=== PATIENT | female | born 1945 | race Caucasian/White ===

== ENCOUNTER 2016-09-06 14:13 | Observation (INO) | payer MEDICARE, OTHER ==
[2016-09-06] MEDS ORDERED: NITROGLYCERIN OINT 1 INCH/GM PACKET TOPICAL STA (15:09)
[2016-09-06] MEDS ORDERED: ASPIRIN 81 MG CHEW PO STA (15:09)
[2016-09-06] MEDS ORDERED: hydrALAZINE HCL 20 MG/ML 1 ML VIAL IVP STA (15:10)
[2016-09-06] MEDS ORDERED: LORazepam 2 MG/ML SYRINGE IV STA (15:10)
--- NOTE | 2016-09-06 15:12 | ED ---
General Adult HPI - General Chief complaint: Chest Pain Stated complaint: poss med reaction-sent by /chest pain Time Seen by Provider: 09/06/16 14:30 Source: patient Mode of arrival: wheelchair Limitations: no limitations - History of Present Illness Initial comments: This is a 71-year-old female with past medical history significant for diabetes high blood pressure high cholesterol. Patient states she also had a history of vertigo. Patient states today she was off balance when she was walking and then she started getting some tingling in her mouth area and that made her very nervous. Patient states she also was having some chest pain that was different than any of the chest pain she had she described it as a heaviness and it just felt different than she is accustomed to feeling. She called her primary medical care doctor to inform her of the symptoms and they told to come to the emergency department immediately. Patient denies any shortness of breath or difficulty breathing. Patient denies any diaphoresis. Patient denies any nausea. Patient states she has a very mild headache but there is no numbness or weakness. Patient denies any visual disturbance or speech disturbance. Patient denies any abdominal pain. Patient denies any recent fever chills or cough. Patient denies any recent injury or trauma - Related Data Home Medications Medication Instructions Recorded Confirmed Aspirin EC [Ecotrin Low Dose] 81 mg PO DAILY 12/22/15 09/06/16 Famotidine [Pepcid] 20 mg PO BID 12/22/15 09/06/16 Lisinopril [Zestril] 10 mg PO DAILY 12/22/15 09/06/16 Lovastatin [Mevacor] 40 mg PO HS 12/22/15 09/06/16 Metoprolol Tartrate [Lopressor] 100 mg PO DAILY 12/22/15 09/06/16 ALPRAZolam [Xanax] 0.25 mg PO HS 09/06/16 09/06/16 Albuterol Nebulized [Ventolin 2.5 mg INHALATION RT-TID 09/06/16 09/06/16 Nebulized] Allopurinol [Zyloprim] 100 mg PO DAILY 09/06/16 09/06/16 Baclofen 10 mg PO BID 09/06/16 09/06/16 Budesonide [Pulmicort] 0.5 mg INHALATION RT-BID 09/06/16 09/06/16 Diphenoxylate HCl/Atropine 1 tab PO TID PRN 09/06/16 09/06/16 [Lomotil] Gabapentin [Neurontin] 300 mg PO TID 09/06/16 09/06/16 Hydrocodone/Acetaminophen [[place] 1 tab PO Q6H PRN 09/06/16 09/06/16 7.5-325] Insulin NPH Hum/Reg Insulin Hm 26 unit SQ AC-BID 09/06/16 09/06/16 [Novolin 70-30 100 Unit/ml Vial] Levothyroxine Sodium [Synthroid] 112 mcg PO DAILY 09/06/16 09/06/16 amLODIPine [Norvasc] 5 mg PO DAILY 09/06/16 09/06/16 Allergies Allergy/AdvReac Type Severity Reaction Status Date / Time No Known Allergies Allergy Verified 09/06/16 14:25 Review of Systems ROS Statement: Those systems with pertinent positive or pertinent negative responses have been documented in the HPI. ROS Other: All systems not noted in ROS Statement are negative. Past Medical History Past Medical History: Diabetes Mellitus, Hyperlipidemia, Hypertension, Osteoarthritis (OA), Thyroid Disorder Additional Past Medical History / Comment(s): gout History of Any Multi-Drug Resistant Organisms: None Reported Past Surgical History: Cholecystectomy, Hysterectomy Past Psychological History: No Psychological Hx Reported Smoking Status: Former smoker Past Alcohol Use History: None Reported Past Drug Use History: None Reported General Exam - General Exam Comments Initial Comments: GENERAL: Patient is well-developed and well-nourished. Patient is nontoxic and well- hydrated and is in mild distress. ENT: Neck is soft and supple. No significant lymphadenopathy is noted. Oropharynx is clear. Moist mucous membranes. Neck has full range of motion without eliciting any pain. EYES: The sclera were anicteric and conjunctiva were pink and moist. Extraocular movements were intact and pupils were equal round and reactive to light. Eyelids were unremarkable. PULMONARY: Unlabored respirations. Good breath sounds bilaterally. No audible rales rhonchi or wheezing was noted. CARDIOVASCULAR: There is a regular rate and rhythm without any murmurs gallops or rubs. ABDOMEN: Soft and nontender with normal bowel sounds. No palpable organomegaly was noted. There is no palpable pulsatile mass. SKIN: Skin is clear with no lesions or rashes and otherwise unremarkable. NEUROLOGIC: Patient is alert and oriented x3. Cranial nerves II through XII are grossly intact. Motor and sensory are also intact. Normal speech, volume and content. Symmetrical smile. MUSCULOSKELETAL: Normal extremities with adequate strength and full range of motion. No lower extremity swelling or edema. No calf tenderness. LYMPHATICS: No significant lymphadenopathy is noted PSYCHIATRIC: Patient is moderately anxious Limitations: no limitations Course Vital Signs 09/06/16 09/06/16 09/06/16 14:25 14:48 16:06 Temperature 98.6 F Pulse Rate 80 67 79 Respiratory 18 20 20 Rate Blood Pressure 173/82 221/95 136/66 O2 Sat by Pulse 98 98 97 Oximetry 09/06/16 16:44 Temperature Pulse Rate 75 Respiratory 18 Rate Blood Pressure 116/57 O2 Sat by Pulse 96 Oximetry Medical Decision Making - Medical Decision Making [place] interval is 148 QRSs 80 QT interval is 432 QTC is 462. Patient's EKG shows no ST segment depression or T wave abnormalities are noted Chest x-ray shows no acute abnormality. I spoke with Dr. Ricks he agreed to admit the patient admitted the patient wrote admitting orders. - Lab Data Result diagrams: 09/06/16 15:34 09/06/16 15:34 Lab Results 09/06/16 09/06/16 09/06/16 Range/Units 15:34 15:34 15:34 WBC 7.3 (3.8-10.6) k/uL RBC 4.43 (3.80-5.40) m/uL Hgb 13.3 (11.4-16.0) gm/dL Hct 40.4 (34.0-46.0) % MCV 91.2 (80.0-100.0) fL MCH 29.9 (25.0-35.0) pg MCHC 32.8 (31.0-37.0) g/dL RDW 14.1 (11.5-15.5) % Plt Count 228 (150-450) k/uL Neutrophils % 63 % Lymphocytes % 25 % Monocytes % 8 % Eosinophils % 1 % Basophils % 1 % Neutrophils # 4.6 (1.3-7.7) k/uL Lymphocytes # 1.8 (1.0-4.8) k/uL Monocytes # 0.6 (0-1.0) k/uL Eosinophils # 0.1 (0-0.7) k/uL Basophils # 0.1 (0-0.2) k/uL PT (9.0-12.0) sec INR (<1.1) APTT (22.0-30.0) sec Sodium 138 (137-145) mmol/L Potassium 5.1 (3.5-5.1) mmol/L Chloride 102 (98-107) mmol/L Carbon Dioxide 20 L (22-30) mmol/L Anion Gap 16 mmol/L BUN 35 H (7-17) mg/dL Creatinine 1.38 H (0.52-1.04) mg/dL Est GFR (MDRD) Af Amer 46 (>60 ml/min/1.73 sqM) Est GFR (MDRD) Non-Af 38 (>60 ml/min/1.73 sqM) Glucose 231 H (74-99) mg/dL Calcium 9.8 (8.4-10.2) mg/dL Magnesium 1.8 (1.6-2.3) mg/dL Total Bilirubin 0.5 (0.2-1.3) mg/dL AST 19 (14-36) U/L ALT 30 (9-52) U/L Alkaline Phosphatase 91 (38-126) U/L Total Creatine Kinase 84 (30-135) U/L CK-MB (CK-2) 1.2 (0.0-2.4) ng/mL CK-MB (CK-2) Rel Index 1.4 Troponin I <0.012 (0.000-0.034) ng/mL NT-Pro-B Natriuret Pep pg/mL Total Protein 7.5 (6.3-8.2) g/dL Albumin 4.4 (3.5-5.0) g/dL 09/06/16 09/06/16 Range/Units 15:34 15:34 WBC (3.8-10.6) k/uL RBC (3.80-5.40) m/uL Hgb (11.4-16.0) gm/dL Hct (34.0-46.0) % MCV (80.0-100.0) fL MCH (25.0-35.0) pg MCHC (31.0-37.0) g/dL RDW (11.5-15.5) % Plt Count (150-450) k/uL Neutrophils % % Lymphocytes % % Monocytes % % Eosinophils % % Basophils % % Neutrophils # (1.3-7.7) k/uL Lymphocytes # (1.0-4.8) k/uL Monocytes # (0-1.0) k/uL Eosinophils # (0-0.7) k/uL Basophils # (0-0.2) k/uL PT 10.5 (9.0-12.0) sec INR 1.0 (<1.1) APTT 25.6 (22.0-30.0) sec Sodium (137-145) mmol/L Potassium (3.5-5.1) mmol/L Chloride (98-107) mmol/L Carbon Dioxide (22-30) mmol/L Anion Gap mmol/L BUN (7-17) mg/dL Creatinine (0.52-1.04) mg/dL Est GFR (MDRD) Af Amer (>60 ml/min/1.73 sqM) Est GFR (MDRD) Non-Af (>60 ml/min/1.73 sqM) Glucose (74-99) mg/dL Calcium (8.4-10.2) mg/dL Magnesium (1.6-2.3) mg/dL Total Bilirubin (0.2-1.3) mg/dL AST (14-36) U/L ALT (9-52) U/L Alkaline Phosphatase (38-126) U/L Total Creatine Kinase (30-135) U/L CK-MB (CK-2) (0.0-2.4) ng/mL CK-MB (CK-2) Rel Index Troponin I (0.000-0.034) ng/mL NT-Pro-B Natriuret Pep 424 pg/mL Total Protein (6.3-8.2) g/dL Albumin (3.5-5.0) g/dL Disposition Clinical Impression: Chest pain Disposition: ADMITTED IP TO THIS [facility] Time of Disposition: 17:10
[2016-09-06] MEDS ORDERED: ONDANSETRON 4 MG/2 ML VIAL IVP STA (15:25)
[2016-09-06 15:51] LABS: Basophils # (A) 0.1 k/uL (0-0.2); Basophils % (A) 1 %; CH 30.7; CHCM 33.8; Eosinophils # (A) 0.1 k/uL (0-0.7); Eosinophils % (A) 1 %; HCT 40.4 % (34.0-46.0); HDW 2.54; HGB 13.3 gm/dL (11.4-16.0); Luc # (Auto) 0.16; Luc % (Auto) 2; Lymphocytes # (A) 1.8 k/uL (1.0-4.8); Lymphocytes % (A) 25 %; MCH 29.9 pg (25.0-35.0); MCHC 32.8 g/dL (31.0-37.0); MCV 91.2 fL (80.0-100.0); Mean Platelet Volume 7.8; Monocytes # (A) 0.6 k/uL (0-1.0); Monocytes % (A) 8 %; Neutrophils # (A) 4.6 k/uL (1.3-7.7); Neutrophils % (A) 63 %; RBC 4.43 m/uL (3.80-5.40); RDW 14.1 % (11.5-15.5); WBC 7.3 k/uL (3.8-10.6); WBC (Perox) 7.58
[2016-09-06 16:02] LABS: Partial Thromboplastin Time 25.6 sec (22.0-30.0); Prothrombin Time 10.5 sec (9.0-12.0)
--- NOTE | 2016-09-06 16:02 | XR ---
EXAMINATION TYPE: XR chest 2V DATE OF EXAM: 09/06/2016 3:46 PM COMPARISON: 04/13/2013 HISTORY: Chest pain FINDINGS: The lungs are clear and there is no pneumothorax, pleural effusion, or focal pneumonia. Degenerativ e change of the spine noted. The heart is enlarged. Arthropathy of the shoulders. IMPRESSION: 1. No acute process.
[2016-09-06 16:06] LABS: Calcium 9.8 mg/dL (8.4-10.2); Magnesium 1.8 mg/dL (1.6-2.3); Potassium 5.1 mmol/L (3.5-5.1); Total Bilirubin 0.5 mg/dL (0.2-1.3); Total Protein 7.5 g/dL (6.3-8.2)
[2016-09-06 16:16] LABS: Creatine Kinase 84 U/L (30-135)
[2016-09-06 16:30] LABS: Creatine Kinase MB 1.2 ng/mL (0.0-2.4); Troponin I <0.012 ng/mL (0.000-0.034)
[2016-09-06 18:27] LABS: Glucose,Whole Blood 173 mg/dL (75-99)
[2016-09-06] MEDS: NITROGLYCERIN SL TABS 0.4 MG TAB SUBLINGUAL PRN ×3 (20:35→20:46)
[2016-09-06] MEDS ORDERED: DIPHENOX-ATROP 2.5-0.025 MG 1 EACH TAB PO PRN (21:04)
[2016-09-06 21:06] LABS: Glucose,Whole Blood 167 mg/dL (75-99)
[2016-09-06] MEDS ORDERED: methylPREDNISolone SOD SUCCI 125 MG/2 ML VIAL IV STA (21:10)
[2016-09-06] MEDS ORDERED: ALPRAZolam 0.5 MG TAB PO SCH (21:15)
[2016-09-06 21:38] LABS: Creatine Kinase 68 U/L (30-135)
[2016-09-06 21:50] LABS: Troponin I <0.012 ng/mL (0.000-0.034)
[2016-09-06] MEDS: GABAPENTIN 300 MG CAP PO SCH (23:10)
[2016-09-06] MEDS: FAMOTIDINE 20 MG TAB PO SCH (23:10)
[2016-09-06] MEDS: HYDROcodone/APAP 7.5-325MG 1 EACH TAB PO PRN (23:10)
[2016-09-06] MEDS: INSULIN LISPRO (humaLOG) 300 UNIT/3 ML VIAL SQ SCH (23:11)
[2016-09-06] MEDS: BACLOFEN 10 MG TAB PO SCH (23:11)
[2016-09-06] MEDS: ATORVASTATIN 10 MG TAB PO SCH (23:11)
[2016-09-06] MEDS: NITROGLYCERIN OINT 1 INCH/GM PACKET TOPICAL SCH (23:14)
[2016-09-07] MEDS: HYDROcodone/APAP 7.5-325MG 1 EACH TAB PO PRN ×2 (04:26→12:13)
[2016-09-07 04:30] LABS: Cholesterol 173 mg/dL (<200); HDL Cholesterol 58 mg/dL (40-60); Triglycerides 160 mg/dL (<150)
[2016-09-07 04:44] LABS: Creatine Kinase 63 U/L (30-135)
[2016-09-07 04:56] LABS: Creatine Kinase MB 0.9 ng/mL (0.0-2.4); Troponin I <0.012 ng/mL (0.000-0.034)
[2016-09-07] MEDS: NITROGLYCERIN OINT 1 INCH/GM PACKET TOPICAL SCH ×3 (05:27→20:11)
[2016-09-07] MEDS: MORPHINE SULFATE 2 MG/ML SYRINGE IVP PRN ×2 (05:31→09:03)
[2016-09-07] MEDS ORDERED: LEVOTHYROXINE 112 MCG TAB PO SCH (06:30)
[2016-09-07 07:10] LABS: Glucose,Whole Blood 219 mg/dL (75-99)
[2016-09-07] MEDS: ALBUTEROL NEBULIZED 2.5 MG/3 ML INHALATION SCH ×3 (08:18→20:37)
[2016-09-07] MEDS: BUDESONIDE 0.5 MG/2 ML NEBU INHALATION SCH ×2 (08:18→20:37)
[2016-09-07] MEDS: GABAPENTIN 300 MG CAP PO SCH ×3 (08:57→20:35)
[2016-09-07] MEDS: BACLOFEN 10 MG TAB PO SCH ×2 (08:57→20:35)
[2016-09-07] MEDS ORDERED: ASPIRIN 325 MG TAB PO SCH (09:00)
[2016-09-07] MEDS ORDERED: METOPROLOL TARTRATE 50 MG TAB PO SCH (09:00)
[2016-09-07] MEDS ORDERED: ASPIRIN 81 MG CHEW PO SCH (09:00)
[2016-09-07] MEDS ORDERED: amLODIPine 5 MG TAB PO SCH (09:00)
[2016-09-07] MEDS ORDERED: LISINOPRIL 10 MG TAB PO SCH (09:00)
[2016-09-07 10:25] LABS: Hemoglobin A1C 7.6 % (4.2-6.1)
[2016-09-07] MEDS: INSULIN LISPRO (humaLOG) 300 UNIT/3 ML VIAL SQ SCH ×4 (10:36→20:36)
--- NOTE | 2016-09-07 11:15 | CONS ---
DATE OF CONSULTATION: Marizol Frances is a 71-year-old female who started experiencing numbness of the tongue and then she started experiencing chest discomfort and came to the hospital. Her first ECG was normal. Three sets of cardiac enzymes have been normal. She has had chest discomfort continuously since yesterday. Her chest wall is quite tender and she winces when the costochondral junction of the left side is touched, especially one particular spot. She denies any shortness of breath, orthopnea, PND, or any palpitations. REVIEW OF SYSTEMS: No fever, chills, or rigors. No cough or expectoration. No abdominal pain or diarrhea. No hematuria or dysuria. No strokes or seizures. No skin lesions. No musculoskeletal complaints. She does complain of being weak and tired. Past history of diabetes, hypertension, increased BMI of greater than 40. She also has CKS. Medication list was reviewed and is documented in the chart. She sees Dr. Mendoza on a regular basis. She also has gout. ALLERGIES: No known drug allergies. On examination, her blood pressure is 137/62 mmHg, heart rate is in the 70s. Head and neck examination is normal. Heart sounds are normal. Lungs are clear to auscultation. Extremities are warm. No edema. She is tender in the costochondral junction on both sides, but more so on the left side. IMPRESSION: 1. Musculoskeletal chest discomfort, likely costochondritis. 2. Recent stress test in the office. Patient states it was normal. I have asked for a faxed copy of this report to review. 3. Diabetes, adult onset on insulin. 4. Hypertension, on medical treatment. Blood pressure is controlled. 5. Dyslipidemia. 6. Increased body mass index. 7. Numbness of the tongue which may need to be further evaluated. SUGGEST: From a cardiac standpoint., if the stress test in the office was normal., I will continue with cardiac medications. Follow up with Dr. Mendoza and the rest of the management per the primary.
[2016-09-07 12:06] LABS: Glucose,Whole Blood 226 mg/dL (75-99)
[2016-09-07] MEDS: FAMOTIDINE 20 MG TAB PO SCH (12:08)
[2016-09-07] MEDS ORDERED: ALPRAZolam 0.25 MG TAB PO PRN (14:30)
[2016-09-07] MEDS ORDERED: SODIUM CHLORIDE 0.9% 1,000 ML IV SCH (14:30)
--- NOTE | 2016-09-07 15:13 | CT ---
EXAMINATION TYPE: CT brain wo con DATE OF EXAM: 09/07/2016 3:06 PM COMPARISON: NONE INDICATION: Speech abnormality slurred speech DLP: 845.2 mGycm, Automated exposure control for dose reduction was used. CONTRAST: None CT of the brain is performed utilizing 3 mm thick sections through the posterior fossa and 3 mm thick sections through the remaining calvarium. Study is performed within 24 hours of arrival to the hosp ital. No abnormal hyperdensity is present to suggest an acute intracranial hemorrhage. No mass lesion is evident. No acute infarcts are evident. Periventricular white matter hypodensity is present, likely on the bas is of confluent white matter changes. Ventricles and sulci are slightly prominent for the patient age. Paranasal sinuses and mastoid air cells within the [id number] are clear. IMPRESSIONS: 1. Atrophy with periventricular white matter ischemic changes
--- NOTE | 2016-09-07 15:52 | US ---
EXAMINATION TYPE: US carotid duplex BILAT DATE OF EXAM: 09/07/2016 3:17 PM COMPARISON: No previous CLINICAL HISTORY: TIA. Slurred speech, numbness EXAM MEASUREMENTS: RIGHT: Peak Systolic Velocity (PSV) cm/sec ----- Right CCA: 70.2 ----- Right ICA: 146.2 ----- Right ECA: 184.3 ICA/CCA ratio: 2.1 RIGHT: End Diastole cm/sec ----- Right CCA: 19.7 ----- Right ICA: 43.9 ----- Right ECA: 16.8 LEFT: Peak Systolic Velocity (PSV) cm/sec ----- Left CCA: 97.9 ----- Left ICA: 117.7 ----- Left ECA: 120.4 ICA/CCA ratio: 1.2 LEFT: End Diastole cm/sec ----- Left CCA: 21.6 ----- Left ICA: 30.4 ----- Left ECA: 8.9 VERTEBRALS (direction of flow): Right Vertebral: Antegrade Left Vertebral: Antegrade TECHNOLOGIST IMPRESSION: Bilateral intimal thickening, plaque bilateral bulb and proximal ICA, eleva jerry velocities: right mid ICA, right distal ICA and right mid ECA, right ICA/CCA ratio of 2.1 Atheromatous plaquing is within the right carotid bulb. There is some mild filling of the acoustic wi ndows on the right compatible with turbulent flow. Intimal thickening is present on the left. Mild fi lling of the acoustic window on the left is present compatible with turbulent flow IMPRESSION: 1. Atheromatous plaquing greater on the right with bilateral intimal thickening. 2. Narrowing on the right internal carotid artery estimated between 50 and 69% based on internal reis tid artery velocity and ratio. Criteria for Assigning % of Stenosis / Diameter reduction (Estimation based on the indirect measurements of the internal carotid artery velocities (ICA PSV). 1. Normal (no stenosis)=ICA PSV < 125 cm/s: ratio < 2.0: ICA EDV<40 cm/s. 2. Less than 50% stenosis=ICA PSV < 125 cm/s: ratio < 2.0: ICA EDV<40 cm/s. 3. 50 to 69% stenosis=ICA PSV of 125 to 230 cm/s: ration 2.0 ? 4.0: ICA EDV 40-100 cm/s. 4. Greater than 70% stenosis to near occlusion= ICA PSV > 230 cm/s: ratio > 4.0: ICA EDV > 100 cm/s. 5. Near occlusion= ICA PSV velocities may be low or undetectable: variable ratio and ICA EDV. 6. Total occlusion=unable to detect flow.
[2016-09-07 17:16] LABS: Glucose,Whole Blood 250 mg/dL (75-99)
[2016-09-07] MEDS ORDERED: RX INFO: IV CONTRAST WAS GIVEN 1 EACH MISC MISCELLANE PRN (17:25)
[2016-09-07] MEDS ORDERED: INSULIN NPH/REG INSULIN 70/30 300 UNIT/3 ML VIAL SQ SCH (17:30)
[2016-09-07 18:38] VITALS: PULSE 74
--- NOTE | 2016-09-07 18:40 | HP ---
DATE OF ADMISSION: 09/06/2016 HISTORY AND PHYSICAL AND DISCHARGE SUMMARY Patient is a 71-year-old female, history of hypertension, diabetes mellitus, and hypercholesterolemia, came in with complaints of chest pain. Appears to be noncardiac ( ). Patient was ( ) diaphoresis, nausea, vomiting when she came in. Patient's chest pain is about 7/10 in severity at that time. Nonradiating. The patient was evaluated by Cardiology. Ruled out acute coronary syndrome with troponins and EKGs. Patient was diagnosed with costochondritis. Patient apparently was complaining of tingling and numbness of the tongue yesterday in ER. Today morning when I evaluated the patient she complained of slurred speech and patient's speech is definitely abnormal when I evaluated the patient. Because of which I obtained a CT scan of the head without contrast which was negative. Carotid Doppler which showed subclinical stenosis of one side, of below 69%. I consulted Neurology and patient is already on aspirin. I discussed with the nursing staff. Apparently whenever, patient gets anxious she will have slurred speech as per the nursing staff. Although, patient denied any weakness, patient does have generalized weakness all over the body. Reflexes are essentially within normal limits. No focal sensory deficits were appreciated. Patient denied any facial droop. Patient denied any headaches. Patient denied any seizure-like activity. The patient does not have any seizures. Denied any syncopal episodes. REVIEW OF SYSTEMS: CONSTITUTIONAL: No fever, no malaise, no fatigue. HEENT: No recent visual problems or hearing problems. Denied any sore throat. CARDIOVASCULAR: As described in HPI. PULMONARY: No shortness of breath, no cough, no hemoptysis. GASTROINTESTINAL: No diarrhea, no nausea, no vomiting, no abdominal pain. Normoactive bowel sounds. NEUROLOGICAL: As described in HPI. HEMATOLOGICAL: Denies any bleeding or petechiae. GENITOURINARY: Denies any burning micturition, frequency, or urgency. MUSCULOSKELETAL/RHEUMATOLOGICAL: Denies any joint pain, swelling, or any muscle pain. ENDOCRINE: Denies any polyuria or polydipsia. The rest of the 14 point review of systems is negative. Medications include: Aspirin, famotidine, lisinopril, lovastatin, metoprolol, alprazolam, albuterol, allopurinol, baclofen, Rocephin, diphenoxylate, ipratropium. Patient does have IBS for which patient uses diphenoxylate and ( ). Gabapentin, hydrocodone acetaminophen, NPH 70/30 26 units a.c. b.i.d., levothyroxine, amlodipine 5 mg oral daily, which I held because of low normal blood pressure and to allow premature hypertension if at all there is any TIA or stroke. ALLERGIES: No known drug allergies. PAST MEDICAL HISTORY: Diabetes mellitus. Hyperlipidemia, hypertension, osteoarthritis, hypothyroidism, cholecystectomy, hysterectomy in the past, former smoker. Denied any alcohol abuse or any drug abuse. Family history significant for strokes in the family when I discussed with the daughter. PHYSICAL EXAMINATION: VITAL SIGNS: Temperature 98.6, pulse of 67, respiratory rate 20, blood pressure on arrival to the ER was 221/95 and when I evaluated the patient it was 116/57, saturating at 96% on room air. GENERAL: Patient does have generalized weakness with diffusely decreased strength of 4/5 in bilateral upper extremities and lower extremities. HEENT: Pupils are round and equally reacting to light. EOMI. No scleral icterus. No conjunctival pallor. Normocephalic, atraumatic. No pharyngeal erythema. No thyromegaly. CARDIOVASCULAR: S1 and S2 present. No murmurs, rubs, or gallops. PULMONARY: Chest is clear to auscultation, no wheezing or crackles. ABDOMEN: Soft, nontender, nondistended, normoactive bowel sounds. No palpable organomegaly. MUSCULOSKELETAL: No joint swelling or deformity. EXTREMITIES: No cyanosis, clubbing, or pedal edema. NEUROLOGICAL: On neurological examination I did not appreciate any sensory deficits. Strength in all four limbs is about 4/5. No focal deficits were appreciated. Babinski, bilateral legs is downgoing. SKIN: No rashes. LABORATORY DATA: CBC and CMP are abnormal for mildly elevated creatinine of 1.38. I do not have her baseline creatinine. Potassium of 5.1. BUN of 35. ASSESSMENT AND PLAN: 1. Chest pain as mentioned, noncardiac. patient is ruled out acute coronary syndrome, unstable angina and patient will need antiinflammatories for her costochondritis. 2. Possibility of transient ischemic attack or stroke with today morning after a couple episodes of slurred speech. When I evaluated the patient she had continued slurred speech. Patient will definitely need evaluation for transient ischemic attack or stroke. As per the family request, the patient will be transferred to [facility]. Apparently the case was discussed with neurologist in [facility] who recommend scans of the head and neck because of the findings from carotid Doppler as mentioned above. Those will be obtained before her transfer. Patient already received aspirin today. Further work-up for stroke versus transient ischemic attack as an outpatient, although my overall suspicion for transient ischemic attack is low. 3. Acute renal failure, possibly acute renal failure for which I started her on IV fluids. Due to intravascular volume depletion patient does not have any diarrhea at this point of time. 4. History of irritable bowel syndrome without any excessive diarrhea or constipation at this time and patient will be continued on diphenoxylate and atropine. 5. Hyperlipidemia. 6. Diabetes mellitus. 7. Hypothyroidism. 8. Hypertension. For above mentioned chronic medical problems, I will go ahead and continue her home medications. Because of the above mentioned low normal blood pressures I will hold off on amlodipine to allow any premature hypertension ( ) TIA or stroke. Patient will be transferred to [facility] as discussed above.
[2016-09-07 20:29] VITALS: BP 129/64; RESP 16; TEMP 97.8
[2016-09-07] MEDS: ATORVASTATIN 10 MG TAB PO SCH (20:35)
[2016-09-07 20:52] LABS: Glucose,Whole Blood 196 mg/dL (75-99)
[2016-09-08] MEDS ORDERED: FAMOTIDINE 20 MG TAB PO SCH (09:00)
== END 2016-09-07 21:39 | disposition other institution (70) ==
LOC: EC 14:13 → 3OBS 17:11 → 6SEL 09-07 19:35
PROVIDERS: ADMIT Internal Medicine; ATTEND Internal Medicine
DX: M94.0 Chondrocostal junction syndrome [Tietze] (principal); R47.81 Slurred speech; E78.5 Hyperlipidemia, unspecified; E11.9 Type 2 diabetes mellitus without complications; E03.9 Hypothyroidism, unspecified; I10 Essential (primary) hypertension; R20.0 Anesthesia of skin; M19.90 Unspecified osteoarthritis, unspecified site; E07.9 Disorder of thyroid, unspecified; M10.9 Gout, unspecified; Z79.82 Long term (current) use of aspirin; Z79.51 Long term (current) use of inhaled steroids; Z79.4 Long term (current) use of insulin; Z79.899 Other long term (current) drug therapy; Z87.891 Personal history of nicotine dependence; K58.9 Irritable bowel syndrome, unspecified; Z82.3 Family history of stroke
CPT/HCPCS: 36415; 94640 ×2; 93005; 83880; 80061; 80053; 83036; 82550 ×2; 82553 ×2; 83735; 84484 ×2; 85025; 85610; 85730; 71020; 93880; 70450; 99285; 96374; 96375 ×2; G0378 ×3; J2060; J0360; J2930; J2405; J2270; 96376

== ENCOUNTER → 2018-11-06 | Outpatient (CLI) | payer MEDICARE, OTHER ==
[2018-11-06 19:04] LABS: C Reactive Protein 0.7 mg/dL (0.0-0.8)
== END ==
LOC: LABWHC1 12:21
PROVIDERS: ATTEND Psychiatry & Neurology Neurology
DX: M79.10 Myalgia, unspecified site (principal); M25.50 Pain in unspecified joint
CPT/HCPCS: 36415; 82550; 85652; 86140; 86618

== ENCOUNTER → 2018-12-03 | Outpatient (CLI) | payer MEDICARE, OTHER ==
[2018-12-03 20:30] LABS: LDL Cholesterol,Calculated 104.2 mg/dL (0.0-131.0); VLDL Calculation 35.8 mg/dL (5.00-40.00)
== END ==
LOC: LABWHC1 11:01
PROVIDERS: ATTEND Psychiatry & Neurology Neurology
DX: E78.5 Hyperlipidemia, unspecified (principal)
CPT/HCPCS: 36415; 80061

== ENCOUNTER 2019-02-19 07:57 | Day surgery (SDC) | payer MEDICARE, OTHER ==
[2019-02-19 08:30] VITALS: PULSE 75; RESP 16; TEMP 98.2
[2019-02-19] MEDS ORDERED: ALPRAZolam 0.25 MG TAB PO ONE (08:35)
[2019-02-19 09:54] VITALS: BP 157/77
== END 2019-02-19 10:50 | disposition home or self-care (01) ==
LOC: RADMRIMAIN 07:57
PROVIDERS: ATTEND Surgery
DX: C50.911 Malignant neoplasm of unspecified site of right female breast (principal); Z53.8 Procedure and treatment not carried out for other reasons

== ENCOUNTER → 2019-03-05 | Outpatient (CLI) | payer MEDICARE, OTHER ==
[2019-03-05 11:53] LABS: Potassium 4.5 mmol/L (3.5-5.1)
== END | disposition home or self-care (01) ==
LOC: LABPAT 10:41
PROVIDERS: ATTEND Surgery
DX: Z01.818 Encounter for other preprocedural examination (principal); Z79.4 Long term (current) use of insulin; E10.9 Type 1 diabetes mellitus without complications; Z01.812 Encounter for preprocedural laboratory examination
CPT/HCPCS: 36415; 82565; 84132; 84520; 93005

== ENCOUNTER 2019-03-07 06:21 | Day surgery (SDC) | payer MEDICARE, OTHER ==
[~2019-03-07 06:21] MED LIST: LIDOCAINE 1% 20 ML VIAL (10MG/ML) FOR IV START INTRADERMA PRN; ONDANSETRON 4 MG/2 ML VIAL IVP ONE; ONDANSETRON 4 MG/2 ML VIAL IVP PRN; Pre Op ABX Message 1 EACH MISC MISCELLANE ONE; SCOPOLAMINE 1.5MG/72HR PATCH TRANSDERM ONE
[2019-03-07] MEDS: LACTATED RINGERS 1,000 ML IV SCH (06:40)
[2019-03-07 07:03] LABS: Glucose,Whole Blood 132 mg/dL (75-99)
[2019-03-07] MEDS ORDERED: ALPRAZolam 0.25 MG TAB PO ONE (07:10)
--- NOTE | 2019-03-07 07:55 | P.GSHP ---
History of Present Illness H&P Date: 03/07/19 Chief Complaint: Right breast cancer 73-year-old female presents today for bilateral mastectomy. The patient had recent diagnosis of right breast cancer after wire localization biopsy. Lymph node sampling was not obtained during that surgery however the patient's margins were close but clear on the biopsy specimen. The patient was agreeable to radiation therapy. We decided not to follow through with lymph node sampling initially. The patient had an MRI performed given the lobular cell type. MRI showed an additional suspicious area on the contralateral breast. The patient was scheduled for an MRI guided biopsy. This could not be performed given the patient's body habitus. The patient already was interested in bilateral mastectomy with a family history of breast cancer in her sister. She was refusing any further attempts at biopsy left breast. Patient has been seen by oncology recently. 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 wrist surgery Past Anesthesia/Blood Transfusion Reactions: No Reported Reaction Smoking Status: Former smoker - Past Family History Mother Family Medical History: Deep Vein Thrombosis (DVT) Father Family Medical History: Myocardial Infarction (MD) Sister(s) Family Medical History: Cancer Additional Family Medical History / Comment(s): colon cancer, lung cancer Brother(s) Family Medical History: Cancer, Myocardial Infarction (MD) Additional Family Medical History / Comment(s): prostate cancer Daughter(s) Family Medical History: No Reported History Son(s) Family Medical History: Hypertension Medications and Allergies Home Medications Medication Instructions Recorded Confirmed Type Famotidine [Pepcid] 20 mg PO QAM 12/22/15 03/07/19 History Metoprolol Tartrate [Lopressor] 100 mg PO DAILY 12/22/15 03/07/19 History Albuterol Nebulized [Ventolin 2.5 mg INHALATION RT-TID PRN 09/06/16 03/07/19 History Nebulized] Hydrocodone/Acetaminophen [[place] 1 tab PO Q6H PRN 09/06/16 03/07/19 History 7.5-325] Levothyroxine Sodium [Synthroid] 120 mcg PO DAILY 09/06/16 03/07/19 History Ergocalciferol (Vitamin D2) 50,000 unit PO WEEKLY 02/11/19 03/07/19 History [Vitamin D2] Insulin NPH Hum/Reg Insulin Hm 35 unit SQ BID 02/11/19 03/07/19 History [NovoLIN 70-30 100 UNIT/ML VIAL] Insulin Regular, Human [NovoLIN R] 0 unit SQ AC-TID 02/11/19 03/07/19 History Acetaminophen [Tylenol Extra 500 mg PO Q6HR 03/07/19 03/07/19 History Strength] Allergies Allergy/AdvReac Type Severity Reaction Status Date / Time Iodinated Contrast- Oral and Allergy Anaphylaxis Verified 03/03/19 15:58 IV Dye iodine Allergy Rash/Hives Verified 03/03/19 15:58 Surgical - Exam Vital Signs Temp Pulse Resp BP Pulse Ox 97.9 F 75 16 144/82 96 03/07/19 07:05 03/07/19 07:05 03/07/19 07:05 03/07/19 07:05 03/07/19 07:05 Physical exam: General: Well-developed, well-nourished HEENT: Normocephalic, sclerae nonicteric Right breast: Recent scar surgery noted, no adenopathy or masses Left breast: No masses or adenopathy Abdomen: Nontender, nondistended Extremities: No edema Neuro: Alert and oriented Results - Labs Abnormal Lab Results - Last 24 Hours (Table) 03/07/19 Range/Units 06:52 POC Glucose (mg/dL) 132 H (75-99) mg/dL Assessment and Plan (1) Breast cancer, right Narrative/Plan: Clinical scenario reviewed with the patient and her sister on multiple occasions. Patient is interested in bilateral simple mastectomy. We'll plan right breast sentinel lymph node injection and biopsy at this time as well. Risks of bleeding, infection, scarring, numbness, ischemia, pain, potential need for additional procedures reviewed. She understands and wishes to proceed. Current Visit: Yes Status: Acute Code(s): C50.911 - MALIGNANT NEOPLASM OF UNSP SITE OF RIGHT FEMALE BREAST SNOMED Code(s): 113494893
[2019-03-07] MEDS ORDERED: ceFAZolin 3 GM in SODIUM CHLORIDE 0.9% 100 ML IVPB ONE (08:31)
[2019-03-07] MEDS ORDERED: HEPARIN SODIUM,PORCINE 5,000 UNIT/ML 1 ML VIAL SQ STA (08:32)
[2019-03-07] MEDS ORDERED: METHYLENE BLUE 10 MG/ML (10 ML VIAL) MISCELLANE ONE (08:36)
--- NOTE | 2019-03-07 08:50 | P.PCN ---
Date of Procedure: 03/07/19 Procedure(s) Performed: Preoperative Dx: Dysphagia Postoperative Dx: Erosive gastritis, distal esophagitis Procedure: EGD with Bx Anesthesia: Sedation Endoscopist: Dr. Jeter Specimens: Antrum Endoscopic Procedure: The patient was on the endoscopy table in the left decubitus position. The Olympus gastroscope was inserted into the oropharynx and passed under direct visualization to the region of the third portion of the duodenum. From that point the scope was slowly withdrawn inspecting all surfaces carefully. There were no neoplastic inflammatory or polypoid lesions throughout the duodenum. The pylorus was widely patent. The stomach was carefully inspected. There was erosive gastritis present. A biopsy of the antrum took place to rule out H. pylori. Retroflexion revealed a normal hiatus. The esophagus was then carefully examined. There was evidence of mild distal esophagitis. A single linear erosion present non-circumferential measuring less than 1 cm. The remainder the esophagus appear normal although slightly tortuous. The patient was then taken to the recovery room in stable condition per anesthesia guidelines. Recommendations: Begin antiacid therapy. This should improve the patient's dysphagia symptoms.
[2019-03-07] MEDS ORDERED: MIDAZOLAM 2 MG/2 ML VIAL ONE (08:53)
[2019-03-07] MEDS ORDERED: METOPROLOL TARTRATE 5 MG/5 ML VIAL IVP ONE (08:53)
[2019-03-07] MEDS ORDERED: SUCCINYLCHOLINE CHLORIDE 100 MG/5 ML SYR IV ONE (08:53)
[2019-03-07] MEDS ORDERED: fentaNYL (PF) 50 MCG/ML 2 ML AMP ONE (08:53)
[2019-03-07] MEDS ORDERED: PROPOFOL 10 MG/ML 20 ML VIAL IV ONE (08:53)
[2019-03-07] MEDS ORDERED: DEXAMETHASONE SOD PHOS (MDV) 100 MG/10 ML VIAL ONE (08:53)
[2019-03-07] MEDS ORDERED: LIDOCAINE 1% INJ 10MG/ML (20 ML MDV) ONE (08:53)
[2019-03-07] MEDS ORDERED: ROCURONIUM BROMIDE 10 MG/ML 10 ML VIAL IV ONE (08:53)
[2019-03-07] MEDS ORDERED: HYDROmorphone (PF) 1 MG/ML ONE (08:53)
[2019-03-07] MEDS ORDERED: ONDANSETRON 4 MG/2 ML VIAL ONE (08:53)
--- NOTE | 2019-03-07 09:21 | NM ---
EXAMINATION TYPE: NM sentinel node injection DATE OF EXAM: 03/07/2019 COMPARISON: Outside MRI dated 01/16/2019 HISTORY: Right breast cancer TECHNIQUE AND FINDINGS: The procedure of sentinel lymph node injection was explained to the patient. The benefits, alternatives, and risks were discussed. An informed consent was then obtained. Overlying skin is cleaned with sterile alcohol. Following this, 503 uCi Tc99m Tilmanocept was inject ed in the upper outer aspect of the right nipple intradermally. The patient tolerated the procedure well without any immediate complication. The patient was kept in the radiology department for short stay after the procedure and then taken to surgery for surgical p rocedure what is presumed intraoperative gamma probe will be used for sentinel lymph node detection. IMPRESSION: Right breast radiotracer injection for sentinel node localization as above.
[2019-03-07] MEDS ORDERED: LACTATED RINGERS 1,000 ML IV ONE ×2 (11:10)
[2019-03-07 11:11] LABS: Glucose,Whole Blood 179 mg/dL (75-99)
[2019-03-07] MEDS ORDERED: ACETAMINOPHEN TAB 325 MG TAB PO PRN (11:50)
[2019-03-07] MEDS ORDERED: traMADol 50 MG TAB PO PRN (11:50)
[2019-03-07] MEDS ORDERED: NALOXONE 0.4 MG/ML 1 ML VIAL IV PRN (11:50)
[2019-03-07] MEDS ORDERED: BISACODYL 10 MG SUPP RECTAL PRN (11:50)
--- NOTE | 2019-03-07 12:34 | P.OP ---
Date of Procedure: 03/07/19 Procedure(s) Performed: PREOPERATIVE DIAGNOSIS: Right breast cancer POSTOPERATIVE DIAGNOSIS: Same PROCEDURE: Bilateral simple mastectomy with right breast sentinel lymph node biopsy SURGEON: Steffany EBL: 50 mL ANESTHESIA: General COMPLICATIONS: None OPERATIVE PROCEDURE: Patient was placed on the operating room table in the supine position. 2 mL of methylene blue was injected into the right subareolar space. The breast was then massaged for 5 minutes. Using the skin marker the proposed incision sites were drawn out on the chest wall bilaterally. The lateral aspect of the superior incision on the right breast was first incised. Dissection into the true axilla took place. Using the neoprobe we suspected and identified a total of 4 sentinel lymph nodes. Only one of these was blue in color. That was labeled sentinel lymph node 1 and 2 as there were 2 lymph nodes together there. All lymph nodes were later found to be negative for malignancy by frozen section. After the lymph nodes had been sent off the left breast was addressed. The superior incision was first created. The incision was elliptical in nature encompassing the nipple areolar complex. Flaps were raised superiorly until the chest wall was reached. The axilla was then addressed. The mastectomy incision was then created inferiorly and flaps were again raised until the chest wall was reached. The breast was removed from the chest wall using electrocautery. Multiple vessels were divided using either electrocautery, LigaSure, or the clip instrument maintenance supervisor. The area was irrigated. No bleeding was seen. A drain was placed beneath the flaps of the mastectomy incision. The subcutaneous tissues were then closed using 3-0 Vicryl sutures and the skin was closed using a running 4-0 Monocryl stitch. The right mastectomy site was then addressed in a similar fashion. The superior incision was lengthened medially. Dissection beneath the skin level creating flaps superiorly to we reached the chest wall took place. Inferior incision took place in similar fashion. Again small vessels were either ligated using the clip instrument maintenance supervisor, LigaSure, or electrocautery. A drain was again placed beneath the skin closure. Subcutaneous tissues again closed using 3-0 Vicryl sutures. Skin closed using a running 4-0 Monocryl stitch. Prineo dressing was used along the entire length of the incision with Dermabond. The drains were sutured in place using a 3-0 silk stitch. DISPOSITION: Stable to recovery room
[2019-03-07 13:02] LABS: Glucose,Whole Blood 174 mg/dL (75-99)
[2019-03-07] MEDS: HYDROmorphone 0.5 MG/0.5 ML SYRINGE IVP PRN ×5 (13:10→23:43)
[2019-03-07] MEDS ORDERED: D5-0.45% NACL WITH KCL 20MEQ/L 1,000 ML IV SCH (14:00)
[2019-03-07 15:05] VITALS: BMI 43.8
[2019-03-07] MEDS: HEPARIN SODIUM,PORCINE 5,000 UNIT/ML 1 ML VIAL SQ SCH ×2 (16:07→23:42)
[2019-03-07] MEDS: ONDANSETRON 4 MG/2 ML VIAL IVP PRN ×2 (16:07→23:43)
[2019-03-07 17:45] LABS: Glucose,Whole Blood 223 mg/dL (75-99)
[2019-03-07] MEDS: INSULIN ASPART (NovoLOG) 100 UNIT/ML VIAL SQ SCH (17:49)
[2019-03-07] MEDS ORDERED: FAMOTIDINE 20 MG TAB PO SCH (21:00)
[2019-03-07] MEDS: FAMOTIDINE 20 MG TAB PO SCH (21:04)
[2019-03-07] MEDS: DOCUSATE 100 MG CAP PO SCH (21:04)
[2019-03-07 22:13] LABS: Glucose,Whole Blood 242 mg/dL (75-99)
[2019-03-07] MEDS: INSULN ASP PRT/INSULIN ASPART 100 UNIT/ML 10 ML VIAL SQ SCH (22:19)
--- NOTE | 2019-03-07 23:05 | P.CONS ---
History of Present Illness - Reason for Consult Consult date: 03/07/19 Medical management of hypertension diabetes - Chief Complaint Bilateral simple mastectomy with right breast sentinel lymph node biopsy - History of Present Illness Patient is a 73-year-old female with a known history of hypertension, diabetes type 2 insulin-dependent, COPD, hyperlipidemia, hypothyroidism and previous history of smoking who was recently diagnosed with breast cancer was admitted to the hospital for mastectomy. Patient was diagnosed after wire localization biopsy. Patient had MRI showed suspicious areas in the right breast. Patient was admitted to hospital for bilateral mastectomy. Patient underwent Bilateral simple mastectomy with right breast sentinel lymph node biopsy Patient tolerated the procedure very well. Currently pain is controlled with medications. No fever no chills. No nausea vomiting or abdominal pain. No diarrhea or dysuria. Review of Systems Constitutional: Patient denies any fever or chills . No generalized weakness or weight loss. Abdomen: Patient denied nausea vomiting and diarrhea and abdominal pain. Cardiovascular: Patient denies any chest pain or short of breath no palpitations. Respiratory: patient denied any cough is from production. No shortness of breath Neurologic: Patient denied any numbness or tingling headache. Musculoskeletal: Patient denies any complaints of joint swelling or deformity. Skin: Negative Psychiatric: Negative Endocrine: No heat or cold intolerance. No recent weight gain. Genitourinary: No dysuria or hematuria. All other 14 point ROS negative except the above Past Medical History Past Medical History: COPD, Diabetes Mellitus, Fibromyalgia, Hyperlipidemia, Hypertension, Osteoarthritis (OA), Thyroid Disorder Additional Past Medical History / Comment(s): Guillain [place] History of Any Multi-Drug Resistant Organisms: None Reported Past Surgical History: Cholecystectomy, Ear Surgery, Hysterectomy, Orthopedic Surgery Additional Past Surgical History / Comment(s): BEST. wrist surgery Past Anesthesia/Blood Transfusion Reactions: No Reported Reaction Past Psychological History: No Psychological Hx Reported Smoking Status: Former smoker Past Alcohol Use History: None Reported Past Drug Use History: None Reported - Past Family History Mother Family Medical History: Deep Vein Thrombosis (DVT) Father Family Medical History: Myocardial Infarction ([place]) Sister(s) Family Medical History: Cancer Additional Family Medical History / Comment(s): colon cancer, lung cancer Brother(s) Family Medical History: Cancer, Myocardial Infarction ([place]) Additional Family Medical History / Comment(s): prostate cancer Daughter(s) Family Medical History: No Reported History Son(s) Family Medical History: Hypertension Medications and Allergies Home Medications Medication Instructions Recorded Confirmed Type Famotidine [Pepcid] 20 mg PO QAM 12/22/15 03/07/19 History Metoprolol Tartrate [Lopressor] 100 mg PO DAILY 12/22/15 03/07/19 History Albuterol Nebulized [Ventolin 2.5 mg INHALATION RT-TID PRN 09/06/16 03/07/19 History Nebulized] Hydrocodone/Acetaminophen [[place] 1 tab PO Q6H PRN 09/06/16 03/07/19 History 7.5-325] Levothyroxine Sodium [Synthroid] 120 mcg PO DAILY 09/06/16 03/07/19 History Ergocalciferol (Vitamin D2) 50,000 unit PO WEEKLY 02/11/19 03/07/19 History [Vitamin D2] Insulin NPH Hum/Reg Insulin Hm 35 unit SQ BID 02/11/19 03/07/19 History [NovoLIN 70-30 100 UNIT/ML VIAL] Insulin Regular, Human [NovoLIN R] 0 unit SQ AC-TID 02/11/19 03/07/19 History Acetaminophen [Tylenol Extra 500 mg PO Q6HR 03/07/19 03/07/19 History Strength] Allergies Allergy/AdvReac Type Severity Reaction Status Date / Time Iodinated Contrast- Oral and Allergy Anaphylaxis Verified 03/03/19 15:58 IV Dye iodine Allergy Rash/Hives Verified 03/03/19 15:58 Physical Exam Vitals: Vital Signs Temp Pulse Pulse Resp BP BP Pulse Ox 03/07/19 14:25 93 20 152/66 96 03/07/19 13:45 91 16 160/72 95 03/07/19 13:33 88 18 165/73 95 03/07/19 13:15 90 18 172/70 93 L 03/07/19 13:00 85 16 170/79 98 03/07/19 12:52 85 16 172/78 98 03/07/19 12:37 97.6 F 83 16 179/84 97 03/07/19 07:05 97.9 F 75 16 144/82 96 Intake and Output 03/07/19 03/07/19 03/07/19 06:59 14:59 22:59 Intake Total 200 1700 Output Total 50 15 Balance 200 1650 -15 Intake: IV 200 1700 Output: Drainage 15 Left Chest 5 Right Chest 10 Estimated Blood Loss 50 PHYSICAL EXAMINATION: Patient is lying in the bed comfortably, no acute distress, awake alert and oriented.. HEENT: Normocephalic. Neck is supple. Pupils reactive. Nostrils clear. Oral cavity is moist. Ears reveal no drainage. Neck reveals no JVD, carotid bruits, or thyromegaly. CHEST EXAMINATION: Surgical site is bandaged. Trachea is central. Symmetrical expansion. Lung pickens clear to auscultation and percussion. CARDIAC: Normal S1, S2 with no gallops. No murmurs ABDOMEN: Soft. Bowel sounds normal. No organomegaly. No abdominal bruits. Extremities: reveal no edema. No clubbing or cyanosis Neurologically awake, alert, oriented x3 with well-coordinated movements. No focal deficits noted Skin: No rash or skin lesions. Psychiatric: Coperative. Nonsuicidal Musculoskeletal: No joint swelling or deformity. Normal range of motion. Results Labs: Abnormal Lab Results - Last 24 Hours (Table) 03/07/19 03/07/19 03/07/19 Range/Units 06:52 11:07 12:59 POC Glucose (mg/dL) 132 H 179 H 174 H (75-99) mg/dL Assessment and Plan Assessment: Right breast cancer. Status post bilateral simple mastectomy and sentinel lymph node biopsy. 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 C ontinue with blood pressure medications and follow closely. IV fluids will be changed to Ringer lactate. Continue the pain management and bowel regimen. Encourage incentive spirometry. DVT prophylaxis. Further recommendations based on the clinical course. We will continue to follow with you. Thank you for your consult. Time with Patient: Greater than 30
[2019-03-08] MEDS: HYDROmorphone 0.5 MG/0.5 ML SYRINGE IVP PRN (03:33)
[2019-03-08 06:35] LABS: Glucose,Whole Blood 223 mg/dL (75-99)
[2019-03-08] MEDS: INSULIN ASPART (NovoLOG) 100 UNIT/ML VIAL SQ SCH ×3 (06:57→18:01)
[2019-03-08] MEDS: LEVOTHYROXINE 125 MCG TAB PO SCH (06:58)
[2019-03-08] MEDS: LACTATED RINGERS 1,000 ML IV SCH (07:10)
[2019-03-08] MEDS: HYDROcodone/APAP 7.5-325MG 1 EACH TAB PO PRN ×4 (07:10→23:26)
[2019-03-08 08:05] LABS: Basophils % (A) 0 %; Eosinophils % (A) 0 %; HCT 39.1 % (34.0-46.0); HGB 12.5 gm/dL (11.4-16.0); Lymphocytes # (A) 1.5 k/uL (1.0-4.8); Lymphocytes % (A) 16 %; MCH 30.6 pg (25.0-35.0); MCHC 31.9 g/dL (31.0-37.0); Mean Platelet Volume 7.2; Monocytes # (A) 0.5 k/uL (0-1.0); Monocytes % (A) 5 %; Neutrophils # (A) 6.9 k/uL (1.3-7.7); Neutrophils % (A) 76 %; Platelet Count 217 k/uL (150-450); RBC 4.08 m/uL (3.80-5.40); RDW 15.2 % (11.5-15.5)
[2019-03-08 08:41] LABS: Potassium 5.1 mmol/L (3.5-5.1)
[2019-03-08] MEDS: INSULN ASP PRT/INSULIN ASPART 100 UNIT/ML 10 ML VIAL SQ SCH ×2 (09:39→23:08)
[2019-03-08] MEDS: HEPARIN SODIUM,PORCINE 5,000 UNIT/ML 1 ML VIAL SQ SCH ×3 (09:42→23:14)
[2019-03-08] MEDS: DOCUSATE 100 MG CAP PO SCH ×2 (09:43→23:14)
[2019-03-08] MEDS: FAMOTIDINE 20 MG TAB PO SCH (09:44)
[2019-03-08] MEDS: METOPROLOL TARTRATE 50 MG TAB PO SCH (09:44)
[2019-03-08] MEDS ORDERED: IBUPROFEN 400 MG TAB PO PRN (11:47)
--- NOTE | 2019-03-08 11:51 | P.PN ---
Subjective Progress Note Date: 03/08/19 Principal diagnosis: Post mastectomy Patient doing well today. Pain is well-controlled. Drains are serosanguineous. Hemoglobin is stable. Objective - Vital Signs Vital signs: Vital Signs Temp 97.7 F 03/08/19 08:35 Pulse 88 03/08/19 08:35 Resp 18 03/08/19 08:35 BP 159/74 03/08/19 08:35 Pulse Ox 98 03/08/19 08:35 Intake & Output 03/07/19 03/08/19 03/08/19 18:59 06:59 18:59 Intake Total 1700 Output Total 515 975 20 Balance 1185 -975 -20 Intake: IV 1700 Output: Drainage 15 25 20 Left Chest 5 10 10 Right Chest 10 15 10 Urine 450 950 Estimated Blood Loss 50 Other: # Voids 1 1 - Exam Bilateral mastectomy incisions clean without hematoma, no ischemic changes noted - Labs CBC & Chem 7: 03/08/19 07:35 03/08/19 07:35 Labs: Abnormal Lab Results - Last 24 Hours (Table) 03/07/19 03/07/19 03/07/19 Range/Units 12:59 17:40 21:59 Sodium (137-145) mmol/L BUN (7-17) mg/dL Creatinine (0.52-1.04) mg/dL Glucose (74-99) mg/dL POC Glucose (mg/dL) 174 H 223 H 242 H (75-99) mg/dL 03/08/19 03/08/19 Range/Units 06:32 07:35 Sodium 133 L (137-145) mmol/L BUN 26 H (7-17) mg/dL Creatinine 1.05 H (0.52-1.04) mg/dL Glucose 237 H (74-99) mg/dL POC Glucose (mg/dL) 223 H (75-99) mg/dL Assessment and Plan (1) Breast cancer, right Narrative/Plan: Patient doing well. Continue oral pain medications. Anticipate discharge tomorrow with home care. Current Visit: Yes Status: Acute Code(s): C50.911 - MALIGNANT NEOPLASM OF UNSP SITE OF RIGHT FEMALE BREAST SNOMED Code(s): 498061856
[2019-03-08 12:30] LABS: Glucose,Whole Blood 218 mg/dL (75-99)
[2019-03-08] MEDS: ALBUTEROL NEBULIZED 2.5 MG/3 ML INHALATION PRN ×2 (13:03→20:53)
[2019-03-08 17:52] LABS: Glucose,Whole Blood 189 mg/dL (75-99)
[2019-03-08 23:21] LABS: Glucose,Whole Blood 156 mg/dL (75-99)
[2019-03-09] MEDS: INSULIN ASPART (NovoLOG) 100 UNIT/ML VIAL SQ SCH ×2 (06:46→13:02)
[2019-03-09 06:48] LABS: Glucose,Whole Blood 128 mg/dL (75-99)
[2019-03-09] MEDS: HYDROcodone/APAP 7.5-325MG 1 EACH TAB PO PRN ×2 (06:50→12:58)
[2019-03-09] MEDS: LEVOTHYROXINE 125 MCG TAB PO SCH (06:50)
[2019-03-09] MEDS: METOPROLOL TARTRATE 50 MG TAB PO SCH (09:45)
[2019-03-09] MEDS: FAMOTIDINE 20 MG TAB PO SCH (09:46)
[2019-03-09] MEDS: DOCUSATE 100 MG CAP PO SCH (09:46)
[2019-03-09] MEDS: HEPARIN SODIUM,PORCINE 5,000 UNIT/ML 1 ML VIAL SQ SCH (09:47)
[2019-03-09] MEDS: INSULN ASP PRT/INSULIN ASPART 100 UNIT/ML 10 ML VIAL SQ SCH (09:47)
--- NOTE | 2019-03-09 09:59 | P.DS ---
Providers Expected date of discharge: 03/09/19 Attending physician: Juno Jeter Consults: 03/07/19 11:50 Consult Physician Routine Consulting Provider: Antonio Mackenzie Consult Reason/Comments: Medical management Do you want consulting provider notified?: Yes Primary care physician: Alethea Haynes - Discharge Diagnosis(es) (1) Breast cancer, right Patient minute electively for bilateral mastectomy. Patient has a history of right-sided breast cancer. Has done well postoperative. Both drains are draining serosanguineous fluid. Hemoglobin stable. She is anxious to go home today. No pain. She already has [place] at home for pain. No prescriptions provided. She will follow up 1.5 weeks. Home care arranged. Current Visit: Yes Status: Acute Plan - Discharge Summary Discharge Rx Participant: No New Discharge Prescriptions: Continue Metoprolol Tartrate [Lopressor] 100 mg PO DAILY Famotidine [Pepcid] 20 mg PO QAM Levothyroxine Sodium [Synthroid] 120 mcg PO DAILY Hydrocodone/Acetaminophen [[place] 7.5-325] 1 tab PO Q6H PRN PRN Reason: Pain Albuterol Nebulized [Ventolin Nebulized] 2.5 mg INHALATION RT-TID PRN PRN Reason: Shortness Of Breath Ergocalciferol (Vitamin D2) [Vitamin D2] 50,000 unit PO WEEKLY Insulin NPH Hum/Reg Insulin Hm [NovoLIN 70-30 100 UNIT/ML VIAL] 35 unit SQ BID Insulin Regular, Human [NovoLIN R] 0 unit SQ AC-TID Acetaminophen [Tylenol Extra Strength] 500 mg PO Q6HR Discharge Medication List Famotidine [Pepcid] 20 mg PO QAM 12/22/15 [History] Metoprolol Tartrate [Lopressor] 100 mg PO DAILY 12/22/15 [History] Albuterol Nebulized [Ventolin Nebulized] 2.5 mg INHALATION RT-TID PRN 09/06/16 [History] Hydrocodone/Acetaminophen [[place] 7.5-325] 1 tab PO Q6H PRN 09/06/16 [History] Levothyroxine Sodium [Synthroid] 120 mcg PO DAILY 09/06/16 [History] Ergocalciferol (Vitamin D2) [Vitamin D2] 50,000 unit PO WEEKLY 02/11/19 [History] Insulin NPH Hum/Reg Insulin Hm [NovoLIN 70-30 100 UNIT/ML VIAL] 35 unit SQ BID 02/11/19 [History] Insulin Regular, Human [NovoLIN R] 0 unit SQ AC-TID 02/11/19 [History] Acetaminophen [Tylenol Extra Strength] 500 mg PO Q6HR 03/07/19 [History] Follow up Appointment(s)/Referral(s): Juno Jeter MD [Medical Doctor] - 2 Weeks Activity/Diet/Wound Care/Special Instructions: [facility]: [phone] Discharge Disposition: HOME WITH HOME HEALTH SERVICES
[2019-03-09 10:24] VITALS: BP 164/80; RESP 20; TEMP 97.6
[2019-03-09] MEDS: LACTATED RINGERS 1,000 ML IV SCH (10:49)
[2019-03-09] MEDS: ALBUTEROL NEBULIZED 2.5 MG/3 ML INHALATION PRN (12:04)
[2019-03-09 12:05] VITALS: PULSE 76
[2019-03-09 13:00] LABS: Glucose,Whole Blood 103 mg/dL (75-99)
--- NOTE | 2019-03-09 16:14 | P.PN ---
Subjective Progress Note Date: 03/08/19 Principal diagnosis: Bilateral simple mastectomy Patient is a 73-year-old female with a known history of hypertension, diabetes type 2 insulin-dependent, COPD, hyperlipidemia, hypothyroidism and previous history of smoking who was recently diagnosed with breast cancer was admitted to the hospital for mastectomy. Patient was diagnosed after wire localization biopsy. Patient had MRI showed suspicious areas in the right breast. Patient was admitted to hospital for bilateral mastectomy. Patient underwent Bilateral simple mastectomy with right breast sentinel lymph node biopsy Patient tolerated the procedure very well. Currently pain is controlled with medications. No fever no chills. No nausea vomiting or abdominal pain. No diarrhea or dysuria. 03/08/2090 Patient denied any complaints of chest pain or short of breath today. Surgical site is bandaged. Pain is much improved. No fever no chills. No nausea vomiting or abdominal pain. Encourage incentive spirometry. Continue with insulin sliding scale and home dose. No other acute overnight issues. Current medications reviewed. Objective - Vital Signs Vital signs: Vital Signs Temp 97.9 F 03/08/19 23:25 Pulse 73 03/08/19 23:25 Resp 18 03/08/19 23:25 BP 163/74 03/08/19 23:25 Pulse Ox 94 L 03/08/19 23:25 Intake & Output 03/08/19 03/09/19 03/09/19 18:59 06:59 18:59 Output Total 50 65 Balance -50 -65 Output: Drainage 50 65 Left Chest 20 25 Right Chest 30 40 Other: # Voids 2 1 1 - Exam PHYSICAL EXAMINATION: Patient is lying in the bed comfortably, no acute distress, awake alert and oriented.. HEENT: Normocephalic. Neck is supple. Pupils reactive. Nostrils clear. Oral cavity is moist. Ears reveal no drainage. Neck reveals no JVD, carotid bruits, or thyromegaly. CHEST EXAMINATION: Surgical site is bandaged. Trachea is central. Symmetrical expansion. Lung pickens clear to auscultation and percussion. CARDIAC: Normal S1, S2 with no gallops. No murmurs ABDOMEN: Soft. Bowel sounds normal. No organomegaly. No abdominal bruits. Extremities: reveal no edema. No clubbing or cyanosis Neurologically awake, alert, oriented x3 with well-coordinated movements. No focal deficits noted Skin: No rash or skin lesions. Psychiatric: Coperative. Nonsuicidal Musculoskeletal: No joint swelling or deformity. Normal range of motion. - Labs CBC & Chem 7: 03/08/19 07:35 03/08/19 07:35 Labs: Abnormal Lab Results - Last 24 Hours (Table) 03/08/19 03/08/19 03/08/19 Range/Units 07:35 12:25 17:50 POC Glucose (mg/dL) 218 H 189 H (75-99) mg/dL Hemoglobin A1c 8.0 H (4.0-6.0) % 03/08/19 03/09/19 Range/Units 23:06 06:44 POC Glucose (mg/dL) 156 H 128 H (75-99) mg/dL Hemoglobin A1c (4.0-6.0) % Assessment and Plan Assessment: Right breast cancer. Status post bilateral simple mastectomy and sentinel lymph node biopsy. Diabetes type 2 insulin-dependent with hyperglycemia. 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 Continue with blood pressure medications and follow closely. IV fluids will be changed to Ringer lactate. Continue the pain management and bowel regimen. Encourage incentive spirometry. DVT prophylaxis. Further recommendations based on the clinical course. We will continue to follow with you. Time with Patient: Greater than 30
--- NOTE | 2019-03-12 10:15 | CDI ---
Outpatient Documentation Clarification Form Date: 03/12/19 CDS/Pricing Strategist Name: Irma Matthew Phone: If any questions, call Justina [facility] Fish [facility] Tender at [phone] Patient Name: Mandi Frances Admit Date: 03/07/19 Discharge Date: 03/09/19 ATTENTION: The [facility] Coding Staff appreciate your assistance in clarifying documentation. Please respond to the clarification below the line at the bottom and electronically sign. The [facility] Coding staff will review the response and follow-up if needed. Please note: Queries are made part of the Legal Health Record. If you have any questions, please contact the Fish Bin Tender. Dear Dr. Jeter, The patient presented for a mastectomy and most of the documents on this encounter reflect that and only that. There is a second Procedure Note stating that the patient has erosive gastritis and distal esophagitis and that an EGD with biopsy was performed. Other than this single Procedure Note, I do not see any other evidence that this procedure was actually performed or that the patient, does in fact, carry these diagnoses. The Discharge Summary, Pathology Report, and Anesthesia Records do not reference anything pertaining to the EGD, gastritis, and esophagitis. I want to be sure that this EGD Procedure Report was not entered in error before coding the procedure and diagnoses from it. Does the patient have erosive gastritis? Does the patient have distal esophagitis? Was an EGD with biopsy performed? Thank you for your kind consideration. MTDD
== END 2019-03-09 15:45 | disposition home health service (06) ==
LOC: OR 06:21 → 6PED 12:34 → OR 03-09 15:45
PROVIDERS: ATTEND Surgery
DX: C50.911 Malignant neoplasm of unspecified site of right female breast (principal); C77.3 Secondary and unspecified malignant neoplasm of axilla and upper limb lymph nodes; N60.92 Unspecified benign mammary dysplasia of left breast; N60.32 Fibrosclerosis of left breast; N60.82 Other benign mammary dysplasias of left breast; G61.0 Guillain-Barre syndrome; E03.9 Hypothyroidism, unspecified; E11.40 Type 2 diabetes mellitus with diabetic neuropathy, unspecified; E78.5 Hyperlipidemia, unspecified; M10.9 Gout, unspecified; F41.9 Anxiety disorder, unspecified; I10 Essential (primary) hypertension; J44.9 Chronic obstructive pulmonary disease, unspecified; K21.9 Gastro-esophageal reflux disease without esophagitis; K58.9 Irritable bowel syndrome, unspecified; G47.33 Obstructive sleep apnea (adult) (pediatric); M79.7 Fibromyalgia; M35.3 Polymyalgia rheumatica; M15.9 Polyosteoarthritis, unspecified; E66.9 Obesity, unspecified; Z68.41 Body mass index [BMI] 40.0-44.9, adult; Z17.0 Estrogen receptor positive status [ER+]; Z79.82 Long term (current) use of aspirin; Z79.890 Hormone replacement therapy; Z79.4 Long term (current) use of insulin; Z79.899 Other long term (current) drug therapy; Z91.041 Radiographic dye allergy status; Z90.49 Acquired absence of other specified parts of digestive tract; Z90.710 Acquired absence of both cervix and uterus; Z98.890 Other specified postprocedural states; Z91.09 Other allergy status, other than to drugs and biological substances; Z87.891 Personal history of nicotine dependence; Z83.2 Family history of diseases of the blood and blood-forming organs and certain disorders involving the immune mechanism; Z82.49 Family history of ischemic heart disease and other diseases of the circulatory system; Z80.0 Family history of malignant neoplasm of digestive organs; Z80.1 Family history of malignant neoplasm of trachea, bronchus and lung; Z80.42 Family history of malignant neoplasm of prostate
CPT/HCPCS: 19303; 38525; 94640 ×3; 80048; 85025; 88342; 88331; 88307; 88341; 83036; 38792; A9520; J2250; J1644 ×3; J0690; J2405; J2001; Q9968; J3010; J1170 ×3; J1100; J0330; J2704

== ENCOUNTER 2019-07-24 09:15 | Observation (INO) | payer MEDICARE, OTHER ==
[2019-07-24] MEDS ORDERED: SODIUM CHLORIDE 0.9% 500 ML 500 ML IV STA (09:40)
--- NOTE | 2019-07-24 09:43 | ED ---
General Adult HPI - General Chief complaint: Chest Pain Stated complaint: chest pain Time Seen by Provider: 07/24/19 09:26 Source: patient, RN notes reviewed, old records reviewed Mode of arrival: ambulatory Limitations: no limitations - History of Present Illness Initial comments: 74-year-old female presenting for evaluation of left-sided chest pain. Pain is been present for approximately 2 or 3 days. She initially treated this to fibromyalgia pain which she does have. She's had some intermittent left-sided and central chest pain which she describes as a heaviness or pressure. No sharp chest pain. She also reports increased fatigue over the past one week. She has history of hypertension and diabetes. No known coronary artery disease. Denies cough. Denies fever. Pain did radiate to the left arm at one point. She is symptom free at the time my evaluation. Denies abdominal pain. Denies vomiting. Denies diaphoresis. - Related Data Home Medications Medication Instructions Recorded Confirmed Metoprolol Tartrate [Lopressor] 100 mg PO DAILY 12/22/15 07/24/19 Levothyroxine Sodium [Synthroid] 112 mcg PO DAILY 09/06/16 07/24/19 Ergocalciferol (Vitamin D2) 50,000 unit PO WE 02/11/19 07/24/19 [Vitamin D2] Insulin NPH Hum/Reg Insulin Hm 35 unit SQ BID 02/11/19 07/24/19 [NovoLIN 70-30 100 UNIT/ML VIAL] Insulin Regular, Human [NovoLIN R] See Protocol SQ AC-TID 02/11/19 07/24/19 Acetaminophen [Tylenol Extra 500 mg PO Q6HR PRN 03/07/19 07/24/19 Strength] Allopurinol [Zyloprim] 300 mg PO DAILY 07/24/19 07/24/19 Atorvastatin [Lipitor] 20 mg PO DAILY 07/24/19 07/24/19 Ranitidine HCl [Zantac] 150 mg PO DAILY 07/24/19 07/24/19 amLODIPine [Norvasc] 5 mg PO HS 07/24/19 07/24/19 Allergies Allergy/AdvReac Type Severity Reaction Status Date / Time Iodinated Contrast Media Allergy Anaphylaxis Verified 07/24/19 10:17 [Iodinated Contrast- Oral and IV Dye] iodine Allergy Rash/Hives Verified 07/24/19 10:17 Review of Systems ROS Statement: Those systems with pertinent positive or pertinent negative responses have been documented in the HPI. ROS Other: All systems not noted in ROS Statement are negative. 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 wrist surgery Past Anesthesia/Blood Transfusion Reactions: No Reported Reaction Past Psychological History: No Psychological Hx Reported Smoking Status: Former smoker Past Alcohol Use History: None Reported Past Drug Use History: None Reported - Past Family History Mother Family Medical History: Deep Vein Thrombosis (DVT) Father Family Medical History: Myocardial Infarction ([place]) Sister(s) Family Medical History: Cancer Additional Family Medical History / Comment(s): colon cancer, lung cancer Brother(s) Family Medical History: Cancer, Myocardial Infarction (CT) Additional Family Medical History / Comment(s): prostate cancer Daughter(s) Family Medical History: No Reported History Son(s) Family Medical History: Hypertension General Exam Limitations: no limitations General appearance: alert, in no apparent distress Head exam: Present: atraumatic, normocephalic Eye exam: Present: normal appearance, PERRL Neck exam: Present: normal inspection Respiratory exam: Present: normal lung sounds bilaterally. Absent: respiratory distress, wheezes, rales Cardiovascular Exam: Present: regular rate, normal rhythm GI/Abdominal exam: Present: soft. Absent: distended, tenderness, guarding Extremities exam: Present: normal inspection, normal capillary refill, other (Bilateral radial pulses one plus, symmetric) Neurological exam: Present: alert, oriented X3, CN II-XII intact. Absent: motor sensory deficit Psychiatric exam: Present: normal affect, normal mood Skin exam: Present: warm, dry, intact. Absent: cyanosis, diaphoretic Course Vital Signs 07/24/19 07/24/19 09:22 10:56 Temperature 97.7 F Pulse Rate 76 76 Respiratory 20 20 Rate Blood Pressure 207/74 173/87 O2 Sat by Pulse 96 96 Oximetry EKG Findings - EKG Comments: EKG Findings:: EKG: Normal sinus rhythm, LVH, rate of 69, NE interval 158, QRS duration 86, QTC 460, no ST segment elevation T waves are upright. Medical Decision Making - Medical Decision Making 74-year-old female with central left-sided chest pain for the past 2 days. Pain is described as a pressure, heavy sensation of the chest. She did have some symptoms radiating to her left arm. No associated nausea vomiting or diaphoresis. No known history of coronary artery disease. Patient does have risk factors for CAD. EKG is normal sinus rhythm with no ST segment elevation. She has normal CBC, normal CMP, negative initial troponin. She will be kept in observation for serial cardiac enzymes, telemetry, cardiology consultation. Case is discussed with the admitting physician Dr. Garcia - Lab Data Result diagrams: 07/24/19 09:30 07/24/19 09:30 Lab Results 07/24/19 07/24/19 07/24/19 Range/Units 09:30 09:30 09:30 WBC 5.4 (3.8-10.6) k/uL RBC 4.35 (3.80-5.40) m/uL Hgb 13.6 (11.4-16.0) gm/dL Hct 41.1 (34.0-46.0) % MCV 94.5 (80.0-100.0) fL MCH 31.2 (25.0-35.0) pg MCHC 33.0 (31.0-37.0) g/dL RDW 14.4 (11.5-15.5) % Plt Count 257 (150-450) k/uL Neutrophils % 51 % Lymphocytes % 38 % Monocytes % 7 % Eosinophils % 0 % Basophils % 1 % Neutrophils # 2.7 (1.3-7.7) k/uL Lymphocytes # 2.0 (1.0-4.8) k/uL Monocytes # 0.4 (0-1.0) k/uL Eosinophils # 0.0 (0-0.7) k/uL Basophils # 0.1 (0-0.2) k/uL PT (9.0-12.0) sec INR (<1.2) APTT (22.0-30.0) sec Sodium 137 (137-145) mmol/L Potassium 4.4 (3.5-5.1) mmol/L Chloride 103 (98-107) mmol/L Carbon Dioxide 20 L (22-30) mmol/L Anion Gap 14 mmol/L BUN 21 H (7-17) mg/dL Creatinine 1.06 H (0.52-1.04) mg/dL Est GFR (CKD-EPI)AfAm 60 (>60 ml/min/1.73 sqM) Est GFR (CKD-EPI)NonAf 52 (>60 ml/min/1.73 sqM) Glucose 263 H (74-99) mg/dL Calcium 9.9 (8.4-10.2) mg/dL Magnesium 1.6 (1.6-2.3) mg/dL Total Bilirubin 0.5 (0.2-1.3) mg/dL AST 26 (14-36) U/L ALT 22 (9-52) U/L Alkaline Phosphatase 76 (38-126) U/L Troponin I (0.000-0.034) ng/mL NT-Pro-B Natriuret Pep 54 pg/mL Total Protein 7.4 (6.3-8.2) g/dL Albumin 4.5 (3.5-5.0) g/dL Lipase 139 (23-300) U/L 07/24/19 07/24/19 Range/Units 09:30 09:30 WBC (3.8-10.6) k/uL RBC (3.80-5.40) m/uL Hgb (11.4-16.0) gm/dL Hct (34.0-46.0) % MCV (80.0-100.0) fL MCH (25.0-35.0) pg MCHC (31.0-37.0) g/dL RDW (11.5-15.5) % Plt Count (150-450) k/uL Neutrophils % % Lymphocytes % % Monocytes % % Eosinophils % % Basophils % % Neutrophils # (1.3-7.7) k/uL Lymphocytes # (1.0-4.8) k/uL Monocytes # (0-1.0) k/uL Eosinophils # (0-0.7) k/uL Basophils # (0-0.2) k/uL PT 9.7 (9.0-12.0) sec INR 0.9 (<1.2) APTT 26.2 (22.0-30.0) sec Sodium (137-145) mmol/L Potassium (3.5-5.1) mmol/L Chloride (98-107) mmol/L Carbon Dioxide (22-30) mmol/L Anion Gap mmol/L BUN (7-17) mg/dL Creatinine (0.52-1.04) mg/dL Est GFR (CKD-EPI)AfAm (>60 ml/min/1.73 sqM) Est GFR (CKD-EPI)NonAf (>60 ml/min/1.73 sqM) Glucose (74-99) mg/dL Calcium (8.4-10.2) mg/dL Magnesium (1.6-2.3) mg/dL Total Bilirubin (0.2-1.3) mg/dL AST (14-36) U/L ALT (9-52) U/L Alkaline Phosphatase (38-126) U/L Troponin I <0.012 (0.000-0.034) ng/mL NT-Pro-B Natriuret Pep pg/mL Total Protein (6.3-8.2) g/dL Albumin (3.5-5.0) g/dL Lipase (23-300) U/L Disposition Clinical Impression: Chest pain Disposition: ADMITTED IP TO THIS [facility] Condition: Stable Is patient prescribed a controlled substance at d/c from ED?: No Referrals: Alethea Haynes MD [Primary Care Provider] - 1-2 days Decision to Admit Reason: Admit from EC Decision Date: 07/24/19 Decision Time: 11:17
[2019-07-24 10:12] LABS: HCT 41.1 % (34.0-46.0); HGB 13.6 gm/dL (11.4-16.0); RBC 4.35 m/uL (3.80-5.40); WBC 5.4 k/uL (3.8-10.6)
[2019-07-24 10:13] LABS: Basophils # (A) 0.1 k/uL (0-0.2); Basophils % (A) 1 %; Eosinophils % (A) 0 %; Lymphocytes % (A) 38 %; MCH 31.2 pg (25.0-35.0); MCV 94.5 fL (80.0-100.0); Mean Platelet Volume 7.6; Monocytes # (A) 0.4 k/uL (0-1.0); Monocytes % (A) 7 %; Neutrophils # (A) 2.7 k/uL (1.3-7.7); Neutrophils % (A) 51 %; Platelet Count 257 k/uL (150-450); RDW 14.4 % (11.5-15.5)
--- NOTE | 2019-07-24 10:13 | XR ---
EXAMINATION TYPE: XR chest 2V DATE OF EXAM: 07/24/2019 COMPARISON: Prior chest x-ray 09/06/2016 HISTORY: Chest pain TECHNIQUE: Frontal and lateral views of the chest are obtained. FINDINGS: There is no focal air space opacity, pleural effusion, or pneumothorax seen. The cardiac silhouette size is within normal limits. The osseous structures are intact. Cardiac leads. Surgical clips noted over the left lower chest. IMPRESSION: No acute cardiopulmonary process.
[2019-07-24 10:20] LABS: Albumin 4.5 g/dL (3.5-5.0); Calcium 9.9 mg/dL (8.4-10.2); Magnesium 1.6 mg/dL (1.6-2.3); Potassium 4.4 mmol/L (3.5-5.1); Total Bilirubin 0.5 mg/dL (0.2-1.3); Total Protein 7.4 g/dL (6.3-8.2)
[2019-07-24 10:23] LABS: INR 0.9 (<1.2); Partial Thromboplastin Time 26.2 sec (22.0-30.0); Prothrombin Time 9.7 sec (9.0-12.0)
[2019-07-24] MEDS ORDERED: ASPIRIN 325 MG TAB PO STA (10:56)
[2019-07-24] MEDS ORDERED: amLODIPine 5 MG TAB PO STA (10:56)
[2019-07-24] MEDS: SODIUM CHLORIDE 0.9% 1,000 ML IV SCH (11:12)
[2019-07-24] MEDS ORDERED: ACETAMINOPHEN TAB 325 MG TAB PO PRN (11:14)
[2019-07-24] MEDS ORDERED: NALOXONE 0.4 MG/ML 1 ML VIAL IV PRN (11:14)
[2019-07-24] MEDS ORDERED: hydrALAZINE HCL 20 MG/ML 1 ML VIAL IVP PRN (12:06)
[2019-07-24] MEDS ORDERED: ACETAMINOPHEN TAB 500 MG TAB PO PRN (12:19)
--- NOTE | 2019-07-24 12:30 | P.HPIM ---
History of Present Illness 74-year-old pleasant female came in with complains of chest pain sharp in nature in the left side of the chest patient was having on and off pain nonpleuritic and nonexertional for about last 4 days patient was comparing of [place] as well patient does have fibromyalgia with pain all over the body with some tingling numbness in both legs patient does have diabetic peripheral neuropathy. Her chest pain is not associated with food not associated with shortness of breath diaphoresis. Denied any lightheadedness associated with that. Patient was coming of some nausea patient chest pain sharp and burning patient is also coming of some retrosternal pain. 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 EKG sinus rhythm without any acute ST-T wave changes. First set of troponin is negative.. Denies any vomiting. Patient was complaining of progressive fatigue as well and patient was started on anastrozole for her breast cancer which appears to be contributing to her progressive weakness which has been going on for few weeks more so last since last week. Patient states she has chronic kidney disease stage III from diabetes. Review of Systems REVIEW OF SYSTEMS: CONSTITUTIONAL: No fever HEENT: No recent visual problems or hearing problems. Denied any sore throat. CARDIOVASCULAR: No orthopnea, PND, no palpitations, no syncope. PULMONARY: No shortness of breath, no cough, no hemoptysis. GASTROINTESTINAL: No diarrhea, no vomiting, no abdominal pain. NEUROLOGICAL: No headaches, no weakness, no numbness. HEMATOLOGICAL: Denies any bleeding or petechiae. GENITOURINARY: Denies any burning micturition, frequency, or urgency. MUSCULOSKELETAL/RHEUMATOLOGICAL: Denies any joint pain, swelling, or any muscle pain. ENDOCRINE: Denies any polyuria or polydipsia. The rest of the 14-point review of systems is negative. 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 wrist surgery Past Anesthesia/Blood Transfusion Reactions: No Reported Reaction Past Psychological History: No Psychological Hx Reported Smoking Status: Former smoker Past Alcohol Use History: None Reported Past Drug Use History: None Reported - Past Family History Mother Family Medical History: Deep Vein Thrombosis (DVT) Father Family Medical History: Myocardial Infarction ([place]) Sister(s) Family Medical History: Cancer Additional Family Medical History / Comment(s): colon cancer, lung cancer Brother(s) Family Medical History: Cancer, Myocardial Infarction ([place]) Additional Family Medical History / Comment(s): prostate cancer Daughter(s) Family Medical History: No Reported History Son(s) Family Medical History: Hypertension Medications and Allergies Home Medications Medication Instructions Recorded Confirmed Type Metoprolol Tartrate [Lopressor] 100 mg PO DAILY 12/22/15 07/24/19 History Levothyroxine Sodium [Synthroid] 112 mcg PO DAILY 09/06/16 07/24/19 History Ergocalciferol (Vitamin D2) 50,000 unit PO WE 02/11/19 07/24/19 History [Vitamin D2] Insulin NPH Hum/Reg Insulin Hm 50 unit SQ BID 02/11/19 07/24/19 History [NovoLIN 70-30 100 UNIT/ML VIAL] Insulin Regular, Human [NovoLIN R] 15 unit SQ AC-TID 02/11/19 07/24/19 History Acetaminophen [Tylenol Extra 500 mg PO Q6HR PRN 03/07/19 07/24/19 History Strength] Allopurinol [Zyloprim] 300 mg PO DAILY 07/24/19 07/24/19 History Anastrozole 1 mg PO DAILY 07/24/19 07/24/19 History Atorvastatin [Lipitor] 20 mg PO DAILY 07/24/19 07/24/19 History Ranitidine HCl [Zantac] 150 mg PO DAILY 07/24/19 07/24/19 History amLODIPine [Norvasc] 5 mg PO HS 07/24/19 07/24/19 History Allergies Allergy/AdvReac Type Severity Reaction Status Date / Time Iodinated Contrast Media Allergy Anaphylaxis Verified 07/24/19 10:17 [Iodinated Contrast- Oral and IV Dye] iodine Allergy Rash/Hives Verified 07/24/19 10:17 Physical Exam Vitals: Vital Signs Temp Pulse Resp BP Pulse Ox 07/24/19 11:47 69 18 169/78 98 07/24/19 10:56 76 20 173/87 96 07/24/19 09:22 97.7 F 76 20 207/74 96 Intake and Output 07/23/19 07/24/19 07/24/19 22:59 06:59 14:59 Other: Weight 99.79 kg PHYSICAL EXAMINATION: GENERAL: The patient is alert and oriented x3, not in any acute distress. Obese HEENT: Pupils are round and equally reacting to light. EOMI. No scleral icterus. No conjunctival pallor. Normocephalic, atraumatic. No pharyngeal erythema. No thyromegaly. CARDIOVASCULAR: S1 and S2 present. No murmurs, rubs, or gallops. PULMONARY: Chest is clear to auscultation, no wheezing or crackles. Patient does have some areas of reproducible chest pain secondary to fibromyalgia ABDOMEN: Soft, nontender, nondistended, normoactive bowel sounds. No palpable organomegaly. MUSCULOSKELETAL: No joint swelling or deformity. EXTREMITIES: No cyanosis, clubbing, or pedal edema. NEUROLOGICAL: Gross neurological examination did not reveal any focal deficits. SKIN: No rashes. Results CBC & Chem 7: 07/24/19 09:30 07/24/19 09:30 Labs: Abnormal Lab Results - Last 24 Hours (Table) 07/24/19 Range/Units 09:30 Carbon Dioxide 20 L (22-30) mmol/L BUN 21 H (7-17) mg/dL Creatinine 1.06 H (0.52-1.04) mg/dL Glucose 263 H (74-99) mg/dL Assessment and Plan Plan: -Chest pain atypical will rule out acute coronary syndromes and unstable angina patient had a recent stress test not require another one patient chest pain is atypical . Is probably related to gastroesophageal Reflux disease as well as musculoskeletal pain patient will be started on Protonix, continue with Tylenol. -Weakness and tiredness probably secondary to anastrozole. 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
[2019-07-24 12:46] LABS: Glucose,Whole Blood 173 mg/dL (75-99)
[2019-07-24] MEDS: PANTOPRAZOLE 40 MG/10 ML VIAL IVP SCH (13:37)
[2019-07-24 16:51] LABS: Glucose,Whole Blood 137 mg/dL (75-99)
[2019-07-24] MEDS ORDERED: INSULIN REGULAR 100 UNIT/ML VIAL SQ SCH (17:30)
[2019-07-24] MEDS: INSULN ASP PRT/INSULIN ASPART 100 UNIT/ML 10 ML VIAL SQ SCH (17:47)
[2019-07-24 21:32] LABS: Glucose,Whole Blood 90 mg/dL (75-99)
[2019-07-24] MEDS: INSULIN REGULAR 100 UNIT/ML VIAL SQ SCH (21:35)
[2019-07-25] MEDS: MORPHINE SULFATE 4 MG/ML SYRINGE IV PRN ×2 (03:54→12:15)
[2019-07-25] MEDS: SODIUM CHLORIDE 0.9% 1,000 ML IV SCH (03:57)
[2019-07-25] MEDS ORDERED: LEVOTHYROXINE 112 MCG TAB PO SCH (06:30)
[2019-07-25 07:15] LABS: Glucose,Whole Blood 121 mg/dL (75-99)
[2019-07-25 07:57] VITALS: RESP 19
--- NOTE | 2019-07-25 07:59 | P.CRDCN ---
History of Present Illness Consult date: 07/25/19 Chief complaint: chest pain History of present illness: this is a very pleasant 74-year-old female patient who sees Dr. Mendoza in the office on regular basis with a past medical history significant for diabetes, hypertension, dyslipidemia, presented to the hospital complaining of chest discomfort. The patient was in her usual state of health yesterday when she woke up complaining of discomfort in the abdomen as well as in the chest. She noticed that her blood pressure was elevated. She stated that she was compliant with all of her medications as well as with her diet. No symptoms of shortness of breath, sweating, dizziness, or syncope. Currently the patient is symptoms free. The blood pressure when she presented was elevated and continues to be elevated in the hospital. The EKG showed sinus rhythm without any ischemic ST or T-wave abnormalities. Cardiac enzymes were checked and came in to be unremarkable. The troponin came in to be unremarkable. The patient does see Dr. Packer in the office on regular basis and I did review the previous medical records which indicated she underwent myocardial perfusion imaging stress test in October 2018 that was unremarkable. She is known to have carotid stenosis.no established history of coronary artery disease and no recent heart catheterization was performed. Past Medical History Past Medical History: Cancer, COPD, Diabetes Mellitus, Fibromyalgia, Hyperlipidemia, Hypertension, Osteoarthritis (OA), Thyroid Disorder Additional Past Medical History / Comment(s): Guillain [place], breast ca History of Any Multi-Drug Resistant Organisms: None Reported Past Surgical History: Cholecystectomy, Ear Surgery, Hysterectomy, Orthopedic Surgery Additional Past Surgical History / Comment(s): BEST. wrist surgery, best mastectomy Past Anesthesia/Blood Transfusion Reactions: No Reported Reaction Past Psychological History: No Psychological Hx Reported Smoking Status: Former smoker Past Alcohol Use History: Occasional Past Drug Use History: None Reported - Past Family History Mother Family Medical History: Deep Vein Thrombosis (DVT) Father Family Medical History: Myocardial Infarction ([place]) Sister(s) Family Medical History: Cancer Additional Family Medical History / Comment(s): 1 sister colon cancer, 1 sister lung cancer and breast ca, 1 sister with breast ca Brother(s) Family Medical History: Cancer, Myocardial Infarction (ID) Additional Family Medical History / Comment(s): prostate cancer x brothers Daughter(s) Family Medical History: No Reported History Son(s) Family Medical History: Hypertension Medications and Allergies Home Medications Medication Instructions Recorded Confirmed Type Metoprolol Tartrate [Lopressor] 100 mg PO DAILY 12/22/15 07/24/19 History Levothyroxine Sodium [Synthroid] 112 mcg PO DAILY 09/06/16 07/24/19 History Ergocalciferol (Vitamin D2) 50,000 unit PO WE 02/11/19 07/24/19 History [Vitamin D2] Insulin NPH Hum/Reg Insulin Hm 50 unit SQ AC-BID 02/11/19 07/24/19 History [NovoLIN 70-30 100 UNIT/ML VIAL] Insulin Regular, Human [NovoLIN R] 5 - 10 unit SQ ACHS 02/11/19 07/24/19 History Acetaminophen [Tylenol Extra 500 mg PO Q6HR PRN 03/07/19 07/24/19 History Strength] Allopurinol [Zyloprim] 300 mg PO DAILY 07/24/19 07/24/19 History Atorvastatin [Lipitor] 20 mg PO DAILY 07/24/19 07/24/19 History Ranitidine HCl [Zantac] 150 mg PO DAILY 07/24/19 07/24/19 History amLODIPine [Norvasc] 5 mg PO HS 07/24/19 07/24/19 History Allergies Allergy/AdvReac Type Severity Reaction Status Date / Time Iodinated Contrast Media Allergy Anaphylaxis Verified 07/24/19 10:17 [Iodinated Contrast- Oral and IV Dye] iodine Allergy Rash/Hives Verified 07/24/19 10:17 Physical Exam Vitals: Vital Signs Temp Pulse Pulse Resp BP BP Pulse Ox 07/25/19 04:00 97.9 F 80 18 163/78 95 07/25/19 03:37 18 07/25/19 00:00 18 07/24/19 23:43 98.2 F 72 18 150/79 96 07/24/19 20:00 18 07/24/19 19:22 98.4 F 70 18 186/65 95 07/24/19 16:00 98.5 F 70 18 166/90 96 07/24/19 12:28 97.8 F 63 19 176/63 98 07/24/19 11:47 69 18 169/78 98 07/24/19 10:56 76 20 173/87 96 07/24/19 09:22 97.7 F 76 20 207/74 96 Intake and Output 07/24/19 07/25/19 07/25/19 22:59 06:59 14:59 Other: Voiding Method Toilet Toilet # Voids 1 1 - Constitutional General appearance: no acute distress - Respiratory Respiratory: bilateral: CTA - Cardiovascular Rhythm: regular Heart sounds: normal: S1, S2 Results 07/24/19 09:30 07/24/19 09:30 Cardiac Enzymes 07/24/19 07/24/19 07/24/19 Range/Units 09:30 09:30 15:40 AST 26 (14-36) U/L Troponin I <0.012 <0.012 (0.000-0.034) ng/mL 07/24/19 Range/Units 20:59 AST (14-36) U/L Troponin I <0.012 (0.000-0.034) ng/mL Coagulation 07/24/19 Range/Units 09:30 PT 9.7 (9.0-12.0) sec APTT 26.2 (22.0-30.0) sec CBC 07/24/19 Range/Units 09:30 WBC 5.4 (3.8-10.6) k/uL RBC 4.35 (3.80-5.40) m/uL Hgb 13.6 (11.4-16.0) gm/dL Hct 41.1 (34.0-46.0) % Plt Count 257 (150-450) k/uL Comprehensive Metabolic Panel 07/24/19 Range/Units 09:30 Sodium 137 (137-145) mmol/L Potassium 4.4 (3.5-5.1) mmol/L Chloride 103 (98-107) mmol/L Carbon Dioxide 20 L (22-30) mmol/L BUN 21 H (7-17) mg/dL Creatinine 1.06 H (0.52-1.04) mg/dL Glucose 263 H (74-99) mg/dL Calcium 9.9 (8.4-10.2) mg/dL AST 26 (14-36) U/L ALT 22 (9-52) U/L Alkaline Phosphatase 76 (38-126) U/L Total Protein 7.4 (6.3-8.2) g/dL Albumin 4.5 (3.5-5.0) g/dL Current Medications Generic Name Dose Route Start Last Admin Trade Name Freq PRN Reason Stop Dose Admin Acetaminophen 500 mg 07/24/19 12:19 07/24/19 13:33 Tylenol Tab PO 500 mg Q6HR PRN Administration Pain Allopurinol 300 mg 07/25/19 09:00 Zyloprim PO DAILY [facility] Atorvastatin Calcium 20 mg 07/25/19 09:00 Lipitor PO DAILY [facility] Ergocalciferol 50,000 unit 07/30/19 12:00 Vitamin D2 PO WE [facility] Sodium Chloride 1,000 mls @ 75 mls/hr 07/24/19 11:00 07/25/19 03:57 Saline 0.9% IV 75 mls/hr .[id number] KATE Administration Insulin Aspart 50 unit 07/24/19 17:30 07/24/19 17:47 Novolog Mix 70-30 Vial SQ 50 unit AC-BID KATE Administration Insulin Human Regular 15 unit 07/24/19 21:00 07/24/19 21:35 Humulin R SQ Not Given ACHS [facility] Levothyroxine Sodium 112 mcg 07/25/19 06:30 07/25/19 05:21 Synthroid PO 112 mcg 0630 [facility] Administration Lisinopril 5 mg 07/25/19 09:00 Zestril PO DAILY [facility] Metoprolol Tartrate 100 mg 07/25/19 09:00 Lopressor PO DAILY [facility] Morphine Sulfate 4 mg 07/24/19 11:14 07/25/19 03:54 Morphine Sulfate (Inj) IV 2 mg Q4HR PRN Administration Severe Pain Naloxone HCl 0.2 mg 07/24/19 11:14 Narcan IV Q2M PRN Opioid Reversal Pantoprazole Sodium 40 mg 07/24/19 12:30 07/24/19 13:37 Protonix IVP 40 mg DAILY [facility] Administration Intake and Output 07/24/19 07/25/19 07/25/19 22:59 06:59 14:59 Other: Voiding Method Toilet Toilet # Voids 1 1 07/24/19 09:30 07/24/19 09:30 Assessment and Plan Assessment: assessment #1 atypical chest discomfort #2 abdominal discomfort #3 hypertension #4 diabetes #5 dyslipidemia Plan #1 acute coronary event was ruled out #2 rule out intra-abdominal process. I will obtain an ultrasound of the abdomen #3 if intra-abdominal process ruled out the patient need to have a stress test to rule out severe CAD #4 meanwhile I am going to start the patient on lisinopril at 5 mg daily. #5 obtain an echocardiogram was Doppler #6 follow up with the patient Thank you for allowing us participate in her care
[2019-07-25] MEDS ORDERED: ALLOPURINOL 300 MG TAB PO SCH (09:00)
[2019-07-25] MEDS ORDERED: LISINOPRIL 5 MG TAB PO SCH (09:00)
[2019-07-25] MEDS ORDERED: ATORVASTATIN 20 MG TAB PO SCH (09:00)
[2019-07-25] MEDS ORDERED: ANASTROZOLE 1 MG TAB PO SCH (09:00)
[2019-07-25] MEDS ORDERED: METOPROLOL TARTRATE 50 MG TAB PO SCH (09:00)
--- NOTE | 2019-07-25 09:16 | US ---
EXAMINATION TYPE: US abdomen complete DATE OF EXAM: 07/25/2019 COMPARISON: NONE CLINICAL HISTORY: pain. Intermittent abdomen pain and nausea x 4 months, exam done portable. EXAM MEASUREMENTS: Liver Length: 15.2 cm CBD: 0.6 cm Spleen: 9.4 cm Right Kidney: 9.3 x 5.0 x 4.6 cm Left Kidney: 9.5 x 5.0 x 5.0 cm Difficult and limited study due to patient body habitus Pancreas: visualized portions wnl, limited by overlying midline bowel gas Liver: attenuating heterogeneous, decreased visualization of vessels suggestive of moderate fatty in filtrate Gallbladder: surgically absent Evidence for sonographic Espinoza's sign: no CBD: visualized portions wnl, limited by overlying bowel gas Spleen: wnl Right Kidney: no hydronephrosis or masses seen Left Kidney: 2 cystic areas mid pole with largest measuring 2.7 x 2.9 x 2.5cm Upper IVC: wnl Abd Aorta: wnl IMPRESSION: 1. Moderate fatty infiltration the liver. 2. Left renal cyst
[2019-07-25] MEDS ORDERED: AMINOPHYLLINE 500 MG/20 ML VIAL IV PRN (09:22)
[2019-07-25] MEDS ORDERED: CAFFEINE CITRATE 60 MG/3 ML VIAL IV PRN (09:22)
[2019-07-25] MEDS ORDERED: DIPYRIDAMOLE 56.9 MG in SODIUM CHLORIDE 0.9% 38.62 ML IV ONE (09:22)
[2019-07-25] MEDS ORDERED: AMINOPHYLLINE 500 MG/20 ML VIAL IV ONE (11:10)
[2019-07-25 12:06] LABS: Glucose,Whole Blood 210 mg/dL (75-99)
[2019-07-25] MEDS: INSULIN REGULAR 100 UNIT/ML VIAL SQ SCH ×2 (12:08→12:15)
[2019-07-25] MEDS: INSULN ASP PRT/INSULIN ASPART 100 UNIT/ML 10 ML VIAL SQ SCH (12:09)
[2019-07-25 12:10] VITALS: BP 181/90; PULSE 99; TEMP 97.8
[2019-07-25] MEDS: PANTOPRAZOLE 40 MG/10 ML VIAL IVP SCH (12:13)
--- NOTE | 2019-07-25 13:03 | NM ---
EXAMINATION TYPE: NM stress persantine cardiolit DATE OF EXAM: 07/25/2019 COMPARISON: NONE HISTORY: Chest pain TECHNIQUE: After the intravenous administration of 10.8 mCi Tc 99m Sestamibi - Cardiolite resting SP ECT images acquired 45 minutes post injection. The patient received 0.4mg Lexiscan, 24.7 mCi Tc 99m Sestamibi - Stress images obtained [address] injection FINDINGS: Gated analysis shows normal wall motion with an estimated left ventricular ejection fraction of 80 %. There is diminished radiotracer accumulation along the inferior wall on both rest and stress images. No reversible perfusion defect is evident. IMPRESSION: Fixed defect along the inferior wall on both rest and stress images without evidence of reversibility . Prior infarct and artifact are within the differential. Correlate with EKG findings.
--- NOTE | 2019-07-25 14:48 | P.DS ---
Providers Date of admission: 07/24/19 11:14 Expected date of discharge: 07/25/19 Attending physician: Pola Garcia MD Consults: 07/24/19 11:14 Consult Physician Routine Consulting Provider: [facility] Consult Reason/Comments: CP Do you want consulting provider notified?: Yes Primary care physician: [facility] Hospital Course: 74-year-old female patient who sees Dr. Mendoza in the office on regular basis with a past medical history significant for diabetes, hypertension, dyslipidemia, presented to the hospital complaining of chest discomfort. The patient was in her usual state of health yesterday when she woke up complaining of discomfort in the abdomen as well as in the chest. She noticed that her blood pressure was elevated. She stated that she was compliant with all of her medications as well as with her diet. No symptoms of shortness of breath, sweating, dizziness, or syncope. Currently the patient is symptoms free. The blood pressure when she presented was elevated and continues to be elevated in the hospital. The EKG showed sinus rhythm without any ischemic ST or T-wave abnormalities. Cardiac enzymes were checked and came in to be unremarkable. The troponin came in to be unremarkable. The patient does see Dr. Packer in the office on regular basis and I did review the previous medical records which indicated she underwent myocardial perfusion imaging stress test in October 2018 that was unremarkable. She is known to have carotid stenosis.no established history of coronary artery disease and no recent heart catheterization was performed. Patient was admitted to hospital acute coronary event was ruled out; patient complaint of some abdominal discomfort for which ultrasound of abdomen was done which showed fatty liver with left renal cyst about 2.7 cm; cardiology saw patient and start patient on lisinopril 5 mg daily and recommended nuclear stress test which was negative for reversible ischemia; patient remained chest pain-free and was discharged home in a stable condition to follow-up with PCP for further evaluation Patient Condition at Discharge: Stable Plan - Discharge Summary Discharge Rx Participant: No New Discharge Prescriptions: New Lisinopril [Zestril] 5 mg PO DAILY #30 tab Continue Metoprolol Tartrate [Lopressor] 100 mg PO DAILY Levothyroxine Sodium [Synthroid] 112 mcg PO DAILY Ergocalciferol (Vitamin D2) [Vitamin D2] 50,000 unit PO WE Insulin NPH Hum/Reg Insulin Hm [NovoLIN 70-30 100 UNIT/ML VIAL] 50 unit SQ AC-BID Insulin Regular, Human [NovoLIN R] 5 - 10 unit SQ ACHS Acetaminophen [Tylenol Extra Strength] 500 mg PO Q6HR PRN PRN Reason: Pain Ranitidine HCl [Zantac] 150 mg PO DAILY Atorvastatin [Lipitor] 20 mg PO DAILY amLODIPine [Norvasc] 5 mg PO HS Allopurinol [Zyloprim] 300 mg PO DAILY Discontinued Anastrozole 1 mg PO DAILY Discharge Medication List Metoprolol Tartrate [Lopressor] 100 mg PO DAILY 12/22/15 [History] Levothyroxine Sodium [Synthroid] 112 mcg PO DAILY 09/06/16 [History] Ergocalciferol (Vitamin D2) [Vitamin D2] 50,000 unit PO WE 02/11/19 [History] Insulin NPH Hum/Reg Insulin Hm [NovoLIN 70-30 100 UNIT/ML VIAL] 50 unit SQ AC- BID 02/11/19 [History] Insulin Regular, Human [NovoLIN R] 5 - 10 unit SQ ACHS 02/11/19 [History] Acetaminophen [Tylenol Extra Strength] 500 mg PO Q6HR PRN 03/07/19 [History] Allopurinol [Zyloprim] 300 mg PO DAILY 07/24/19 [History] Atorvastatin [Lipitor] 20 mg PO DAILY 07/24/19 [History] Ranitidine HCl [Zantac] 150 mg PO DAILY 07/24/19 [History] amLODIPine [Norvasc] 5 mg PO HS 07/24/19 [History] Lisinopril [Zestril] 5 mg PO DAILY #30 tab 07/25/19 [Rx] Follow up Appointment(s)/Referral(s): Alethea Haynes MD [Primary Care Provider] - 1-2 days Xi Miles MD [STAFF PHYSICIAN] - 08/04/19 8:00 am Discharge Disposition: HOME SELF-CARE
--- NOTE | 2019-07-28 10:09 | EST ---
EXERCISE STRESS INDICATION: Chest pain. AGE: 74 SEX: F HT: 5'3" WT: 220 PROTOCOL: Persantine Cardiolite STAGE: DURATION OF EXERCISE: HEART RATE REST: 86 BLOOD PRESSURE REST: 161/82 MAXIMUM HEART RATE ACHIEVED: 102 MAXIMUM BLOOD PRESSURE: 131/68 85% MPHR: 124 100% MPHR: 146 METS: STRESS DATA: Heart rate 86, pressure is 161/82 mmHg. Baseline EKG showed sinus rhythm. The patient was given 56.9 mg of Persantine per protocol. Max heart rate was 102 beats per minute and maximum pressure was 131/68 mmHg. Clinically, the patient developed chest discomfort as well as shortness of breath. The EKG did not show any significant ST or T-wave abnormalities concerning for ischemia. CONCLUSION: 1. Nondiagnostic electrocardiogram stress testing in response to Persantine. 2. Please follow up on the Cardiolite portion on a separate report from radiology department. MMODL / IJN: [id number] /
[2019-07-30] MEDS ORDERED: ERGOCALCIFEROL 50,000 UNIT CAP PO SCH (12:00)
== END 2019-07-25 14:57 | disposition home or self-care (01) ==
LOC: EC 09:15 → 1SOBS 11:14
PROVIDERS: ADMIT Internal Medicine; ATTEND Internal Medicine
DX: R07.89 Other chest pain (principal); R53.83 Other fatigue; C50.919 Malignant neoplasm of unspecified site of unspecified female breast; I12.9 Hypertensive chronic kidney disease with stage 1 through stage 4 chronic kidney disease, or unspecified chronic kidney disease; E11.22 Type 2 diabetes mellitus with diabetic chronic kidney disease; N18.3 Chronic kidney disease, stage 3 (moderate); Z87.891 Personal history of nicotine dependence; Z79.4 Long term (current) use of insulin; E11.42 Type 2 diabetes mellitus with diabetic polyneuropathy; M79.7 Fibromyalgia; Z86.69 Personal history of other diseases of the nervous system and sense organs; M19.90 Unspecified osteoarthritis, unspecified site; I65.29 Occlusion and stenosis of unspecified carotid artery; K21.9 Gastro-esophageal reflux disease without esophagitis; J44.9 Chronic obstructive pulmonary disease, unspecified; K76.0 Fatty (change of) liver, not elsewhere classified; N28.1 Cyst of kidney, acquired; Z90.10 Acquired absence of unspecified breast and nipple; Z90.49 Acquired absence of other specified parts of digestive tract; Z90.710 Acquired absence of both cervix and uterus; Z82.49 Family history of ischemic heart disease and other diseases of the circulatory system; Z80.3 Family history of malignant neoplasm of breast; Z80.0 Family history of malignant neoplasm of digestive organs; Z80.1 Family history of malignant neoplasm of trachea, bronchus and lung; Z80.42 Family history of malignant neoplasm of prostate; Z79.890 Hormone replacement therapy; Z79.899 Other long term (current) drug therapy; Z79.811 Long term (current) use of aromatase inhibitors; Z91.041 Radiographic dye allergy status; Z91.048 Other nonmedicinal substance allergy status
CPT/HCPCS: 93005 ×2; 96374; 96375; 96376; 96361; 99285; 36415; 93017; 83880; 80053; 84443; 83690; 83735; 84484; 85025; 85610; 85730; 71046; 76700; 78452; G0378 ×2; A9500; J2270; J0280; J1245; C9113 ×2

== ENCOUNTER → 2019-07-30 | Outpatient (CLI) | payer MEDICARE, OTHER ==
--- NOTE | 2019-07-30 12:11 | US ---
EXAMINATION TYPE: US venous doppler duplex LE BI DATE OF EXAM: 07/30/2019 12:00 PM COMPARISON: NONE CLINICAL HISTORY: R22.42,R22.41 SWELLING OF BOTH LIMBS. edema difficult breathing SIDE PERFORMED: Bilateral TECHNIQUE: The lower extremity deep venous system is examined utilizing real time linear array sonog theresa with graded compression, doppler sonography and color-flow sonography. VESSELS IMAGED: External Iliac Vein (EIV) Common Femoral Vein Deep Femoral Vein Greater Saphenous Vein * Femoral Vein Popliteal Vein Small Saphenous Vein * Proximal Calf Veins (* superficial vessels) Right Leg: Negative for DVT Left Leg: Negative for DVT IMPRESSION: 1. Bilateral lower extremity ultrasound negative for deep venous thrombosis.
--- NOTE | 2019-07-30 13:37 | NM ---
EXAMINATION TYPE: NM pul vent and perfuse DATE OF EXAM: 07/30/2019 COMPARISON: NONE HISTORY: Dyspnea TECHNIQUE: Utilizing inhalation of 33.2 mCi Tc 99m DTPA aerosol and intravenous injection of 5.0 mCi of Tc 99m MAA, ventilation and perfusion images are acquired post injection in multiple projections. FINDINGS: Perfusion images appear normal. No moderate or large mismatched defects with the ventilation and perf usion images is evident. No triple matched defects are evident. IMPRESSION: Very low probability for pulmonary embolism.
--- NOTE | 2019-07-30 16:10 | XR ---
EXAMINATION TYPE: XR chest 2V DATE OF EXAM: 07/30/2019 COMPARISON: 07/24/2019 INDICATION: Dyspnea short of breath TECHNIQUE: Frontal and lateral views of the chest are obtained. FINDINGS: The heart size is normal. The pulmonary vasculature is normal. The lungs are clear. Bilateral breast surgical clips are present. IMPRESSION: 1. No acute pulmonary process.
== END | disposition home or self-care (01) ==
LOC: RADUSWWP 11:19
PROVIDERS: ATTEND Internal Medicine Hematology & Oncology
DX: R22.42 Localized swelling, mass and lump, left lower limb (principal); R22.41 Localized swelling, mass and lump, right lower limb; R06.00 Dyspnea, unspecified
CPT/HCPCS: 71046; 93970; 78582; A9540; A9567

== ENCOUNTER → 2020-06-09 | Outpatient (CLI) | payer MEDICARE, OTHER ==
[2020-06-09 22:10] LABS: Gliadin AB IgA, Deaminated NEGATIVE (NEGATIVE); Gliadin AB IgA, Unit <0.2 U/mL; Gliadin AB IgG, Deaminated NEGATIVE (NEGATIVE)
== END ==
LOC: LABWHC1 12:31
PROVIDERS: ATTEND Nurse Practitioner
DX: K52.9 Noninfective gastroenteritis and colitis, unspecified (principal)
CPT/HCPCS: 36415; 83516; 83630; 85652; 86140; 87045; 87046; 87328; 87329

== ENCOUNTER 2022-01-23 10:13 | Inpatient (IN) | payer MEDICARE, OTHER ==
[2022-01-23] MEDS ORDERED: SODIUM CHLORIDE 0.9% 1,000 ML IV STA (10:48)
[2022-01-23] MEDS ORDERED: HYDROmorphone 0.5 MG/0.5 ML SYRINGE IVP STA (11:18)
[2022-01-23] MEDS ORDERED: ONDANSETRON 4 MG/2 ML VIAL IVP STA (11:18)
[2022-01-23 11:35] LABS: Basophils # (A) 0.1 k/uL (0-0.2); Basophils % (A) 1 %; Eosinophils % (A) 0 %; HCT 37.5 % (34.0-46.0); HGB 12.3 gm/dL (11.4-16.0); Lymphocytes # (A) 2.3 k/uL (1.0-4.8); Lymphocytes % (A) 24 %; MCH 33.9 pg (25.0-35.0); MCHC 32.8 g/dL (31.0-37.0); MCV 103.6 fL (80.0-100.0); Macrocytosis Moderate; Mean Platelet Volume 9.2; Monocytes # (A) 0.7 k/uL (0-1.0); Monocytes % (A) 7 %; Neutrophils # (A) 6.1 k/uL (1.3-7.7); Neutrophils % (A) 64 %; Platelet Count 253 k/uL (150-450); RBC 3.62 m/uL (3.80-5.40); RDW 15.6 % (11.5-15.5); WBC 9.5 k/uL (3.8-10.6)
[2022-01-23 11:50] LABS: Albumin 4.3 g/dL (3.5-5.0); Calcium 9.5 mg/dL (8.4-10.2); Potassium 5.2 mmol/L (3.5-5.1); Total Bilirubin 0.5 mg/dL (0.2-1.3); Total Protein 7.3 g/dL (6.3-8.2)
--- NOTE | 2022-01-23 12:11 | ED ---
Abdominal Pain HPI - General Chief Complaint: Abdominal Pain Stated Complaint: abd & back pain Time Seen by Provider: 01/23/22 10:46 Source: patient, RN notes reviewed Mode of arrival: ambulatory Limitations: no limitations - History of Present Illness Initial Comments: This a 76-year-old female presents emergency Department with chief complaint of left-sided abdominal pain. Patient states his been increasing last few days. Patient states she has left lower quadrant pain. Patient does admit that she didn't doses. Patient has urinary frequency and dysuria that she also missed she is diabetic. No fevers or chills no chest pain or shortness of breath. Nothing makes the pain feel better or worse. - Related Data Home Medications Medication Instructions Recorded Confirmed Metoprolol Tartrate [Lopressor] 100 mg PO DAILY 12/22/15 07/24/19 Levothyroxine Sodium [Synthroid] 112 mcg PO DAILY 09/06/16 07/24/19 Ergocalciferol (Vitamin D2) 50,000 unit PO WE 02/11/19 07/24/19 [Vitamin D2] Insulin NPH Hum/Reg Insulin Hm 50 unit SQ AC-BID 02/11/19 07/24/19 [NovoLIN 70-30 100 UNIT/ML VIAL] Insulin Regular, Human [NovoLIN R] 5 - 10 unit SQ ACHS 02/11/19 07/24/19 Acetaminophen [Tylenol Extra 500 mg PO Q6HR PRN 03/07/19 07/24/19 Strength] Atorvastatin [Lipitor] 20 mg PO DAILY 07/24/19 07/24/19 allopurinoL [Zyloprim] 300 mg PO DAILY 07/24/19 07/24/19 amLODIPine [Norvasc] 5 mg PO HS 07/24/19 07/24/19 raNITIdine HCL [Zantac] 150 mg PO DAILY 07/24/19 07/24/19 Previous Rx's Medication Instructions Recorded lisinopriL [Zestril] 5 mg PO DAILY #30 tab 07/25/19 Allergies Allergy/AdvReac Type Severity Reaction Status Date / Time Iodinated Contrast Media Allergy Anaphylaxis Verified 01/23/22 10:33 [Iodinated Contrast- Oral and IV Dye] iodine Allergy Rash/Hives Verified 01/23/22 10:33 Review of Systems ROS Statement: Those systems with pertinent positive or pertinent negative responses have been documented in the HPI. ROS Other: All systems not noted in ROS Statement are negative. 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 wrist surgery, best mastectomy Past Anesthesia/Blood Transfusion Reactions: No Reported Reaction Past Psychological History: No Psychological Hx Reported Past Alcohol Use History: Occasional Past Drug Use History: None Reported - Past Family History Mother Family Medical History: Deep Vein Thrombosis (DVT) Father Family Medical History: Myocardial Infarction ([place]) Sister(s) Family Medical History: Cancer Additional Family Medical History / Comment(s): 1 sister colon cancer, 1 sister lung cancer and breast ca, 1 sister with breast ca Brother(s) Family Medical History: Cancer, Myocardial Infarction ([place]) Additional Family Medical History / Comment(s): prostate cancer x brothers Daughter(s) Family Medical History: No Reported History Son(s) Family Medical History: Hypertension General Exam Limitations: no limitations General appearance: alert, in no apparent distress Head exam: Present: atraumatic, normocephalic, normal inspection Eye exam: Present: normal appearance, PERRL, EOMI. Absent: scleral icterus, conjunctival injection, periorbital swelling ENT exam: Present: normal exam, mucous membranes moist Neck exam: Present: normal inspection. Absent: tenderness, meningismus, lymphadenopathy Respiratory exam: Present: normal lung sounds bilaterally. Absent: respiratory distress, wheezes, rales, rhonchi, stridor Cardiovascular Exam: Present: regular rate, normal rhythm, normal heart sounds. Absent: systolic murmur, diastolic murmur, rubs, gallop, clicks GI/Abdominal exam: Present: soft, tenderness (Left lower quadrant), normal bowel sounds. Absent: distended, guarding, rebound, rigid Back exam: Absent: CVA tenderness (R), CVA tenderness (L) Neurological exam: Present: alert Skin exam: Present: warm, dry, intact, normal color. Absent: rash Course Vital Signs 01/23/22 10:28 Temperature 98.2 F Pulse Rate 80 Respiratory 18 Rate Blood Pressure 144/73 O2 Sat by Pulse 97 Oximetry Medical Decision Making - Medical Decision Making 76-year-old presented left-sided abdominal pain. Patient has evidence urinary tract infection, diverticulitis and CT. Patient be admitted for IV antibiotics, pain control . Case discussed with Dr. worrell coverage for Dr. henry - Lab Data Result diagrams: 01/23/22 11:03 01/23/22 11:03 Lab Results 01/23/22 01/23/22 01/23/22 Range/Units 11:03 11:03 11:03 WBC 9.5 (3.8-10.6) k/uL RBC 3.62 L (3.80-5.40) m/uL Hgb 12.3 (11.4-16.0) gm/dL Hct 37.5 (34.0-46.0) % MCV 103.6 H (80.0-100.0) fL MCH 33.9 (25.0-35.0) pg MCHC 32.8 (31.0-37.0) g/dL RDW 15.6 H (11.5-15.5) % Plt Count 253 (150-450) k/uL MPV 9.2 Neutrophils % 64 % Lymphocytes % 24 % Monocytes % 7 % Eosinophils % 0 % Basophils % 1 % Neutrophils # 6.1 (1.3-7.7) k/uL Lymphocytes # 2.3 (1.0-4.8) k/uL Monocytes # 0.7 (0-1.0) k/uL Eosinophils # 0.0 (0-0.7) k/uL Basophils # 0.1 (0-0.2) k/uL Macrocytosis Moderate Sodium 131 L (137-145) mmol/L Potassium 5.2 H (3.5-5.1) mmol/L Chloride 96 L (98-107) mmol/L Carbon Dioxide 23 (22-30) mmol/L Anion Gap 12 mmol/L BUN 28 H (7-17) mg/dL Creatinine 1.14 H (0.52-1.04) mg/dL Est GFR (CKD-EPI)AfAm 54 (>60 ml/min/1.73 sqM) Est GFR (CKD-EPI)NonAf 47 (>60 ml/min/1.73 sqM) Glucose 181 H (74-99) mg/dL Plasma Lactic Acid Ma[place] 1.3 (0.7-2.0) mmol/L Calcium 9.5 (8.4-10.2) mg/dL Total Bilirubin 0.5 (0.2-1.3) mg/dL AST 16 (14-36) U/L ALT 13 (4-34) U/L Alkaline Phosphatase 67 (38-126) U/L Total Protein 7.3 (6.3-8.2) g/dL Albumin 4.3 (3.5-5.0) g/dL Amylase 48 (30-110) U/L Lipase 42 (23-300) U/L Urine Color Urine Appearance (Clear) Urine pH (5.0-8.0) Ur Specific [place] (1.001-1.035) Urine Protein (Negative) Urine Glucose (UA) (Negative) Urine Ketones (Negative) Urine Blood (Negative) Urine Nitrite (Negative) Urine Bilirubin (Negative) Urine Urobilinogen (<2.0) mg/dL Ur Leukocyte Esterase (Negative) Urine WBC (0-5) /hpf Urine WBC Clumps (None) /hpf Ur Squamous Epith Cells (0-4) /hpf Urine Bacteria (None) /hpf Urine Mucus (None) /hpf 01/23/22 Range/Units 11:47 WBC (3.8-10.6) k/uL RBC (3.80-5.40) m/uL Hgb (11.4-16.0) gm/dL Hct (34.0-46.0) % MCV (80.0-100.0) fL MCH (25.0-35.0) pg MCHC (31.0-37.0) g/dL RDW (11.5-15.5) % Plt Count (150-450) k/uL MPV Neutrophils % % Lymphocytes % % Monocytes % % Eosinophils % % Basophils % % Neutrophils # (1.3-7.7) k/uL Lymphocytes # (1.0-4.8) k/uL Monocytes # (0-1.0) k/uL Eosinophils # (0-0.7) k/uL Basophils # (0-0.2) k/uL Macrocytosis Sodium (137-145) mmol/L Potassium (3.5-5.1) mmol/L Chloride (98-107) mmol/L Carbon Dioxide (22-30) mmol/L Anion Gap mmol/L BUN (7-17) mg/dL Creatinine (0.52-1.04) mg/dL Est GFR (CKD-EPI)AfAm (>60 ml/min/1.73 sqM) Est GFR (CKD-EPI)NonAf (>60 ml/min/1.73 sqM) Glucose (74-99) mg/dL Plasma Lactic Acid [place] (0.7-2.0) mmol/L Calcium (8.4-10.2) mg/dL Total Bilirubin (0.2-1.3) mg/dL AST (14-36) U/L ALT (4-34) U/L Alkaline Phosphatase (38-126) U/L Total Protein (6.3-8.2) g/dL Albumin (3.5-5.0) g/dL Amylase (30-110) U/L Lipase (23-300) U/L Urine Color Yellow Urine Appearance Cloudy H (Clear) Urine pH 5.0 (5.0-8.0) Ur Specific [place] 1.015 (1.001-1.035) Urine Protein Negative (Negative) Urine Glucose (UA) Negative (Negative) Urine Ketones Negative (Negative) Urine Blood Negative (Negative) Urine Nitrite Negative (Negative) Urine Bilirubin Negative (Negative) Urine Urobilinogen <2.0 (<2.0) mg/dL Ur Leukocyte Esterase Large H (Negative) Urine WBC 88 H (0-5) /hpf Urine WBC Clumps Occasional H (None) /hpf Ur Squamous Epith Cells 6 H (0-4) /hpf Urine Bacteria Occasional H (None) /hpf Urine Mucus Rare H (None) /hpf Disposition Clinical Impression: Diverticulitis, Urinary tract infection Disposition: ADMITTED IP TO THIS HOSP Condition: Fair Referrals: Justyna Hahn MD [Primary Care Provider] - 1-2 days Time of Disposition: 12:55
[2022-01-23 12:20] LABS: Appearance,Urine Cloudy (Clear); Bacteria,Urine Occasional /hpf; Bilirubin,Urine Negative (Negative); Blood,Urine Negative (Negative); Color,Urine Yellow; Glucose,Urine (UA) Negative (Negative); Ketones,Urine Negative (Negative); Leukocyte Esterase,Urine Large (Negative); Mucus,Urine Rare /hpf; Nitrite,Urine Negative (Negative); Protein,Urine Negative (Negative); Specific Gravity,Urine 1.015 (1.001-1.035); Squamous Epithelial Cell,Urine 6 /hpf (0-4); Urobilinogen,Urine <2.0 mg/dL (<2.0); WBC,Urine 88 /hpf (0-5)
--- NOTE | 2022-01-23 12:33 | CT ---
EXAMINATION TYPE: CT abdomen pelvis wo con DATE OF EXAM: 01/23/2022 COMPARISON: No previous CT scan is available for comparison. HISTORY: LLQ pain CT DLP: 1409.4 mGycm Automated exposure control for dose reduction was used. TECHNIQUE: Helical acquisition of images was performed from the lung bases through the pelvis. FINDINGS: LUNG BASES: No significant abnormality is appreciated. LIVER/GB: Enlarged liver measuring 19.9 cm. No definite hepatic focal lesion by this nonenhanced CT s can. Previous cholecystectomy. PANCREAS: No significant abnormality is seen. SPLEEN: No significant abnormality is seen. ADRENALS: Slightly thickened left adrenal. Unremarkable right adrenal. KIDNEYS: Multiple variable sized bilateral renal cysts. Tiny calcification measuring 3 mm seen at the margin of a left mid renal pole cyst. No other gross suspicious feature identified. No hydroureter o r hydronephrosis. FREE AIR: No free air is visualized RETROPERITONEAL ADENOPATHY: No pathologically enlarged retroperitoneal lymph nodes. REPRODUCTIVE ORGANS: Previous hysterectomy. No gross adnexal mass. URINARY BLADDER: Nondistended. PELVIC ADENOPATHY: No pathologically enlarged pelvic lymph nodes. OSSEOUS STRUCTURES: Degenerative changes of the lower thoracic, lumbar spine, sacroiliac joints and symphysis pubis. Grade 1 anterolisthesis at the lower lumbar level. BOWEL: Acute diverticulitis involving the inferior aspect of the descending colon with surrounding a cute inflammatory changes. No definite abscess formation or signs of perforation by this nonenhanced CT scan. Other scattered colonic diverticulosis most evident involving the sigmoid colon. Unremarkabl e nondistended stomach, duodenum and small bowel. OTHER: Scattered arterial atherosclerotic calcifications. No sizable ascites. IMPRESSION: Acute diverticulitis changes involving the inferior aspect of the descending colon as described above . No signs of perforation or definite abscess formation by this nonenhanced CT scan. Other incidental findings as described above.
[2022-01-23] MEDS ORDERED: PIPERACILLIN-TAZOBACTAM 3.375 GM in SODIUM CHLORIDE 0.9% 100 ML IVPB STA (12:53)
[2022-01-23] MEDS ORDERED: ONDANSETRON 4 MG/2 ML VIAL IVP PRN (12:55)
[2022-01-23] MEDS ORDERED: NALOXONE 0.4 MG/ML 1 ML VIAL IV PRN (12:55)
[2022-01-23] MEDS: SODIUM CHLORIDE 0.9% 1,000 ML IV SCH ×2 (13:40→22:43)
[2022-01-23] MEDS ORDERED: ACETAMINOPHEN TAB 500 MG TAB PO PRN (13:55)
[2022-01-23] MEDS: HYDROmorphone 0.5 MG/0.5 ML SYRINGE IVP PRN ×3 (15:07→23:17)
[2022-01-23] MEDS: INSULIN ASPART (NovoLOG) 100 UNIT/ML VIAL SQ SCH ×2 (17:47→22:39)
[2022-01-23] MEDS: INSULN ASP PRT/INSULIN ASPART 100 UNIT/ML 10 ML VIAL SQ SCH (17:47)
[2022-01-23 17:48] LABS: Glucose,Whole Blood 96 mg/dL (75-99)
[2022-01-23] MEDS: HEPARIN SODIUM,PORCINE/PF 5,000 UNIT/0.5 ML SYRINGE SQ SCH ×2 (17:59→22:42)
[2022-01-23] MEDS: amLODIPine 5 MG TAB PO SCH (20:11)
[2022-01-23 22:40] LABS: Glucose,Whole Blood 138 mg/dL (75-99)
--- NOTE | 2022-01-23 22:43 | P.HPIM ---
History of Present Illness H&P Date: 01/23/22 Chief Complaint: Abdominal pain 76-year-old female with a known history of IBS, hypertension, hyperlipidemia, fibromyalgia, diabetes type 2 insulin-dependent, hypothyroidism and osteoarthritis and history of breast cancer status post bilateral mastectomy presents to ER with complaints of abdominal pain mainly in the left lower quadrant for the past 3 days. Patient was also having increased urinary frequency and pain with urination. Patient states that she started having IBS symptoms with the diarrhea 10 days ago and lasted for 3 days and her symptoms improved. Again on Sunday patient started having left lower quadrant abdominal pain, stabbing type episodes with some nausea. No diarrhea. Denies any blood in the stool past 3 days. Patient did have colonoscopy about 1 year ago. Patient is supposed to follow-up with GI in the clinic next week. Patient presented to ER due to worsening symptoms. CT of the abdomen pelvis done in the ER showed acute diverticulitis changes involving the inferior aspect of the descending colon. No signs of perforation or definite abscess formation by this nausea and has a CT scan. Laboratory data showed WBC 9.5 hemoglobin 12.3 and platelets 253 Sodium 131 potassium 5.2 chloride 96 bicarb is 23 BUN 28 and creatinine 1.14 and blood sugar is 181 Urinalysis showed cloudy with large leukocyte esterase with elevated WBCs and 6, severe sepsis. Patient has been afebrile on admission. Review of Systems Constitutional: Patient denies any fever or chills . Generalized weakness. Abdomen: Patient denied any nausea or vomiting. Patient does have abdominal pain mainly in the left lower quadrant. Cardiovascular: Patient denies any chest pain or short of breath no palpitations. Respiratory: patient denied any cough is from production. No shortness of breath Neurologic: Patient denied any numbness or tingling headache. Musculoskeletal: Patient denies any complaints of joint swelling or deformity. Skin: Negative Psychiatric: Negative Endocrine: No heat or cold intolerance. No recent weight gain. Genitourinary: No dysuria or hematuria. 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 wrist surgery, best mastectomy Past Anesthesia/Blood Transfusion Reactions: No Reported Reaction Past Psychological History: No Psychological Hx Reported Past Alcohol Use History: Occasional Past Drug Use History: None Reported - Past Family History Mother Family Medical History: Deep Vein Thrombosis (DVT) Father Family Medical History: Myocardial Infarction ([place]) Sister(s) Family Medical History: Cancer Additional Family Medical History / Comment(s): 1 sister colon cancer, 1 sister lung cancer and breast ca, 1 sister with breast ca Brother(s) Family Medical History: Cancer, Myocardial Infarction ([place]) Additional Family Medical History / Comment(s): prostate cancer x brothers Daughter(s) Family Medical History: No Reported History Son(s) Family Medical History: Hypertension Medications and Allergies Home Medications Medication Instructions Recorded Confirmed Type Metoprolol Tartrate [Lopressor] 100 mg PO DAILY 12/22/15 01/23/22 History Insulin NPH Hum/Reg Insulin Hm 45 unit SQ AC-BID 02/11/19 01/23/22 History [NovoLIN 70-30 100 UNIT/ML VIAL] Acetaminophen [Tylenol Extra 500 mg PO Q6HR PRN 03/07/19 01/23/22 History Strength] allopurinoL [Zyloprim] 300 mg PO DAILY 07/24/19 01/23/22 History amLODIPine [Norvasc] 5 mg PO HS 07/24/19 01/23/22 History Cholecalciferol [Vitamin D3 (25 50 mcg PO DAILY 01/23/22 01/23/22 History Mcg = 1000 Iu)] Dicyclomine [Bentyl] 20 mg PO QID PRN 01/23/22 01/23/22 History Ezetimibe [Zetia] 10 mg PO DAILY 01/23/22 01/23/22 History Levothyroxine Sodium [Synthroid] 100 mcg PO DAILY 01/23/22 01/23/22 History lisinopriL [Zestril] 10 mg PO DAILY@1200 01/23/22 01/23/22 History Allergies Allergy/AdvReac Type Severity Reaction Status Date / Time Iodinated Contrast Media Allergy Anaphylaxis Verified 01/23/22 13:27 [Iodinated Contrast- Oral and IV Dye] iodine Allergy Rash/Hives Verified 01/23/22 13:27 codeine AdvReac Headache & Verified 01/23/22 13:27 nausea Physical Exam Vitals: Vital Signs Temp Pulse Pulse Resp BP BP Pulse Ox 01/23/22 20:00 98.1 F 94 16 168/84 95 01/23/22 10:28 98.2 F 80 18 144/73 97 Intake and Output 01/23/22 01/23/22 01/23/22 06:59 14:59 22:59 Other: Weight 108.862 kg PHYSICAL EXAMINATION: Patient is lying in the bed comfortably, no acute distress, awake alert and oriented.. HEENT: Normocephalic. Neck is supple. Pupils reactive. Nostrils clear. Oral cavity is moist. Neck reveals no JVD, carotid bruits, or thyromegaly. CHEST EXAMINATION: Trachea is central. Symmetrical expansion. Lung pickens clear to auscultation and percussion. CARDIAC: Normal S1, S2 with no gallops. No murmurs ABDOMEN: Soft. Bowel sounds present. Left lower quadrant tenderness. No guarding or rigidity.. No organomegaly. No abdominal bruits. Extremities: reveal no edema. No clubbing or cyanosis Neurologically awake, alert, oriented x3 with well-coordinated movements. No focal deficits noted Skin: No rash or skin lesions. Psychiatric: Coperative. Nonsuicidal, anxious. Musculoskeletal: No joint swelling or deformity. Normal range of motion. Results CBC & Chem 7: 01/23/22 11:03 01/23/22 11:03 Labs: Abnormal Lab Results - Last 24 Hours (Table) 01/23/22 01/23/22 01/23/22 Range/Units 11:03 11:03 11:47 RBC 3.62 L (3.80-5.40) m/uL MCV 103.6 H (80.0-100.0) fL RDW 15.6 H (11.5-15.5) % Sodium 131 L (137-145) mmol/L Potassium 5.2 H (3.5-5.1) mmol/L Chloride 96 L (98-107) mmol/L BUN 28 H (7-17) mg/dL Creatinine 1.14 H (0.52-1.04) mg/dL Glucose 181 H (74-99) mg/dL Urine Appearance Cloudy H (Clear) Ur Leukocyte Esterase Large H (Negative) Urine WBC 88 H (0-5) /hpf Urine WBC Clumps Occasional H (None) /hpf Ur Squamous Epith Cells 6 H (0-4) /hpf Urine Bacteria Occasional H (None) /hpf Urine Mucus Rare H (None) /hpf Microbiology - Last 24 Hours (Table) 01/23/22 11:47 Urine Culture - Preliminary Urine,Voided Thrombosis Risk Factor Assmnt - DVT/VTE Prophylaxis DVT/VTE Prophylaxis: Pharmacologic Prophylaxis ordered Assessment and Plan Assessment: Left lower quadrant abdominal pain secondary to acute diverticulitis. Acute urinary tract infection Irritable bowel syndrome with intermittent symptoms of diarrhea. Hypovolemic hyponatremia, Mild hyperkalemia 5.2 Hypertension Hyperlipidemia Diabetes type 2 insulin-dependent COPD Osteoarthritis Hypothyroidism History of GERD and Armijo's syndrome History of breast cancer status post bilateral mastectomy Morbid obesity with BMI 43.9 DVT prophylaxis with heparin subcu Plan: Patient be continued on IV hydration with normal saline and antibiotics in the form of Zosyn. Follow-up blood cultures. Continue pain management. Patient will be started on clear liquid diet. Follow-up urine culture report. Patient was started back on her insulin regimen and sliding scale as needed. Continue with home medications and follow-up closely. Time with Patient: Greater than 30
[2022-01-24] MEDS: HYDROmorphone 0.5 MG/0.5 ML SYRINGE IVP PRN ×4 (03:58→20:49)
[2022-01-24] MEDS: LEVOTHYROXINE 100 MCG TAB PO SCH (05:37)
[2022-01-24 07:36] LABS: Glucose,Whole Blood 162 mg/dL (75-99)
[2022-01-24] MEDS: INSULN ASP PRT/INSULIN ASPART 100 UNIT/ML 10 ML VIAL SQ SCH ×2 (07:52→18:05)
[2022-01-24] MEDS: HEPARIN SODIUM,PORCINE/PF 5,000 UNIT/0.5 ML SYRINGE SQ SCH ×3 (07:52→23:17)
[2022-01-24] MEDS: INSULIN ASPART (NovoLOG) 100 UNIT/ML VIAL SQ SCH ×4 (07:53→20:46)
[2022-01-24] MEDS: allopurinoL 300 MG TAB PO SCH (07:54)
[2022-01-24] MEDS: METOPROLOL TARTRATE 50 MG TAB PO SCH (07:54)
[2022-01-24 09:29] LABS: Basophils # (A) 0.03 X 10*3/uL (0.00-0.10); Basophils % (A) 0.5 %; Eosinophils # (A) 0.12 X 10*3/uL (0.04-0.35); Eosinophils % (A) 1.8 %; HCT 33.6 % (37.2-46.3); HGB 10.8 g/dL (12.0-15.0); Immature Grans, Automated 0.6 %; Lymphocytes # (A) 1.58 X 10*3/uL (0.90-5.00); Lymphocytes % (A) 23.8 %; MCH 32.5 pg (27.0-32.0); MCHC 32.1 g/dL (32.0-37.0); MCV 101.2 fL (80.0-97.0); Mean Platelet Volume 11.4 fL (9.5-12.2); Monocytes # (A) 0.79 X 10*3/uL (0.20-1.00); Monocytes % (A) 11.9 %; NRBC Per 100 WBC 0 /100 WBCS (0.0-0.0); Neutrophils # (A) 4.07 X 10*3/uL (1.80-7.70); Neutrophils % (A) 61.4 %; Platelet Count 220 X 10*3/uL (140-440); RBC 3.32 X 10*6/uL (4.10-5.20); RDW 15.6 % (11.5-14.5); WBC 6.63 X 10*3/uL (4.50-10.00)
[2022-01-24 09:35] LABS: African American GFR (CKD) 54.1 (60.0-200.0); Anion Gap 11.7 mmol/L (10.00-18.00); BUN/Creat Ratio 19.56 Ratio (12.00-20.00); Blood Urea Nitrogen 22.3 mg/dL (9.0-27.0); Calcium 8.8 mg/dL (8.7-10.3); Non-African American GFR(CKD) 46.7 (60.0-200.0); Potassium 4.8 mmol/L (3.5-5.5)
[2022-01-24] MEDS ORDERED: VANCOMYCIN IV PER PHARMACY 1 EACH MISC MISCELLANE PRN (11:10)
[2022-01-24] MEDS: PIPERACILLIN-TAZOBACTAM 3.375 GM in SODIUM CHLORIDE 0.9% 100 ML IVPB SCH ×2 (11:39→20:46)
[2022-01-24] MEDS: VANCOMYCIN 1,750 MG in SODIUM CHLORIDE 0.9% 500 ML 500 ML IVPB SCH (11:47)
[2022-01-24 12:02] LABS: Glucose,Whole Blood 134 mg/dL (75-99)
--- NOTE | 2022-01-24 13:11 | P.GSCN ---
History of Present Illness Consult date: 01/24/22 Reason for Consult: Diverticulitis History of present illness: This a 76-year-old female who's [facility] with of lower quadrant abdominal pain. Patient states that she has a history of diverticulitis. However this pain is much more significant than her prior attacks. 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 wrist surgery, best mastectomy Past Anesthesia/Blood Transfusion Reactions: No Reported Reaction Past Psychological History: No Psychological Hx Reported Past Alcohol Use History: Occasional Past Drug Use History: None Reported - Past Family History Mother Family Medical History: Deep Vein Thrombosis (DVT) Father Family Medical History: Myocardial Infarction ([place]) Sister(s) Family Medical History: Cancer Additional Family Medical History / Comment(s): 1 sister colon cancer, 1 sister lung cancer and breast ca, 1 sister with breast ca Brother(s) Family Medical History: Cancer, Myocardial Infarction ([place]) Additional Family Medical History / Comment(s): prostate cancer x brothers Daughter(s) Family Medical History: No Reported History Son(s) Family Medical History: Hypertension Medications and Allergies Home Medications Medication Instructions Recorded Confirmed Type Metoprolol Tartrate [Lopressor] 100 mg PO DAILY 12/22/15 01/23/22 History Insulin NPH Hum/Reg Insulin Hm 45 unit SQ AC-BID 02/11/19 01/23/22 History [NovoLIN 70-30 100 UNIT/ML VIAL] Acetaminophen [Tylenol Extra 500 mg PO Q6HR PRN 03/07/19 01/23/22 History Strength] allopurinoL [Zyloprim] 300 mg PO DAILY 07/24/19 01/23/22 History amLODIPine [Norvasc] 5 mg PO HS 07/24/19 01/23/22 History Cholecalciferol [Vitamin D3 (25 50 mcg PO DAILY 01/23/22 01/23/22 History Mcg = 1000 Iu)] Dicyclomine [Bentyl] 20 mg PO QID PRN 01/23/22 01/23/22 History Ezetimibe [Zetia] 10 mg PO DAILY 01/23/22 01/23/22 History Levothyroxine Sodium [Synthroid] 100 mcg PO DAILY 01/23/22 01/23/22 History lisinopriL [Zestril] 10 mg PO DAILY@1200 01/23/22 01/23/22 History Pioglitazone [Actos] 15 mg PO DAILY 01/24/22 01/24/22 History Allergies Allergy/AdvReac Type Severity Reaction Status Date / Time Iodinated Contrast Media Allergy Anaphylaxis Verified 01/23/22 13:27 [Iodinated Contrast- Oral and IV Dye] iodine Allergy Rash/Hives Verified 01/23/22 13:27 codeine AdvReac Headache & Verified 01/23/22 13:27 nausea Surgical - Exam Vital Signs Temp Pulse Resp BP Pulse Ox 98.2 F 80 18 144/73 97 01/23/22 10:28 01/23/22 10:28 01/23/22 10:28 01/23/22 10:28 01/23/22 10:28 - General well developed, well nourished, no distress - Eyes PERRL - ENT normal pinna - Neck no masses - Respiratory normal expansion - Cardiovascular Rhythm: regular - Abdomen [place] tender left upper quadrant Abdomen: soft Results - Labs 01/24/22 06:24 01/24/22 06:24 Abnormal Lab Results - Last 24 Hours (Table) 01/23/22 01/24/22 01/24/22 Range/Units 22:38 06:24 06:24 RBC 3.32 L (4.10-5.20) X 10*6/uL Hgb 10.8 L (12.0-15.0) g/dL Hct 33.6 L (37.2-46.3) % MCV 101.2 H (80.0-97.0) fL MCH 32.5 H (27.0-32.0) pg RDW 15.6 H (11.5-14.5) % Sodium 131 L (135-145) mmol/L Est GFR (CKD-EPI)AfAm 54.1 L (60.0-200.0) Est GFR (CKD-EPI)NonAf 46.7 L (60.0-200.0) Glucose 140 H (70-110) mg/dL POC Glucose (mg/dL) 138 H (75-99) mg/dL 01/24/22 01/24/22 Range/Units 07:35 12:01 RBC (4.10-5.20) X 10*6/uL Hgb (12.0-15.0) g/dL Hct (37.2-46.3) % MCV (80.0-97.0) fL MCH (27.0-32.0) pg RDW (11.5-14.5) % Sodium (135-145) mmol/L Est GFR (CKD-EPI)AfAm (60.0-200.0) Est GFR (CKD-EPI)NonAf (60.0-200.0) Glucose (70-110) mg/dL POC Glucose (mg/dL) 162 H 134 H (75-99) mg/dL Microbiology - Last 24 Hours (Table) 01/23/22 14:35 Blood Culture Gram Stain - Preliminary Blood 01/23/22 14:20 Blood Culture Gram Stain - Preliminary Blood 01/23/22 14:35 Blood Culture - Final Blood 01/23/22 11:47 Urine Culture - Preliminary Urine,Voided Diabetes panel 01/24/22 Range/Units 06:24 Sodium 131 L (135-145) mmol/L Potassium 4.8 (3.5-5.5) mmol/L Chloride 97 (96-109) mmol/L Carbon Dioxide 22.0 (20.0-27.5) mmol/L BUN 22.3 (9.0-27.0) mg/dL Creatinine 1.1 (0.6-1.5) mg/dL Glucose 140 H (70-110) mg/dL Calcium 8.8 (8.7-10.3) mg/dL Calcium panel 01/24/22 Range/Units 06:24 Calcium 8.8 (8.7-10.3) mg/dL Pituitary panel 01/24/22 Range/Units 06:24 Sodium 131 L (135-145) mmol/L Potassium 4.8 (3.5-5.5) mmol/L Chloride 97 (96-109) mmol/L Carbon Dioxide 22.0 (20.0-27.5) mmol/L BUN 22.3 (9.0-27.0) mg/dL Creatinine 1.1 (0.6-1.5) mg/dL Glucose 140 H (70-110) mg/dL Calcium 8.8 (8.7-10.3) mg/dL Adrenal panel 01/24/22 Range/Units 06:24 Sodium 131 L (135-145) mmol/L Potassium 4.8 (3.5-5.5) mmol/L Chloride 97 (96-109) mmol/L Carbon Dioxide 22.0 (20.0-27.5) mmol/L BUN 22.3 (9.0-27.0) mg/dL Creatinine 1.1 (0.6-1.5) mg/dL Glucose 140 H (70-110) mg/dL Calcium 8.8 (8.7-10.3) mg/dL - Imaging CT scan - abdomen: report reviewed (Diverticulosis;) Assessment and Plan Plan: Diverticula is. Patient received IV antibiotics. She'll be closely watched
[2022-01-24 17:47] LABS: Glucose,Whole Blood 91 mg/dL (75-99)
[2022-01-24] MEDS: SODIUM CHLORIDE 0.9% 1,000 ML IV SCH (18:02)
[2022-01-24 20:15] LABS: Glucose,Whole Blood 143 mg/dL (75-99)
[2022-01-24] MEDS: amLODIPine 5 MG TAB PO SCH (20:46)
[2022-01-25] MEDS: PIPERACILLIN-TAZOBACTAM 3.375 GM in SODIUM CHLORIDE 0.9% 100 ML IVPB SCH ×3 (04:45→20:03)
[2022-01-25] MEDS: SODIUM CHLORIDE 0.9% 1,000 ML IV SCH ×2 (04:50→20:03)
[2022-01-25] MEDS: LEVOTHYROXINE 100 MCG TAB PO SCH (05:49)
[2022-01-25] MEDS: HYDROmorphone 0.5 MG/0.5 ML SYRINGE IVP PRN ×5 (06:15→20:08)
[2022-01-25 07:14] LABS: Glucose,Whole Blood 130 mg/dL (75-99)
[2022-01-25] MEDS: INSULIN ASPART (NovoLOG) 100 UNIT/ML VIAL SQ SCH ×4 (07:37→20:19)
[2022-01-25] MEDS: HEPARIN SODIUM,PORCINE/PF 5,000 UNIT/0.5 ML SYRINGE SQ SCH ×2 (08:04→16:12)
[2022-01-25] MEDS: METOPROLOL TARTRATE 50 MG TAB PO SCH (08:04)
[2022-01-25] MEDS: INSULN ASP PRT/INSULIN ASPART 100 UNIT/ML 10 ML VIAL SQ SCH ×2 (08:04→17:42)
[2022-01-25] MEDS: allopurinoL 300 MG TAB PO SCH (08:04)
[2022-01-25 09:56] LABS: Basophils # (A) 0.03 X 10*3/uL (0.00-0.10); Basophils % (A) 0.5 %; Eosinophils # (A) 0.01 X 10*3/uL (0.04-0.35); Eosinophils % (A) 0.2 %; HGB 10.5 g/dL (12.0-15.0); Immature Grans, Automated 0.5 %; Lymphocytes # (A) 2.21 X 10*3/uL (0.90-5.00); Lymphocytes % (A) 34.2 %; MCH 32.6 pg (27.0-32.0); MCHC 32.8 g/dL (32.0-37.0); MCV 99.4 fL (80.0-97.0); Mean Platelet Volume 11.1 fL (9.5-12.2); Monocytes # (A) 0.78 X 10*3/uL (0.20-1.00); Monocytes % (A) 12.1 %; NRBC Per 100 WBC 0 /100 WBCS (0.0-0.0); Neutrophils # (A) 3.41 X 10*3/uL (1.80-7.70); Neutrophils % (A) 52.5 %; Platelet Count 218 X 10*3/uL (140-440); RBC 3.22 X 10*6/uL (4.10-5.20); RDW 15.4 % (11.5-14.5); WBC 6.47 X 10*3/uL (4.50-10.00)
[2022-01-25 10:18] LABS: African American GFR (CKD) 56.5 (60.0-200.0); Anion Gap 17.4 mmol/L (10.00-18.00); BUN/Creat Ratio 13.45 Ratio (12.00-20.00); Blood Urea Nitrogen 14.8 mg/dL (9.0-27.0); Calcium 8.9 mg/dL (8.7-10.3); Carbon Dioxide 21.6 mmol/L (20.0-27.5); Non-African American GFR(CKD) 48.7 (60.0-200.0); Potassium 4.6 mmol/L (3.5-5.5)
[2022-01-25 12:03] LABS: Glucose,Whole Blood 105 mg/dL (75-99)
--- NOTE | 2022-01-25 12:09 | P.PN ---
Subjective Progress Note Date: 01/25/22 CHIEF COMPLAINT: Abdominal pain HISTORY OF PRESENT ILLNESS: Surgical service following in regards to dive rticulitis. Patient reports increase in her abdominal pain in the left lower quadrant today. She is requiring IV Dilaudid. She reports that yesterday her pain was about a 6 out of 10 and today it is increased to about a 9 out of 10. She reports overall she feels worse. She denies any bowel movement. Denies any nausea or vomiting. She did have a positive blood cultures with coagulase negative staph. She remained on antibiotics. Afebrile WBC 6.47 hemoglobin is 10.5 platelets 218 sodium is 137 potassium is 4.6 creatinine is 1.1 PHYSICAL EXAM: VITAL SIGNS: Reviewed. GENERAL: Well-developed in no acute distress. HEENT: No sclera icterus. Extraocular movements grossly intact. Moist buccal mucosa. Head is atraumatic, normocephalic. ABDOMEN: Soft. Nondistended. Tenderness with palpation of the left lower quadrant NEUROLOGIC: Alert and oriented. Cranial nerves II through XII grossly intact. ASSESSMENT: 1. Acute diverticulitis of the inferior aspect of the descending colon PLAN: -Due to increased abdominal pain will downgrade diet nothing by mouth -Continue antibiotics-continue IV fluids -Continue pain medication as needed -Repeat CBC in a.m. Physician Test Examiner note has been reviewed by physician. Signing provider agrees with the documented findings, assessment, and plan of care. Objective - Vital Signs Vital signs: Vital Signs Temp 98.3 F 01/25/22 05:00 Pulse 89 01/25/22 05:00 Resp 16 01/25/22 05:00 BP 136/67 01/25/22 05:00 Pulse Ox 94 L 01/25/22 05:00 FiO2 Intake & Output 01/24/22 01/25/22 01/25/22 18:59 06:59 18:59 Intake Total 1500 590 Balance 1500 590 Intake: Intake, IV Titration 1500 Amount Piperacillin-Tazobactam 3 100 .375 gm In Sodium Chloride 0.9% 100 ml @ 25 mls/hr IVPB Q8H [facility] Rx#: [id number] Sodium Chloride 0.9% 1, 900 000 ml @ 75 mls/hr IV . [id number] [facility] Rx#:[id number] Vancomycin 1,750 mg In 500 Sodium Chloride 0.9% 500 ml 500 ml @ 167 mls/hr IVPB Q24H [facility] Rx#: [id number] Oral 590 Other: # Voids 6 2 - Labs CBC & Chem 7: 01/25/22 05:56 01/25/22 05:56 Labs: Abnormal Lab Results - Last 24 Hours (Table) 01/24/22 01/25/22 01/25/22 Range/Units 20:14 05:56 05:56 RBC 3.22 L (4.10-5.20) X 10*6/uL Hgb 10.5 L (12.0-15.0) g/dL Hct 32.0 L (37.2-46.3) % MCV 99.4 H (80.0-97.0) fL MCH 32.6 H (27.0-32.0) pg RDW 15.4 H (11.5-14.5) % Eosinophils # 0.01 L (0.04-0.35) X 10*3/uL Est GFR (CKD-EPI)AfAm 56.5 L (60.0-200.0) Est GFR (CKD-EPI)NonAf 48.7 L (60.0-200.0) Glucose 129 H (70-110) mg/dL POC Glucose (mg/dL) 143 H (75-99) mg/dL 01/25/22 01/25/22 Range/Units 07:13 12:01 RBC (4.10-5.20) X 10*6/uL Hgb (12.0-15.0) g/dL Hct (37.2-46.3) % MCV (80.0-97.0) fL MCH (27.0-32.0) pg RDW (11.5-14.5) % Eosinophils # (0.04-0.35) X 10*3/uL Est GFR (CKD-EPI)AfAm (60.0-200.0) Est GFR (CKD-EPI)NonAf (60.0-200.0) Glucose (70-110) mg/dL POC Glucose (mg/dL) 130 H 105 H (75-99) mg/dL Microbiology - Last 24 Hours (Table) 01/23/22 14:20 Blood Culture Gram Stain - Preliminary Blood Blood Culture - Preliminary Coagulase Negative Staph 01/23/22 14:35 Blood Culture Gram Stain - Preliminary Blood Blood Culture - Preliminary Coagulase Negative Staph 01/23/22 14:20 Blood Culture - Final Blood 01/23/22 11:47 Urine Culture - Final Urine,Voided 01/23/22 14:35 Blood Culture - Final Blood
[2022-01-25] MEDS: VANCOMYCIN 1,750 MG in SODIUM CHLORIDE 0.9% 500 ML 500 ML IVPB SCH (12:59)
[2022-01-25 17:02] LABS: Glucose,Whole Blood 97 mg/dL (70-110)
[2022-01-25] MEDS: amLODIPine 5 MG TAB PO SCH (20:02)
[2022-01-25 20:24] LABS: Glucose,Whole Blood 87 mg/dL (70-110)
[2022-01-26 00:18] LABS: Glucose,Whole Blood 98 mg/dL (70-110)
[2022-01-26] MEDS: HEPARIN SODIUM,PORCINE/PF 5,000 UNIT/0.5 ML SYRINGE SQ SCH ×4 (00:18→23:28)
[2022-01-26] MEDS: HYDROmorphone 0.5 MG/0.5 ML SYRINGE IVP PRN ×5 (02:30→21:40)
[2022-01-26] MEDS: PIPERACILLIN-TAZOBACTAM 3.375 GM in SODIUM CHLORIDE 0.9% 100 ML IVPB SCH ×3 (03:38→21:41)
--- NOTE | 2022-01-26 05:38 | P.PN ---
Subjective Progress Note Date: 01/25/22 76-year-old female with a known history of IBS, hypertension, hyperlipidemia, fibromyalgia, diabetes type 2 insulin-dependent, hypothyroidism and osteoarthritis and history of breast cancer status post bilateral mastectomy presents to ER with complaints of abdominal pain mainly in the left lower quadrant for the past 3 days. Patient was also having increased urinary frequency and pain with urination. Patient states that she started having IBS symptoms with the diarrhea 10 days ago and lasted for 3 days and her symptoms improved. Again on Sunday patient started having left lower quadrant abdominal pain, stabbing type episodes with some nausea. No diarrhea. Denies any blood in the stool past 3 days. Patient did have colonoscopy about 1 year ago. Patient is supposed to follow-up with GI in the clinic next week. Patient presented to ER due to worsening symptoms. CT of the abdomen pelvis done in the ER showed acute diverticulitis changes involving the inferior aspect of the descending colon. No signs of perforation or definite abscess formation by this nausea and has a CT scan. Laboratory data showed WBC 9.5 hemoglobin 12.3 and platelets 253 Sodium 131 potassium 5.2 chloride 96 bicarb is 23 BUN 28 and creatinine 1.14 and blood sugar is 181 Urinalysis showed cloudy with large leukocyte esterase with elevated WBCs and 6, severe sepsis. Patient has been afebrile on admission. 01/25/2022 Patient is seen in follow up with general surgery following for Diverticulitis. Patient is maintained on IV antibiotics as patient also had some positive blood cultures and will await bacteremia clearance. Patient is afebrile and reports to increasing abdominal pain and per surgery being made NPO with bowel rest for now. Possible CT abdomen. Patient denies any chest pain or shortness of breath. Encouraged increased activity as tolerated. Review of systems: Constitutional: No reports of fatigue, fever, or chills Cardiovascular: No reports of chest pain or palpitations Respiratory: No reports of shortness of breath or cough GI: No reports of nausea, vomiting, or diarrhea, reports abdominal pain in the lower quadrants : No reports of dysuria or retention Neurovascular: No reports of weakness or numbness Active Medications Acetaminophen (Acetaminophen Tab 500 Mg Tab) 500 mg PO Q6HR PRN PRN Reason: Pain Allopurinol (Allopurinol 300 Mg Tab) 300 mg PO DAILY [facility] Last Admin: 01/25/22 08:04 Dose: 300 mg Amlodipine Besylate (Amlodipine 5 Mg Tab) 5 mg PO HS [facility] Last Admin: 01/25/22 20:02 Dose: 5 mg Barium Sulfate (Barium Sulfate 450 Ml Oral.Susp Bottle) 450 ml PO Q3HR PRN PRN Reason: CT Scan Stop: 01/26/22 13:13 Heparin Sodium (Porcine) (Heparin Sodium,Porcine/Pf 5,000 Unit/0.5 Ml Syringe) 5,000 unit SQ Q8HR [facility] Last Admin: 01/26/22 00:18 Dose: 5,000 unit Hydromorphone HCl (Hydromorphone 0.5 Mg/0.5 Ml Syringe) 0.5 mg IVP Q3HR PRN PRN Reason: Moderate Pain Last Admin: 01/26/22 02:30 Dose: 0.5 mg Sodium Chloride (Saline 0.9%) 1,000 mls @ 75 mls/hr IV .[id number] [facility] Last Admin: 01/25/22 20:03 Dose: 75 mls/hr Piperacillin Sod/Tazobactam (Sod 3.375 gm/ Sodium Chloride) 100 mls @ 25 mls/hr IVPB Q8H [facility]; Protocol Last Admin: 01/26/22 03:38 Dose: 25 mls/hr Insulin Aspart (Insulin Aspart (Novolog) 100 Unit/Ml Vial) 0 unit SQ ACHS [facility]; Protocol Last Admin: 01/25/22 20:19 Dose: Not Given Insulin Aspart (Insuln Asp Prt/Insulin Aspart 100 Unit/Ml 10 Ml Vial) 45 unit SQ AC-BID [facility] Last Admin: 01/25/22 17:42 Dose: Not Given Levothyroxine Sodium (Levothyroxine 100 Mcg Tab) 100 mcg PO DAILY@0630 [facility] Last Admin: 01/25/22 05:49 Dose: 100 mcg Metoprolol Tartrate (Metoprolol Tartrate 50 Mg Tab) 100 mg PO DAILY [facility] Last Admin: 01/25/22 08:04 Dose: 100 mg Naloxone HCl (Naloxone 0.4 Mg/Ml 1 Ml Vial) 0.2 mg IV Q2M PRN PRN Reason: Opioid Reversal Ondansetron HCl (Ondansetron 4 Mg/2 Ml Vial) 4 mg IVP Q8HR PRN PRN Reason: Nausea And Vomiting Last Admin: 01/25/22 13:08 Dose: 4 mg PHYSICAL EXAMINATION: Patient is lying in the bed comfortably, no acute distress, awake alert and oriented.. HEENT: Normocephalic. Neck is supple. Pupils reactive. Nostrils clear. Oral cavity is moist. Neck reveals no JVD, carotid bruits, or thyromegaly. CHEST EXAMINATION: Trachea is central. Symmetrical expansion. Lung pickens clear to auscultation and percussion. CARDIAC: Normal S1, S2 with no gallops. No murmurs ABDOMEN: Soft. Bowel sounds present. Left lower quadrant tenderness. No guarding or rigidity.. No organomegaly. No abdominal bruits. Extremities: reveal no edema. No clubbing or cyanosis Neurologically awake, alert, oriented x3 with well-coordinated movements. No focal deficits noted Skin: No rash or skin lesions. Psychiatric: Cooperative. Non-suicidal Musculoskeletal: No joint swelling or deformity. Normal range of motion. Assessment: Left lower quadrant abdominal pain secondary to acute diverticulitis. Acute urinary tract infection Irritable bowel syndrome with intermittent symptoms of diarrhea. Hypovolemic hyponatremia Mild hyperkalemia Hypertension Hyperlipidemia Diabetes type 2 insulin-dependent COPD Osteoarthritis Hypothyroidism History of GERD and Armijo's syndrome History of breast cancer status post bilateral mastectomy Morbid obesity with BMI 43.9 DVT prophylaxis with heparin subcu full code Plan: Patient be continued on IV hydration with normal saline and antibiotics in the form of Zosyn. Follow-up blood cultures as initial cultures were positive. Continue pain management. Patient was started on clear liquid diet and reported increased abdominal pain and general surgery following and made patient NPO. Recommend CT abdomen. Recommend to continue on her insulin regimen and sliding scale as needed with close monitoring of accuchecks achs. Continue with home medications and follow-up closely. Recommend repeat labs in the am. Due to multiple complex medical issues, prognosis is guarded. The impression and plan of care has been dictated by Marysol Santillan, nurse practitioner as directed. Dr. Avril MD I have performed a history and examination and MDM of this patient, discussed the same with the dictator, and agree with the dictator's assessment and plan as written ,documented as a scribe. Based on total visit time, I have performed more than 50% of the visit. Any additional findings or plans will be noted. Objective - Vital Signs Vital signs: Vital Signs Temp 98.5 F 06/16/22 04:38 Pulse 89 01/26/22 04:38 Resp 20 01/26/22 04:38 BP 149/71 01/26/22 04:38 Pulse Ox 95 01/26/22 04:38 FiO2 Intake & Output 01/25/22 01/25/22 01/26/22 06:59 18:59 06:59 Intake Total 590 50 Balance 590 50 Intake: Oral 590 50 Other: Voiding Method Toilet # Voids 2 2 4 - Labs CBC & Chem 7: 01/25/22 05:56 01/25/22 05:56 Labs: Abnormal Lab Results - Last 24 Hours (Table) 01/25/22 01/25/22 01/25/22 Range/Units 05:56 05:56 07:13 RBC 3.22 L (4.10-5.20) X 10*6/uL Hgb 10.5 L (12.0-15.0) g/dL Hct 32.0 L (37.2-46.3) % MCV 99.4 H (80.0-97.0) fL MCH 32.6 H (27.0-32.0) pg RDW 15.4 H (11.5-14.5) % Eosinophils # 0.01 L (0.04-0.35) X 10*3/uL Est GFR (CKD-EPI)AfAm 56.5 L (60.0-200.0) Est GFR (CKD-EPI)NonAf 48.7 L (60.0-200.0) Glucose 129 H (70-110) mg/dL POC Glucose (mg/dL) 130 H (75-99) mg/dL 01/25/22 Range/Units 12:01 RBC (4.10-5.20) X 10*6/uL Hgb (12.0-15.0) g/dL Hct (37.2-46.3) % MCV (80.0-97.0) fL MCH (27.0-32.0) pg RDW (11.5-14.5) % Eosinophils # (0.04-0.35) X 10*3/uL Est GFR (CKD-EPI)AfAm (60.0-200.0) Est GFR (CKD-EPI)NonAf (60.0-200.0) Glucose (70-110) mg/dL POC Glucose (mg/dL) 105 H (75-99) mg/dL Microbiology - Last 24 Hours (Table) 01/23/22 14:20 Blood Culture Gram Stain - Preliminary Blood Blood Culture - Preliminary Coagulase Negative Staph 01/23/22 14:35 Blood Culture Gram Stain - Preliminary Blood Blood Culture - Preliminary Coagulase Negative Staph 01/23/22 14:20 Blood Culture - Final Blood
[2022-01-26] MEDS: LEVOTHYROXINE 100 MCG TAB PO SCH (05:48)
[2022-01-26 07:03] LABS: Glucose,Whole Blood 120 mg/dL (70-110)
[2022-01-26 07:10] LABS: African American GFR (CKD) 64 (>60 ml/min/1.73 sqM); Anion Gap 9 mmol/L; Blood Urea Nitrogen 13 mg/dL (7-17); Calcium 8.7 mg/dL (8.4-10.2); Carbon Dioxide 23 mmol/L (22-30); Chloride 101 mmol/L (98-107); Glucose 114 mg/dL (74-99); Non-African American GFR(CKD) 55 (>60 ml/min/1.73 sqM); Potassium 4.3 mmol/L (3.5-5.1); Sodium 133 mmol/L (137-145)
[2022-01-26] MEDS: INSULIN ASPART (NovoLOG) 100 UNIT/ML VIAL SQ SCH ×4 (08:35→20:19)
[2022-01-26] MEDS: METOPROLOL TARTRATE 50 MG TAB PO SCH (08:36)
[2022-01-26] MEDS: allopurinoL 300 MG TAB PO SCH (08:36)
[2022-01-26] MEDS: BARIUM SULFATE 450 ML ORAL.SUSP BOTTLE PO PRN ×2 (08:37→11:20)
[2022-01-26 09:30] LABS: Basophils # (A) 0.04 X 10*3/uL (0.00-0.10); Basophils % (A) 0.7 %; Eosinophils # (A) 0 X 10*3/uL (0.04-0.35); Eosinophils % (A) 0 %; HCT 31.9 % (37.2-46.3); HGB 10.4 g/dL (12.0-15.0); Immature Grans, Automated 0.4 %; Lymphocytes # (A) 1.73 X 10*3/uL (0.90-5.00); Lymphocytes % (A) 31.9 %; MCH 32.8 pg (27.0-32.0); MCHC 32.6 g/dL (32.0-37.0); MCV 100.6 fL (80.0-97.0); Mean Platelet Volume 11.2 fL (9.5-12.2); Monocytes # (A) 0.77 X 10*3/uL (0.20-1.00); Monocytes % (A) 14.2 %; NRBC Per 100 WBC 0 /100 WBCS (0.0-0.0); Neutrophils # (A) 2.86 X 10*3/uL (1.80-7.70); Neutrophils % (A) 52.8 %; Platelet Count 225 X 10*3/uL (140-440); RBC 3.17 X 10*6/uL (4.10-5.20); RDW 15.4 % (11.5-14.5); WBC 5.42 X 10*3/uL (4.50-10.00)
[2022-01-26 10:40] LABS: Glucose,Whole Blood 147 mg/dL (70-110)
[2022-01-26] MEDS: SODIUM CHLORIDE 0.9% 1,000 ML IV SCH ×2 (11:12→21:41)
--- NOTE | 2022-01-26 13:37 | CT ---
EXAMINATION TYPE: CT abdomen pelvis wo con DATE OF EXAM: 01/26/2022 COMPARISON: CT dated 01/23/2022 HISTORY: LLQ pain, diverticulitis. Oral contrast only. CT DLP: 1189 mGycm Automated exposure control for dose reduction was used. TECHNIQUE: Helical acquisition of images was performed from the lung bases through the pelvis. FINDINGS: LUNG BASES: No significant abnormality is appreciated. LIVER/GB: Enlarged liver measuring 19.9 cm. No definite hepatic focal lesion by this nonenhanced CT s can. Previous cholecystectomy. PANCREAS: No significant abnormality is seen. SPLEEN: No significant abnormality is seen. ADRENALS: Slightly thickened left adrenal. Unremarkable right adrenal. KIDNEYS: Multiple variable sized bilateral renal cysts. Tiny calcification measuring 3 mm seen at the margin of a left mid renal pole cyst. No other gross suspicious feature identified. No hydroureter o r hydronephrosis. FREE AIR: No free air is visualized RETROPERITONEAL ADENOPATHY: No pathologically enlarged retroperitoneal lymph nodes. REPRODUCTIVE ORGANS: Previous hysterectomy. No gross adnexal mass. URINARY BLADDER: Nondistended. PELVIC ADENOPATHY: No pathologically enlarged pelvic lymph nodes. OSSEOUS STRUCTURES: Degenerative changes of the lower thoracic, lumbar spine, sacroiliac joints and symphysis pubis. Grade 1 anterolisthesis at the lower lumbar level. BOWEL: Persistent acute diverticulitis changes involving the inferior aspect of the descending colon , slightly improved compared to the previous CT scan. No definite abscess formation or signs of perfo ration. OTHER: Scattered arterial atherosclerotic calcifications. No sizable ascites. IMPRESSION: Redemonstration of the previously seen acute diverticulitis changes involving the inferior aspect of the descending colon, slightly improved compared to the previous CT scan. No definite abscess formati on or signs of perforation.
--- NOTE | 2022-01-26 14:04 | P.PN ---
Subjective Progress Note Date: 01/26/22 CHIEF COMPLAINT: Abdominal pain HISTORY OF PRESENT ILLNESS: Surgical service following in regards to dive rticulitis. This morning patient complaining worsening abdominal pain. She rated her pain 10 out of 10. She complains of most of her pains left lower quadrant and now she started have some right lower quadrant pain. Denies any nausea or vomiting. She is having flatus. No bowel movement. Afebrile. WBC is 5.42 hemoglobin 10.4 platelets 225 sodium is 133 potassium 4.3 creatinine is 1. Computed tomography scan of pelvis redemonstration of the previous seen acute diverticulitis changes involving the inferior aspect of the descending colon slightly improved compared to previous CAT scan. No definite abscess formation or signs of perforation. PHYSICAL EXAM: VITAL SIGNS: Reviewed. GENERAL: Well-developed in no acute distress. HEENT: No sclera icterus. Extraocular movements grossly intact. Moist buccal mucosa. Head is atraumatic, normocephalic. ABDOMEN: Soft. Nondistended. Tenderness with palpation of the left lower quadrant NEUROLOGIC: Alert and oriented. Cranial nerves II through XII grossly intact. ASSESSMENT: 1. Acute diverticulitis of the inferior aspect of the descending colon PLAN: -We will advance diet to clear liquids. Continue to observe patient. -Continue antibiotics -continue IV fluids -Continue pain medication as needed Physician [employer] note has been reviewed by physician. Signing provider agrees with the documented findings, assessment, and plan of care. Objective - Vital Signs Vital signs: Vital Signs Temp 97.8 F 01/26/22 12:04 Pulse 78 01/26/22 12:04 Resp 18 01/26/22 12:04 BP 144/77 01/26/22 12:04 Pulse Ox 95 01/26/22 12:04 FiO2 Intake & Output 01/25/22 01/26/22 01/26/22 18:59 06:59 18:59 Intake Total 50 Balance 50 Intake: Oral 50 Other: Voiding Method Toilet Toilet # Voids 2 4 4 - Labs CBC & Chem 7: 01/26/22 06:33 01/26/22 06:33 Labs: Abnormal Lab Results - Last 24 Hours (Table) 01/26/22 01/26/22 01/26/22 Range/Units 06:33 06:33 07:00 RBC 3.17 L (4.10-5.20) X 10*6/uL Hgb 10.4 L (12.0-15.0) g/dL Hct 31.9 L (37.2-46.3) % MCV 100.6 H (80.0-97.0) fL MCH 32.8 H (27.0-32.0) pg RDW 15.4 H (11.5-14.5) % Eosinophils # 0 L (0.04-0.35) X 10*3/uL Sodium 133 L (137-145) mmol/L Glucose 114 H (74-99) mg/dL POC Glucose (mg/dL) 120 H (70-110) mg/dL 01/26/22 Range/Units 10:39 RBC (4.10-5.20) X 10*6/uL Hgb (12.0-15.0) g/dL Hct (37.2-46.3) % MCV (80.0-97.0) fL MCH (27.0-32.0) pg RDW (11.5-14.5) % Eosinophils # (0.04-0.35) X 10*3/uL Sodium (137-145) mmol/L Glucose (74-99) mg/dL POC Glucose (mg/dL) 147 H (70-110) mg/dL Microbiology - Last 24 Hours (Table) 01/23/22 14:35 Blood Culture Gram Stain - Final Blood Blood Culture - Final Staphylococcus epidermidis 01/23/22 14:20 Blood Culture Gram Stain - Final Blood Blood Culture - Final Staph hominis sub sp. hominis 01/25/22 06:04 Blood Culture - Preliminary Blood No Growth after 24 hours
[2022-01-26] MEDS: INSULN ASP PRT/INSULIN ASPART 100 UNIT/ML 10 ML VIAL SQ SCH ×2 (14:19→18:03)
[2022-01-26 17:33] LABS: Glucose,Whole Blood 132 mg/dL (70-110)
[2022-01-26 20:16] LABS: Glucose,Whole Blood 90 mg/dL (70-110)
[2022-01-26] MEDS: LOPERAMIDE 2 MG CAP PO PRN (20:24)
[2022-01-26] MEDS: amLODIPine 5 MG TAB PO SCH (20:24)
[2022-01-27] MEDS: PIPERACILLIN-TAZOBACTAM 3.375 GM in SODIUM CHLORIDE 0.9% 100 ML IVPB SCH ×3 (04:03→20:38)
[2022-01-27] MEDS: LEVOTHYROXINE 100 MCG TAB PO SCH (04:04)
[2022-01-27] MEDS: HYDROmorphone 0.5 MG/0.5 ML SYRINGE IVP PRN ×2 (04:20→07:49)
[2022-01-27] MEDS: LOPERAMIDE 2 MG CAP PO PRN ×2 (04:21→10:50)
--- NOTE | 2022-01-27 06:11 | P.PN ---
Subjective Progress Note Date: 01/26/22 76-year-old female with a known history of IBS, hypertension, hyperlipidemia, fibromyalgia, diabetes type 2 insulin-dependent, hypothyroidism and osteoarthritis and history of breast cancer status post bilateral mastectomy presents to ER with complaints of abdominal pain mainly in the left lower quadrant for the past 3 days. Patient was also having increased urinary frequency and pain with urination. Patient states that she started having IBS symptoms with the diarrhea 10 days ago and lasted for 3 days and her symptoms improved. Again on Sunday patient started having left lower quadrant abdominal pain, stabbing type episodes with some nausea. No diarrhea. Denies any blood in the stool past 3 days. Patient did have colonoscopy about 1 year ago. Patient is supposed to follow-up with GI in the clinic next week. Patient presented to ER due to worsening symptoms. CT of the abdomen pelvis done in the ER showed acute diverticulitis changes involving the inferior aspect of the descending colon. No signs of perforation or definite abscess formation by this nausea and has a CT scan. Laboratory data showed WBC 9.5 hemoglobin 12.3 and platelets 253 Sodium 131 potassium 5.2 chloride 96 bicarb is 23 BUN 28 and creatinine 1.14 and blood sugar is 181 Urinalysis showed cloudy with large leukocyte esterase with elevated WBCs and 6, severe sepsis. Patient has been afebrile on admission. 01/25/2022 Patient is seen in follow up with general surgery following for Diverticulitis. Patient is maintained on IV antibiotics as patient also had some positive blood cultures and will await bacteremia clearance. Patient is afebrile and reports to increasing abdominal pain and per surgery being made NPO with bowel rest for now. Possible CT abdomen. Patient denies any chest pain or shortness of breath. Encouraged increased activity as tolerated. 01/26/2022 Patient is evaluated this am and currently sitting up in the bed fully dressed in her home clothing and scheduled for a CT abdomen today around 12. Patient reports to having continued 10/10 abdominal pain and is continued with NPO. Patient is afebrile and denies chest pain or shortness of breath. Patient is continued on IV abx and has been having some increased loose stools. Will obtain a c-diff. General surgery is following. Review of systems: Constitutional: No reports of fatigue, fever, or chills Cardiovascular: No reports of chest pain or palpitations Respiratory: No reports of shortness of breath or cough GI: No reports of nausea, vomiting, reports increased episodes of loose stool , reports abdominal pain in the lower quadrants : No reports of dysuria or retention Neurovascular: No reports of weakness or numbness Active Medications Acetaminophen (Acetaminophen Tab 500 Mg Tab) 500 mg PO Q6HR PRN PRN Reason: Pain Allopurinol (Allopurinol 300 Mg Tab) 300 mg PO DAILY [facility] Last Admin: 01/26/22 08:36 Dose: 300 mg Amlodipine Besylate (Amlodipine 5 Mg Tab) 5 mg PO HS [facility] Last Admin: 01/26/22 20:24 Dose: 5 mg Cholestyramine Resin (Cholestyramine (With Sugar) 4 Gm Packet) 4 gm PO BID@1000,1800 [facility] Heparin Sodium (Porcine) (Heparin Sodium,Porcine/Pf 5,000 Unit/0.5 Ml Syringe) 5,000 unit SQ Q8HR [facility] Last Admin: 01/26/22 23:28 Dose: 5,000 unit Hydromorphone HCl (Hydromorphone 0.5 Mg/0.5 Ml Syringe) 0.5 mg IVP Q3HR PRN PRN Reason: Moderate Pain Last Admin: 01/27/22 04:20 Dose: 0.5 mg Sodium Chloride (Saline 0.9%) 1,000 mls @ 75 mls/hr IV .[id number] [facility] Last Admin: 01/26/22 21:41 Dose: 75 mls/hr Piperacillin Sod/Tazobactam (Sod 3.375 gm/ Sodium Chloride) 100 mls @ 25 mls/hr IVPB Q8H [facility]; Protocol Last Admin: 01/27/22 04:03 Dose: 25 mls/hr Insulin Aspart (Insulin Aspart (Novolog) 100 Unit/Ml Vial) 0 unit SQ ACHS [facility]; Protocol Last Admin: 01/26/22 20:19 Dose: Not Given Insulin Aspart (Insuln Asp Prt/Insulin Aspart 100 Unit/Ml 10 Ml Vial) 45 unit SQ AC-BID [facility] Last Admin: 01/26/22 18:03 Dose: 45 unit Levothyroxine Sodium (Levothyroxine 100 Mcg Tab) 100 mcg PO DAILY@0630 [facility] Last Admin: 01/27/22 04:04 Dose: 100 mcg Loperamide HCl (Loperamide 2 Mg Cap) 2 mg PO QID PRN PRN Reason: Diarrhea Last Admin: 01/27/22 04:21 Dose: 2 mg Metoprolol Tartrate (Metoprolol Tartrate 50 Mg Tab) 100 mg PO DAILY [facility] Last Admin: 01/26/22 08:36 Dose: 100 mg Naloxone HCl (Naloxone 0.4 Mg/Ml 1 Ml Vial) 0.2 mg IV Q2M PRN PRN Reason: Opioid Reversal Ondansetron HCl (Ondansetron 4 Mg/2 Ml Vial) 4 mg IVP Q8HR PRN PRN Reason: Nausea And Vomiting Last Admin: 01/25/22 13:08 Dose: 4 mg PHYSICAL EXAMINATION: Patient is sitting up on the side of the bed fully dressed, no acute distress, awake alert and oriented.. HEENT: Normocephalic. Neck is supple. Pupils reactive. Nostrils clear. Oral cavity is moist. Neck reveals no JVD, carotid bruits, or thyromegaly. CHEST EXAMINATION: Trachea is central. Symmetrical expansion. Lung pickens clear to auscultation and percussion. CARDIAC: Normal S1, S2 with no gallops. No murmurs ABDOMEN: Soft. Bowel sounds present. Left lower quadrant tenderness. No guarding or rigidity.. No organomegaly. No abdominal bruits. Extremities: reveal no edema. No clubbing or cyanosis Neurologically awake, alert, oriented x3 with well-coordinated movements. No focal deficits noted Skin: No rash or skin lesions. Psychiatric: Cooperative. Non-suicidal Musculoskeletal: No joint swelling or deformity. Normal range of motion. Assessment: Left lower quadrant abdominal pain secondary to acute diverticulitis. Acute urinary tract infection, present on admission Irritable bowel syndrome with intermittent symptoms of diarrhea. Hypovolemic hyponatremia Mild hyperkalemia Hypertension Hyperlipidemia Diabetes type 2 insulin-dependent COPD Osteoarthritis Hypothyroidism History of GERD and Armijo's syndrome History of breast cancer status post bilateral mastectomy Morbid obesity with BMI 43.9 DVT prophylaxis with heparin subcu full code Plan: Patient be continued on IV hydration with normal saline and antibiotics in the form of Zosyn. Repeat blood cultures are negative for 24 hours. Continue pain management. Patient NPO. CT abdomen shows some improvement from previous and no signs of abscess. General surgery recommends resuming clear liquid diet and monitoring closely. Recommend to continue on her insulin regimen and sliding scale as needed with close monitoring of accuchecks achs. Continue with home medications and follow-up closely. Patient having increased loose stools and wi ll order c diff and imodium as needed. Recommend repeat labs in the am. Due to multiple complex medical issues, prognosis is guarded. The impression and plan of care has been dictated by Marysol Santillan, nurse practitioner as directed. Dr. Avril MD I have performed a history and examination and MDM of this patient, discussed the same with the dictator, and agree with the dictator's assessment and plan as written ,documented as a scribe. Based on total visit time, I have performed more than 50% of the visit. Any additional findings or plans will be noted. Objective - Vital Signs Vital signs: Vital Signs Temp 98.8 F 01/26/22 09:02 Pulse 81 01/26/22 09:02 Resp 20 01/26/22 08:40 BP 140/76 01/26/22 09:02 Pulse Ox 95 01/26/22 04:38 FiO2 Intake & Output 01/25/22 01/26/22 01/26/22 18:59 06:59 18:59 Intake Total 50 Balance 50 Intake: Oral 50 Other: Voiding Method Toilet Toilet # Voids 2 4 - Labs CBC & Chem 7: 01/26/22 06:33 01/26/22 06:33 Labs: Abnormal Lab Results - Last 24 Hours (Table) 01/25/22 01/25/22 01/26/22 Range/Units 05:56 12:01 06:33 RBC (4.10-5.20) X 10*6/uL Hgb (12.0-15.0) g/dL Hct (37.2-46.3) % MCV (80.0-97.0) fL MCH (27.0-32.0) pg RDW (11.5-14.5) % Eosinophils # (0.04-0.35) X 10*3/uL Sodium 133 L (137-145) mmol/L Est GFR (CKD-EPI)AfAm 56.5 L (60.0-200.0) Est GFR (CKD-EPI)NonAf 48.7 L (60.0-200.0) Glucose 129 H 114 H (70-110) mg/dL POC Glucose (mg/dL) 105 H (75-99) mg/dL 01/26/22 01/26/22 Range/Units 06:33 07:00 RBC 3.17 L (4.10-5.20) X 10*6/uL Hgb 10.4 L (12.0-15.0) g/dL Hct 31.9 L (37.2-46.3) % MCV 100.6 H (80.0-97.0) fL MCH 32.8 H (27.0-32.0) pg RDW 15.4 H (11.5-14.5) % Eosinophils # 0 L (0.04-0.35) X 10*3/uL Sodium (137-145) mmol/L Est GFR (CKD-EPI)AfAm (60.0-200.0) Est GFR (CKD-EPI)NonAf (60.0-200.0) Glucose (70-110) mg/dL POC Glucose (mg/dL) 120 H (75-99) mg/dL Microbiology - Last 24 Hours (Table) 01/25/22 06:04 Blood Culture - Preliminary Blood No Growth after 24 hours 01/23/22 14:20 Blood Culture Gram Stain - Preliminary Blood Blood Culture - Preliminary Coagulase Negative Staph 01/23/22 14:35 Blood Culture Gram Stain - Preliminary Blood Blood Culture - Preliminary Coagulase Negative Staph 01/23/22 14:20 Blood Culture - Final Blood
[2022-01-27 07:01] LABS: African American GFR (CKD) 63 (>60 ml/min/1.73 sqM); Anion Gap 10 mmol/L; Blood Urea Nitrogen 9 mg/dL (7-17); Calcium 8.9 mg/dL (8.4-10.2); Carbon Dioxide 26 mmol/L (22-30); Chloride 99 mmol/L (98-107); Glucose 100 mg/dL (74-99); Non-African American GFR(CKD) 54 (>60 ml/min/1.73 sqM); Potassium 4.1 mmol/L (3.5-5.1); Sodium 135 mmol/L (137-145)
[2022-01-27] MEDS: INSULIN ASPART (NovoLOG) 100 UNIT/ML VIAL SQ SCH ×4 (07:15→20:34)
[2022-01-27 07:16] LABS: Glucose,Whole Blood 95 mg/dL (70-110)
[2022-01-27] MEDS: HEPARIN SODIUM,PORCINE/PF 5,000 UNIT/0.5 ML SYRINGE SQ SCH ×2 (07:50→15:39)
[2022-01-27] MEDS: allopurinoL 300 MG TAB PO SCH (07:50)
[2022-01-27] MEDS: METOPROLOL TARTRATE 50 MG TAB PO SCH (07:50)
[2022-01-27] MEDS: INSULN ASP PRT/INSULIN ASPART 100 UNIT/ML 10 ML VIAL SQ SCH ×2 (07:52→17:55)
[2022-01-27] MEDS ORDERED: CHOLESTYRAMINE (WITH SUGAR) 4 GM PACKET PO SCH (10:00)
[2022-01-27] MEDS: HYDROcodone/APAP 5-325MG 1 EACH TAB PO PRN ×2 (10:50→20:44)
[2022-01-27] MEDS: SODIUM CHLORIDE 0.9% 1,000 ML IV SCH ×2 (10:51→20:34)
[2022-01-27 12:04] VITALS: RESP 18
[2022-01-27 12:04] LABS: Glucose,Whole Blood 121 mg/dL (70-110)
--- NOTE | 2022-01-27 14:17 | P.PN ---
Subjective Progress Note Date: 01/27/22 CHIEF COMPLAINT: Abdominal pain HISTORY OF PRESENT ILLNESS: Surgical service following in regards to dive rticulitis. Patient complaining of diarrhea. Her CAT scan imaging had shown improvement in the diverticulitis. Patient denies any nausea or vomiting. She is tolerating the clear liquids. Afebrile. Patient did not feel ready for discharge today. Patient seen and examined with Dr. craig PHYSICAL EXAM: VITAL SIGNS: Reviewed. GENERAL: Well-developed in no acute distress. HEENT: No sclera icterus. Extraocular movements grossly intact. Moist buccal mucosa. Head is atraumatic, normocephalic. ABDOMEN: Soft. Nondistended. Nontender NEUROLOGIC: Alert and oriented. Cranial nerves II through XII grossly intact. ASSESSMENT: 1. Acute diverticulitis of the inferior aspect of the descending colon PLAN: -Advance diet to full liquids and then as tolerated -Continue to monitor -Continue antibiotics -Continue supportive care -Dr. Craig did discuss with patient that the inflammation of the bowel from the diverticulitis could contribute to the diarrhea. He recommended no antimo tility medication. -Anticipate discharge possibly tomorrow if medically cleared Physician [employer] Techn[employer] note has been reviewed by physician. Signing provider agrees with the documented findings, assessment, and plan of care. Objective - Vital Signs Vital signs: Vital Signs Temp 97.7 F 01/27/22 12:03 Pulse 69 01/27/22 12:03 Resp 18 01/27/22 12:03 BP 147/82 01/27/22 12:03 Pulse Ox 97 01/27/22 12:03 FiO2 Intake & Output 01/26/22 01/27/22 01/27/22 18:59 06:59 18:59 Intake Total 300 Balance 300 Intake: Oral 300 Other: Voiding Method Toilet Toilet # Voids 4 3 # Bowel Movements 3 - Labs CBC & Chem 7: 01/26/22 06:33 01/27/22 06:16 Labs: Abnormal Lab Results - Last 24 Hours (Table) 01/26/22 01/27/22 01/27/22 Range/Units 17:32 06:16 12:02 Sodium 135 L (137-145) mmol/L Glucose 100 H (74-99) mg/dL POC Glucose (mg/dL) 132 H 121 H (70-110) mg/dL Microbiology - Last 24 Hours (Table) 01/26/22 06:33 Blood Culture - Preliminary Blood No Growth after 24 hours 01/25/22 06:04 Blood Culture - Preliminary Blood No Growth after 48 hours 01/23/22 14:35 Blood Culture Gram Stain - Final Blood Blood Culture - Final Staphylococcus epidermidis 01/23/22 14:20 Blood Culture Gram Stain - Final Blood Blood Culture - Final Staph hominis sub sp. hominis
[2022-01-27 17:06] LABS: Glucose,Whole Blood 169 mg/dL (70-110)
[2022-01-27 20:30] LABS: Glucose,Whole Blood 89 mg/dL (70-110)
[2022-01-27] MEDS: amLODIPine 5 MG TAB PO SCH (20:38)
[2022-01-27 22:16] LABS: Glucose,Whole Blood 82 mg/dL (70-110)
[2022-01-27 23:39] LABS: Glucose,Whole Blood 103 mg/dL (70-110)
--- NOTE | 2022-01-28 00:07 | P.PN ---
Subjective Progress Note Date: 01/27/22 76-year-old female with a known history of IBS, hypertension, hyperlipidemia, fibromyalgia, diabetes type 2 insulin-dependent, hypothyroidism and osteoarthritis and history of breast cancer status post bilateral mastectomy presents to ER with complaints of abdominal pain mainly in the left lower quadrant for the past 3 days. Patient was also having increased urinary frequency and pain with urination. Patient states that she started having IBS symptoms with the diarrhea 10 days ago and lasted for 3 days and her symptoms improved. Again on Sunday patient started having left lower quadrant abdominal pain, stabbing type episodes with some nausea. No diarrhea. Denies any blood in the stool past 3 days. Patient did have colonoscopy about 1 year ago. Patient is supposed to follow-up with GI in the clinic next week. Patient presented to ER due to worsening symptoms. CT of the abdomen pelvis done in the ER showed acute diverticulitis changes involving the inferior aspect of the descending colon. No signs of perforation or definite abscess formation by this nausea and has a CT scan. Laboratory data showed WBC 9.5 hemoglobin 12.3 and platelets 253 Sodium 131 potassium 5.2 chloride 96 bicarb is 23 BUN 28 and creatinine 1.14 and blood sugar is 181 Urinalysis showed cloudy with large leukocyte esterase with elevated WBCs and 6, severe sepsis. Patient has been afebrile on admission. 01/25/2022 Patient is seen in follow up with general surgery following for Diverticulitis. Patient is maintained on IV antibiotics as patient also had some positive blood cultures and will await bacteremia clearance. Patient is afebrile and reports to increasing abdominal pain and per surgery being made NPO with bowel rest for now. Possible CT abdomen. Patient denies any chest pain or shortness of breath. Encouraged increased activity as tolerated. 01/26/2022 Patient is evaluated this am and currently sitting up in the bed fully dressed in her home clothing and scheduled for a CT abdomen today around 12. Patient reports to having continued 10/10 abdominal pain and is continued with NPO. Patient is afebrile and denies chest pain or shortness of breath. Patient is continued on IV abx and has been having some increased loose stools. Will obtain a c-diff. General surgery is following. 01/27/2022 Patient is seen this am and cdiff testing ordered as patient was reporting increased loose stools. Sample was not collected in am. Patient continues to report abdominal pain and had been requesting IV pain medications and had been npo with general surgery following. Patient tolerating clear liquid diet and surgery advancing diet. Patient is maintained on IV antibiotics and has been afebrile. Patient denies nausea or vomiting. Patient denies chest pain or palpitations. Encouraged increased activity as tolerated. Review of systems: Constitutional: No reports of fatigue, fever, or chills Cardiovascular: No reports of chest pain or palpitations Respiratory: No reports of shortness of breath or cough GI: No reports of nausea, vomiting, reports increased episodes of loose stool , reports abdominal pain in the lower quadrants : No reports of dysuria or retention Neurovascular: No reports of weakness or numbness Active Medications Acetaminophen (Acetaminophen Tab 500 Mg Tab) 500 mg PO Q6HR PRN PRN Reason: Pain Hydrocodone Bitart/Acetaminophen (Hydrocodone/Apap 5-325mg 1 Each Tab) 1 each PO Q6HR PRN PRN Reason: Pain Last Admin: 01/27/22 20:44 Dose: 1 each Allopurinol (Allopurinol 300 Mg Tab) 300 mg PO DAILY [facility] Last Admin: 01/27/22 07:50 Dose: 300 mg Amlodipine Besylate (Amlodipine 5 Mg Tab) 5 mg PO HS [facility] Last Admin: 01/27/22 20:38 Dose: 5 mg Heparin Sodium (Porcine) (Heparin Sodium,Porcine/Pf 5,000 Unit/0.5 Ml Syringe) 5,000 unit SQ Q8HR [facility] Last Admin: 01/27/22 15:39 Dose: 5,000 unit Hydromorphone HCl (Hydromorphone 0.5 Mg/0.5 Ml Syringe) 0.5 mg IVP Q3HR PRN PRN Reason: Moderate Pain Last Admin: 01/27/22 07:49 Dose: 0.5 mg Sodium Chloride (Saline 0.9%) 1,000 mls @ 75 mls/hr IV .[id number] [facility] Last Admin: 01/27/22 20:34 Dose: Not Given Piperacillin Sod/Tazobactam (Sod 3.375 gm/ Sodium Chloride) 100 mls @ 25 mls/hr IVPB Q8H [facility]; Protocol Last Admin: 01/27/22 20:38 Dose: 25 mls/hr Insulin Aspart (Insulin Aspart (Novolog) 100 Unit/Ml Vial) 0 unit SQ ACHS [facility]; Protocol Last Admin: 01/27/22 20:34 Dose: Not Given Insulin Aspart (Insuln Asp Prt/Insulin Aspart 100 Unit/Ml 10 Ml Vial) 45 unit SQ AC-BID [facility] Last Admin: 01/27/22 17:55 Dose: 45 unit Levothyroxine Sodium (Levothyroxine 100 Mcg Tab) 100 mcg PO DAILY@0630 [facility] Last Admin: 01/27/22 04:04 Dose: 100 mcg Metoprolol Tartrate (Metoprolol Tartrate 50 Mg Tab) 100 mg PO DAILY [facility] Last Admin: 01/27/22 07:50 Dose: 100 mg Naloxone HCl (Naloxone 0.4 Mg/Ml 1 Ml Vial) 0.2 mg IV Q2M PRN PRN Reason: Opioid Reversal Ondansetron HCl (Ondansetron 4 Mg/2 Ml Vial) 4 mg IVP Q8HR PRN PRN Reason: Nausea And Vomiting Last Admin: 01/25/22 13:08 Dose: 4 mg PHYSICAL EXAMINATION: Patient is lying in the bed, no acute distress, awake alert and oriented.. HEENT: Normocephalic. Neck is supple. Pupils reactive. Nostrils clear. Oral cav ity is moist. Neck reveals no JVD, carotid bruits, or thyromegaly. CHEST EXAMINATION: Trachea is central. Symmetrical expansion. Lung pickens clear to auscultation and percussion. CARDIAC: Normal S1, S2 with no gallops. No murmurs ABDOMEN: Soft. Bowel sounds present. Left lower quadrant tenderness. No guarding or rigidity.. No organomegaly. No abdominal bruits. Extremities: reveal no edema. No clubbing or cyanosis Neurologically awake, alert, oriented x3 with well-coordinated movements. No focal deficits noted Skin: No rash or skin lesions. Psychiatric: Cooperative. Non-suicidal Musculoskeletal: No joint swelling or deformity. Normal range of motion. Assessment: Left lower quadrant abdominal pain secondary to acute diverticulitis. Acute urinary tract infection, present on admission Possible sepsis, present on admission secondary to UTI Bacteremia possibly secondary to UTI as cultures showed staph epi Irritable bowel syndrome with intermittent symptoms of diarrhea. Hypovolemic hyponatremia Mild hyperkalemia Hypertension Hyperlipidemia Diabetes type 2 insulin-dependent COPD Osteoarthritis Hypothyroidism History of GERD and Armijo's syndrome History of breast cancer status post bilateral mastectomy Morbid obesity with BMI 43.9 DVT prophylaxis with heparin subcu full code Plan: Patient be continued on antibiotics in the form of Zosyn. Repeat blood cultures are negative. Continue pain management and now that patient is tolerating oral diet will advance to full liquid and oral pain medication added. Discussed with the RN and patient about avoiding IV pain medications. CT abdomen shows some improvement from previous and no signs of abscess. General surgery recommends advancing to full liquid diet and monitoring closely. Possible discharge in 24 hours. Recommend to continue on her insulin regimen and sliding scale as needed with close monitoring of accuchecks achs. Continue with home medications and follow-up closely. Patient having increased loose stools and c diff testing was negative. Surgery recommends avoiding antimotility medications at this time as this is related to her inflammatory process and history of IBS. Due to multiple complex medical issues, prognosis is guarded. POssible discharge in 24 hours. The impression and plan of care has been dictated by Marysol Santillan, nurse practitioner as directed. Dr. Avril MD I have performed a history and examination and MDM of this patient, discussed the same with the dictator, and agree with the dictator's assessment and plan as written ,documented as a scribe. Based on total visit time, I have performed more than 50% of the visit. Any additional findings or plans will be noted. Objective - Vital Signs Vital signs: Vital Signs Temp 98.1 F 01/27/22 04:20 Pulse 94 01/27/22 04:20 Resp 20 01/27/22 04:20 BP 159/78 01/27/22 04:20 Pulse Ox 95 01/27/22 04:20 FiO2 Intake & Output 01/26/22 01/27/22 01/27/22 18:59 06:59 18:59 Intake Total 300 Balance 300 Intake: Oral 300 Other: Voiding Method Toilet Toilet # Voids 4 3 # Bowel Movements 3 - Labs CBC & Chem 7: 01/26/22 06:33 01/27/22 06:16 Labs: Abnormal Lab Results - Last 24 Hours (Table) 01/26/22 01/26/22 01/27/22 Range/Units 10:39 17:32 06:16 Sodium 135 L (137-145) mmol/L Glucose 100 H (74-99) mg/dL POC Glucose (mg/dL) 147 H 132 H (70-110) mg/dL Microbiology - Last 24 Hours (Table) 01/26/22 06:33 Blood Culture - Preliminary Blood No Growth after 24 hours 01/25/22 06:04 Blood Culture - Preliminary Blood No Growth after 48 hours 01/23/22 14:35 Blood Culture Gram Stain - Final Blood Blood Culture - Final Staphylococcus epidermidis 01/23/22 14:20 Blood Culture Gram Stain - Final Blood Blood Culture - Final Staph hominis sub sp. hominis
[2022-01-28] MEDS: HEPARIN SODIUM,PORCINE/PF 5,000 UNIT/0.5 ML SYRINGE SQ SCH ×2 (00:13→09:22)
[2022-01-28] MEDS: PIPERACILLIN-TAZOBACTAM 3.375 GM in SODIUM CHLORIDE 0.9% 100 ML IVPB SCH ×2 (04:48→12:23)
[2022-01-28] MEDS: HYDROcodone/APAP 5-325MG 1 EACH TAB PO PRN ×2 (04:49→12:22)
[2022-01-28] MEDS: LEVOTHYROXINE 100 MCG TAB PO SCH (04:49)
[2022-01-28 07:12] LABS: Glucose,Whole Blood 103 mg/dL (70-110)
[2022-01-28] MEDS: INSULIN ASPART (NovoLOG) 100 UNIT/ML VIAL SQ SCH ×2 (07:23→12:23)
[2022-01-28] MEDS: INSULN ASP PRT/INSULIN ASPART 100 UNIT/ML 10 ML VIAL SQ SCH (09:22)
[2022-01-28] MEDS: METOPROLOL TARTRATE 50 MG TAB PO SCH (09:22)
[2022-01-28] MEDS: allopurinoL 300 MG TAB PO SCH (09:22)
[2022-01-28 11:02] LABS: Glucose,Whole Blood 178 mg/dL (70-110)
[2022-01-28 12:23] VITALS: BP 145/81; PULSE 72; TEMP 97.9
[2022-01-28] MEDS: SODIUM CHLORIDE 0.9% 1,000 ML IV SCH (13:26)
--- NOTE | 2022-01-28 16:13 | P.PN ---
Subjective Progress Note Date: 01/28/22 CHIEF COMPLAINT: Diverticulitis HISTORY OF PRESENT ILLNESS: The patient is a 76-year-old female admitted for diverticulitis. She reports today her pain is resolved. She feels better and wants to go home. She tolerated diet. ROS: No reports of nausea and vomiting. No fevers or chills. No new chest pain. No productive sputum PHYSICAL EXAM: VITAL SIGNS: Reviewed CONSTITUTIONAL: Well developed and in no acute distress. EYES: Conjuctivae without sclera icterus. Extraocular movements grossly intact. HEAD, EARS, NOSE, THROAT: Moist buccal mucosa. Head is atraumatic, normocephalic. Hears conversational speech. No nasal drainage. RESPIRATORY: Non-labored respirations and equal bilateral excursions. CARDIOVASCULAR: Palpable 2+ radial pulses. ABDOMEN: Protuberant. Nontender. MUSCULOSKELETAL: No gross deformity of the lower extremities noted. No clubbing. No cyanosis. SKIN: Good skin turgor. Well perfused. NEUROLOGIC: Cranial nerves II through XII grossly intact. No focal or l ateralizing signs. PSYCH: Appropriate affect. Alert and oriented to person, place and time. CLINICAL LABS: Reviewed. Blood sugar glucose 178. ASSESSMENT: 1. Diverticulitis 2. Morbid obesity due to excess calories, BMI 43.9 PLAN: 1. Recommend low-fat diet upon discharge. 2. Continue antibiotics. 3. Stable from surgical standpoint for discharge Objective - Vital Signs Vital signs: Vital Signs Temp 98.3 F 01/28/22 04:50 Pulse 76 01/28/22 04:50 Resp 18 01/28/22 04:50 BP 153/78 01/28/22 04:50 Pulse Ox 94 L 01/28/22 04:50 FiO2 Intake & Output 01/27/22 01/28/22 01/28/22 18:59 06:59 18:59 Intake Total 925 200 240 Balance 925 200 240 Intake: Intake, IV Titration 925 200 Amount Piperacillin-Tazobactam 3 25 200 .375 gm In Sodium Chloride 0.9% 100 ml @ 25 mls/hr IVPB Q8H [facility] Rx#: [id number] Sodium Chloride 0.9% 1, 900 000 ml @ 75 mls/hr IV . [id number] [facility] Rx#:[id number] Oral 240 Other: Voiding Method Toilet Toilet - Labs CBC & Chem 7: 01/26/22 06:33 01/27/22 06:16 Labs: Abnormal Lab Results - Last 24 Hours (Table) 01/27/22 01/27/22 Range/Units 12:02 17:04 POC Glucose (mg/dL) 121 H 169 H (70-110) mg/dL Microbiology - Last 24 Hours (Table) 01/26/22 06:33 Blood Culture - Preliminary Blood No Growth after 48 hours 01/25/22 06:04 Blood Culture - Preliminary Blood No Growth after 72 hours
== END 2022-01-28 15:05 | disposition home or self-care (01) | DRG 872 ==
LOC: EC 10:13 → 5NMEDONC 12:57
PROVIDERS: ADMIT Internal Medicine; ATTEND Internal Medicine
DX: A41.9 Sepsis, unspecified organism (principal); E87.1 Hypo-osmolality and hyponatremia; K57.92 Diverticulitis of intestine, part unspecified, without perforation or abscess without bleeding; N39.0 Urinary tract infection, site not specified; Z68.41 Body mass index [BMI] 40.0-44.9, adult; E03.9 Hypothyroidism, unspecified; E11.9 Type 2 diabetes mellitus without complications; E66.01 Morbid (severe) obesity due to excess calories; E78.5 Hyperlipidemia, unspecified; E86.1 Hypovolemia; E87.5 Hyperkalemia; I10 Essential (primary) hypertension; J44.9 Chronic obstructive pulmonary disease, unspecified; K21.9 Gastro-esophageal reflux disease without esophagitis; K22.70 Barrett's esophagus without dysplasia; K58.0 Irritable bowel syndrome with diarrhea; M19.90 Unspecified osteoarthritis, unspecified site; M79.7 Fibromyalgia; R65.20 Severe sepsis without septic shock; Z79.4 Long term (current) use of insulin; Z79.84 Long term (current) use of oral hypoglycemic drugs; Z79.890 Hormone replacement therapy; Z79.899 Other long term (current) drug therapy; Z80.0 Family history of malignant neoplasm of digestive organs; Z80.1 Family history of malignant neoplasm of trachea, bronchus and lung; Z80.3 Family history of malignant neoplasm of breast; Z82.49 Family history of ischemic heart disease and other diseases of the circulatory system; Z85.3 Personal history of malignant neoplasm of breast; Z90.13 Acquired absence of bilateral breasts and nipples; Z90.710 Acquired absence of both cervix and uterus; Z28.21 Immunization not carried out because of patient refusal; Z80.42 Family history of malignant neoplasm of prostate; Z88.5 Allergy status to narcotic agent; Z88.8 Allergy status to other drugs, medicaments and biological substances; Z91.041 Radiographic dye allergy status; Z86.69 Personal history of other diseases of the nervous system and sense organs
CPT/HCPCS: 36415; 74176; 80048; 80053; 81001; 82150; 83605; 83690; 85025; 87040; 87077; 87086; 87186; 87324; 96361; 96365; 96366; 96372; 96375; 96376; 99285

== ENCOUNTER → 2023-10-24 | Outpatient (CLI) | payer MEDICARE, OTHER ==
--- NOTE | 2023-10-24 14:37 | US ---
EXAMINATION TYPE: US kidneys/renal and bladder DATE OF EXAM: 10/24/2023 COMPARISON: NONE CLINICAL INDICATION: Female, 78 years old with history of N18.9 CHRONIC KIDNEY DISEASE; CKD limited d ue to body habitus. EXAM MEASUREMENTS: Right Kidney: 7.9 x 5.1 x 4.2 cm Left Kidney: 9.6 x 3.9 x 3.0 cm Right Kidney: limited due to body habitus Left Kidney: Hypoechoic area upper pole 2.3 x 4.5 x 2.6 cm. Bladder: not fully distended. Bilateral Jets seen: left only There is no evidence for hydronephrosis at this point in time. No nephrolithiasis is seen. No jay jay s are identified. The urinary bladder is anechoic. Bilateral ureteral jets are seen. IMPRESSION: 1. No evidence of hydronephrosis or shadowing renal stones or X line 2. Left renal cyst.
== END | disposition home or self-care (01) ==
LOC: RADUSWWP 13:54
PROVIDERS: ATTEND Internal Medicine
DX: N28.1 Cyst of kidney, acquired (principal); N18.9 Chronic kidney disease, unspecified
CPT/HCPCS: 76770

== ENCOUNTER 2023-11-11 09:02 | Inpatient (IN) | payer MEDICARE, OTHER ==
--- NOTE | 2023-11-11 09:23 | ED ---
General Adult HPI - General Chief complaint: Weakness Stated complaint: Weakness Time Seen by Provider: 11/11/23 09:05 Source: patient, RN notes reviewed Mode of arrival: EMS Limitations: no limitations - History of Present Illness Initial comments: Patient is a pleasant 78-year-old female present to the emergency department with weakness. Patient has had decreased oral intake over the past week. Patient has had some nausea and vomiting, worse the past day. No abdominal pain. Patient has had some increased weakness especially today. Patient is unable to get up and walk on her own today. - Related Data Home Medications Medication Instructions Recorded Confirmed Metoprolol Tartrate [Lopressor] 100 mg PO DAILY 12/22/15 11/11/23 Insulin NPH Hum/Reg Insulin Hm 30 unit SQ AC-SUPPER PRN 02/11/19 11/11/23 [NovoLIN 70-30 100 UNIT/ML VIAL] Acetaminophen [Tylenol Extra 500 mg PO Q6HR PRN 03/07/19 11/11/23 Strength] allopurinoL [Zyloprim] 300 mg PO DAILY 07/24/19 11/11/23 Cholecalciferol [Vitamin D3 (25 50 mcg PO DAILY 01/23/22 11/11/23 Mcg = 1000 Iu)] Ezetimibe [Zetia] 10 mg PO DAILY 01/23/22 11/11/23 Pioglitazone [Actos] 15 mg PO DAILY@1500 01/24/22 11/11/23 DULoxetine HCL [Cymbalta] 30 mg PO DAILY@1500 11/11/23 11/11/23 Fenofibrate [Lofibra] 160 mg PO DAILY 11/11/23 11/11/23 HYDROcodone/APAP 5-325MG [[place] 1 tab PO BID PRN 11/11/23 11/11/23 5-325] Insulin NPH Hum/Reg Insulin Hm 50 unit SQ AC-BRKFST 11/11/23 11/11/23 [NovoLIN 70-30 100 Unit/ml Vial] Levothyroxine Sodium [Synthroid] 112 mcg PO DAILY 11/11/23 11/11/23 Losartan [Cozaar] 25 mg PO DAILY@1800 11/11/23 11/11/23 Ondansetron Odt [Zofran Odt] 4 mg PO Q8HR PRN 11/11/23 11/11/23 Allergies Allergy/AdvReac Type Severity Reaction Status Date / Time Iodinated Contrast Media Allergy Anaphylaxis Verified 11/11/23 10:12 [Iodinated Contrast- Oral and IV Dye] iodine Allergy Rash/Hives Verified 11/11/23 10:12 codeine AdvReac Headache & Verified 11/11/23 10:12 nausea Review of Systems ROS Statement: Those systems with pertinent positive or pertinent negative responses have been documented in the HPI. ROS Other: All systems not noted in ROS Statement are negative. Constitutional: Denies: fever Eyes: Denies: eye pain ENT: Denies: ear pain Respiratory: Denies: cough, dyspnea Cardiovascular: Denies: chest pain Gastrointestinal: Reports: nausea, vomiting. 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 wrist surgery, best mastectomy Past Anesthesia/Blood Transfusion Reactions: No Reported Reaction Past Psychological History: No Psychological Hx Reported Smoking Status: Never smoker Past Alcohol Use History: Occasional Past Drug Use History: None Reported - Past Family History Mother Family Medical History: Deep Vein Thrombosis (DVT) Father Family Medical History: Myocardial Infarction ([place]) Sister(s) Family Medical History: Cancer Additional Family Medical History / Comment(s): 1 sister colon cancer, 1 sister lung cancer and breast ca, 1 sister with breast ca Brother(s) Family Medical History: Cancer, Myocardial Infarction (CT) Additional Family Medical History / Comment(s): prostate cancer x brothers Daughter(s) Family Medical History: No Reported History Son(s) Family Medical History: Hypertension General Exam Limitations: no limitations General appearance: alert, in no apparent distress Head exam: Present: normocephalic Eye exam: Present: normal appearance, PERRL, EOMI ENT exam: Present: mucous membranes dry Neck exam: Present: normal inspection. Absent: tenderness, meningismus Respiratory exam: Present: normal lung sounds bilaterally Cardiovascular Exam: Present: regular rate, normal rhythm GI/Abdominal exam: Present: soft. Absent: tenderness Extremities exam: Present: normal inspection Neurological exam: Present: alert, CN II-XII intact Expanded Motor strength exam: RUE: 4, LUE: 4, RLE: 4, LLE: 4 Eye Response: (4) open spontaneously Motor Response: (6) obeys commands Verbal Response: (5) oriented Psychiatric exam: Present: normal affect, normal mood Skin exam: Present: normal color Course Vital Signs 11/11/23 11/11/23 09:04 11:14 Temperature 97.9 F Pulse Rate 85 79 Respiratory 22 24 Rate Blood Pressure 188/73 143/66 O2 Sat by Pulse 98 98 Oximetry EKG Findings - EKG Results: EKG: interpreted by ERMD (Left axis. LVH criteria.), sinus rhythm, normal ST/T Medical Decision Making - Medical Decision Making Was pt. sent in by a medical professional or institution (Dr. PA, GEOGRAPHY INSTRUCTOR, urgent care, hospital, or senior living...) When possible be specific @ -No Did you speak to anyone other than the patient for history (EMS, parent, family, police, friend...)? What history was obtained from this source @ -No Did you review nursing and triage notes (agree or disagree)? Why? @ -I reviewed and agree with nursing and triage notes Were old charts reviewed (outside hosp., previous admission, EMS record, old EKG, old radiological studies, urgent care reports/EKG's, senior living records)? Report findings @ -Previous chest x-ray reviewed Differential Diagnosis (chest pain, altered mental status, abdominal pain women, abdominal pain men, vaginal bleeding, weakness, fever, dyspnea, syncope, head ache, dizziness, GI bleed, back pain, seizure, CVA, palpatations, mental health, musculoskeletal)? @ -Differential Weakness: Hypoglycemia, shock, sepsis, hyponatremia, anemia, infection, CT, ETOH, adverse medicine reaction, overdose, stroke, this is not meant to be an all-inclusive list. EKG interpreted by me (3pts min.). @ -As above X-rays interpreted by me (1pt min.). @ -Chest x-ray shows no acute process CT interpreted by me (1pt min.). @ -CT scan of the brain shows no acute process. Atrophy. U/S interpreted by me (1pt. min.). @ -None done What testing was considered but not performed or refused? (CT, X-rays, U/S, labs)? Why? @ -None What meds were considered but not given or refused? Why? @ -None Did you discuss the management of the patient with other professionals ([facility] i.e. , PA, GEOGRAPHY INSTRUCTOR, lab, RT, psych nurse, nursing home social worker, housing officer, teacher, program officer, binder caser)? Give summary @ -Case discussed with Dr. Duff who will admit covering Dr. Russell Was smoking cessation discussed for >3mins.? @ -No Was critical care preformed (if so, how long)? @ -No Were there social determinants of health that impacted care today? How? (Homelessness, low income, unemployed, alcoholism, drug addiction, transportation, low edu. Level, literacy, decrease access to med. care, alf, rehab)? @ -No Was there de-escalation of care discussed even if they declined (Discuss DNR or withdrawal of care, Hospice)? DNR status @ -No What co-morbidities impacted this encounter? (DM, HTN, Smoking, COPD, CAD, Cancer, CVA, ARF, Chemo, Hep., AIDS, mental health diagnosis, sleep apnea, morbid obesity)? @ -None Was patient admitted / discharged? Hospital course, mention meds given and route, prescriptions, significant lab abnormalities, going to OR and other pertinent info. @ -Patient presents with vomiting decreased oral intake and weakness. Patient has hyponatremia and hypomagnesemia. These have been replaced. Patient will be admitted. Admission orders written Undiagnosed new problem with uncertain prognosis? @ -No Drug Therapy requiring intensive monitoring for toxicity (Heparin, Nitro, Insulin, Cardizem)? @ -No Were any procedures done? @ -No Diagnosis/symptom? @ -Hyponatremia, hypomagnesemia Acute, or Chronic, or Acute on Chronic? @ -Acute, acute Uncomplicated (without systemic symptoms) or Complicated (systemic symptoms)? @ -Default Side effects of treatment? @ -No Exacerbation, Progression, or Severe Exacerbation? @ -No Poses a threat to life or bodily function? How? (Chest pain, USA, CT, pneumonia, PE, COPD, DKA, ARF, appy, cholecystitis, CVA, Diverticulitis, Homicidal, Suicidal, threat to staff... and all critical care pts) @ -No - Lab Data Result diagrams: 11/11/23 09:56 11/11/23 09:56 Lab Results 11/11/23 11/11/23 11/11/23 Range/Units 09:56 09:56 09:56 WBC 4.9 (3.8-10.6) k/uL RBC 3.74 L (3.80-5.40) m/uL Hgb 12.3 (11.4-16.0) gm/dL Hct 37.7 (34.0-46.0) % MCV 100.8 H (80.0-100.0) fL MCH 32.9 (25.0-35.0) pg MCHC 32.7 (31.0-37.0) g/dL RDW 15.2 (11.5-15.5) % Plt Count 288 (150-450) k/uL MPV 9.6 Neutrophils % 61 % Lymphocytes % 29 % Monocytes % 7 % Eosinophils % 0 % Basophils % 0 % Neutrophils # 3.0 (1.3-7.7) k/uL Lymphocytes # 1.4 (1.0-4.8) k/uL Monocytes # 0.4 (0-1.0) k/uL Eosinophils # 0.0 (0-0.7) k/uL Basophils # 0.0 (0-0.2) k/uL Macrocytosis Slight PT 11.9 (10.0-12.5) sec INR 1.1 (<1.2) APTT 27.4 (22.0-30.0) sec Sodium 117 L* (137-145) mmol/L Potassium 4.2 (3.5-5.1) mmol/L Chloride 84 L (98-107) mmol/L Carbon Dioxide 23 (22-30) mmol/L Anion Gap 10 mmol/L BUN 15 (7-17) mg/dL Creatinine 0.78 (0.52-1.04) mg/dL Est GFR (CKD-EPI)AfAm 85 (>60 ml/min/1.73 sqM) Est GFR (CKD-EPI)NonAf 73 (>60 ml/min/1.73 sqM) Glucose 151 H (74-99) mg/dL Plasma Lactic Acid [place] (0.7-2.0) mmol/L Calcium 8.6 (8.4-10.2) mg/dL Magnesium 1.2 L (1.6-2.3) mg/dL Total Bilirubin 0.7 (0.2-1.3) mg/dL AST 21 (14-36) U/L ALT 16 (4-34) U/L Alkaline Phosphatase 58 (38-126) U/L Troponin I (0.000-0.034) ng/mL Total Protein 5.9 L (6.3-8.2) g/dL Albumin 3.1 L (3.5-5.0) g/dL TSH 5.970 H (0.465-4.680) mIU/L Influenza Type A (PCR) (Not Detectd) Influenza Type B (PCR) (Not Detectd) RSV (PCR) (Not Detectd) SARS-CoV-2 (PCR) (Not Detectd) 11/11/23 11/11/23 11/11/23 Range/Units 09:56 09:56 09:56 WBC (3.8-10.6) k/uL RBC (3.80-5.40) m/uL Hgb (11.4-16.0) gm/dL Hct (34.0-46.0) % MCV (80.0-100.0) fL MCH (25.0-35.0) pg MCHC (31.0-37.0) g/dL RDW (11.5-15.5) % Plt Count (150-450) k/uL MPV Neutrophils % % Lymphocytes % % Monocytes % % Eosinophils % % Basophils % % Neutrophils # (1.3-7.7) k/uL Lymphocytes # (1.0-4.8) k/uL Monocytes # (0-1.0) k/uL Eosinophils # (0-0.7) k/uL Basophils # (0-0.2) k/uL Macrocytosis PT (10.0-12.5) sec INR (<1.2) APTT (22.0-30.0) sec Sodium (137-145) mmol/L Potassium (3.5-5.1) mmol/L Chloride (98-107) mmol/L Carbon Dioxide (22-30) mmol/L Anion Gap mmol/L BUN (7-17) mg/dL Creatinine (0.52-1.04) mg/dL Est GFR (CKD-EPI)AfAm (>60 ml/min/1.73 sqM) Est GFR (CKD-EPI)NonAf (>60 ml/min/1.73 sqM) Glucose (74-99) mg/dL Plasma Lactic Acid [place] 1.1 (0.7-2.0) mmol/L Calcium (8.4-10.2) mg/dL Magnesium (1.6-2.3) mg/dL Total Bilirubin (0.2-1.3) mg/dL AST (14-36) U/L ALT (4-34) U/L Alkaline Phosphatase (38-126) U/L Troponin I <0.012 (0.000-0.034) ng/mL Total Protein (6.3-8.2) g/dL Albumin (3.5-5.0) g/dL TSH (0.465-4.680) mIU/L Influenza Type A (PCR) Not Detected (Not Detectd) Influenza Type B (PCR) Not Detected (Not Detectd) RSV (PCR) Not Detected (Not Detectd) SARS-CoV-2 (PCR) Not Detected (Not Detectd) Disposition Clinical Impression: Hyponatremia Disposition: [facility] Condition: Serious Is patient prescribed a controlled substance at d/c from ED?: No Referrals: Lg Kraus DO [Primary Care Provider] - 1-2 days Time of Disposition: 11:46
[2023-11-11] MEDS: SODIUM CHLORIDE 0.9% 1,000 ML IV STA ×2 (09:41→11:53)
[2023-11-11] MEDS: FAMOTIDINE 20 MG/2 ML VIAL IV STA (09:42)
[2023-11-11] MEDS: ONDANSETRON 4 MG/2 ML VIAL IVP STA (09:42)
[2023-11-11 10:04] LABS: Basophils % (A) 0 %; Eosinophils % (A) 0 %; HCT 37.7 % (34.0-46.0); HGB 12.3 gm/dL (11.4-16.0); Lymphocytes # (A) 1.4 k/uL (1.0-4.8); Lymphocytes % (A) 29 %; MCH 32.9 pg (25.0-35.0); MCHC 32.7 g/dL (31.0-37.0); MCV 100.8 fL (80.0-100.0); Macrocytosis Slight; Mean Platelet Volume 9.6; Monocytes # (A) 0.4 k/uL (0-1.0); Monocytes % (A) 7 %; Neutrophils % (A) 61 %; Platelet Count 288 k/uL (150-450); RBC 3.74 m/uL (3.80-5.40); RDW 15.2 % (11.5-15.5); WBC 4.9 k/uL (3.8-10.6)
[2023-11-11 10:25] LABS: ALT 16 U/L (4-34); AST 21 U/L (14-36); African American GFR (CKD) 85 (>60 ml/min/1.73 sqM); Albumin 3.1 g/dL (3.5-5.0); Alkaline Phosphatase 58 U/L (38-126); Anion Gap 10 mmol/L; Blood Urea Nitrogen 15 mg/dL (7-17); Calcium 8.6 mg/dL (8.4-10.2); Carbon Dioxide 23 mmol/L (22-30); Chloride 84 mmol/L (98-107); Glucose 151 mg/dL (74-99); Magnesium 1.2 mg/dL (1.6-2.3); Non-African American GFR(CKD) 73 (>60 ml/min/1.73 sqM); Potassium 4.2 mmol/L (3.5-5.1); Total Bilirubin 0.7 mg/dL (0.2-1.3); Total Protein 5.9 g/dL (6.3-8.2)
[2023-11-11 10:44] LABS: INR 1.1 (<1.2); Partial Thromboplastin Time 27.4 sec (22.0-30.0); Prothrombin Time 11.9 sec (10.0-12.5)
--- NOTE | 2023-11-11 10:47 | CT ---
EXAMINATION TYPE: CT brain wo con DATE OF EXAM: 11/11/2023 COMPARISON: 09/07/2016 INDICATION: weakness DLP: 1113.4 mGycm, Automated exposure control for dose reduction was used. CONTRAST: None CT of the brain is performed utilizing 3 mm thick sections through the posterior fossa and 3 mm thick sections through the remaining calvarium. Study is performed within 24 hours of arrival to the hosp ital. No abnormal hyperdensity is present to suggest an acute intracranial hemorrhage. No mass lesion is evident. No acute infarcts are evident. Patchy periventricular white matter hypodensity is present compatible with microvascular ischemic changes. Findings were present previously and appear stable. Ventricles and sulci are appropriate for the patient age. Paranasal sinuses and mastoid air cells within the [id number] are clear. IMPRESSION: 1. No acute intracranial process. Follow-up MRI can be performed as clinically indicated. 2. Chronic appearing periventricular white matter ischemic changes
[2023-11-11 11:12] LABS: Sodium 117 mmol/L (137-145)
--- NOTE | 2023-11-11 11:21 | XR ---
EXAMINATION TYPE: XR chest 2V DATE OF EXAM: 11/11/2023 COMPARISON: 07/30/2019 INDICATION: Weakness TECHNIQUE: Frontal and lateral views of the chest are obtained. FINDINGS: The heart size is normal. The pulmonary vasculature is normal. The lungs are clear. IMPRESSION: 1. No acute pulmonary process.
[2023-11-11] MEDS: MAGNESIUM SULFATE-D5W PMX 1 GM in DEXTROSE/WATER 1 100ML.BAG IVPB ONE (11:29)
[2023-11-11] MEDS ORDERED: NALOXONE 0.4 MG/ML 1 ML VIAL IV PRN (11:46)
[2023-11-11] MEDS: HYDROcodone/APAP 5-325MG 1 EACH TAB PO PRN (11:56)
[2023-11-11] MEDS: SODIUM CHLORIDE 0.9% 1,000 ML IV SCH (11:57)
[2023-11-11 12:11] LABS: T4, Free (Free Thyroxine) 1.86 ng/dL (0.78-2.19)
[2023-11-11] MEDS ORDERED: INSULN ASP PRT/INSULIN ASPART 100 UNIT/ML 10 ML VIAL SQ PRN (13:52)
[2023-11-11] MEDS ORDERED: DEXTROSE 50% SYRINGE 50 ML IVP PRN (13:54)
[2023-11-11] MEDS: DULoxetine HCL 30 MG CAPSULE.DR PO SCH (14:26)
--- NOTE | 2023-11-11 14:54 | P.HPIM ---
History of Present Illness H&P Date: 11/11/23 Patient is a 78-year-old female with history of type 2 diabetes, hypertension, hypothyroidism, gout presenting with weakness. She claims that she has been feeling weak for few months, but has worsened over the last couple of weeks. She normally ambulates using a walker, however, she was unable to get out of bed today due to weakness. She has also noticed decreased oral intake, dry mouth, dry skin for the last week or so. She has also had nausea today, but denies any chest pain, shortness of breath, abdominal pain, urinary or bowel complaints. She denies any fevers, chills. She denies any travel history or sick contacts. She denies any smoking, alcohol use or illicit drug use. She lives alone, and has her son was at her occasionally. In the ED, temperature was 97.9, blood pressure 188/73, pulse 85, respiratory rate 22, saturating at 98% on room air. WBC 4.9, hemoglobin 12.3, sodium 117, potassium 4.2, chloride 84, BUN 15, creatinine 0.78, anion gap 10, lactate 1.1, glucose 151, TSH 5.97, troponin negative, free T4 1.86, respiratory viral panel negative. EKG independently interpreted, shows sinus rhythm with nonspecific ST-T wave changes. Brain CT shows no acute process. Chest x-ray independently interpreted, shows no acute process. Patient was given 1 L of normal saline in the ED, started on normal saline at 75 cc an hour. Patient being admitted for weakness secondary to hyponatremia. Pertinent positives and negatives as discussed in HPI, a complete review of systems was performed and all other systems are negative. Patient seen and examined at bedside. Vital signs reviewed General: nontoxic, no distress, appears at stated age, morbidly obese Derm: warm, dry Head: atraumatic, normocephalic, symmetric Eyes: EOMI, no lid lag, anicteric sclera, pupils equal round reactive to light ENT: Nose and ears atraumatic Neck: No thyromegaly, supple Mouth: no lip lesion, dry mucous membrane Cardiovascular: S1S2 reg, no murmur, no edema Lungs: clear to auscultation bilateral, no rhonchi, no rales, no wheeze, no accessory muscle use Abdominal: soft, nontender to palpation, no guarding, no appreciable organomegaly Ext: no gross muscle atrophy, muscle strength muscle strength 4 out of 5 in all 4 extremities, no contractures Neuro: CN II-XII grossly intact Psych: Alert, oriented, appropriate affect Assessment/Plan: Active: Severe symptomatic hypovolemic hyponatremia Dehydration Weakness Elevated TSH, normal free T4 - BMP every 6 hours - Continue normal saline at 75 cc an hour - Avoid increase in sodium more than 8 mEq in the next 24 hours -PT/OT Type 2 diabetes - Continue home insulin -Hold Actos - Sliding scale insulin, monitor for hypoglycemia Chronic: Hypertension Hypothyroidism Gout Morbid obesity The patient is admitted with an anticipated greater than 2 midnight stay as inpatient status for evaluation of hyponatremia. Surrogate decision-maker: Daughter CODE STATUS: Full code DVT prophylaxis: Lovenox Anticipated discharge date: Pending clinical course Anticipated discharge place: Pending clinical course A total of 65 minutes was spent on the care of this complex patient more than 50% of the time was spent in counseling and care coordination. Past Medical History Past Medical History: Cancer, COPD, Diabetes Mellitus, Fibromyalgia, Hyperlipidemia, Hypertension, Osteoarthritis (OA), Thyroid Disorder Additional Past Medical History / Comment(s): Guillain [place], breast ca History of Any Multi-Drug Resistant Organisms: None Reported Past Surgical History: Cholecystectomy, Ear Surgery, Hysterectomy, Orthopedic Surgery Additional Past Surgical History / Comment(s): BEST. wrist surgery, best mastectomy Past Anesthesia/Blood Transfusion Reactions: No Reported Reaction Past Psychological History: No Psychological Hx Reported Smoking Status: Never smoker Past Alcohol Use History: Occasional Past Drug Use History: None Reported - Past Family History Mother Family Medical History: Deep Vein Thrombosis (DVT) Father Family Medical History: Myocardial Infarction ([place]) Sister(s) Family Medical History: Cancer Additional Family Medical History / Comment(s): 1 sister colon cancer, 1 sister lung cancer and breast ca, 1 sister with breast ca Brother(s) Family Medical History: Cancer, Myocardial Infarction ([place]) Additional Family Medical History / Comment(s): prostate cancer x brothers Daughter(s) Family Medical History: No Reported History Son(s) Family Medical History: Hypertension Medications and Allergies Home Medications Medication Instructions Recorded Confirmed Type Metoprolol Tartrate [Lopressor] 100 mg PO DAILY 12/22/15 11/11/23 History Insulin NPH Hum/Reg Insulin Hm 30 unit SQ AC-SUPPER PRN 02/11/19 11/11/23 His tory [NovoLIN 70-30 100 UNIT/ML VIAL] Acetaminophen [Tylenol Extra 500 mg PO Q6HR PRN 03/07/19 11/11/23 History Strength] allopurinoL [Zyloprim] 300 mg PO DAILY 07/24/19 11/11/23 History Cholecalciferol [Vitamin D3 (25 50 mcg PO DAILY 01/23/22 11/11/23 History Mcg = 1000 Iu)] Ezetimibe [Zetia] 10 mg PO DAILY 01/23/22 11/11/23 History Pioglitazone [Actos] 15 mg PO DAILY@1500 01/24/22 11/11/23 History DULoxetine HCL [Cymbalta] 30 mg PO DAILY@1500 11/11/23 11/11/23 History Fenofibrate [Lofibra] 160 mg PO DAILY 11/11/23 11/11/23 History HYDROcodone/APAP 5-325MG [[place] 1 tab PO BID PRN 11/11/23 11/11/23 History 5-325] Insulin NPH Hum/Reg Insulin Hm 50 unit SQ AC-BRKFST 11/11/23 11/11/23 History [NovoLIN 70-30 100 Unit/ml Vial] Levothyroxine Sodium [Synthroid] 112 mcg PO DAILY 11/11/23 11/11/23 History Losartan [Cozaar] 25 mg PO DAILY@1800 11/11/23 11/11/23 History Ondansetron Odt [Zofran Odt] 4 mg PO Q8HR PRN 11/11/23 11/11/23 History Allergies Allergy/AdvReac Type Severity Reaction Status Date / Time Iodinated Contrast Media Allergy Anaphylaxis Verified 11/11/23 10:12 [Iodinated Contrast- Oral and IV Dye] iodine Allergy Rash/Hives Verified 11/11/23 10:12 codeine AdvReac Headache & Verified 11/11/23 10:12 nausea Physical Exam Vitals: Vital Signs Temp Pulse Resp BP Pulse Ox 11/11/23 11:14 79 24 143/66 98 11/11/23 09:04 97.9 F 85 22 188/73 98 Intake and Output 11/10/23 11/11/23 11/11/23 22:59 06:59 14:59 Other: Weight 112.037 kg Results CBC & Chem 7: 11/11/23 09:56 11/11/23 09:56 Labs: Abnormal Lab Results - Last 24 Hours (Table) 11/11/23 11/11/23 Range/Units 09:56 09:56 RBC 3.74 L (3.80-5.40) m/uL MCV 100.8 H (80.0-100.0) fL Sodium 117 L* (137-145) mmol/L Chloride 84 L (98-107) mmol/L Glucose 151 H (74-99) mg/dL Magnesium 1.2 L (1.6-2.3) mg/dL Total Protein 5.9 L (6.3-8.2) g/dL Albumin 3.1 L (3.5-5.0) g/dL TSH 5.970 H (0.465-4.680) mIU/L Free T3 pg/mL 2.0 L (2.8-5.3) pg/ml
[2023-11-11 14:55] LABS: Appearance,Urine Clear (Clear); Bacteria,Urine Rare /hpf; Bilirubin,Urine Negative (Negative); Blood,Urine Negative (Negative); Color,Urine Colorless; Glucose,Urine (UA) Negative (Negative); Hyaline Casts,Urine 1 /lpf (0-2); Ketones,Urine Negative (Negative); Leukocyte Esterase,Urine Large (Negative); Nitrite,Urine Negative (Negative); Protein,Urine Negative (Negative); RBC,Urine 2 /hpf (0-5); Specific Gravity,Urine 1.009 (1.001-1.035); Squamous Epithelial Cell,Urine 2 /hpf (0-4); Urobilinogen,Urine <2.0 mg/dL (<2.0); WBC,Urine 41 /hpf (0-5)
[2023-11-11 16:58] LABS: African American GFR (CKD) >90 (>60 ml/min/1.73 sqM); Anion Gap 5 mmol/L; Blood Urea Nitrogen 12 mg/dL (7-17); Calcium 8.2 mg/dL (8.4-10.2); Carbon Dioxide 25 mmol/L (22-30); Chloride 90 mmol/L (98-107); Glucose 108 mg/dL (74-99); Non-African American GFR(CKD) 83 (>60 ml/min/1.73 sqM); Potassium 4.1 mmol/L (3.5-5.1); Sodium 120 mmol/L (137-145)
[2023-11-11] MEDS: MAGNESIUM SULFATE-D5W PMX 1 GM in DEXTROSE/WATER 1 100ML.BAG IVPB SCH (18:11)
[2023-11-11] MEDS: LOSARTAN 25 MG TAB PO SCH (18:14)
[2023-11-11] MEDS: INSULIN ASPART (NovoLOG) 100 UNIT/ML VIAL SQ SCH (18:24)
[2023-11-11 18:38] LABS: Glucose,Whole Blood 116 mg/dL (70-110)
[2023-11-11 20:16] LABS: Glucose,Whole Blood 139 mg/dL (70-110)
[2023-11-11] MEDS: MORPHINE SULFATE 2 MG/ML SYRINGE IVP PRN (22:07)
[2023-11-11 23:05] LABS: African American GFR (CKD) 86 (>60 ml/min/1.73 sqM); Anion Gap 5 mmol/L; Blood Urea Nitrogen 11 mg/dL (7-17); Calcium 8.2 mg/dL (8.4-10.2); Carbon Dioxide 26 mmol/L (22-30); Chloride 88 mmol/L (98-107); Glucose 127 mg/dL (74-99); Non-African American GFR(CKD) 74 (>60 ml/min/1.73 sqM); Potassium 3.6 mmol/L (3.5-5.1)
[2023-11-11 23:11] LABS: Sodium 119 mmol/L (137-145)
[2023-11-12 02:17] LABS: African American GFR (CKD) >90 (>60 ml/min/1.73 sqM); Anion Gap 4 mmol/L; Blood Urea Nitrogen 10 mg/dL (7-17); Carbon Dioxide 25 mmol/L (22-30); Chloride 87 mmol/L (98-107); Glucose 128 mg/dL (74-99); Non-African American GFR(CKD) 83 (>60 ml/min/1.73 sqM); Potassium 3.5 mmol/L (3.5-5.1)
[2023-11-12 02:21] LABS: Sodium 116 mmol/L (137-145)
[2023-11-12] MEDS: ACETAMINOPHEN TAB 500 MG TAB PO PRN (02:45)
[2023-11-12] MEDS: LEVOTHYROXINE 112 MCG TAB PO SCH (05:41)
[2023-11-12 07:34] LABS: Glucose,Whole Blood 143 mg/dL (70-110)
[2023-11-12] MEDS: PANTOPRAZOLE 40 MG/10 ML VIAL IV SCH (08:22)
[2023-11-12] MEDS: ENOXAPARIN 40 MG/0.4 ML SYRINGE SQ SCH (08:22)
[2023-11-12] MEDS: INSULN ASP PRT/INSULIN ASPART 100 UNIT/ML 10 ML VIAL SQ SCH (08:23)
[2023-11-12] MEDS: allopurinoL 300 MG TAB PO SCH (08:23)
[2023-11-12] MEDS: EZETIMIBE 10 MG TAB PO SCH (08:23)
[2023-11-12] MEDS: METOPROLOL TARTRATE 50 MG TAB PO SCH (08:23)
[2023-11-12] MEDS: CHOLECALCIFEROL 25 MCG (1000 IU) TABLET PO SCH (08:23)
[2023-11-12] MEDS: FENOFIBRATE 160 MG TAB PO SCH (08:23)
[2023-11-12] MEDS: HYDROcodone/APAP 5-325MG 1 EACH TAB PO PRN (08:36)
--- NOTE | 2023-11-12 11:43 | P.NPCON ---
History of Present Illness - Reason for Consult hyponatremia - History of Present Illness patient is a 78-year-old female with history of hypertension, type 2 diabetes who was admitted to the hospital with complaints of increased weakness and decreased ability to ambulate. [place] patient states that she has had significant nausea and has not been able to eat for more than one week now. No history of diarrhea or vomiting. No significant pain No new Medications started recently. no thiazide diuretics noted on home med list. sodium was 117 on admission and improved to 120 of to normal saline or less and patient was maintained on saline at 75 mL an hour. subsequently sodium dropped to 116 and saline was discontinued. 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 wrist surgery, best mastectomy Past Anesthesia/Blood Transfusion Reactions: No Reported Reaction Past Psychological History: No Psychological Hx Reported Smoking Status: Never smoker Past Alcohol Use History: Occasional Past Drug Use History: None Reported - Past Family History Mother Family Medical History: Deep Vein Thrombosis (DVT) Father Family Medical History: Myocardial Infarction (NE) Sister(s) Family Medical History: Cancer Additional Family Medical History / Comment(s): 1 sister colon cancer, 1 sister lung cancer and breast ca, 1 sister with breast ca Brother(s) Family Medical History: Cancer, Myocardial Infarction ([place]) Additional Family Medical History / Comment(s): prostate cancer x brothers Daughter(s) Family Medical History: No Reported History Son(s) Family Medical History: Hypertension Medications and Allergies Home Medications Medication Instructions Recorded Confirmed Type Metoprolol Tartrate [Lopressor] 100 mg PO DAILY 12/22/15 11/11/23 History Insulin NPH Hum/Reg Insulin Hm 30 unit SQ AC-SUPPER PRN 02/11/19 11/11/23 History [NovoLIN 70-30 100 UNIT/ML VIAL] Acetaminophen [Tylenol Extra 500 mg PO Q6HR PRN 03/07/19 11/11/23 History Strength] allopurinoL [Zyloprim] 300 mg PO DAILY 07/24/19 11/11/23 History Cholecalciferol [Vitamin D3 (25 50 mcg PO DAILY 01/23/22 11/11/23 History Mcg = 1000 Iu)] Ezetimibe [Zetia] 10 mg PO DAILY 01/23/22 11/11/23 History Pioglitazone [Actos] 15 mg PO DAILY@1500 01/24/22 11/11/23 History DULoxetine HCL [Cymbalta] 30 mg PO DAILY@1500 11/11/23 11/11/23 History Fenofibrate [Lofibra] 160 mg PO DAILY 11/11/23 11/11/23 History HYDROcodone/APAP 5-325MG [[place] 1 tab PO BID PRN 11/11/23 11/11/23 History 5-325] Insulin NPH Hum/Reg Insulin Hm 50 unit SQ AC-BRKFST 11/11/23 11/11/23 History [NovoLIN 70-30 100 Unit/ml Vial] Levothyroxine Sodium [Synthroid] 112 mcg PO DAILY 11/11/23 11/11/23 History Losartan [Cozaar] 25 mg PO DAILY@1800 11/11/23 11/11/23 History Ondansetron Odt [Zofran Odt] 4 mg PO Q8HR PRN 11/11/23 11/11/23 History Allergies Allergy/AdvReac Type Severity Reaction Status Date / Time Iodinated Contrast Media Allergy Anaphylaxis Verified 11/11/23 10:12 [Iodinated Contrast- Oral and IV Dye] iodine Allergy Rash/Hives Verified 11/11/23 10:12 codeine AdvReac Headache & Verified 11/11/23 10:12 nausea Physical Exam Vitals: Vital Signs Temp Pulse Pulse Resp BP BP Pulse Ox 11/12/23 07:21 97.9 F 88 18 174/76 95 11/12/23 02:00 98.2 F 81 16 146/75 96 11/11/23 20:00 98.1 F 91 16 135/69 97 11/11/23 16:25 97.7 F 83 18 151/69 97 11/11/23 15:12 84 18 172/82 96 11/11/23 14:18 75 18 158/92 95 Intake and Output 11/11/23 11/12/23 11/12/23 22:59 06:59 14:59 Intake Total 800 100 Output Total 350 Balance -350 800 100 Intake: Intake, IV Titration 800 Amount Magnesium Sulfate-D5w Pmx 200 1 gm In Dextrose/Water 1 100ml.bag @ 100 mls/hr IVPB Q1H [facility] Rx#: [id number] Sodium Chloride 0.9% 1, 600 000 ml @ 75 mls/hr IV . [id number] [facility] Rx#:[id number] Oral 100 Output: Urine 350 Other: Voiding Method Diaper External Catheter # Voids 500 Weight 100.5 kg patient is awake, comfortable, no acute distress Examination of the heart S1 and S2 Examination of the lungs shows good air entry bilaterally Abdomen is soft obese nontender Examination of lower extremity shows no edema [employer] exam grossly intact Results - Lab Results Most recent lab results Calcium 8.0 mg/dL (8.4-10.2) L 11/12/23 01:48 Magnesium 1.2 mg/dL (1.6-2.3) L 11/11/23 09:56 11/11/23 09:56 11/12/23 01:48 Assessment and Plan Assessment: 1. Hyponatremia partly hypovolemic and initially improved with saline however once the hypovolemic component was corrected serum sodium dropped and saline was appropriately discontinued. Urine sodium is 67 and urine osmolality is pending.patient has had significant nausea and poor oral intake over the last few days. She may have underlying SIADH from nausea or tea and toast syndrome from poor solute intake. blood pressure is high therefore I will hold off on sodium chloride tabs. Patient will be given 1 dose of [place]. 2.volume depletion status post normal saline 3. Generalized weakness 4. Type 2 diabetes Plan: continue off of saline [place] 1 Follow-up and urine osmolality Repeat sodium later this evening encouraged to increase oral protein intake check bladder scan and rule out urine retention. Patient has an external catheter. Thank you for the consultation. We will continue to follow the patient with you during her hospitalization
[2023-11-12 11:56] LABS: Basophils # (A) 0.03 X 10*3/uL (0.00-0.10); Basophils % (A) 0.5 %; Eosinophils # (A) 0.12 X 10*3/uL (0.04-0.35); Eosinophils % (A) 2.1 %; HCT 30.3 % (37.2-46.3); HGB 10.1 g/dL (12.0-15.0); Lymphocytes # (A) 1.28 X 10*3/uL (0.90-5.00); Lymphocytes % (A) 22.5 %; MCH 32.5 pg (27.0-32.0); MCHC 33.3 g/dL (32.0-37.0); MCV 97.4 FL (80.0-97.0); Mean Platelet Volume 11.4 FL (9.5-12.2); Monocytes # (A) 0.51 X 10*3/uL (0.20-1.00); Monocytes % (A) 8.9 %; NRBC Per 100 WBC 0 X 10*3/uL (0.00-0.01); Neutrophils # (A) 3.73 X 10*3/uL (1.80-7.70); Neutrophils % (A) 65.5 %; Platelet Count 356 X 10*3/uL (140-440); RBC 3.11 X 10*6/uL (4.10-5.20); RDW 15.2 % (11.5-14.5)
[2023-11-12 12:08] LABS: Magnesium 2.2 mg/dL (1.5-2.4)
[2023-11-12 12:12] LABS: BUN/Creat Ratio 11.25 Ratio (12.00-20.00); Calcium 8.2 mg/dL (8.7-10.3); Carbon Dioxide 24.9 mmol/L (21.6-31.8); Chloride 85 mmol/L (96-109); Glucose 131 mg/dL (70-110); Sodium 120 mmol/L (135-145)
[2023-11-12 12:13] LABS: ALT 26 U/L (8-44); AST 57 U/L (13-35); Albumin 3.1 g/dL (3.8-4.9); Albumin/Globulin Ratio 1.35 Ratio (1.60-3.17); Alkaline Phosphatase 62 U/L (41-126); Blood Urea Nitrogen 8.8 mg/dL (9.0-27.0); Calcium 8.2 mg/dL (8.7-10.3); Carbon Dioxide 24.8 mmol/L (21.6-31.8); Chloride 85 mmol/L (96-109); Globulin 2.3 g/dL (1.6-3.3); Glucose 135 mg/dL (70-110); Potassium 3.9 mmol/L (3.5-5.5); Sodium 119 mmol/L (135-145); Total Bilirubin 0.5 mg/dL (0.3-1.2); Total Protein 5.4 g/dL (6.2-8.2)
[2023-11-12 12:18] LABS: Glucose,Whole Blood 65 mg/dL (70-110)
[2023-11-12 12:18] LABS: Glucose,Whole Blood 66 mg/dL (70-110)
[2023-11-12] MEDS: TOLVAPTAN 15 MG TABLET PO ONE (12:31)
[2023-11-12] MEDS: ONDANSETRON 4 MG/2 ML VIAL IVP PRN ×2 (12:31→18:48)
[2023-11-12] MEDS: DEXTROSE 50% SYRINGE 50 ML IVP PRN (12:31)
[2023-11-12 13:02] LABS: Glucose,Whole Blood 116 mg/dL (70-110)
--- NOTE | 2023-11-12 14:52 | P.PN ---
Subjective Progress Note Date: 11/12/23 Hospital Course: Patient is a 78-year-old female with history of type 2 diabetes, hypertension, hypothyroidism, gout presenting with weakness. In the ED, temperature was 97.9, blood pressure 188/73, pulse 85, respiratory rate 22, saturating at 98% on room air. WBC 4.9, hemoglobin 12.3, sodium 117, potassium 4.2, chloride 84, BUN 15, creatinine 0.78, anion gap 10, lactate 1.1, glucose 151, TSH 5.97, troponin negative, free T4 1.86, respiratory viral panel negative. EKG independently interpreted, shows sinus rhythm with nonspecific ST-T wave changes. Brain CT shows no acute process. Chest x-ray independently interpreted, shows no acute process. Patient was given 1 L of normal saline in the ED, started on normal saline at 75 cc an hour. Patient being admitted for weakness secondary to hyponatremia and hypomagnesemia. Sodium initially improved after normal saline administration, then began to drop. Normal saline held. Nephrology consulted. Subjective: Patient seen and examined at bedside. No acute events overnight. Pertinent positives and negatives as discussed above, a complete review of systems was performed and all other systems are negative. Vitals Signs Reviewed. General: Nontoxic, no distress, appears at stated age, morbidly obese Derm: Warm, dry Head: Atraumatic, normocephalic, symmetric Eyes: EOMI, no lid lag, anicteric sclera Mouth: No lip lesion, mucus membranes moist Cardiovascular: S1S2 reg, no murmur Lungs: CTA bilateral, no rhonchi, no rales, no accessory muscle use Abdominal: Soft, nontender to palpation, no guarding, no appreciable organo megaly Ext: No gross muscle atrophy, no edema, no contractures Neuro: CN II-XI grossly intact, no focal neuro deficits Psych: Alert, oriented, appropriate affect Data Reviewed Today: Pertinent Labs: WBC 5.7, hemoglobin 10.1, sodium 120, chloride 85, creatinine 0.8, A1c 6.8, serum osmolality 256, urine osmolality 301, urine sodium 67, blood sugars range between 1 27-1 35 Imaging: No new imaging Assessment and Plan: Active: Severe symptomatic hyponatremia, initially hypovolemic, now euvolemic Dehydration, resolved Weakness Elevated TSH, normal free T4 - BMP every 6 hours -Sodium initially improved with normal saline, then began to drop again. Normal saline now held. - Discussed management with nephrology, Lucy x 1, check bladder scan -PT/OT Hypomagnesemia, resolved Type 2 diabetes, A1c 6.8 - Continue home insulin -Hold Actos - Sliding scale insulin, monitor for hypoglycemia Chronic: Hypertension Hypothyroidism Gout Morbid obesity Chronic normocytic anemia, no active bleeding DVT ppx: Lovenox Code status: Full code Anticipated discharge place: Likely rehab Anticipated discharge time: Pending clinical course Objective - Vital Signs Vital signs: Vital Signs Temp 97.6 F 11/12/23 11:21 Pulse 68 11/12/23 11:21 Resp 18 11/12/23 11:21 BP 148/72 11/12/23 11:21 Pulse Ox 97 11/12/23 11:21 FiO2 Intake & Output 11/11/23 11/12/23 11/12/23 18:59 06:59 18:59 Intake Total 800 600 Output Total 350 Balance -350 800 600 Weight 100.5 kg 100.5 kg Intake: Intake, IV Titration 800 Amount Magnesium Sulfate-D5w Pmx 200 1 gm In Dextrose/Water 1 100ml.bag @ 100 mls/hr IVPB Q1H [facility] Rx#: [id number] Sodium Chloride 0.9% 1, 600 000 ml @ 75 mls/hr IV . [id number] [facility] Rx#:[id number] Oral 600 Output: Urine 350 Other: Voiding Method Diaper Diaper External Catheter External Catheter # Voids 500 - Labs CBC & Chem 7: 11/12/23 06:37 11/12/23 06:37 Labs: Abnormal Lab Results - Last 24 Hours (Table) 11/11/23 11/11/23 11/11/23 Range/Units 14:00 16:21 16:21 RBC (4.10-5.20) X 10*6/uL Hgb (12.0-15.0) g/dL Hct (37.2-46.3) % MCV (80.0-97.0) FL MCH (27.0-32.0) pg RDW (11.5-14.5) % Sodium 120 L (137-145) mmol/L Chloride 90 L (98-107) mmol/L BUN (9.0-27.0) mg/dL BUN/Creatinine Ratio (12.00-20.00) Ratio Glucose 108 H (74-99) mg/dL POC Glucose (mg/dL) (70-110) mg/dL Hemoglobin A1c (<=6.0) % Osmolality 256 L (275-295) mOsm/kg Calcium 8.2 L (8.4-10.2) mg/dL AST (13-35) U/L Total Protein (6.2-8.2) g/dL Albumin (3.8-4.9) g/dL Albumin/Globulin Ratio (1.60-3.17) Ratio Ur Leukocyte Esterase Large H (Negative) Urine WBC 41 H (0-5) /hpf Urine Bacteria Rare H (None) /hpf 11/11/23 11/11/23 11/11/23 Range/Units 18:19 20:14 22:21 RBC (4.10-5.20) X 10*6/uL Hgb (12.0-15.0) g/dL Hct (37.2-46.3) % MCV (80.0-97.0) FL MCH (27.0-32.0) pg RDW (11.5-14.5) % Sodium 119 L* (137-145) mmol/L Chloride 88 L (98-107) mmol/L BUN (9.0-27.0) mg/dL BUN/Creatinine Ratio (12.00-20.00) Ratio Glucose 127 H (74-99) mg/dL POC Glucose (mg/dL) 116 H 139 H (70-110) mg/dL Hemoglobin A1c (<=6.0) % Osmolality (275-295) mOsm/kg Calcium 8.2 L (8.4-10.2) mg/dL AST (13-35) U/L Total Protein (6.2-8.2) g/dL Albumin (3.8-4.9) g/dL Albumin/Globulin Ratio (1.60-3.17) Ratio Ur Leukocyte Esterase (Negative) Urine WBC (0-5) /hpf Urine Bacteria (None) /hpf 11/12/23 11/12/23 11/12/23 Range/Units 01:48 06:37 06:37 RBC 3.11 L (4.10-5.20) X 10*6/uL Hgb 10.1 L (12.0-15.0) g/dL Hct 30.3 L (37.2-46.3) % MCV 97.4 H (80.0-97.0) FL MCH 32.5 H (27.0-32.0) pg RDW 15.2 H (11.5-14.5) % Sodium 116 L* (137-145) mmol/L Chloride 87 L (98-107) mmol/L BUN (9.0-27.0) mg/dL BUN/Creatinine Ratio (12.00-20.00) Ratio Glucose 128 H (74-99) mg/dL POC Glucose (mg/dL) (70-110) mg/dL Hemoglobin A1c 6.8 H (<=6.0) % Osmolality (275-295) mOsm/kg Calcium 8.0 L (8.4-10.2) mg/dL AST (13-35) U/L Total Protein (6.2-8.2) g/dL Albumin (3.8-4.9) g/dL Albumin/Globulin Ratio (1.60-3.17) Ratio Ur Leukocyte Esterase (Negative) Urine WBC (0-5) /hpf Urine Bacteria (None) /hpf 11/12/23 11/12/23 11/12/23 Range/Units 06:37 06:37 07:26 RBC (4.10-5.20) X 10*6/uL Hgb (12.0-15.0) g/dL Hct (37.2-46.3) % MCV (80.0-97.0) FL MCH (27.0-32.0) pg RDW (11.5-14.5) % Sodium 119 A* 120 L (137-145) mmol/L Chloride 85 L 85 L (98-107) mmol/L BUN 8.8 L (9.0-27.0) mg/dL BUN/Creatinine Ratio 11.00 L 11.25 L (12.00-20.00) Ratio Glucose 135 H 131 H (74-99) mg/dL POC Glucose (mg/dL) 143 H (70-110) mg/dL Hemoglobin A1c (<=6.0) % Osmolality (275-295) mOsm/kg Calcium 8.2 L 8.2 L (8.4-10.2) mg/dL AST 57 H (13-35) U/L Total Protein 5.4 L (6.2-8.2) g/dL Albumin 3.1 L (3.8-4.9) g/dL Albumin/Globulin Ratio 1.35 L (1.60-3.17) Ratio Ur Leukocyte Esterase (Negative) Urine WBC (0-5) /hpf Urine Bacteria (None) /hpf 11/12/23 11/12/23 11/12/23 Range/Units 11:52 12:11 12:57 RBC (4.10-5.20) X 10*6/uL Hgb (12.0-15.0) g/dL Hct (37.2-46.3) % MCV (80.0-97.0) FL MCH (27.0-32.0) pg RDW (11.5-14.5) % Sodium (137-145) mmol/L Chloride (98-107) mmol/L BUN (9.0-27.0) mg/dL BUN/Creatinine Ratio (12.00-20.00) Ratio Glucose (74-99) mg/dL POC Glucose (mg/dL) 66 L 65 L 116 H (70-110) mg/dL Hemoglobin A1c (<=6.0) % Osmolality (275-295) mOsm/kg Calcium (8.4-10.2) mg/dL AST (13-35) U/L Total Protein (6.2-8.2) g/dL Albumin (3.8-4.9) g/dL Albumin/Globulin Ratio (1.60-3.17) Ratio Ur Leukocyte Esterase (Negative) Urine WBC (0-5) /hpf Urine Bacteria (None) /hpf
[2023-11-12 14:59] VITALS: BMI 39.2
[2023-11-12 17:05] LABS: BUN/Creat Ratio 11.75 Ratio (12.00-20.00); Blood Urea Nitrogen 9.4 mg/dL (9.0-27.0); Calcium 8.8 mg/dL (8.7-10.3); Carbon Dioxide 25.5 mmol/L (21.6-31.8); Chloride 84 mmol/L (96-109); Glucose 58 mg/dL (70-110); Sodium 120 mmol/L (135-145)
[2023-11-12 17:23] LABS: African American GFR (CKD) 84 (>60 ml/min/1.73 sqM); Anion Gap 6 mmol/L; Blood Urea Nitrogen 11 mg/dL (7-17); Calcium 8.6 mg/dL (8.4-10.2); Carbon Dioxide 26 mmol/L (22-30); Chloride 87 mmol/L (98-107); Glucose 123 mg/dL (74-99); Non-African American GFR(CKD) 73 (>60 ml/min/1.73 sqM); Potassium 4.1 mmol/L (3.5-5.1)
[2023-11-12 17:31] LABS: Glucose,Whole Blood 128 mg/dL (70-110)
[2023-11-12 17:32] LABS: Sodium 119 mmol/L (137-145)
[2023-11-12 20:07] LABS: Glucose,Whole Blood 155 mg/dL (70-110)
[2023-11-13 07:38] LABS: Glucose,Whole Blood 144 mg/dL (70-110)
[2023-11-13] MEDS: INSULIN DETEMIR (LEVEMIR) 100 UNIT/ML SYR SQ SCH (08:32)
--- NOTE | 2023-11-13 10:05 | XR ---
EXAMINATION TYPE: XR KUB DATE OF EXAM: 11/13/2023 COMPARISON: None INDICATION: Obstipation obstruction TECHNIQUE: Single view abdomen supine view FINDINGS: There is a normal bowel gas pattern. No suspicious dilated loops of bowel are evident. No mass effect is evident. No suspicious fecal retention Psoas margins are normal. No organomegaly is present. IMPRESSION: 1. Unremarkable Abdomen
[2023-11-13] MEDS: DRY MOUTH SPRAY 44.3 SPRAY/44.3 ML SPRAY MUCOUS MEM SCH (10:26)
[2023-11-13 11:05] LABS: Basophils # (A) 0.03 X 10*3/uL (0.00-0.10); Basophils % (A) 0.4 %; Eosinophils % (A) 2.4 %; HCT 31.6 % (37.2-46.3); HGB 10.6 g/dL (12.0-15.0); Lymphocytes # (A) 2.16 X 10*3/uL (0.90-5.00); MCH 32.3 pg (27.0-32.0); MCHC 33.5 g/dL (32.0-37.0); MCV 96.3 FL (80.0-97.0); Mean Platelet Volume 11.4 FL (9.5-12.2); Monocytes # (A) 0.79 X 10*3/uL (0.20-1.00); Monocytes % (A) 9.5 %; NRBC Per 100 WBC 0 X 10*3/uL (0.00-0.01); Neutrophils # (A) 5.08 X 10*3/uL (1.80-7.70); Neutrophils % (A) 61.2 %; Platelet Count 399 X 10*3/uL (140-440); RBC 3.28 X 10*6/uL (4.10-5.20); RDW 15.3 % (11.5-14.5)
[2023-11-13 11:21] LABS: Magnesium 1.9 mg/dL (1.5-2.4)
[2023-11-13 11:26] LABS: BUN/Creat Ratio 11.44 Ratio (12.00-20.00); Blood Urea Nitrogen 10.3 mg/dL (9.0-27.0); Calcium 9.2 mg/dL (8.7-10.3); Carbon Dioxide 26.6 mmol/L (21.6-31.8); Chloride 87 mmol/L (96-109); Glucose 152 mg/dL (70-110); Potassium 4.4 mmol/L (3.5-5.5); Sodium 126 mmol/L (135-145)
[2023-11-13 12:49] LABS: Glucose,Whole Blood 153 mg/dL (70-110)
--- NOTE | 2023-11-13 14:30 | P.CONS ---
History of Present Illness - Reason for Consult Consult date: 11/13/23 rehab recommendations - Chief Complaint debility - History of Present Illness Ms Frances is a 78 y/o right handed single female who lives in an apartment with 0 RIAZ. Her son lives in the same apartment building and daughter lives [address]. Prior to admission, she was independent with mobility and ADLs using 4ww,but reports she has been struggling the past couple of months. She has an electric wheelchair and amigo at home. She does not drive, her son does the shopping. She has a shower chair and walker Ms Frances presented to the hospital on 11/11/23 with decreased oral intake, nausea and vomiting. She also reported generalized weakness. She was found to have a low sodium, 117, given normal saline with some improvement. Nephrology consulted. Brain CT negative for acute process. PM&R consulted for rehab recommendations. Patient was evaluated by therapies; total assist with bed mobility, she was unable to stand or walk due to weakness, needs OT evaluations. 11/13/23: Patient states she has been getting progressively weaker over the last 2 months. She has been having trouble getting up from her chair. She denies CP, SOB. She reports nausea, has not had a BM in approximately a week. She reports diffuse chronic pain, intermittent tingling in her hands and feet. She feels she needs rehab before she is able to return home. Review of Systems reviewed, negative unless stated above in HPI Past Medical History Past Medical History: Cancer, COPD, Diabetes Mellitus, Fibromyalgia, Hyperlipidemia, Hypertension, Osteoarthritis (OA), Thyroid Disorder Additional Past Medical History / Comment(s): Guillain [place], breast ca History of Any Multi-Drug Resistant Organisms: None Reported Past Surgical History: Cholecystectomy, Ear Surgery, Hysterectomy, Orthopedic Surgery Additional Past Surgical History / Comment(s): BEST. wrist surgery, best mastectomy Past Anesthesia/Blood Transfusion Reactions: No Reported Reaction Past Psychological History: No Psychological Hx Reported Smoking Status: Never smoker Past Alcohol Use History: Occasional Past Drug Use History: None Reported - Past Family History Mother Family Medical History: Deep Vein Thrombosis (DVT) Father Family Medical History: Myocardial Infarction ([place]) Sister(s) Family Medical History: Cancer Additional Family Medical History / Comment(s): 1 sister colon cancer, 1 sister lung cancer and breast ca, 1 sister with breast ca Brother(s) Family Medical History: Cancer, Myocardial Infarction (CT) Additional Family Medical History / Comment(s): prostate cancer x brothers Daughter(s) Family Medical History: No Reported History Son(s) Family Medical History: Hypertension Medications and Allergies Home Medications Medication Instructions Recorded Confirmed Type Metoprolol Tartrate [Lopressor] 100 mg PO DAILY 12/22/15 11/11/23 History Insulin NPH Hum/Reg Insulin Hm 30 unit SQ AC-SUPPER PRN 02/11/19 11/11/23 History [NovoLIN 70-30 100 UNIT/ML VIAL] Acetaminophen [Tylenol Extra 500 mg PO Q6HR PRN 03/07/19 11/11/23 History Strength] allopurinoL [Zyloprim] 300 mg PO DAILY 07/24/19 11/11/23 History Cholecalciferol [Vitamin D3 (25 50 mcg PO DAILY 01/23/22 11/11/23 History Mcg = 1000 Iu)] Ezetimibe [Zetia] 10 mg PO DAILY 01/23/22 11/11/23 History Pioglitazone [Actos] 15 mg PO DAILY@1500 01/24/22 11/11/23 History DULoxetine HCL [Cymbalta] 30 mg PO DAILY@1500 11/11/23 11/11/23 History Fenofibrate [Lofibra] 160 mg PO DAILY 11/11/23 11/11/23 History HYDROcodone/APAP 5-325MG [[place] 1 tab PO BID PRN 11/11/23 11/11/23 History 5-325] Insulin NPH Hum/Reg Insulin Hm 50 unit SQ AC-BRKFST 11/11/23 11/11/23 History [NovoLIN 70-30 100 Unit/ml Vial] Levothyroxine Sodium [Synthroid] 112 mcg PO DAILY 11/11/23 11/11/23 History Losartan [Cozaar] 25 mg PO DAILY@1800 11/11/23 11/11/23 History Ondansetron Odt [Zofran Odt] 4 mg PO Q8HR PRN 11/11/23 11/11/23 History Allergies Allergy/AdvReac Type Severity Reaction Status Date / Time Iodinated Contrast Media Allergy Anaphylaxis Verified 11/11/23 10:12 [Iodinated Contrast- Oral and IV Dye] iodine Allergy Rash/Hives Verified 11/11/23 10:12 codeine AdvReac Headache & Verified 11/11/23 10:12 nausea Physical Exam Vitals: Vital Signs Temp Pulse Resp BP Pulse Ox 11/12/23 11:21 97.6 F 68 18 148/72 97 11/12/23 07:21 97.9 F 88 18 174/76 95 11/12/23 02:00 98.2 F 81 16 146/75 96 11/11/23 20:00 98.1 F 91 16 135/69 97 Intake and Output 11/12/23 11/12/23 11/12/23 06:59 14:59 22:59 Intake Total 800 600 Output Total 600 Balance 800 600 -600 Intake: Intake, IV Titration 800 Amount Magnesium Sulfate-D5w Pmx 200 1 gm In Dextrose/Water 1 100ml.bag @ 100 mls/hr IVPB Q1H [facility] Rx#: [id number] Sodium Chloride 0.9% 1, 600 000 ml @ 75 mls/hr IV . [id number] [facility] Rx#:[id number] Oral 600 Output: Urine 600 Other: Voiding Method Diaper External Catheter # Voids 500 Weight 100.5 kg General: WDWN obese female, laying in bed, alert, NAD HEENT: head normocephalic, atraumatic; moist mucous membranes, external ears intact with hearing intact to conversational speech Neck: supple CV: no acute cardiac distress Lungs: even and unlabored respirations on RA Abdomen: soft, NT, ND MSK: Generalized weakness, functional ROM of UE, decreased LE MMT: B/L SABD 3+/4, EF and EE 4/5, HG 4/5; B/L HF 2+/5, DF 4/5 Neuro: Alert, conversational CN 2-12 grossly intact Sensation intact to light touch bilateral UE and LEs, except decreased in stocking distribution Psych: mood calm, affect appropriate, A&O x 4 Extremities: calves supple, non tender, trace LE edema Skin: intact where exposed Results CBC & Chem 7: 11/13/23 08:11 11/13/23 08:11 Labs: Abnormal Lab Results - Last 24 Hours (Table) 11/11/23 11/11/23 11/11/23 Range/Units 16:21 18:19 20:14 RBC (4.10-5.20) X 10*6/uL Hgb (12.0-15.0) g/dL Hct (37.2-46.3) % MCV (80.0-97.0) FL MCH (27.0-32.0) pg RDW (11.5-14.5) % Sodium (137-145) mmol/L Chloride (98-107) mmol/L BUN (9.0-27.0) mg/dL BUN/Creatinine Ratio (12.00-20.00) Ratio Glucose (74-99) mg/dL POC Glucose (mg/dL) 116 H 139 H (70-110) mg/dL Hemoglobin A1c (<=6.0) % Osmolality 256 L (275-295) mOsm/kg Calcium (8.4-10.2) mg/dL AST (13-35) U/L Total Protein (6.2-8.2) g/dL Albumin (3.8-4.9) g/dL Albumin/Globulin Ratio (1.60-3.17) Ratio 11/11/23 11/12/23 11/12/23 Range/Units 22:21 01:48 06:37 RBC (4.10-5.20) X 10*6/uL Hgb (12.0-15.0) g/dL Hct (37.2-46.3) % MCV (80.0-97.0) FL MCH (27.0-32.0) pg RDW (11.5-14.5) % Sodium 119 L* 116 L* (137-145) mmol/L Chloride 88 L 87 L (98-107) mmol/L BUN (9.0-27.0) mg/dL BUN/Creatinine Ratio (12.00-20.00) Ratio Glucose 127 H 128 H (74-99) mg/dL POC Glucose (mg/dL) (70-110) mg/dL Hemoglobin A1c 6.8 H (<=6.0) % Osmolality (275-295) mOsm/kg Calcium 8.2 L 8.0 L (8.4-10.2) mg/dL AST (13-35) U/L Total Protein (6.2-8.2) g/dL Albumin (3.8-4.9) g/dL Albumin/Globulin Ratio (1.60-3.17) Ratio 11/12/23 11/12/23 11/12/23 Range/Units 06:37 06:37 06:37 RBC 3.11 L (4.10-5.20) X 10*6/uL Hgb 10.1 L (12.0-15.0) g/dL Hct 30.3 L (37.2-46.3) % MCV 97.4 H (80.0-97.0) FL MCH 32.5 H (27.0-32.0) pg RDW 15.2 H (11.5-14.5) % Sodium 119 A* 120 L (137-145) mmol/L Chloride 85 L 85 L (98-107) mmol/L BUN 8.8 L (9.0-27.0) mg/dL BUN/Creatinine Ratio 11.00 L 11.25 L (12.00-20.00) Ratio Glucose 135 H 131 H (74-99) mg/dL POC Glucose (mg/dL) (70-110) mg/dL Hemoglobin A1c (<=6.0) % Osmolality (275-295) mOsm/kg Calcium 8.2 L 8.2 L (8.4-10.2) mg/dL AST 57 H (13-35) U/L Total Protein 5.4 L (6.2-8.2) g/dL Albumin 3.1 L (3.8-4.9) g/dL Albumin/Globulin Ratio 1.35 L (1.60-3.17) Ratio 11/12/23 11/12/23 11/12/23 Range/Units 07:26 11:52 12:11 RBC (4.10-5.20) X 10*6/uL Hgb (12.0-15.0) g/dL Hct (37.2-46.3) % MCV (80.0-97.0) FL MCH (27.0-32.0) pg RDW (11.5-14.5) % Sodium (137-145) mmol/L Chloride (98-107) mmol/L BUN (9.0-27.0) mg/dL BUN/Creatinine Ratio (12.00-20.00) Ratio Glucose (74-99) mg/dL POC Glucose (mg/dL) 143 H 66 L 65 L (70-110) mg/dL Hemoglobin A1c (<=6.0) % Osmolality (275-295) mOsm/kg Calcium (8.4-10.2) mg/dL AST (13-35) U/L Total Protein (6.2-8.2) g/dL Albumin (3.8-4.9) g/dL Albumin/Globulin Ratio (1.60-3.17) Ratio 11/12/23 11/12/23 11/12/23 Range/Units 12:19 12:57 16:58 RBC (4.10-5.20) X 10*6/uL Hgb (12.0-15.0) g/dL Hct (37.2-46.3) % MCV (80.0-97.0) FL MCH (27.0-32.0) pg RDW (11.5-14.5) % Sodium 120 L 119 L* (137-145) mmol/L Chloride 84 L 87 L (98-107) mmol/L BUN (9.0-27.0) mg/dL BUN/Creatinine Ratio 11.75 L (12.00-20.00) Ratio Glucose 58 L 123 H (74-99) mg/dL POC Glucose (mg/dL) 116 H (70-110) mg/dL Hemoglobin A1c (<=6.0) % Osmolality (275-295) mOsm/kg Calcium (8.4-10.2) mg/dL AST (13-35) U/L Total Protein (6.2-8.2) g/dL Albumin (3.8-4.9) g/dL Albumin/Globulin Ratio (1.60-3.17) Ratio 11/12/23 Range/Units 17:26 RBC (4.10-5.20) X 10*6/uL Hgb (12.0-15.0) g/dL Hct (37.2-46.3) % MCV (80.0-97.0) FL MCH (27.0-32.0) pg RDW (11.5-14.5) % Sodium (137-145) mmol/L Chloride (98-107) mmol/L BUN (9.0-27.0) mg/dL BUN/Creatinine Ratio (12.00-20.00) Ratio Glucose (74-99) mg/dL POC Glucose (mg/dL) 128 H (70-110) mg/dL Hemoglobin A1c (<=6.0) % Osmolality (275-295) mOsm/kg Calcium (8.4-10.2) mg/dL AST (13-35) U/L Total Protein (6.2-8.2) g/dL Albumin (3.8-4.9) g/dL Albumin/Globulin Ratio (1.60-3.17) Ratio Assessment and Plan Assessment: # Symptomatic Hyponatremia -11/11 sodium 119 -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 Recommending [facility] for continued rehab given the amount of assistance she is requiring and not meeting medical complexity for IPR. Patient seen and examined by Maira Marie PA-C in collaboration with Dr Kern
[2023-11-13 17:08] LABS: Glucose,Whole Blood 155 mg/dL (70-110)
--- NOTE | 2023-11-13 17:58 | P.PN ---
Subjective Progress Note Date: 11/13/23 (delayed charing seen at 0830) Patient is a 78-year-old female with type 2 diabetes insulin requiring, hypertension, hypothyroidism, and gout who presetned to the ED with complaints of weakness. In the emergency department she underwent extensive evaluation. On arrival vitals were remarkable for blood pressure 188/73. Initial laboratory analysis was remarkable for sodium 117, glucose 151, TSH 5.97. CT of the head demonstrated no acute process with some chronic appearing changes. Influenza A/B/COVID-19/RSV testing was negative. She received a 1 L normal saline bolus in the emergency department. Due to her significant and symptomatic hyponatremia arrangements were made for admission. Initially sodium improved with IV fluid resuscitation but then began to drop. Normal saline was d iscontinued and nephrology was consulted. They recommended Samsca with follow- up on urine osmolality and following serial sodium levels. She was found to be weak and PM&R was consulted for possible rehab placement. Patient seen and examined at bedside. Patient reports feeling nauseated and having difficulty tolerating oral intake. She does report no bowel movement in the last 1 week. She denies any abdominal pain or diarrhea. She also reports a headache and just overall not feeling well. 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 -Await further nephrology recommendations - Urine osmolality 301, urine sodium 67 - Synthroid increased to 137 mcg daily Diabetes mellitus type 2 -A1c 6.8 -Blood sugars reviewed from today and ranging in the 140s to 150s -Levemir 25 units daily at 7 AM, continue with sliding scale Nausea, suspect secondary to hyponatremia -Patient without bowel movement in the last 1 week. Check KUB. Hypomagnesemia, resolved Chronic: Hypertension Hypothyroidism Gout Morbid obesity Chronic normocytic anemia, no active bleeding Imaging: None new Data Review: Labs reviewed from today include CBC and basic metabolic profile which are remarkable for hemoglobin 10.6, sodium 126 DVT prophylaxis: lovenox Anticipated discharge date: Pending clinical course Anticipated discharge place: Pending clinical course This dictation was prepared using [employer] voice recognition software. Though every attempt is made to correct errors during dictation some may still exist. Objective - Vital Signs Vital signs: Vital Signs Temp 98.3 F 11/13/23 12:23 Pulse 67 11/13/23 12:23 Resp 18 11/13/23 12:23 BP 109/56 11/13/23 12:23 Pulse Ox 97 11/13/23 12:23 FiO2 Intake & Output 11/12/23 11/13/23 11/13/23 18:59 06:59 18:59 Intake Total 600 Output Total 600 1660 700 Balance 0 -1660 -700 Weight 100.5 kg Intake: Oral 600 Output: Urine 600 1660 700 Other: Voiding Method Diaper Bedpan Bedpan External Catheter Diaper Diaper External Catheter External Catheter # Voids 1 - Labs CBC & Chem 7: 11/13/23 08:11 11/13/23 08:11 Labs: Abnormal Lab Results - Last 24 Hours (Table) 11/12/23 11/12/23 11/13/23 Range/Units 20:04 20:23 07:37 RBC (4.10-5.20) X 10*6/uL Hgb (12.0-15.0) g/dL Hct (37.2-46.3) % MCH (27.0-32.0) pg RDW (11.5-14.5) % Sodium 120 L (137-145) mmol/L Chloride (96-109) mmol/L Anion Gap (4.00-12.00) mmol/L BUN/Creatinine Ratio (12.00-20.00) Ratio Glucose (70-110) mg/dL POC Glucose (mg/dL) 155 H 144 H (70-110) mg/dL 11/13/23 11/13/23 11/13/23 Range/Units 08:11 08:11 12:26 RBC 3.28 L (4.10-5.20) X 10*6/uL Hgb 10.6 L (12.0-15.0) g/dL Hct 31.6 L (37.2-46.3) % MCH 32.3 H (27.0-32.0) pg RDW 15.3 H (11.5-14.5) % Sodium 126 L (137-145) mmol/L Chloride 87 L (96-109) mmol/L Anion Gap 12.40 H (4.00-12.00) mmol/L BUN/Creatinine Ratio 11.44 L (12.00-20.00) Ratio Glucose 152 H (70-110) mg/dL POC Glucose (mg/dL) 153 H (70-110) mg/dL 11/13/23 Range/Units 17:06 RBC (4.10-5.20) X 10*6/uL Hgb (12.0-15.0) g/dL Hct (37.2-46.3) % MCH (27.0-32.0) pg RDW (11.5-14.5) % Sodium (137-145) mmol/L Chloride (96-109) mmol/L Anion Gap (4.00-12.00) mmol/L BUN/Creatinine Ratio (12.00-20.00) Ratio Glucose (70-110) mg/dL POC Glucose (mg/dL) 155 H (70-110) mg/dL
--- NOTE | 2023-11-13 18:28 | P.PN ---
Subjective Patient is seen for follow-up for hyponatremia. Urine osmolality was 301. Status post Samsca yesterday. Serum sodium improved to 120 today. Patient states she is feeling slightly better. No other complaints today. Objective - Vital Signs Vital signs: Vital Signs Temp 98.3 F 11/13/23 12:23 Pulse 67 11/13/23 12:23 Resp 18 11/13/23 12:23 BP 109/56 11/13/23 12:23 Pulse Ox 97 11/13/23 12:23 FiO2 Intake & Output 11/12/23 11/13/23 11/13/23 18:59 06:59 18:59 Intake Total 600 Output Total 600 1660 700 Balance 0 -1660 -700 Weight 100.5 kg Intake: Oral 600 Output: Urine 600 1660 700 Other: Voiding Method Diaper Bedpan Bedpan External Catheter Diaper Diaper External Catheter External Catheter # Voids 1 - Exam Patient is comfortable awake no acute distress Alert oriented x 3 Examination of the heart S1 and S2 Examination of the lungs bilateral breath sounds are heard Abdomen is soft nontender Examination of lower extremities shows no significant edema 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 - Labs CBC & Chem 7: 11/13/23 08:11 11/13/23 08:11 Labs: Abnormal Lab Results - Last 24 Hours (Table) 11/12/23 11/12/23 11/13/23 Range/Units 20:04 20:23 07:37 RBC (4.10-5.20) X 10*6/uL Hgb (12.0-15.0) g/dL Hct (37.2-46.3) % MCH (27.0-32.0) pg RDW (11.5-14.5) % Sodium 120 L (137-145) mmol/L Chloride (96-109) mmol/L Anion Gap (4.00-12.00) mmol/L BUN/Creatinine Ratio (12.00-20.00) Ratio Glucose (70-110) mg/dL POC Glucose (mg/dL) 155 H 144 H (70-110) mg/dL 11/13/23 11/13/23 11/13/23 Range/Units 08:11 08:11 12:26 RBC 3.28 L (4.10-5.20) X 10*6/uL Hgb 10.6 L (12.0-15.0) g/dL Hct 31.6 L (37.2-46.3) % MCH 32.3 H (27.0-32.0) pg RDW 15.3 H (11.5-14.5) % Sodium 126 L (137-145) mmol/L Chloride 87 L (96-109) mmol/L Anion Gap 12.40 H (4.00-12.00) mmol/L BUN/Creatinine Ratio 11.44 L (12.00-20.00) Ratio Glucose 152 H (70-110) mg/dL POC Glucose (mg/dL) 153 H (70-110) mg/dL 11/13/23 Range/Units 17:06 RBC (4.10-5.20) X 10*6/uL Hgb (12.0-15.0) g/dL Hct (37.2-46.3) % MCH (27.0-32.0) pg RDW (11.5-14.5) % Sodium (137-145) mmol/L Chloride (96-109) mmol/L Anion Gap (4.00-12.00) mmol/L BUN/Creatinine Ratio (12.00-20.00) Ratio Glucose (70-110) mg/dL POC Glucose (mg/dL) 155 H (70-110) mg/dL Assessment and Plan Assessment: 1. Hyponatremia partly hypovolemic and initially with serum sodium worsened with further saline administration. Status post Samsca yesterday. Sodium improved to 120 today. 2. volume depletion status post normal saline 3. Generalized weakness 4. Type 2 diabetes 5. Hypertension, better controlled Plan: Continue off of IV fluids Follow-up on sodium from today. Continue with fluid restriction. Encouraged to increase oral protein intake.
[2023-11-13 18:50] LABS: African American GFR (CKD) 77 (>60 ml/min/1.73 sqM); Anion Gap 5 mmol/L; Blood Urea Nitrogen 17 mg/dL (7-17); Carbon Dioxide 30 mmol/L (22-30); Chloride 88 mmol/L (98-107); Glucose 156 mg/dL (74-99); Non-African American GFR(CKD) 67 (>60 ml/min/1.73 sqM); Potassium 4.5 mmol/L (3.5-5.1); Sodium 123 mmol/L (137-145)
[2023-11-13 20:28] LABS: Glucose,Whole Blood 144 mg/dL (70-110)
[2023-11-14] MEDS: LEVOTHYROXINE 137 MCG TAB PO SCH (07:09)
[2023-11-14 07:23] LABS: HCT 33.4 % (34.0-46.0); HGB 10.5 gm/dL (11.4-16.0); MCH 32.4 pg (25.0-35.0); MCHC 31.4 g/dL (31.0-37.0); MCV 103.3 fL (80.0-100.0); Macrocytosis Slight; Mean Platelet Volume 9.2; Platelet Count 388 k/uL (150-450); RBC 3.23 m/uL (3.80-5.40); RDW 14.9 % (11.5-15.5); WBC 7.7 k/uL (3.8-10.6)
[2023-11-14 08:08] LABS: African American GFR (CKD) 79 (>60 ml/min/1.73 sqM); Anion Gap 2 mmol/L; Blood Urea Nitrogen 19 mg/dL (7-17); Carbon Dioxide 31 mmol/L (22-30); Chloride 89 mmol/L (98-107); Glucose 124 mg/dL (74-99); Non-African American GFR(CKD) 69 (>60 ml/min/1.73 sqM); Potassium 4.7 mmol/L (3.5-5.1); Sodium 122 mmol/L (137-145)
[2023-11-14 08:15] LABS: Glucose,Whole Blood 126 mg/dL (70-110)
[2023-11-14] MEDS: BARIUM SULFATE 2% - 450 ML ORAL.SUSP BOTTLE PO PRN (10:03)
[2023-11-14] MEDS: TOLVAPTAN 15 MG TABLET PO ONE (12:49)
[2023-11-14 12:52] LABS: Glucose,Whole Blood 154 mg/dL (70-110)
--- NOTE | 2023-11-14 14:23 | CT ---
EXAMINATION TYPE: CT abdomen pelvis wo con DATE OF EXAM: 11/14/2023 COMPARISON: 01/26/2022 HISTORY: nausea/ abd pain CT DLP: 2309 mGycm Examination of the solid and hollow viscera is limited given the lack of contrast. FINDINGS: LUNG BASES: No evidence for nodule. No evidence for infiltrate. LIVER/GB: The gallbladder is unremarkable. No space-occupying hepatic lesion. PANCREAS: No pancreatic mass identified. No inflammatory process seen. SPLEEN: No evidence for splenomegaly. No intrasplenic lesions seen. ADRENALS: No adrenal nodules identified. No evidence for thickening. KIDNEYS: Hypoattenuating renal lesions noted bilaterally likely reflective of renal cysts. Lesions of other etiology not excluded. 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 No nephrolithiasi s. No hydronephrosis. BOWEL: No evidence of bowel obstruction. No inflammatory process. Scattered diverticulosis without di verticulitis. Nonvisualization of the appendix. Lymph nodes: No evidence for adenopathy greater than 1 cm. Abdominal aorta: Atheromatous changes seen. No evidence for aneurysm. Genital organs: No significant abnormality. Other: No significant abnormality. IMPRESSION: NO SIGNIFICANT ABNORMALITY TO ACCOUNT FOR THE PATIENT'S SYMPTOMS.
--- NOTE | 2023-11-14 14:43 | P.PN ---
Subjective Patient is seen for follow-up for hyponatremia. Urine osmolality was 301. Status post Samsca Sodium had improved to 126 and it is down to 122 todaY. Objective - Vital Signs Vital signs: Vital Signs Temp 97.9 F 11/14/23 08:11 Pulse 83 11/14/23 08:11 Resp 18 11/14/23 08:11 BP 164/69 11/14/23 08:11 Pulse Ox 95 11/14/23 08:11 FiO2 Intake & Output 11/13/23 11/14/23 11/14/23 18:59 06:59 18:59 Output Total 700 250 Balance -700 -250 Output: Urine 700 250 Other: Voiding Method Bedpan Bedpan Diaper Diaper Diaper External Catheter External Catheter External Catheter # Voids 0 # Bowel Movements 0 - Exam Patient is comfortable awake no acute distress Alert oriented x 3 Examination of the heart S1 and S2 Examination of the lungs bilateral breath sounds are heard Abdomen is soft nontender Examination of lower extremities shows no significant edema 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 intact - Labs CBC & Chem 7: 11/14/23 07:01 11/14/23 07:01 Labs: Abnormal Lab Results - Last 24 Hours (Table) 11/13/23 11/13/23 11/13/23 Range/Units 17:06 18:23 20:26 RBC (3.80-5.40) m/uL Hgb (11.4-16.0) gm/dL Hct (34.0-46.0) % MCV (80.0-100.0) fL Sodium 123 L (137-145) mmol/L Chloride 88 L (98-107) mmol/L Carbon Dioxide (22-30) mmol/L BUN (7-17) mg/dL Glucose 156 H (74-99) mg/dL POC Glucose (mg/dL) 155 H 144 H (70-110) mg/dL 11/14/23 11/14/23 11/14/23 Range/Units 07:01 07:01 08:14 RBC 3.23 L (3.80-5.40) m/uL Hgb 10.5 L (11.4-16.0) gm/dL Hct 33.4 L (34.0-46.0) % MCV 103.3 H (80.0-100.0) fL Sodium 122 L (137-145) mmol/L Chloride 89 L (98-107) mmol/L Carbon Dioxide 31 H (22-30) mmol/L BUN 19 H (7-17) mg/dL Glucose 124 H (74-99) mg/dL POC Glucose (mg/dL) 126 H (70-110) mg/dL 11/14/23 Range/Units 12:50 RBC (3.80-5.40) m/uL Hgb (11.4-16.0) gm/dL Hct (34.0-46.0) % MCV (80.0-100.0) fL Sodium (137-145) mmol/L Chloride (98-107) mmol/L Carbon Dioxide (22-30) mmol/L BUN (7-17) mg/dL Glucose (74-99) mg/dL POC Glucose (mg/dL) 154 H (70-110) mg/dL Assessment and Plan Assessment: 1. Hyponatremia partly hypovolemic and initially with serum sodium worsened with further saline administration. Status post Samsca yesterday. Sodium improved to 126 and it is down to 122 today. 2. volume depletion status post normal saline 3. Generalized weakness 4. Type 2 diabetes 5. Hypertension, better controlled Plan: Continue off of IV fluids Repeat Samsca today Repeat labs in a.m. Add fluid restriction.
--- NOTE | 2023-11-14 16:47 | P.PN ---
Subjective Progress Note Date: 11/14/23 (delayed charting seen at 0845) Patient is a 78-year-old female with type 2 diabetes insulin requiring, hypertension, hypothyroidism, and gout who presetned to the ED with complaints of weakness. In the emergency department she underwent extensive evaluation. On arrival vitals were remarkable for blood pressure 188/73. Initial laboratory analysis was remarkable for sodium 117, glucose 151, TSH 5.97. CT of the head demonstrated no acute process with some chronic appearing changes. Influenza A/B/COVID-19/RSV testing was negative. She received a 1 L normal saline bolus in the emergency department. Due to her significant and symptomatic hyponatremia arrangements were made for admission. Initially sodium improved with IV fluid resuscitation but then began to drop. Normal saline was discontinued and nephrology was consulted. They recommended Samsca with follow- up on urine osmolality and following serial sodium levels. She was found to be weak and PM&R was consulted for possible rehab placement, they recommended [facility]. Patient seen and examined at bedside. She continues to have nausea. She denies any vomiting. She does have some abdominal pain in the right lower quadrant. She did not have a bowel movement yesterday. She denies any chest pain or shortness of breath. She does feel weak. She reports that she drink some Ensure but did not eat otherwise yesterday. We discussed CT abdomen and pelvis and she is in agreement. 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 -Nephrology note reviewed: Repeat Samsca today, continue with fluid restriction, off IV fluids. - Urine osmolality 301, urine sodium 67 - Synthroid increased to 137 mcg daily Diabetes mellitus type 2 -A1c 6.8 -Blood sugars reviewed from today and ranging in the 140s to 150s -Levemir 25 units daily at 7 AM, continue with sliding scale Constipation - Dulcolax SC X 1 now Nausea, suspect secondary to hyponatremia -Patient without bowel movement in the last 1 week. Check KUB. Hypomagnesemia, resolved Chronic: Hypertension Hypothyroidism Gout Morbid obesity Chronic normocytic anemia, no active bleeding Imaging: CT abdomen pelvis ordered with oral contrast as patient has significant IV iodine allergy and does not feel comfortable with IV contrast. Report reviewed with no significant abnormality to account for the patient's symptoms. Data Review: Labs reviewed from today include CBC and basic metabolic profile which are remarkable for hemoglobin of 10.5 and sodium of 122 DVT prophylaxis: lovenox Anticipated discharge date: Pending clinical course Anticipated discharge place:[facility] This dictation was prepared using [employer] voice recognition software. Though every attempt is made to correct errors during dictation some may still exist. Objective - Vital Signs Vital signs: Vital Signs Temp 97.7 F 11/14/23 14:14 Pulse 88 11/14/23 14:14 Resp 19 11/14/23 14:14 BP 166/67 11/14/23 14:14 Pulse Ox 96 11/14/23 14:14 FiO2 Intake & Output 11/13/23 11/14/23 11/14/23 18:59 06:59 18:59 Output Total 700 250 Balance -700 -250 Output: Urine 700 250 Other: Voiding Method Bedpan Bedpan Diaper Diaper Diaper External Catheter External Catheter External Catheter # Voids 0 # Bowel Movements 0 - Labs CBC & Chem 7: 11/14/23 07:01 11/14/23 07:01 Labs: Abnormal Lab Results - Last 24 Hours (Table) 11/13/23 11/13/23 11/13/23 Range/Units 17:06 18:23 20:26 RBC (3.80-5.40) m/uL Hgb (11.4-16.0) gm/dL Hct (34.0-46.0) % MCV (80.0-100.0) fL Sodium 123 L (137-145) mmol/L Chloride 88 L (98-107) mmol/L Carbon Dioxide (22-30) mmol/L BUN (7-17) mg/dL Glucose 156 H (74-99) mg/dL POC Glucose (mg/dL) 155 H 144 H (70-110) mg/dL 11/14/23 11/14/23 11/14/23 Range/Units 07:01 07:01 08:14 RBC 3.23 L (3.80-5.40) m/uL Hgb 10.5 L (11.4-16.0) gm/dL Hct 33.4 L (34.0-46.0) % MCV 103.3 H (80.0-100.0) fL Sodium 122 L (137-145) mmol/L Chloride 89 L (98-107) mmol/L Carbon Dioxide 31 H (22-30) mmol/L BUN 19 H (7-17) mg/dL Glucose 124 H (74-99) mg/dL POC Glucose (mg/dL) 126 H (70-110) mg/dL 11/14/23 Range/Units 12:50 RBC (3.80-5.40) m/uL Hgb (11.4-16.0) gm/dL Hct (34.0-46.0) % MCV (80.0-100.0) fL Sodium (137-145) mmol/L Chloride (98-107) mmol/L Carbon Dioxide (22-30) mmol/L BUN (7-17) mg/dL Glucose (74-99) mg/dL POC Glucose (mg/dL) 154 H (70-110) mg/dL
[2023-11-14 17:12] LABS: Glucose,Whole Blood 162 mg/dL (70-110)
[2023-11-14] MEDS: NYSTATIN 100,000 UNIT/GM POWD 15 GM TOPICAL SCH (17:26)
[2023-11-14] MEDS: bisacodyL 10 MG SUPP RECTAL STA (17:42)
[2023-11-14 20:29] LABS: Glucose,Whole Blood 146 mg/dL (70-110)
[2023-11-15] MEDS ORDERED: ZINC OXIDE PASTE (Z-GUARD) 1 APPLIC TOPICAL PRN (01:34)
[2023-11-15 03:46] LABS: HCT 32.1 % (34.0-46.0); HGB 10.3 gm/dL (11.4-16.0); MCH 32.9 pg (25.0-35.0); MCHC 31.9 g/dL (31.0-37.0); Macrocytosis Slight; Mean Platelet Volume 9.5; Platelet Count 370 k/uL (150-450); RBC 3.12 m/uL (3.80-5.40); RDW 14.8 % (11.5-15.5); WBC 9.1 k/uL (3.8-10.6)
[2023-11-15 04:28] LABS: African American GFR (CKD) 81 (>60 ml/min/1.73 sqM); Anion Gap 5 mmol/L; Blood Urea Nitrogen 20 mg/dL (7-17); Calcium 8.8 mg/dL (8.4-10.2); Carbon Dioxide 29 mmol/L (22-30); Chloride 85 mmol/L (98-107); Glucose 137 mg/dL (74-99); Non-African American GFR(CKD) 70 (>60 ml/min/1.73 sqM); Potassium 4.8 mmol/L (3.5-5.1)
[2023-11-15 05:41] LABS: Sodium 119 mmol/L (137-145)
[2023-11-15 07:25] LABS: Glucose,Whole Blood 124 mg/dL (70-110)
[2023-11-15] MEDS: TOLVAPTAN 15 MG TABLET PO ONE ×2 (07:49→14:05)
[2023-11-15] MEDS: SODIUM CHLORIDE TAB 1 GM TAB PO STA (07:49)
[2023-11-15 12:25] LABS: Glucose,Whole Blood 188 mg/dL (70-110)
--- NOTE | 2023-11-15 13:05 | P.PN ---
Subjective Patient is seen for follow-up for hyponatremia. sodium had dropped to 119 this morning and patient was given another dose of Samsca along with sodium chloride tab. Patient is noted to have urine retention of about 800 mL. She is currently voiding. A post void residual residual will be checked again. 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 - Labs CBC & Chem 7: 11/15/23 03:14 11/15/23 11:39 Labs: Abnormal Lab Results - Last 24 Hours (Table) 11/14/23 11/14/23 11/15/23 Range/Units 17:10 20:26 03:14 RBC 3.12 L (3.80-5.40) m/uL Hgb 10.3 L (11.4-16.0) gm/dL Hct 32.1 L (34.0-46.0) % MCV 103.0 H (80.0-100.0) fL Sodium (137-145) mmol/L Chloride (98-107) mmol/L BUN (7-17) mg/dL Glucose (74-99) mg/dL POC Glucose (mg/dL) 162 H 146 H (70-110) mg/dL 11/15/23 11/15/23 11/15/23 Range/Units 03:14 07:05 11:39 RBC (3.80-5.40) m/uL Hgb (11.4-16.0) gm/dL Hct (34.0-46.0) % MCV (80.0-100.0) fL Sodium 119 L* 120 L (137-145) mmol/L Chloride 85 L (98-107) mmol/L BUN 20 H (7-17) mg/dL Glucose 137 H (74-99) mg/dL POC Glucose (mg/dL) 124 H (70-110) mg/dL 11/15/23 Range/Units 12:18 RBC (3.80-5.40) m/uL Hgb (11.4-16.0) gm/dL Hct (34.0-46.0) % MCV (80.0-100.0) fL Sodium (137-145) mmol/L Chloride (98-107) mmol/L BUN (7-17) mg/dL Glucose (74-99) mg/dL POC Glucose (mg/dL) 188 H (70-110) mg/dL Assessment and Plan Assessment: 1. Hyponatremia partly hypovolemic initially with serum sodium worsening with further saline administration. responded well to Samsca but sodium dropped again this morning. Patient was noted to have significant urine retention which is contributing to the hyponatremia. 2. volume depletion status post normal saline on initial admission 3. Generalized weakness 4. Type 2 diabetes 5. Hypertension, better controlled Plan: Continue off of IV fluids Repeat Samsca today continue fluid restriction Repeat urine osmolality and urine sodium Insert Christy catheter if patient continues to have urine retention Repeat sodium this afternoon.
--- NOTE | 2023-11-15 15:04 | P.PN ---
Subjective Progress Note Date: 11/15/23 Patient is a 78-year-old female with type 2 diabetes insulin requiring, hypertension, hypothyroidism, and gout who presetned to the ED with complaints of weakness. In the emergency department she underwent extensive evaluation. On arrival vitals were remarkable for blood pressure 188/73. Initial laboratory analysis was remarkable for sodium 117, glucose 151, TSH 5.97. CT of the head demonstrated no acute process with some chronic appearing changes. Influenza A/B/COVID-19/RSV testing was negative. She received a 1 L normal saline bolus in the emergency department. Due to her significant and symptomatic hyponatremia arrangements were made for admission. Initially sodium improved wi th IV fluid resuscitation but then began to drop. Normal saline was discontinued and nephrology was consulted. They recommended Samsca with follow- up on urine osmolality and following serial sodium levels. She was found to be weak and PM&R was consulted for possible rehab placement, they recommended [facility]. Patient seen and examined at bedside. No acute events overnight. Still having difficulty eating. Only consuming about 10% of her meals. Still feeling weak. 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 Hypothyroidism Generalzied weakness -Sodium dropped again to 119, Samsca x 2 today -Nephrology note reviewed: continue with fluid restriction, off IV fluids, given sodium chloride 2 g tab today - Synthroid increased to 137 mcg daily Diabetes mellitus type 2 -A1c 6.8 -Blood sugars reviewed from today and ranging in the 09 05- -Levemir 25 units daily at 7 AM, continue with sliding scale Constipation, resolved Persistent nausea -Possibly diabetic gastroparesis Poor appetite -Marinol 2.5 twice daily Hypomagnesemia, resolved Chronic: Hypertension Hypothyroidism Gout Morbid obesity Chronic normocytic anemia, no active bleeding Imaging: CT abdomen pelvis ordered with oral contrast as patient has significant IV iodine allergy and does not feel comfortable with IV contrast. Report reviewed with no significant abnormality to account for the patient's symptoms. Data Review: Hemoglobin 10.3, sodium 119, creatinine 0.81 DVT prophylaxis: lovenox Anticipated discharge date: Pending clinical course Anticipated discharge place:[facility] Objective - Vital Signs Vital signs: Vital Signs Temp 97.8 F 11/15/23 12:57 Pulse 82 11/15/23 12:57 Resp 17 11/15/23 12:57 BP 111/66 11/15/23 12:57 Pulse Ox 96 11/15/23 12:57 FiO2 Intake & Output 11/14/23 11/15/23 11/15/23 18:59 06:59 18:59 Output Total 400 Balance -400 Weight 100.5 kg Output: Urine 400 Other: Voiding Method Diaper Diaper Diaper External Catheter External Catheter External Catheter # Voids 0 # Bowel Movements 0 1 - Labs CBC & Chem 7: 11/15/23 03:14 11/15/23 11:39 Labs: Abnormal Lab Results - Last 24 Hours (Table) 11/14/23 11/14/23 11/15/23 Range/Units 17:10 20:26 03:14 RBC 3.12 L (3.80-5.40) m/uL Hgb 10.3 L (11.4-16.0) gm/dL Hct 32.1 L (34.0-46.0) % MCV 103.0 H (80.0-100.0) fL Sodium (137-145) mmol/L Chloride (98-107) mmol/L BUN (7-17) mg/dL Glucose (74-99) mg/dL POC Glucose (mg/dL) 162 H 146 H (70-110) mg/dL 11/15/23 11/15/23 11/15/23 Range/Units 03:14 07:05 11:39 RBC (3.80-5.40) m/uL Hgb (11.4-16.0) gm/dL Hct (34.0-46.0) % MCV (80.0-100.0) fL Sodium 119 L* 120 L (137-145) mmol/L Chloride 85 L (98-107) mmol/L BUN 20 H (7-17) mg/dL Glucose 137 H (74-99) mg/dL POC Glucose (mg/dL) 124 H (70-110) mg/dL 11/15/23 Range/Units 12:18 RBC (3.80-5.40) m/uL Hgb (11.4-16.0) gm/dL Hct (34.0-46.0) % MCV (80.0-100.0) fL Sodium (137-145) mmol/L Chloride (98-107) mmol/L BUN (7-17) mg/dL Glucose (74-99) mg/dL POC Glucose (mg/dL) 188 H (70-110) mg/dL
[2023-11-15 17:14] LABS: Glucose,Whole Blood 176 mg/dL (70-110)
[2023-11-15] MEDS: droNABinol 2.5 MG CAP PO SCH (17:16)
[2023-11-15] MEDS: SODIUM CHLORIDE TAB 1 GM TAB PO SCH (19:20)
[2023-11-15 20:14] LABS: Glucose,Whole Blood 171 mg/dL (70-110)
[2023-11-16 07:12] LABS: Glucose,Whole Blood 143 mg/dL (70-110)
[2023-11-16 08:45] LABS: African American GFR (CKD) 72 (>60 ml/min/1.73 sqM); Anion Gap 4 mmol/L; Blood Urea Nitrogen 24 mg/dL (7-17); Calcium 9.2 mg/dL (8.4-10.2); Carbon Dioxide 31 mmol/L (22-30); Chloride 87 mmol/L (98-107); Glucose 130 mg/dL (74-99); Non-African American GFR(CKD) 62 (>60 ml/min/1.73 sqM); Potassium 4.6 mmol/L (3.5-5.1); Sodium 122 mmol/L (137-145)
[2023-11-16] MEDS: FUROSEMIDE 10 MG/ML 2 ML VIAL IV ONE (09:24)
[2023-11-16] MEDS: TOLVAPTAN 30 MG TABLET PO ONE (09:34)
--- NOTE | 2023-11-16 10:58 | P.PN ---
Subjective Patient is seen for follow-up for hyponatremia. Urine osmolality 301 and random urine sodium 67 on initial admission. Sodium had worsened with normal saline administration after initial improvement. sodium improved slightly to 122 today. Patient received Samsca yesterday and was started on sodium chloride tabs. Oral intake remains poor. Patient is noted to have urine retention of about 800 mL yesterday. This has improved with treatment of constipation and post void residuals were not elevated. Objective - Vital Signs Vital signs: Vital Signs Temp 97.8 F 11/16/23 07:12 Pulse 88 11/16/23 07:12 Resp 20 11/16/23 07:12 BP 133/66 11/16/23 07:12 Pulse Ox 95 11/16/23 07:12 FiO2 Intake & Output 11/15/23 11/16/23 11/16/23 18:59 06:59 18:59 Output Total 500 300 Balance -500 -300 Weight 100.5 kg Output: Urine 50 300 Post Void Residual 450 Other: Voiding Method Diaper Bedside Commode External Catheter # Voids 2 0 1 # Bowel Movements 2 0 - Exam Patient is comfortable awake no acute distress Alert oriented x 3 lungs are clear Examination of the heart S1 and S2 Abdomen is soft nontender obese Examination of lower extremities shows no significant edema 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 - Labs CBC & Chem 7: 11/15/23 03:14 11/16/23 08:17 Labs: Abnormal Lab Results - Last 24 Hours (Table) 11/15/23 11/15/23 11/15/23 Range/Units 11:39 12:18 17:07 Sodium 120 L (137-145) mmol/L Chloride (98-107) mmol/L Carbon Dioxide (22-30) mmol/L BUN (7-17) mg/dL Glucose (74-99) mg/dL POC Glucose (mg/dL) 188 H 176 H (70-110) mg/dL 11/15/23 11/15/23 11/15/23 Range/Units 17:32 20:12 20:35 Sodium 120 L 120 L (137-145) mmol/L Chloride (98-107) mmol/L Carbon Dioxide (22-30) mmol/L BUN (7-17) mg/dL Glucose (74-99) mg/dL POC Glucose (mg/dL) 171 H (70-110) mg/dL 11/16/23 11/16/23 Range/Units 07:11 08:17 Sodium 122 L (137-145) mmol/L Chloride 87 L (98-107) mmol/L Carbon Dioxide 31 H (22-30) mmol/L BUN 24 H (7-17) mg/dL Glucose 130 H (74-99) mg/dL POC Glucose (mg/dL) 143 H (70-110) mg/dL Assessment and Plan Assessment: 1. Hyponatremia partly hypovolemic initially with serum sodium worsening with further saline administration after initial improvement.. responded well to Samsca but sodium dropped again this morning. Patient was noted to have significant urine retention which was also contributing to the hyponatremia. currently maintained on sodium chloride 1 g twice a day and receiving Samsca daily. 2. volume depletion status post normal saline on initial admission 3. Generalized weakness 4. Type 2 diabetes 5. Hypertension, better controlled Plan: Continue off of IV fluids Repeat Samsca today continue sodium chloride tabs 1 g twice a day. Blood pressure is not elevated. Repeat sodium this afternoon.
[2023-11-16 11:52] LABS: Glucose,Whole Blood 241 mg/dL (70-110)
--- NOTE | 2023-11-16 15:01 | P.PN ---
Subjective Progress Note Date: 11/16/23 Patient is a 78-year-old female with type 2 diabetes insulin requiring, hypertension, hypothyroidism, and gout who presetned to the ED with complaints of weakness. In the emergency department she underwent extensive evaluation. On arrival vitals were remarkable for blood pressure 188/73. Initial laboratory analysis was remarkable for sodium 117, glucose 151, TSH 5.97. CT of the head demonstrated no acute process with some chronic appearing changes. Influenza A/B/COVID-19/RSV testing was negative. She received a 1 L normal saline bolus in the emergency department. Due to her significant and symptomatic hyponatremia arrangements were made for admission. Initially sodium improved wi th IV fluid resuscitation but then began to drop. Normal saline was discontinued and nephrology was consulted. They recommended Samsca with follow- up on urine osmolality and following serial sodium levels. She was found to be weak and PM&R was consulted for possible rehab placement, they recommended [facility]. Patient seen and examined at bedside. No acute events overnight. Appetite improved. 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 Hypothyroidism Generalzied weakness -Sodium uptrended to 122 -discussed with nephrology, samsca 30mg today, lasix 20IV once, fluid r estriction - Synthroid increased to 137 mcg daily Diabetes mellitus type 2 -A1c 6.8 -Blood sugars reviewed from today and ranging in the 1 30-143 -Levemir 25 units daily at 7 AM, continue with sliding scale Constipation, resolved Persistent nausea -Possibly diabetic gastroparesis Poor appetite, improving -Marinol 2.5 twice daily Hypomagnesemia, resolved Chronic: Hypertension Hypothyroidism Gout Morbid obesity Chronic normocytic anemia, no active bleeding Imaging: CT abdomen pelvis ordered with oral contrast as patient has significant IV iodine allergy and does not feel comfortable with IV contrast. Report reviewed with no significant abnormality to account for the patient's symptoms. Data Review: Na 122, Cr 0.89 DVT prophylaxis: lovenox Anticipated discharge date: Pending clinical course Anticipated discharge place:[facility] Objective - Vital Signs Vital signs: Vital Signs Temp 98.2 F 11/16/23 13:34 Pulse 78 11/16/23 13:34 Resp 20 11/16/23 13:34 BP 127/69 11/16/23 13:34 Pulse Ox 95 11/16/23 13:34 FiO2 Intake & Output 11/15/23 11/16/23 11/16/23 18:59 06:59 18:59 Output Total 500 300 200 Balance -500 -300 -200 Weight 100.5 kg Output: Urine 50 300 200 Post Void Residual 450 Other: Voiding Method Diaper Bedside Commode Bedside Commode External Catheter # Voids 2 0 1 # Bowel Movements 2 0 - Labs CBC & Chem 7: 11/15/23 03:14 11/16/23 08:17 Labs: Abnormal Lab Results - Last 24 Hours (Table) 11/15/23 11/15/23 11/15/23 Range/Units 17:07 17:32 20:12 Sodium 120 L (137-145) mmol/L Chloride (98-107) mmol/L Carbon Dioxide (22-30) mmol/L BUN (7-17) mg/dL Glucose (74-99) mg/dL POC Glucose (mg/dL) 176 H 171 H (70-110) mg/dL 11/15/23 11/16/23 11/16/23 Range/Units 20:35 07:11 08:17 Sodium 120 L 122 L (137-145) mmol/L Chloride 87 L (98-107) mmol/L Carbon Dioxide 31 H (22-30) mmol/L BUN 24 H (7-17) mg/dL Glucose 130 H (74-99) mg/dL POC Glucose (mg/dL) 143 H (70-110) mg/dL 11/16/23 Range/Units 11:50 Sodium (137-145) mmol/L Chloride (98-107) mmol/L Carbon Dioxide (22-30) mmol/L BUN (7-17) mg/dL Glucose (74-99) mg/dL POC Glucose (mg/dL) 241 H (70-110) mg/dL
[2023-11-16 17:14] LABS: Glucose,Whole Blood 154 mg/dL (70-110)
[2023-11-16 20:11] LABS: Glucose,Whole Blood 181 mg/dL (70-110)
[2023-11-17 07:09] LABS: Glucose,Whole Blood 139 mg/dL (70-110)
[2023-11-17 09:37] LABS: African American GFR (CKD) 70 (>60 ml/min/1.73 sqM); Anion Gap 6 mmol/L; Blood Urea Nitrogen 29 mg/dL (7-17); Calcium 9.4 mg/dL (8.4-10.2); Carbon Dioxide 31 mmol/L (22-30); Chloride 89 mmol/L (98-107); Glucose 137 mg/dL (74-99); Magnesium 1.6 mg/dL (1.6-2.3); Non-African American GFR(CKD) 61 (>60 ml/min/1.73 sqM); Potassium 4.7 mmol/L (3.5-5.1); Sodium 126 mmol/L (137-145)
[2023-11-17 12:34] LABS: Glucose,Whole Blood 189 mg/dL (70-110)
--- NOTE | 2023-11-17 13:29 | P.PN ---
Subjective Progress Note Date: 11/17/23 Patient is seen for follow-up for hyponatremia. States she is feeling very fatigued but otherwise no other new complaints. 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 Objective - Vital Signs Vital signs: Vital Signs Temp 98.3 F 11/17/23 07:43 Pulse 103 H 11/17/23 07:43 Resp 17 11/17/23 07:43 BP 109/63 11/17/23 07:43 Pulse Ox 93 L 11/17/23 07:43 FiO2 Intake & Output 11/16/23 11/17/23 11/17/23 18:59 06:59 18:59 Intake Total 600 240 Output Total 200 200 600 Balance 400 40 -600 Intake: Oral 600 240 Output: Urine 200 200 600 Other: Voiding Method Bedside Commode Bedside Commode Bedside Commode # Voids 1 1 1 - Labs CBC & Chem 7: 11/15/23 03:14 11/17/23 08:24 Labs: Abnormal Lab Results - Last 24 Hours (Table) 11/16/23 11/16/23 11/16/23 Range/Units 11:50 14:14 17:13 Sodium 123 L (137-145) mmol/L Chloride (98-107) mmol/L Carbon Dioxide (22-30) mmol/L BUN (7-17) mg/dL Glucose (74-99) mg/dL POC Glucose (mg/dL) 241 H 154 H (70-110) mg/dL 11/16/23 11/17/23 11/17/23 Range/Units 20:10 06:48 08:24 Sodium 126 L (137-145) mmol/L Chloride 89 L (98-107) mmol/L Carbon Dioxide 31 H (22-30) mmol/L BUN 29 H (7-17) mg/dL Glucose 137 H (74-99) mg/dL POC Glucose (mg/dL) 181 H 139 H (70-110) mg/dL Assessment and Plan Plan: 1. Hyponatremia partly hypovolemic initially with serum sodium worsening with further saline administration after initial improvement. Responded well to Samsca but sodium dropped. Patient was noted to have significant urine retention which was also contributing to the hyponatremia. Currently maintained on sodium chloride 1 g twice a day and receiving Samsca daily. 2. volume depletion status post normal saline on initial admission 3. Generalized weakness 4. Type 2 diabetes 5. Hypertension, better controlled Plan: Continue off of IV fluids Continue fluid restriction. Repeat Samsca yesterday, sodium improving at appropriate rate. Continue sodium chloride tabs 1 g twice a day. Blood pressure is not elevated.
[2023-11-17 17:10] LABS: Glucose,Whole Blood 253 mg/dL (70-110)
[2023-11-17 19:56] LABS: Glucose,Whole Blood 155 mg/dL (70-110)
[2023-11-17] MEDS: MIRTAZAPINE 15 MG TAB PO SCH (20:12)
[2023-11-18 05:51] LABS: African American GFR (CKD) 66 (>60 ml/min/1.73 sqM); Anion Gap 6 mmol/L; Blood Urea Nitrogen 31 mg/dL (7-17); Calcium 9.5 mg/dL (8.4-10.2); Carbon Dioxide 30 mmol/L (22-30); Chloride 91 mmol/L (98-107); Glucose 123 mg/dL (74-99); Non-African American GFR(CKD) 57 (>60 ml/min/1.73 sqM); Potassium 4.7 mmol/L (3.5-5.1); Sodium 127 mmol/L (137-145)
[2023-11-18 07:34] LABS: Glucose,Whole Blood 144 mg/dL (70-110)
--- NOTE | 2023-11-18 08:22 | P.PN ---
Subjective Progress Note Date: 11/17/23 Patient is a 78-year-old female with type 2 diabetes insulin requiring, hypertension, hypothyroidism, and gout who presetned to the ED with complaints of weakness. In the emergency department she underwent extensive evaluation. On arrival vitals were remarkable for blood pressure 188/73. Initial laboratory analysis was remarkable for sodium 117, glucose 151, TSH 5.97. CT of the head demonstrated no acute process with some chronic appearing changes. Influenza A/B/COVID-19/RSV testing was negative. She received a 1 L normal saline bolus in the emergency department. Due to her significant and symptomatic hyponatremia arrangements were made for admission. Initially sodium improved with IV fluid resuscitation but then began to drop. Normal saline was discontinued and nephrology was consulted. They recommended Samsca with follow- up on urine osmolality and following serial sodium levels. She was found to be weak and PM&R was consulted for possible rehab placement, they recommended [facility]. She continued to struggle with hyponatremia requiring repeat doses of Samsca, sodium chloride tabs, and Lasix. Patient developed urinary retention, which improved with treatment of constipation. Patient seen and examined at bedside. She complains of feeling tired today. She states that she ate better yesterday morning but then did not eat much for lunch or dinner. She denies any chest pain or shortness of breath. She does have questions about going to rehab. She is still feeling fairly weak. 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 - Sodium Chloride 1 gm PO BID - Repeat sodium in a.m. - Urine osmolality 301, urine sodium 67 - Synthroid increased to 137 mcg daily Diabetes mellitus type 2 -A1c 6.8 -Blood sugars reviewed from today and ranging in the 140s to 150s -Levemir 25 units daily at 7 AM, continue with sliding scale Severe Protein Calorie malnutrition - Marinol 2.5 mg PO BID Nausea, suspect secondary to hyponatremia -Patient without bowel movement in the last 1 week. Check KUB. Hypomagnesemia, resolved Chronic: Hypertension Hypothyroidism Gout Morbid obesity Chronic normocytic anemia, no active bleeding Constipation, resolved Urinary retention, resolved Imaging: None new Hospital course imaging: CT abdomen pelvis ordered with oral contrast as patient has significant IV iodine allergy and does not feel comfortable with IV contrast. Report reviewed with no significant abnormality to account for the patient's symptoms. Data Review: Labs reviewed from 11/16 include sodium 126, BUN 29, creatinine 0.91 DVT prophylaxis: lovenox Anticipated discharge date: in [address]:[facility] This dictation was prepared using [employer] voice recognition software. Though every attempt is made to correct errors during dictation some may still exist. Objective - Vital Signs Vital signs: Vital Signs Temp 98.3 F 11/17/23 07:43 Pulse 103 H 11/17/23 07:43 Resp 17 11/17/23 07:43 BP 109/63 11/17/23 07:43 Pulse Ox 93 L 11/17/23 07:43 FiO2 Intake & Output 11/16/23 11/17/23 11/17/23 18:59 06:59 18:59 Intake Total 600 240 Output Total 200 200 600 Balance 400 40 -600 Intake: Oral 600 240 Output: Urine 200 200 600 Other: Voiding Method Bedside Commode Bedside Commode Bedside Commode # Voids 1 1 - Labs CBC & Chem 7: 11/15/23 03:14 11/18/23 04:42 Labs: Abnormal Lab Results - Last 24 Hours (Table) 11/16/23 11/16/23 11/16/23 Range/Units 11:50 14:14 17:13 Sodium 123 L (137-145) mmol/L POC Glucose (mg/dL) 241 H 154 H (70-110) mg/dL 11/16/23 11/17/23 Range/Units 20:10 06:48 Sodium (137-145) mmol/L POC Glucose (mg/dL) 181 H 139 H (70-110) mg/dL
--- NOTE | 2023-11-18 11:19 | P.PN ---
Subjective Progress Note Date: 11/18/23 Patient is seen for follow-up for hyponatremia. No new complaints. 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 Objective - Vital Signs Vital signs: Vital Signs Temp 98 F 11/18/23 07:39 Pulse 112 H 11/18/23 07:39 Resp 18 11/18/23 07:39 BP 156/67 11/18/23 07:39 Pulse Ox 94 L 11/18/23 07:39 FiO2 Intake & Output 11/17/23 11/18/23 11/18/23 18:59 06:59 18:59 Intake Total 840 480 Output Total 600 Balance 240 480 Intake: Oral 840 480 Output: Urine 600 Other: Voiding Method Bedside Commode Bedside Commode Bedside Commode # Voids 2 2 - Labs CBC & Chem 7: 11/15/23 03:14 11/18/23 04:42 Labs: Abnormal Lab Results - Last 24 Hours (Table) 11/17/23 11/17/23 11/17/23 Range/Units 12:21 17:07 19:55 Sodium (137-145) mmol/L Chloride (98-107) mmol/L BUN (7-17) mg/dL Glucose (74-99) mg/dL POC Glucose (mg/dL) 189 H 253 H 155 H (70-110) mg/dL 11/18/23 11/18/23 Range/Units 04:42 07:29 Sodium 127 L (137-145) mmol/L Chloride 91 L (98-107) mmol/L BUN 31 H (7-17) mg/dL Glucose 123 H (74-99) mg/dL POC Glucose (mg/dL) 144 H (70-110) mg/dL Assessment and Plan Plan: 1. Hyponatremia partly hypovolemic initially with serum sodium worsening with further saline administration after initial improvement. Responded well to Samsca but sodium dropped. Patient was noted to have significant urine retention which was also contributing to the hyponatremia. Currently maintained on sodium chloride 1 g twice a day and receiving Samsca daily. 2. volume depletion status post normal saline on initial admission 3. Generalized weakness 4. Type 2 diabetes 5. Hypertension, better controlled Plan: Continue off of IV fluids Continue fluid restriction. Repeat Samsca 11/15 sodium improving. Continue sodium chloride tabs 1 g twice a day. Blood pressure is not elevated.
--- NOTE | 2023-11-18 11:51 | P.PN ---
Subjective Progress Note Date: 11/18/23 (vera charting seen at 0830) Patient is a 78-year-old female with type 2 diabetes insulin requiring, hypertension, hypothyroidism, and gout who presetned to the ED with complaints of weakness. In the emergency department she underwent extensive evaluation. On arrival vitals were remarkable for blood pressure 188/73. Initial laboratory analysis was remarkable for sodium 117, glucose 151, TSH 5.97. CT of the head demonstrated no acute process with some chronic appearing changes. Influenza A/B/COVID-19/RSV testing was negative. She received a 1 L normal saline bolus in the emergency department. Due to her significant and symptomatic hyponatremia arrangements were made for admission. Initially sodium improved with IV fluid resuscitation but then began to drop. Normal saline was discontinued and nephrology was consulted. They recommended Samsca with follow- up on urine osmolality and following serial sodium levels. She was found to be weak and PM&R was consulted for possible rehab placement, they recommended [facility]. She continued to struggle with hyponatremia requiring repeat doses of Samsca, sodium chloride tabs, and Lasix. Patient developed urinary retention, which improved with treatment of constipation. Patient seen and examined at bedside. She denies any chest pain or shortness of breath. She is feeling slightly lethargic or hung over today. She reports that she continued to do Ensure yesterday but did not eat any meals. She reports her nausea is feeling better overall. I have asked her to eat solid foods today. 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 - Urine osmolality 301, urine sodium 67 - Synthroid 137 mcg daily Diabetes mellitus type 2 -A1c 6.8 -Blood sugars reviewed from today and ranging in the 140s to 150s -Levemir 25 units daily at 7 AM, continue with sliding scale Tachycardia - EKG ordered and reviewed it is sinus - Already taking metoprolol, continue to monitor Severe Protein Calorie malnutrition - marinol discontinued due to sedation - remeron 7.5 mg PO at night Hypomagnesemia, resolved Vomiting, resolved Urinary retention, resolved Chronic: Hypertension Hypothyroidism Gout Morbid obesity Chronic normocytic anemia, no active bleeding Constipation, resolved Urinary retention, resolved Imaging: None new Hospital course imaging: CT abdomen pelvis ordered with oral contrast as patient has significant IV iodine allergy and does not feel comfortable with IV contrast. Report reviewed with no significant abnormality to account for the patient's symptoms. Data Review: Labs reviewed from today include basic metabolic profile which shows a sodium of 127 chloride 91. Glucose 123. DVT prophylaxis: lovenox Anticipated discharge date: in [address]:[facility] This dictation was prepared using [employer] voice recognition software. Though every attempt is made to correct errors during dictation some may still exist. Objective - Vital Signs Vital signs: Vital Signs Temp 98 F 11/18/23 07:39 Pulse 112 H 11/18/23 07:39 Resp 18 11/18/23 07:39 BP 156/67 11/18/23 07:39 Pulse Ox 94 L 11/18/23 07:39 FiO2 Intake & Output 11/17/23 11/18/23 11/18/23 18:59 06:59 18:59 Intake Total 840 480 Output Total 600 Balance 240 480 Intake: Oral 840 480 Output: Urine 600 Other: Voiding Method Bedside Commode Bedside Commode Bedside Commode # Voids 2 2 - Labs CBC & Chem 7: 11/15/23 03:14 11/18/23 04:42 Labs: Abnormal Lab Results - Last 24 Hours (Table) 11/17/23 11/17/23 11/17/23 Range/Units 12:21 17:07 19:55 Sodium (137-145) mmol/L Chloride (98-107) mmol/L BUN (7-17) mg/dL Glucose (74-99) mg/dL POC Glucose (mg/dL) 189 H 253 H 155 H (70-110) mg/dL 11/18/23 11/18/23 Range/Units 04:42 07:29 Sodium 127 L (137-145) mmol/L Chloride 91 L (98-107) mmol/L BUN 31 H (7-17) mg/dL Glucose 123 H (74-99) mg/dL POC Glucose (mg/dL) 144 H (70-110) mg/dL
[2023-11-18 12:42] LABS: Glucose,Whole Blood 139 mg/dL (70-110)
[2023-11-18 15:01] LABS: HCT 32.7 % (34.0-46.0); HGB 10.1 gm/dL (11.4-16.0); Hypochromasia Slight; MCH 32.6 pg (25.0-35.0); MCV 105.5 fL (80.0-100.0); Macrocytosis Moderate; Mean Platelet Volume 9.2; Platelet Count 405 k/uL (150-450); RDW 15.3 % (11.5-15.5)
[2023-11-18 15:19] LABS: Partial Thromboplastin Time 30.5 sec (22.0-30.0); Prothrombin Time 10.7 sec (10.0-12.5)
[2023-11-18 17:30] LABS: Glucose,Whole Blood 203 mg/dL (70-110)
[2023-11-18 20:49] LABS: Glucose,Whole Blood 170 mg/dL (70-110)
[2023-11-19 06:50] LABS: African American GFR (CKD) 69 (>60 ml/min/1.73 sqM); Anion Gap 5 mmol/L; Blood Urea Nitrogen 32 mg/dL (7-17); Calcium 9.6 mg/dL (8.4-10.2); Carbon Dioxide 32 mmol/L (22-30); Chloride 93 mmol/L (98-107); Glucose 130 mg/dL (74-99); Non-African American GFR(CKD) 60 (>60 ml/min/1.73 sqM); Potassium 4.4 mmol/L (3.5-5.1); Sodium 130 mmol/L (137-145)
[2023-11-19 07:32] LABS: Glucose,Whole Blood 175 mg/dL (70-110)
--- NOTE | 2023-11-19 09:48 | P.PN ---
Subjective Patient is seen in follow-up for hyponatremia. Sodium level up to 130 this morning. Tolerating oral intake. She is on fluid restriction. On chopped diet. Vital signs are stable. General: No acute distress. HEENT: Head exam is unremarkable. LUNGS: No audible rhonchi or wheezes. HEART: Rate and Rhythm are regular. ABDOMEN: Nontender. EXTREMITITES: No edema. Objective - Vital Signs Vital signs: Vital Signs Temp 98.2 F 11/19/23 07:22 Pulse 106 H 11/19/23 07:22 Resp 20 11/19/23 07:22 BP 186/77 11/19/23 07:22 Pulse Ox 91 L 11/19/23 08:16 FiO2 Intake & Output 11/18/23 11/19/23 11/19/23 18:59 06:59 18:59 Intake Total 120 240 353 Balance 120 240 353 Intake: Oral 120 240 353 Other: Voiding Method Bedside Commode Bedside Commode # Voids 1 # Bowel Movements 2 - Labs CBC & Chem 7: 11/18/23 14:44 11/19/23 05:57 Labs: Abnormal Lab Results - Last 24 Hours (Table) 11/18/23 11/18/23 11/18/23 Range/Units 12:34 14:44 14:44 RBC 3.10 L (3.80-5.40) m/uL Hgb 10.1 L (11.4-16.0) gm/dL Hct 32.7 L (34.0-46.0) % MCV 105.5 H (80.0-100.0) fL APTT 30.5 H (22.0-30.0) sec D-Dimer 2.00 H (<0.60) mg/L FEU Sodium (137-145) mmol/L Chloride (98-107) mmol/L Carbon Dioxide (22-30) mmol/L BUN (7-17) mg/dL Glucose (74-99) mg/dL POC Glucose (mg/dL) 139 H (70-110) mg/dL 11/18/23 11/18/23 11/19/23 Range/Units 17:28 20:46 05:57 RBC (3.80-5.40) m/uL Hgb (11.4-16.0) gm/dL Hct (34.0-46.0) % MCV (80.0-100.0) fL APTT (22.0-30.0) sec D-Dimer (<0.60) mg/L FEU Sodium 130 L (137-145) mmol/L Chloride 93 L (98-107) mmol/L Carbon Dioxide 32 H (22-30) mmol/L BUN 32 H (7-17) mg/dL Glucose 130 H (74-99) mg/dL POC Glucose (mg/dL) 203 H 170 H (70-110) mg/dL 11/19/23 Range/Units 07:31 RBC (3.80-5.40) m/uL Hgb (11.4-16.0) gm/dL Hct (34.0-46.0) % MCV (80.0-100.0) fL APTT (22.0-30.0) sec D-Dimer (<0.60) mg/L FEU Sodium (137-145) mmol/L Chloride (98-107) mmol/L Carbon Dioxide (22-30) mmol/L BUN (7-17) mg/dL Glucose (74-99) mg/dL POC Glucose (mg/dL) 175 H (70-110) mg/dL Assessment and Plan Plan: Assessment: 1. Hyponatremia. Initially due to hypovolemia and also component of poor solute intake and urinary retention. Better. Sodium level 130 this morning. Urine sodium 67 and urine osmolality 301. TSH elevated at 5.9 and free T4 normal. 2. Generalized weakness. 3. Diabetes mellitus. 4. Benign hypertension. Stable. Plan: Encouraged oral intake, particularly protein. Has been drinking Ensure. Maintain fluid restriction. Decrease sodium chloride tabs to once daily. Repeat labs in the morning.
--- NOTE | 2023-11-19 10:08 | NM ---
EXAMINATION TYPE: NM pul vent and perfuse DATE OF EXAM: 11/19/2023 CLINICAL INDICATION: Female, 78 years old with history of Pulmonary embolism; COMPARISON: 11/11/2023 TECHNIQUE: Utilizing inhalation of 66.8 mCi Tc 99m DTPA aerosol and intravenous injection of 5.4 mCi of Tc 99m MAA, ventilation and perfusion images are acquired post injection in multiple projections. FINDINGS: No moderate or large mismatched defects are evident. There are some patchy small matched defects pres ent. No triple matched defects evident IMPRESSION: Low probability for pulmonary embolism based on PIOPED 2 criteria.
[2023-11-19 11:59] LABS: Glucose,Whole Blood 178 mg/dL (70-110)
[2023-11-19 13:02] VITALS: BP 149/75; PULSE 103; RESP 18; TEMP 97.9
--- NOTE | 2023-11-19 13:38 | P.DS ---
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 In the emergency department she underwent extensive evaluation. On arrival vitals were remarkable for blood pressure 188/73. Initial laboratory analysis was remarkable for sodium 117, glucose 151, TSH 5.97. CT of the head demonstrated no acute process with some chronic appearing changes. Influenza A/B/COVID-19/RSV testing was negative. She received a 1 L normal saline bolus in the emergency department. Due to her significant and symptomatic hyponatremia arrangements were made for admission. Initially sodium improved with IV fluid resuscitation but then began to drop. Normal saline was discontinued and nephrology was consulted. They recommended Samsca with follow- up on urine osmolality and following serial sodium levels. She was found to be weak and PM&R was consulted for possible rehab placement, they recommended [facility]. She continued to struggle with hyponatremia requiring repeat doses of Samsca, sodium chloride tabs, and Lasix. Patient developed urinary retention, which improved with treatment of constipation. She was started on both Marinol which caused sedation and then transition to Remeron which continue to cause sedation and these were subsequently stopped. She did have an improvement in her oral intake. Her sodium normalized and she was determined stable for discharge. Follow-up: Dr. Joseph in 2 weeks, repeat basic metabolic profile in 3 days. New medications include Protonix 40 mg once daily, nystatin to the groin powder, levothyroxine increased to 137 mcg, sodium chloride 1 tablet daily, and her 70/30 insulin was transition to Levemir and sliding scale. Patient seen and examined at bedside. She is still feeling slightly sedated. Nausea is improving. Vital signs reviewed and stable. General: Nontoxic, no distress, appears at stated age Cardiovascular: S1S2 reg, no murmur, positive posterior tibial pulse bilateral, Lungs: CTA bilateral, no rhonchi, no rales, no accessory muscle use Abdominal: Soft, nontender to palpation, no guarding, no appreciable organomegal y Ext: No gross muscle atrophy, no edema b/l lower extremities, no contractures Neuro: CN II-XI grossly intact, no focal neuro deficits Psych: Alert, oriented, appropriate affect A total of 35 minutes of time were spent preparing this complex discharge summary. Patient was discharged on 11/19/23. This dictation was prepared using [employer] voice recognition software. Though every attempt is made to correct errors during dictation some may still exist. Patient Condition at Discharge: Stable Plan - Discharge Summary New Discharge Prescriptions: New Insulin Detemir (Levemir) [Levemir] 25 unit SQ DAILY@0700 each INSULIN ASPART (NovoLOG) [NovoLOG (formulary)] 0 unit SQ ACHS each Sodium Chloride Tab 1 gm PO DAILY tab Nystatin 100,000 Unit/gm Powd [Mycostatin Powder] 1 applic TOPICAL TID each Pantoprazole [Protonix] 40 mg PO DAILY #30 tab Levothyroxine Sodium [Synthroid] 137 mcg PO DAILY@0630 tab Continue Metoprolol Tartrate [Lopressor] 100 mg PO DAILY Acetaminophen [Tylenol Extra Strength] 500 mg PO Q6HR PRN PRN Reason: Pain allopurinoL [Zyloprim] 300 mg PO DAILY Losartan [Cozaar] 25 mg PO DAILY@1800 HYDROcodone/APAP 5-325MG [[place] 5-325] 1 tab PO BID PRN #6 tab PRN Reason: Pain Ezetimibe [Zetia] 10 mg PO DAILY Cholecalciferol [Vitamin D3 (25 Mcg = 1000 Iu)] 50 mcg PO DAILY Ondansetron Odt [Zofran ODT] 4 mg PO Q8HR PRN PRN Reason: Nausea And Vomiting Fenofibrate [Lofibra] 160 mg PO DAILY DULoxetine HCL [Cymbalta] 30 mg PO DAILY@1500 Discontinued Insulin NPH Hum/Reg Insulin Hm [NovoLIN 70-30 100 UNIT/ML VIAL] 30 unit SQ AC-SUPPER PRN PRN Reason: Blood Sugar - High Pioglitazone [Actos] 15 mg PO DAILY@1500 Levothyroxine Sodium [Synthroid] 112 mcg PO DAILY Insulin NPH Hum/Reg Insulin Hm [NovoLIN 70-30 100 Unit/ml Vial] 50 unit SQ AC-BRKFST Discharge Medication List Metoprolol Tartrate [Lopressor] 100 mg PO DAILY 12/22/15 [History] Acetaminophen [Tylenol Extra Strength] 500 mg PO Q6HR PRN 03/07/19 [History] allopurinoL [Zyloprim] 300 mg PO DAILY 07/24/19 [History] Cholecalciferol [Vitamin D3 (25 Mcg = 1000 Iu)] 50 mcg PO DAILY 01/23/22 [History] Ezetimibe [Zetia] 10 mg PO DAILY 01/23/22 [History] DULoxetine HCL [Cymbalta] 30 mg PO DAILY@1500 11/11/23 [History] Fenofibrate [Lofibra] 160 mg PO DAILY 11/11/23 [History] Losartan [Cozaar] 25 mg PO DAILY@1800 11/11/23 [History] Ondansetron Odt [Zofran ODT] 4 mg PO Q8HR PRN 11/11/23 [History] HYDROcodone/APAP 5-325MG [[place] 5-325] 1 tab PO BID PRN #6 tab 11/19/23 [Rx] INSULIN ASPART (NovoLOG) [NovoLOG (formulary)] 0 unit SQ ACHS each 11/19/23 [Rx] Insulin Detemir (Levemir) [Levemir] 25 unit SQ DAILY@0700 each 11/19/23 [Rx] Levothyroxine Sodium [Synthroid] 137 mcg PO DAILY@0630 tab 11/19/23 [Rx] Nystatin 100,000 Unit/gm Powd [Mycostatin Powder] 1 applic TOPICAL TID each 11/19/23 [Rx] Pantoprazole [Protonix] 40 mg PO DAILY #30 tab 11/19/23 [Rx] Sodium Chloride Tab 1 gm PO DAILY tab 11/19/23 [Rx] Follow up Appointment(s)/Referral(s): Lg Kraus DO [Primary Care Provider] - 1-2 days Dominga Joseph MD [STAFF PHYSICIAN] - 1 Week Patient Instructions/Handouts: Seizure/Epilepsy Discharge Instructions & Follow-Up Activity/Diet/Wound Care/Special Instructions: Activity: As tolerated, fall precautions Diet: Heart healthy, chopped, 1500 cc fluid restriction Special Instructions: BMP in 3 days DX: Hyponatremia, results to Dr. Joseph office as well Blood sugars 4 times daily Discharge Disposition: HOME SELF-CARE
[2023-11-20] MEDS ORDERED: SODIUM CHLORIDE TAB 1 GM TAB PO SCH (09:00)
== END 2023-11-19 15:04 | disposition home or self-care (01) | DRG 643 ==
LOC: EC 09:02 → 5NMEDONC 11:47
PROVIDERS: ADMIT Student in an Organized Health Care Education/Training Program; ATTEND Student in an Organized Health Care Education/Training Program
DX: E22.2 Syndrome of inappropriate secretion of antidiuretic hormone (principal); E43 Unspecified severe protein-calorie malnutrition; R53.1 Weakness; E66.01 Morbid (severe) obesity due to excess calories; Z79.890 Hormone replacement therapy; E03.9 Hypothyroidism, unspecified; E78.5 Hyperlipidemia, unspecified; E83.42 Hypomagnesemia; E86.0 Dehydration; D64.9 Anemia, unspecified; G89.29 Other chronic pain; I10 Essential (primary) hypertension; M79.7 Fibromyalgia; R00.0 Tachycardia, unspecified; R33.8 Other retention of urine; E86.1 Hypovolemia; M10.9 Gout, unspecified; K59.00 Constipation, unspecified; Z79.4 Long term (current) use of insulin; Z79.84 Long term (current) use of oral hypoglycemic drugs; Z68.39 Body mass index [BMI] 39.0-39.9, adult; Z79.899 Other long term (current) drug therapy; Z82.49 Family history of ischemic heart disease and other diseases of the circulatory system; Z85.3 Personal history of malignant neoplasm of breast; Z90.710 Acquired absence of both cervix and uterus; Z91.041 Radiographic dye allergy status; Z88.5 Allergy status to narcotic agent
CPT/HCPCS: 36415; 51702; 70450; 71046; 74018; 74176; 78582; 80048; 80053; 81001; 83036; 83605; 83735; 83930; 83935; 84295; 84300; 84439; 84443; 84481; 84484; 85025; 85027; 85379; 85610; 85730; 87636; 93005; 94760; 96361; 96365; 96375; 99285

== ENCOUNTER 2024-02-29 08:14 | Inpatient (IN) | payer MEDICARE, OTHER ==
--- NOTE | 2024-02-29 08:24 | ED ---
Weakness HPI - General Chief complaint: Weakness Stated complaint: generalized weakness Time Seen by Provider: 02/29/24 08:20 Source: patient, EMS Mode of arrival: EMS Limitations: physical limitation - History of Present Illness Initial comments: 78-year-old female presents to the emergency department from home. Patient went to the restroom this morning and was having difficulty getting off the toilet. EMS was called. They found that the patient had low blood pressure. She admits to issues with her sodium. She is supposed to be on sodium tablets but states she has not taken them in one week because her pharmacy doesn't have them. She has to get the medications from a special pharmacy. Patient is diagnosed with SIADH. States she is restricted to 3 glasses of water per day and states she has been compliant with this. She admits to nausea but states this is constant for her. Denies vomiting. Denies changes in her bowel or bladder habits. No other alleviating, precipitating or modifying factors - Related Data Home Medications Medication Instructions Recorded Confirmed Metoprolol Tartrate [Lopressor] 100 mg PO HS 12/22/15 02/29/24 Ezetimibe [Zetia] 10 mg PO DAILY 01/23/22 02/29/24 DULoxetine HCL [Cymbalta] 30 mg PO DAILY 11/11/23 02/29/24 Losartan [Cozaar] 25 mg PO DAILY 11/11/23 02/29/24 Ondansetron Odt [Zofran ODT] 4 mg PO Q8HR PRN 11/11/23 02/29/24 Dicyclomine [Bentyl] 20 mg PO QID PRN 12/27/23 02/29/24 HYDROcodone/APAP 5-325MG [[place] 1 tab PO Q12H PRN 12/27/23 02/29/24 5-325] L.acidoph,Paracasei, B.lactis 1 cap PO DAILY 12/27/23 02/29/24 [Probiotic] Levothyroxine Sodium [Synthroid] 112 mcg PO DAILY 12/27/23 02/29/24 Turmeric Root Extract [Turmeric] 500 mg PO TID 12/27/23 02/29/24 Acetaminophen Tab [Tylenol] 650 mg PO Q4H PRN 02/29/24 02/29/24 Folic Acid 1 mg PO DAILY 02/29/24 02/29/24 Magnesium Oxide [Mag-Ox] 400 mg PO BID 02/29/24 02/29/24 Sodium Chloride Tab 1 gm PO DAILY 02/29/24 02/29/24 Tolvaptan [Samsca] 15 mg PO DIRECTED 02/29/24 02/29/24 metHOTREXate sodium [Methotrexate] 15 mg PO Q7D 02/29/24 02/29/24 Previous Rx's Medication Instructions Recorded Pantoprazole [Protonix] 40 mg PO DAILY #30 tab 11/19/23 Allergies Allergy/AdvReac Type Severity Reaction Status Date / Time Iodinated Contrast Media Allergy Anaphylaxis Verified 12/27/23 14:34 [Iodinated Contrast- Oral and IV Dye] iodine Allergy Rash/Hives Verified 12/27/23 14:34 codeine AdvReac Headache & Verified 12/27/23 14:34 nausea Review of Systems ROS Statement: Those systems with pertinent positive or pertinent negative responses have been documented in the HPI. ROS Other: All systems not noted in ROS Statement are negative. Past Medical History Past Medical History: Cancer, COPD, Diabetes Mellitus, Fibromyalgia, Hyperlipidemia, Hypertension, Osteoarthritis (OA), Thyroid Disorder Additional Past Medical History / Comment(s): Guillain [place], breast ca, SIADH History of Any Multi-Drug Resistant Organisms: None Reported Past Surgical History: Cholecystectomy, Ear Surgery, Hysterectomy, Orthopedic Surgery Additional Past Surgical History / Comment(s): BEST. wrist surgery, best mastectomy, poss nodes taken from right side. Past Anesthesia/Blood Transfusion Reactions: No Reported Reaction Past Psychological History: No Psychological Hx Reported Smoking Status: Former smoker Past Alcohol Use History: Occasional Past Drug Use History: None Reported - Past Family History Mother Family Medical History: Deep Vein Thrombosis (DVT) Father Family Medical History: Myocardial Infarction (MS) Sister(s) Family Medical History: Cancer Additional Family Medical History / Comment(s): 1 sister colon cancer, 1 sister lung cancer and breast ca, 1 sister with breast ca Brother(s) Family Medical History: Cancer, Myocardial Infarction (MS) Additional Family Medical History / Comment(s): prostate cancer x brothers Daughter(s) Family Medical History: No Reported History Son(s) Family Medical History: Hypertension General Exam Limitations: physical limitation General appearance: alert, in no apparent distress Head exam: Present: atraumatic, normocephalic, normal inspection Eye exam: Present: normal appearance, PERRL, EOMI. Absent: scleral icterus, conjunctival injection, periorbital swelling ENT exam: Present: normal exam, mucous membranes moist Neck exam: Present: normal inspection. Absent: tenderness, meningismus, lymphadenopathy Respiratory exam: Present: normal lung sounds bilaterally. Absent: respiratory distress, wheezes, rales, rhonchi, stridor Cardiovascular Exam: Present: regular rate, normal rhythm, normal heart sounds. Absent: systolic murmur, diastolic murmur, rubs, gallop, clicks GI/Abdominal exam: Present: soft, normal bowel sounds. Absent: distended, tenderness, guarding, rebound, rigid Extremities exam: Present: normal inspection, full ROM, normal capillary refill. Absent: tenderness, pedal edema, joint swelling, calf tenderness Back exam: Present: normal inspection Neurological exam: Present: alert, oriented X3, CN II-XII intact Psychiatric exam: Present: normal affect, normal mood Skin exam: Present: warm, dry, intact, normal color. Absent: rash Course Vital Signs 02/29/24 02/29/24 02/29/24 08:18 08:24 09:13 Temperature 97.5 F L Pulse Rate 103 H 92 Respiratory 18 20 Rate Blood Pressure 133/72 124/57 O2 Sat by Pulse 98 100 Oximetry 02/29/24 02/29/24 02/29/24 09:30 10:00 10:30 Temperature Pulse Rate 91 91 88 Respiratory Rate Blood Pressure 108/49 116/76 117/82 O2 Sat by Pulse 99 100 Oximetry 02/29/24 02/29/24 02/29/24 11:00 11:30 12:00 Temperature Pulse Rate 94 93 90 Respiratory 18 Rate Blood Pressure 128/62 119/73 148/72 O2 Sat by Pulse 93 L 92 L 97 Oximetry 02/29/24 02/29/24 12:30 13:00 Temperature Pulse Rate 90 93 Respiratory 17 Rate Blood Pressure 134/70 129/59 O2 Sat by Pulse 98 97 Oximetry Medical Decision Making - Medical Decision Making Was pt. sent in by a medical professional or institution (, PA, [employer], urgent care, hospital, or assisted...) When possible be specific @ -No Did you speak to anyone other than the patient for history (EMS, parent, family, police, friend...)? What history was obtained from this source @ -Spoke with the EMS for history Did you review nursing and triage notes (agree or disagree)? Why? @ -I reviewed and agree with nursing and triage notes Were old charts reviewed (outside hosp., previous admission, EMS record, old EKG, old radiological studies, urgent care reports/EKG's, assisted records)? Report findings @ -I reviewed patient's discharge summary from January 04 and trended her sodium levels Differential Diagnosis (chest pain, altered mental status, abdominal pain women, abdominal pain men, vaginal bleeding, weakness, fever, dyspnea, syncope, headache, dizziness, GI bleed, back pain, seizure, CVA, palpatations, mental health, musculoskeletal)? @ -Differential Weakness: Hypoglycemia, shock, sepsis, hyponatremia, anemia, infection, MS, ETOH, adverse medicine reaction, overdose, stroke, this is not meant to be an all-inclusive list. EKG interpreted by me (3pts min.). @ -yes and demonstrate a sinus tachycardia with rate of 100. MS interval 149. QRS 85. QTC is 395. No acute ST segment elevations or depressions X-rays interpreted by me (1pt min.). @ -Yes and demonstrates no acute process CT interpreted by me (1pt min.). @ -None done U/S interpreted by me (1pt. min.). @ -None done What testing was considered but not performed or refused? (CT, X-rays, U/S, labs)? Why? @ -None What meds were considered but not given or refused? Why? @ -None Did you discuss the management of the patient with other professionals (professionals i.e. , PA, [employer], lab, RT, psych nurse, rn social work, seismic observer, teacher, special officer, manager rn case)? Give summary @ -spoke with Dr. castorena for admisison Was smoking cessation discussed for >3mins.? @ -No Was critical care preformed (if so, how long)? @ -No Were there social determinants of health that impacted care today? How? (Homelessness, low income, unemployed, alcoholism, drug addiction, transportation, low edu. Level, literacy, decrease access to med. care, alf, rehab)? @ -No Was there de-escalation of care discussed even if they declined (Discuss DNR or withdrawal of care, Hospice)? DNR status @ -No What co-morbidities impacted this encounter? (DM, HTN, Smoking, COPD, CAD, Cancer, CVA, ARF, Chemo, Hep., AIDS, mental health diagnosis, sleep apnea, morbid obesity)? @ -SIADH Was patient admitted / discharged? Hospital course, mention meds given and route, prescriptions, significant lab abnormalities, going to OR and other pertinent info. @ -Upon arrival patient seen and evaluated in room 23. Thorough history and physical exam was performed. Patient was initially started on IV fluids as EMS reported that she was hypotensive however these were stopped. IV access is established and laboratory studies are conducted. Chest x-ray was performed. Patient's labs are remarkable for a low sodium. She is given a salt tablet she does have a history of SIADH. Recommended admission due to her weakness with hyponatremia. Patient was agreeable to this. Spoke with Dr. Castorena for admission Undiagnosed new problem with uncertain prognosis? @ -No Drug Therapy requiring intensive monitoring for toxicity (Heparin, Nitro, Insulin, Cardizem)? @ -No Were any procedures done? @ -No Diagnosis/symptom? @ -Acute weakness, acute hyponatremia, history of SIADH Acute, or Chronic, or Acute on Chronic? @ -Acute on chronic Uncomplicated (without systemic symptoms) or Complicated (systemic symptoms)? @ -Complicated Side effects of treatment? @ -No Exacerbation, Progression, or Severe Exacerbation? @ -No Poses a threat to life or bodily function? How? (Chest pain, USA, MS, pneumonia, PE, COPD, DKA, ARF, appy, cholecystitis, CVA, Diverticulitis, Homicidal, Suicidal, threat to staff... and all critical care pts) @ -No - Lab Data Result diagrams: 03/02/24 03:32 03/03/24 07:36 Lab Results 02/29/24 02/29/24 02/29/24 Range/Units 09:02 09:02 09:02 WBC 11.5 H (3.8-10.6) k/uL RBC 3.17 L (3.80-5.40) m/uL Hgb 10.8 L (11.4-16.0) gm/dL Hct 32.8 L (34.0-46.0) % MCV 103.5 H (80.0-100.0) fL MCH 34.0 (25.0-35.0) pg MCHC 32.8 (31.0-37.0) g/dL RDW 15.8 H (11.5-15.5) % Plt Count 433 (150-450) k/uL MPV 9.2 Neutrophils % 80 % Lymphocytes % 12 % Monocytes % 6 % Eosinophils % 0 % Basophils % 0 % Neutrophils # 9.2 H (1.3-7.7) k/uL Lymphocytes # 1.4 (1.0-4.8) k/uL Monocytes # 0.7 (0-1.0) k/uL Eosinophils # 0.0 (0-0.7) k/uL Basophils # 0.0 (0-0.2) k/uL Macrocytosis Moderate PT 11.3 (10.0-12.5) sec INR 1.0 (<1.2) Sodium 122 L (137-145) mmol/L Potassium 4.8 (3.5-5.1) mmol/L Chloride 92 L (98-107) mmol/L Carbon Dioxide 20 L (22-30) mmol/L Anion Gap 10 mmol/L BUN 20 H (7-17) mg/dL Creatinine 0.69 (0.52-1.04) mg/dL Est GFR (CKD-EPI)AfAm >90 (>60 ml/min/1.73 sqM) Est GFR (CKD-EPI)NonAf 84 (>60 ml/min/1.73 sqM) Glucose 167 H (74-99) mg/dL Lactic Ac Sepsis Rflx Plasma Lactic Acid Ma[place] (0.7-2.0) mmol/L Calcium 9.2 (8.4-10.2) mg/dL Magnesium 1.4 L (1.6-2.3) mg/dL Total Bilirubin 0.8 (0.2-1.3) mg/dL AST 16 (14-36) U/L ALT 10 (4-34) U/L Alkaline Phosphatase 96 (38-126) U/L Troponin I (0.000-0.034) ng/mL Total Protein 5.4 L (6.3-8.2) g/dL Albumin 2.9 L (3.5-5.0) g/dL TSH 1.210 (0.465-4.680) mIU/L 02/29/24 02/29/24 02/29/24 Range/Units 09:02 09:02 09:29 WBC (3.8-10.6) k/uL RBC (3.80-5.40) m/uL Hgb (11.4-16.0) gm/dL Hct (34.0-46.0) % MCV (80.0-100.0) fL MCH (25.0-35.0) pg MCHC (31.0-37.0) g/dL RDW (11.5-15.5) % Plt Count (150-450) k/uL MPV Neutrophils % % Lymphocytes % % Monocytes % % Eosinophils % % Basophils % % Neutrophils # (1.3-7.7) k/uL Lymphocytes # (1.0-4.8) k/uL Monocytes # (0-1.0) k/uL Eosinophils # (0-0.7) k/uL Basophils # (0-0.2) k/uL Macrocytosis PT (10.0-12.5) sec INR (<1.2) Sodium (137-145) mmol/L Potassium (3.5-5.1) mmol/L Chloride (98-107) mmol/L Carbon Dioxide (22-30) mmol/L Anion Gap mmol/L BUN (7-17) mg/dL Creatinine (0.52-1.04) mg/dL Est GFR (CKD-EPI)AfAm (>60 ml/min/1.73 sqM) Est GFR (CKD-EPI)NonAf (>60 ml/min/1.73 sqM) Glucose (74-99) mg/dL Lactic Ac Sepsis Rflx Y Plasma Lactic Acid Ma[place] 2.9 H* (0.7-2.0) mmol/L Calcium (8.4-10.2) mg/dL Magnesium (1.6-2.3) mg/dL Total Bilirubin (0.2-1.3) mg/dL AST (14-36) U/L ALT (4-34) U/L Alkaline Phosphatase (38-126) U/L Troponin I <0.012 (0.000-0.034) ng/mL Total Protein (6.3-8.2) g/dL Albumin (3.5-5.0) g/dL TSH (0.465-4.680) mIU/L Disposition Clinical Impression: Hyponatremia, Weakness Disposition: ADMITTED IP TO THIS [facility] Condition: Stable Is patient prescribed a controlled substance at d/c from ED?: No Time of Disposition: 10:59 Decision to Admit Reason: Admit from EC Decision Date: 02/29/24 Decision Time: 10:59
[2024-02-29] MEDS: SODIUM CHLORIDE 0.9% 1,000 ML IV STA (09:07)
[2024-02-29 09:22] LABS: Prothrombin Time 11.3 sec (10.0-12.5)
[2024-02-29 09:29] LABS: ALT 10 U/L (4-34); AST 16 U/L (14-36); African American GFR (CKD) >90 (>60 ml/min/1.73 sqM); Albumin 2.9 g/dL (3.5-5.0); Alkaline Phosphatase 96 U/L (38-126); Anion Gap 10 mmol/L; Blood Urea Nitrogen 20 mg/dL (7-17); Calcium 9.2 mg/dL (8.4-10.2); Carbon Dioxide 20 mmol/L (22-30); Chloride 92 mmol/L (98-107); Glucose 167 mg/dL (74-99); Magnesium 1.4 mg/dL (1.6-2.3); Non-African American GFR(CKD) 84 (>60 ml/min/1.73 sqM); Potassium 4.8 mmol/L (3.5-5.1); Sodium 122 mmol/L (137-145); Total Bilirubin 0.8 mg/dL (0.2-1.3); Total Protein 5.4 g/dL (6.3-8.2)
[2024-02-29 09:31] LABS: Basophils % (A) 0 %; Eosinophils % (A) 0 %; HCT 32.8 % (34.0-46.0); HGB 10.8 gm/dL (11.4-16.0); Lymphocytes # (A) 1.4 k/uL (1.0-4.8); Lymphocytes % (A) 12 %; MCHC 32.8 g/dL (31.0-37.0); MCV 103.5 fL (80.0-100.0); Macrocytosis Moderate; Mean Platelet Volume 9.2; Monocytes # (A) 0.7 k/uL (0-1.0); Monocytes % (A) 6 %; Neutrophils # (A) 9.2 k/uL (1.3-7.7); Neutrophils % (A) 80 %; Platelet Count 433 k/uL (150-450); RBC 3.17 m/uL (3.80-5.40); RDW 15.8 % (11.5-15.5); WBC 11.5 k/uL (3.8-10.6)
--- NOTE | 2024-02-29 10:49 | XR ---
EXAMINATION TYPE: XR chest 2V DATE OF EXAM: 02/29/2024 COMPARISON: 12/27/2023 HISTORY: 78-year-old female with weakness and low blood pressure TECHNIQUE: AP and lateral views FINDINGS: Heart normal size. Aorta and pulmonary vasculature within normal limits. Some strandy atelectasis in the lower lungs. Surgical clips projecting at the bilateral lower chest. No consolidation or pleural effusion. IMPRESSION: No definite acute process.
[2024-02-29] MEDS: SODIUM CHLORIDE TAB 1 GM TAB PO STA (11:56)
[2024-02-29] MEDS ORDERED: NALOXONE 0.4 MG/ML 1 ML VIAL IV PRN (12:20)
[2024-02-29] MEDS: HYDROcodone/APAP 5-325MG 1 EACH TAB PO PRN (12:48)
[2024-02-29] MEDS: MAGNESIUM SULFATE-D5W PMX 1 GM in DEXTROSE/WATER 1 100ML.BAG IVPB SCH (12:49)
--- NOTE | 2024-02-29 15:24 | P.HPIM ---
History of Present Illness H&P Date: 02/29/24 History of Present Illness: Patient is a 78 female with a past medical history of SIADH, breast cancer, hypertension, osteoarthritis, hypothyroidism presents to the ED with weakness. This morning, while on the toilet, she was unable to get back up for over an hour. She was able to call for assistance and was brought to the ED. She mentioned she had a headache, some confusion, and felt nauseous when it first occurred. Patient also mentioned being short of breath. She states she didn't have her salt tablets for over a week. She is unsure if she is still taking Samsca. Shes mention she has been previously hospitalized due to hyponatremia. Denies any fall, syncope, or trauma. Denies any numbness/tingling, slurred speec h, chest pain, leg edema, seizure. Vitals in the ED were MT 90, RR 17, BP 134/70, O2 98 on room air. LABS showed WBC: 11.5, Hgb 10.8, Na 122, Cl 92, CO2 20, BUN 20, Cr 0.69, Glucose 167, Lactic Acid 1.2, Mg 1.4, Total Protein 5.4, Albumin 2.9, TSH 1.210, troponin <0.012. CXR: on independent interpretation showed no acute process. EKG: on independent interpretation showed sinus tachycardia. Nephrology consulted. She is to be admitted for further evaluation and monitoring of symptomatic moderate hyponatremia. Pertinent positives and negatives as discussed above, a complete review of systems was performed and all other systems are negative. Vitals: Signs Reviewed Physical Exam: General: nontoxic, no distress, appears at stated age Derm: warm, dry, intact Head: atraumatic, normocephalic, symmetric Eyes: EOMI, no lid lag, anicteric sclera Mouth: no lip lesion, mucus membranes moist Cardiovascular: S1 S2 reg, no murmur, rubs, or gallops Lungs: CTA bilateral, no rhonchi, no rales, no accessory muscle use Abdominal: soft, non-tender to palpataion, no appreciable organomegaly Extremities: no gross muscle atrophy, no edema, no contractures, b/l LE 3/5 weakness upon hip flexion Neuro: Alert, Oriented, CNII-XII grossly intact, gait normal Psych: well appearing, appropriate affect 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 Generalized weakness - patient euvolemic - on fluid restriction 1500mL - ordered 1 gm PO Sodium Chloride Tab - Serum osmolarity, urine osmolarity, urine sodium - close follow up BMP q6h, seizure precautions - U/A ordered - [place] 5-325 PO prn for pain, monitor for sedation - nephrology consulted - PT/OT Non-anion gap metabolic acidosis - Will monitor BMP Hypomagnesia s/p replacement in ED repeat Mg tomorrow Moderate protein calorie malnutrition -dietary consult Macrocytic anemia - Hgb 10.8 - at baseline - follow up CBC Leukocytosis, likely reactive - will monitor CBC Resolved: Lactic acidosis - LA 1.2 Chronic: Hypothyroidism Anxiety and Depression Hypertension Fibromyalgia Dyslipidemia Will continue necessary home medications once reconciled F: none E: Replete as needed N: heart healthy diet, Fluid restriction of 1500 mL A: Fall and seizure precaution. Pt deconditioned, PT/OT consulted. DVT ppx: lovenox Code status: Full Anticipated discharge place: pending clinical course Anticipated discharge time: pending clinical course I have seen and evaluated the patient today. Discussed with the resident and agree with resident's findings and plan as documented in the resident's note. Changes highlighted in blue font. 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 wrist surgery, best mastectomy, poss nodes taken from right side. Past Anesthesia/Blood Transfusion Reactions: No Reported Reaction Past Psychological History: No Psychological Hx Reported Smoking Status: Former smoker Past Alcohol Use History: Occasional Past Drug Use History: None Reported - Past Family History Mother Family Medical History: Deep Vein Thrombosis (DVT) Father Family Medical History: Myocardial Infarction ([place]) Sister(s) Family Medical History: Cancer Additional Family Medical History / Comment(s): 1 sister colon cancer, 1 sister lung cancer and breast ca, 1 sister with breast ca Brother(s) Family Medical History: Cancer, Myocardial Infarction ([place]) Additional Family Medical History / Comment(s): prostate cancer x brothers Daughter(s) Family Medical History: No Reported History Son(s) Family Medical History: Hypertension Medications and Allergies Home Medications Medication Instructions Recorded Confirmed Type Metoprolol Tartrate [Lopressor] 100 mg PO HS 12/22/15 02/29/24 History Ezetimibe [Zetia] 10 mg PO DAILY 01/23/22 02/29/24 History DULoxetine HCL [Cymbalta] 30 mg PO DAILY 11/11/23 02/29/24 History Losartan [Cozaar] 25 mg PO DAILY 11/11/23 02/29/24 History Ondansetron Odt [Zofran ODT] 4 mg PO Q8HR PRN 11/11/23 02/29/24 History Pantoprazole [Protonix] 40 mg PO DAILY #30 tab 11/19/23 02/29/24 Rx Dicyclomine [Bentyl] 20 mg PO QID PRN 12/27/23 02/29/24 History HYDROcodone/APAP 5-325MG [[place] 1 tab PO Q12H PRN 12/27/23 02/29/24 History 5-325] L.acidoph,Paracasei, B.lactis 1 cap PO DAILY 12/27/23 02/29/24 History [Probiotic] Levothyroxine Sodium [Synthroid] 112 mcg PO DAILY 12/27/23 02/29/24 History Turmeric Root Extract [Turmeric] 500 mg PO TID 12/27/23 02/29/24 History Acetaminophen Tab [Tylenol] 650 mg PO Q4H PRN 02/29/24 02/29/24 History Folic Acid 1 mg PO DAILY 02/29/24 02/29/24 History Magnesium Oxide [Mag-Ox] 400 mg PO BID 02/29/24 02/29/24 History Sodium Chloride Tab 1 gm PO DAILY 02/29/24 02/29/24 History Tolvaptan [Samsca] 15 mg PO DIRECTED 02/29/24 02/29/24 History metHOTREXate sodium [Methotrexate] 15 mg PO Q7D 02/29/24 02/29/24 History Allergies Allergy/AdvReac Type Severity Reaction Status Date / Time Iodinated Contrast Media Allergy Anaphylaxis Verified 12/27/23 14:34 [Iodinated Contrast- Oral and IV Dye] iodine Allergy Rash/Hives Verified 12/27/23 14:34 codeine AdvReac Headache & Verified 12/27/23 14:34 nausea Physical Exam Vitals: Vital Signs Temp Pulse Resp BP Pulse Ox 02/29/24 13:00 93 17 129/59 97 02/29/24 12:30 90 134/70 98 02/29/24 12:00 90 148/72 97 02/29/24 11:30 93 18 119/73 92 L 02/29/24 11:00 94 128/62 93 L 02/29/24 10:30 88 117/82 100 02/29/24 10:00 91 116/76 99 02/29/24 09:30 91 108/49 02/29/24 09:13 92 20 124/57 100 02/29/24 08:24 97.5 F L 02/29/24 08:18 103 H 18 133/72 98 Intake and Output 02/28/24 02/29/24 02/29/24 22:59 06:59 14:59 Other: Weight 90.265 kg Results CBC & Chem 7: 02/29/24 09:02 02/29/24 09:02 Labs: Abnormal Lab Results - Last 24 Hours (Table) 02/29/24 02/29/24 02/29/24 Range/Units 09:02 09:02 09:02 WBC 11.5 H (3.8-10.6) k/uL RBC 3.17 L (3.80-5.40) m/uL Hgb 10.8 L (11.4-16.0) gm/dL Hct 32.8 L (34.0-46.0) % MCV 103.5 H (80.0-100.0) fL RDW 15.8 H (11.5-15.5) % Neutrophils # 9.2 H (1.3-7.7) k/uL Sodium 122 L (137-145) mmol/L Chloride 92 L (98-107) mmol/L Carbon Dioxide 20 L (22-30) mmol/L BUN 20 H (7-17) mg/dL Glucose 167 H (74-99) mg/dL Plasma Lactic Acid [place] 2.9 H* (0.7-2.0) mmol/L Magnesium 1.4 L (1.6-2.3) mg/dL Total Protein 5.4 L (6.3-8.2) g/dL Albumin 2.9 L (3.5-5.0) g/dL
[2024-02-29] MEDS ORDERED: metHOTREXate sodium 2.5 MG TAB PO SCH (15:45)
[2024-02-29 17:20] LABS: Appearance,Urine Turbid (Clear); Bacteria,Urine Many /hpf; Bilirubin,Urine Negative (Negative); Blood,Urine Moderate (Negative); Color,Urine Yellow; Glucose,Urine (UA) Negative (Negative); Ketones,Urine Negative (Negative); Leukocyte Esterase,Urine Large (Negative); Mucus,Urine Rare /hpf; Nitrite,Urine Negative (Negative); Protein,Urine 1+ (Negative); RBC,Urine 74 /hpf (0-5); Squamous Epithelial Cell,Urine 4 /hpf (0-4); Urobilinogen,Urine <2.0 mg/dL (<2.0); WBC,Urine >182 /hpf (0-5)
[2024-02-29 17:34] LABS: Glucose,Whole Blood 118 mg/dL (70-110)
[2024-02-29 20:28] LABS: Glucose,Whole Blood 134 mg/dL (70-110)
[2024-02-29] MEDS: MAGNESIUM OXIDE 400 MG TAB PO SCH (21:37)
[2024-02-29] MEDS: METOPROLOL TARTRATE 50 MG TAB PO SCH (21:37)
[2024-03-01 01:25] LABS: African American GFR (CKD) >90 (>60 ml/min/1.73 sqM); Anion Gap 7 mmol/L; Blood Urea Nitrogen 20 mg/dL (7-17); Calcium 8.7 mg/dL (8.4-10.2); Carbon Dioxide 22 mmol/L (22-30); Chloride 93 mmol/L (98-107); Glucose 106 mg/dL (74-99); Non-African American GFR(CKD) 87 (>60 ml/min/1.73 sqM); Potassium 4.3 mmol/L (3.5-5.1); Sodium 122 mmol/L (137-145)
[2024-03-01 02:03] LABS: Blood Urea Nitrogen 18.4 mg/dL (9.0-27.0); Chloride 89 mmol/L (96-109); Glucose 155 mg/dL (70-110); Potassium 4.2 mmol/L (3.5-5.5); Sodium 124 mmol/L (135-145)
[2024-03-01 02:04] LABS: Calcium 8.9 mg/dL (8.7-10.3); Carbon Dioxide 22.1 mmol/L (21.6-31.8)
[2024-03-01] MEDS: LEVOTHYROXINE 112 MCG TAB PO SCH (06:29)
[2024-03-01 07:08] LABS: Glucose,Whole Blood 109 mg/dL (70-110)
[2024-03-01] MEDS: ENOXAPARIN 40 MG/0.4 ML SYRINGE SQ SCH (09:00)
[2024-03-01] MEDS: DULoxetine HCL 30 MG CAPSULE.DR PO SCH (09:00)
[2024-03-01] MEDS: SODIUM CHLORIDE TAB 1 GM TAB PO SCH ×2 (09:01→21:49)
[2024-03-01] MEDS: PANTOPRAZOLE 40 MG TABLET PO SCH (09:01)
[2024-03-01] MEDS: EZETIMIBE 10 MG TAB PO SCH (09:01)
[2024-03-01] MEDS: LOSARTAN 25 MG TAB PO SCH (09:01)
[2024-03-01] MEDS: FOLIC ACID 1 MG TAB PO SCH (09:01)
[2024-03-01 09:37] LABS: Basophils # (A) 0.06 X 10*3/uL (0.00-0.10); Basophils % (A) 0.8 %; Eosinophils # (A) 0.16 X 10*3/uL (0.04-0.35); Eosinophils % (A) 2.2 %; HCT 28.9 % (37.2-46.3); HGB 9.7 g/dL (12.0-15.0); Lymphocytes % (A) 27.4 %; MCH 33.4 pg (27.0-32.0); MCHC 33.6 g/dL (32.0-37.0); MCV 99.7 FL (80.0-97.0); Mean Platelet Volume 11.5 FL (9.5-12.2); Monocytes # (A) 0.75 X 10*3/uL (0.20-1.00); Monocytes % (A) 10.3 %; NRBC Per 100 WBC 0 X 10*3/uL (0.00-0.01); Neutrophils # (A) 4.29 X 10*3/uL (1.80-7.70); Neutrophils % (A) 58.6 %; Platelet Count 395 X 10*3/uL (140-440); RDW 16.3 % (11.5-14.5); WBC 7.31 X 10*3/uL (4.50-10.00)
[2024-03-01 12:13] LABS: BUN/Creat Ratio 26.14 Ratio (12.00-20.00); Blood Urea Nitrogen 18.3 mg/dL (9.0-27.0); Calcium 8.7 mg/dL (8.7-10.3); Carbon Dioxide 23.2 mmol/L (21.6-31.8); Chloride 90 mmol/L (96-109); Glucose 102 mg/dL (70-110); Magnesium 1.9 mg/dL (1.5-2.4); Potassium 4.5 mmol/L (3.5-5.5); Sodium 124 mmol/L (135-145)
[2024-03-01 12:14] LABS: Glucose,Whole Blood 123 mg/dL (70-110)
--- NOTE | 2024-03-01 12:18 | P.PN ---
Subjective Progress Note Date: 03/01/24 Subjective: Patient seen and examined at bedside. No acute events overnight. No improvement in weakness. Pertinent positives and negatives as discussed above, a complete review of systems was performed and all other systems are negative. Vitals: Signs Reviewed Physical Exam: General: nontoxic, no distress, appears at stated age Derm: warm, dry, intact Head: atraumatic, normocephalic, symmetric Eyes: EOMI, no lid lag, anicteric sclera Mouth: no lip lesion, mucus membranes moist Cardiovascular: S1 S2 reg, no murmur, rubs, or gallops Lungs: CTA bilateral, no rhonchi, no rales, no accessory muscle use Abdominal: soft, non-tender to palpataion, no appreciable organomegaly Extremities: no gross muscle atrophy, no edema, no contractures, b/l LE 3/5 weakness upon hip flexion Neuro: Alert, Oriented, CNII-XII grossly intact, gait normal Psych: well appearing, appropriate affect Data Received Today: Pertinent Labs: WBC 7.31, Hgb 9.7, sodium 122, potassium 4.3, Mg 1.9, serum osmolarity 264, urine osmolarity 438, urine sodium 27 Imaging: no new imaging. 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 Generalized weakness - patient euvolemic - keep on fluid restriction 1500mL - Continue 1 gm PO Sodium Chloride Tab, increase to twice daily by nephrology -Also added Samsca 15 mg x 1 prior to nephrology - Serum osmolarity 264, urine osmolarity 438, urine sodium 27 - close follow up BMP q6h, seizure precautions - [place] 5-325 PO prn for pain, monitor for sedation - nephrology consulted, pending recommendation - PT/OT Asymptomatic Bacteruria UA positive for UTI Patient has no urinary symptoms No treatment necessary Will monitor for urinary symptoms Moderate protein calorie malnutrition - dietary consult Macrocytic anemia -No bleeding - follow up CBC Leukocytosis, likely reactive - will monitor CBC Resolved: Lactic acidosis Non-anion gap metabolic acidosis Hypomagnesiawill continue to monitor Chronic: Hypothyroidism Anxiety and Depression Hypertension Fibromyalgia Dyslipidemia Will continue necessary home medications. F: none E: Replete as needed N: heart healthy diet, Fluid restriction of 1500 mL A: Fall and seizure precaution. Pt deconditioned, PT/OT consulted. DVT ppx: lovenox Code status: Full Anticipated discharge place: pending clinical course Anticipated discharge time: pending clinical course I have seen and evaluated the patient today. Discussed with the resident and agree with the residents finding and plan as documented in the resident's note. Changes highlighted in blue font. Objective - Vital Signs Vital signs: Vital Signs Temp 97.8 F 03/01/24 07:04 Pulse 74 03/01/24 07:04 Resp 16 03/01/24 07:04 BP 110/66 03/01/24 07:04 Pulse Ox 96 03/01/24 07:04 FiO2 Intake & Output 02/29/24 03/01/24 03/01/24 18:59 06:59 18:59 Intake Total 290 240 120 Balance 290 240 120 Weight 90.265 kg Intake: Oral 290 240 120 Other: Voiding Method Incontinent Incontinent Diaper External Catheter External Catheter Incontinent External Catheter - Labs CBC & Chem 7: 03/01/24 05:40 03/01/24 05:40 Labs: Abnormal Lab Results - Last 24 Hours (Table) 02/29/24 02/29/24 02/29/24 Range/Units 16:59 16:59 17:33 RBC (4.10-5.20) X 10*6/uL Hgb (12.0-15.0) g/dL Hct (37.2-46.3) % MCV (80.0-97.0) FL MCH (27.0-32.0) pg RDW (11.5-14.5) % Immature Gran # (0.00-0.04) X 10*3/uL Sodium (135-145) mmol/L Chloride (96-109) mmol/L Anion Gap (4.00-12.00) mmol/L BUN (7-17) mg/dL BUN/Creatinine Ratio (12.00-20.00) Ratio Glucose (70-110) mg/dL POC Glucose (mg/dL) 118 H (70-110) mg/dL Osmolality (275-295) mOsm/kg Urine Appearance Turbid H (Clear) Urine Protein 1+ H (Negative) Urine Blood Moderate H (Negative) Ur Leukocyte Esterase Large H (Negative) Urine RBC 74 H (0-5) /hpf Urine WBC >182 H (0-5) /hpf Urine WBC Clumps Moderate H (None) /hpf Urine Bacteria Many H (None) /hpf Urine Mucus Rare H (None) /hpf Ur Random Sodium 27 L (40-220) mmol/L 02/29/24 02/29/24 03/01/24 Range/Units 19:21 20:26 00:18 RBC (4.10-5.20) X 10*6/uL Hgb (12.0-15.0) g/dL Hct (37.2-46.3) % MCV (80.0-97.0) FL MCH (27.0-32.0) pg RDW (11.5-14.5) % Immature Gran # (0.00-0.04) X 10*3/uL Sodium 124 L 122 L (135-145) mmol/L Chloride 89 L 93 L (96-109) mmol/L Anion Gap 12.90 H (4.00-12.00) mmol/L BUN 20 H (7-17) mg/dL BUN/Creatinine Ratio 23.00 H (12.00-20.00) Ratio Glucose 155 H 106 H (70-110) mg/dL POC Glucose (mg/dL) 134 H (70-110) mg/dL Osmolality 264 L (275-295) mOsm/kg Urine Appearance (Clear) Urine Protein (Negative) Urine Blood (Negative) Ur Leukocyte Esterase (Negative) Urine RBC (0-5) /hpf Urine WBC (0-5) /hpf Urine WBC Clumps (None) /hpf Urine Bacteria (None) /hpf Urine Mucus (None) /hpf Ur Random Sodium (40-220) mmol/L 03/01/24 Range/Units 05:40 RBC 2.90 L (4.10-5.20) X 10*6/uL Hgb 9.7 L (12.0-15.0) g/dL Hct 28.9 L (37.2-46.3) % MCV 99.7 H (80.0-97.0) FL MCH 33.4 H (27.0-32.0) pg RDW 16.3 H (11.5-14.5) % Immature Gran # 0.05 H (0.00-0.04) X 10*3/uL Sodium (135-145) mmol/L Chloride (96-109) mmol/L Anion Gap (4.00-12.00) mmol/L BUN (7-17) mg/dL BUN/Creatinine Ratio (12.00-20.00) Ratio Glucose (70-110) mg/dL POC Glucose (mg/dL) (70-110) mg/dL Osmolality (275-295) mOsm/kg Urine Appearance (Clear) Urine Protein (Negative) Urine Blood (Negative) Ur Leukocyte Esterase (Negative) Urine RBC (0-5) /hpf Urine WBC (0-5) /hpf Urine WBC Clumps (None) /hpf Urine Bacteria (None) /hpf Urine Mucus (None) /hpf Ur Random Sodium (40-220) mmol/L
[2024-03-01 12:30] VITALS: BMI 35.2
--- NOTE | 2024-03-01 13:46 | P.NPCON ---
History of Present Illness - Reason for Consult Consult date: 03/01/24 hyponatremia - Chief Complaint Fall - History of Present Illness Patient is a 78 female with a past medical history of SIADH, breast cancer, hypertension, osteoarthritis, hypothyroidism presents to the ED with weakness. This morning, while on the toilet, she was unable to get back up for over an hour. She was able to call for assistance and was brought to the ED. She mentioned she had a headache, some confusion, and felt nauseous when it first occurred. Patient also mentioned being short of breath. She states she didn't have her salt tablets for over a week. She is unsure if she is still taking Samsca. Seen at bedside this morning feeling OK but still thinks she will be unsteady on her feet if getting up. No other complaints. Vital signs are stable. General: No acute distress. HEENT: Head exam is unremarkable. LUNGS: No acute distress. HEART: Rate and Rhythm are regular. ABDOMEN: Nontender. EXTREMITITES: No edema. 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 wrist surgery, best mastectomy, poss nodes taken from right side. Past Anesthesia/Blood Transfusion Reactions: No Reported Reaction Past Psychological History: No Psychological Hx Reported Smoking Status: Former smoker Past Alcohol Use History: Occasional Past Drug Use History: None Reported - Past Family History Mother Family Medical History: Deep Vein Thrombosis (DVT) Father Family Medical History: Myocardial Infarction ([place]) Sister(s) Family Medical History: Cancer Additional Family Medical History / Comment(s): 1 sister colon cancer, 1 sister lung cancer and breast ca, 1 sister with breast ca Brother(s) Family Medical History: Cancer, Myocardial Infarction ([place]) Additional Family Medical History / Comment(s): prostate cancer x brothers Daughter(s) Family Medical History: No Reported History Son(s) Family Medical History: Hypertension Medications and Allergies Home Medications Medication Instructions Recorded Confirmed Type Metoprolol Tartrate [Lopressor] 100 mg PO HS 12/22/15 02/29/24 History Ezetimibe [Zetia] 10 mg PO DAILY 01/23/22 02/29/24 History DULoxetine HCL [Cymbalta] 30 mg PO DAILY 11/11/23 02/29/24 History Losartan [Cozaar] 25 mg PO DAILY 11/11/23 02/29/24 History Ondansetron Odt [Zofran ODT] 4 mg PO Q8HR PRN 11/11/23 02/29/24 History Pantoprazole [Protonix] 40 mg PO DAILY #30 tab 11/19/23 02/29/24 Rx Dicyclomine [Bentyl] 20 mg PO QID PRN 12/27/23 02/29/24 History HYDROcodone/APAP 5-325MG [[place] 1 tab PO Q12H PRN 12/27/23 02/29/24 History 5-325] L.acidoph,Paracasei, B.lactis 1 cap PO DAILY 12/27/23 02/29/24 History [Probiotic] Levothyroxine Sodium [Synthroid] 112 mcg PO DAILY 12/27/23 02/29/24 History Turmeric Root Extract [Turmeric] 500 mg PO TID 12/27/23 02/29/24 History Acetaminophen Tab [Tylenol] 650 mg PO Q4H PRN 02/29/24 02/29/24 History Folic Acid 1 mg PO DAILY 02/29/24 02/29/24 History Magnesium Oxide [Mag-Ox] 400 mg PO BID 02/29/24 02/29/24 History Sodium Chloride Tab 1 gm PO DAILY 02/29/24 02/29/24 History Tolvaptan [Samsca] 15 mg PO DIRECTED 02/29/24 02/29/24 History metHOTREXate sodium [Methotrexate] 15 mg PO Q7D 02/29/24 02/29/24 History Allergies Allergy/AdvReac Type Severity Reaction Status Date / Time Iodinated Contrast Media Allergy Anaphylaxis Verified 12/27/23 14:34 [Iodinated Contrast- Oral and IV Dye] iodine Allergy Rash/Hives Verified 12/27/23 14:34 codeine AdvReac Headache & Verified 12/27/23 14:34 nausea Physical Exam Vitals: Vital Signs Temp Pulse Resp BP Pulse Ox 03/01/24 13:26 98.6 F 81 14 145/74 97 03/01/24 07:04 97.8 F 74 16 110/66 96 03/01/24 02:00 97.8 F 69 16 121/58 98 02/29/24 20:00 98.1 F 113 H 16 110/81 97 02/29/24 17:30 97.7 F 86 18 137/71 98 Intake and Output 02/29/24 03/01/24 03/01/24 22:59 06:59 14:59 Intake Total 290 240 360 Balance 290 240 360 Intake: Oral 290 240 360 Other: Voiding Method Incontinent Diaper External Catheter Incontinent External Catheter Weight 90.265 kg Results - Lab Results Most recent lab results Calcium 8.7 mg/dL (8.7-10.3) 03/01/24 05:40 Magnesium 1.9 mg/dL (1.5-2.4) 03/01/24 05:40 03/01/24 05:40 03/01/24 05:40 Assessment and Plan Assessment: 1. Acute on Chronic Hyponatremia secondary to SIADH. Was not taking salt tabs or Tolvaptan at home. Na 122-->124 today. 2. Weakness and unstable gait related to hyponatremia. 3. Benign hypertension. Stable. 4. Diabetes mellitus. 5. Diverticulitis and colovesical fistula. Surgery following. On antibiotics. Plan: Fluid restriction 1.2L. Increse sodium chlrodie tab 1g BID Will give Tolvaptan 15mg x1 today Monitor sodium level every 6 hours Goal sodium 128 by 12 am
[2024-03-01 15:30] LABS: Potassium 4.7 mmol/L (3.5-5.1)
[2024-03-01] MEDS: TOLVAPTAN 15 MG TABLET PO ONE (15:40)
[2024-03-01 17:17] LABS: Glucose,Whole Blood 146 mg/dL (70-110)
[2024-03-01 20:52] LABS: Potassium 4.6 mmol/L (3.5-5.1)
[2024-03-01] MEDS: MAG HYDROX/AL HYDROX/SIMETH 30 ML, LIDOCAINE VISCOUS 2% 30 ML, diphenhydrAMINE ELIXIR 7... PO SCH (22:05)
[2024-03-02 02:19] LABS: Potassium 4.8 mmol/L (3.5-5.1)
[2024-03-02 07:37] LABS: Glucose,Whole Blood 121 mg/dL (70-110)
[2024-03-02 08:13] LABS: Potassium 4.4 mmol/L (3.5-5.1)
[2024-03-02 09:28] LABS: HGB 10.5 g/dL (12.0-15.0); MCH 32.6 pg (27.0-32.0); MCHC 32.8 g/dL (32.0-37.0); MCV 99.4 FL (80.0-97.0); Mean Platelet Volume 11.2 FL (9.5-12.2); NRBC Per 100 WBC 0 X 10*3/uL (0.00-0.01); Platelet Count 462 X 10*3/uL (140-440); RBC 3.22 X 10*6/uL (4.10-5.20); RDW 16.3 % (11.5-14.5); WBC 10.13 X 10*3/uL (4.50-10.00)
--- NOTE | 2024-03-02 10:13 | P.PN ---
Subjective Progress Note Date: 03/02/24 Patient seen in follow-up for hyponatremia. Vital signs are stable. General: No acute distress. HEENT: Head exam is unremarkable. LUNGS: No acute distress. HEART: Rate and Rhythm are regular. ABDOMEN: Nontender. EXTREMITITES: No edema. Objective - Vital Signs Vital signs: Vital Signs Temp 97.7 F 03/02/24 06:56 Pulse 73 03/02/24 06:56 Resp 16 03/02/24 06:56 BP 123/62 03/02/24 06:56 Pulse Ox 97 03/02/24 06:56 FiO2 Intake & Output 03/01/24 03/02/24 03/02/24 18:59 06:59 18:59 Intake Total 600 830 Output Total 400 1200 Balance 200 -370 Weight 90.265 kg Intake: Oral 600 830 Output: Urine 400 1200 Other: Voiding Method Diaper Diaper Diaper Incontinent Incontinent Incontinent External Catheter External Catheter External Catheter # Voids 1 - Labs CBC & Chem 7: 03/02/24 03:32 03/02/24 07:35 Labs: Abnormal Lab Results - Last 24 Hours (Table) 03/01/24 03/01/24 03/01/24 Range/Units 05:40 12:12 14:29 WBC (4.50-10.00) X 10*3/uL RBC (4.10-5.20) X 10*6/uL Hgb (12.0-15.0) g/dL Hct (37.2-46.3) % MCV (80.0-97.0) FL MCH (27.0-32.0) pg RDW (11.5-14.5) % Plt Count (140-440) X 10*3/uL Sodium 124 L 121 L (135-145) mmol/L Chloride 90 L 93 L (96-109) mmol/L Carbon Dioxide 21 L (22-30) mmol/L BUN/Creatinine Ratio 26.14 H (12.00-20.00) Ratio POC Glucose (mg/dL) 123 H (70-110) mg/dL 03/01/24 03/01/24 03/02/24 Range/Units 17:15 19:56 01:25 WBC (4.50-10.00) X 10*3/uL RBC (4.10-5.20) X 10*6/uL Hgb (12.0-15.0) g/dL Hct (37.2-46.3) % MCV (80.0-97.0) FL MCH (27.0-32.0) pg RDW (11.5-14.5) % Plt Count (140-440) X 10*3/uL Sodium 123 L 124 L (135-145) mmol/L Chloride 93 L 94 L (96-109) mmol/L Carbon Dioxide (22-30) mmol/L BUN/Creatinine Ratio (12.00-20.00) Ratio POC Glucose (mg/dL) 146 H (70-110) mg/dL 03/02/24 03/02/24 03/02/24 Range/Units 03:32 07:35 07:36 WBC 10.13 H (4.50-10.00) X 10*3/uL RBC 3.22 L (4.10-5.20) X 10*6/uL Hgb 10.5 L (12.0-15.0) g/dL Hct 32.0 L (37.2-46.3) % MCV 99.4 H (80.0-97.0) FL MCH 32.6 H (27.0-32.0) pg RDW 16.3 H (11.5-14.5) % Plt Count 462 H (140-440) X 10*3/uL Sodium 124 L (135-145) mmol/L Chloride 94 L (96-109) mmol/L Carbon Dioxide (22-30) mmol/L BUN/Creatinine Ratio (12.00-20.00) Ratio POC Glucose (mg/dL) 121 H (70-110) mg/dL Assessment and Plan Assessment: 1. Acute on Chronic Hyponatremia secondary to SIADH. Was not taking salt tabs or Tolvaptan at home. Na 122-->124 stable today. 2. Weakness and unstable gait related to hyponatremia. 3. Benign hypertension. Stable. 4. Diabetes mellitus. 5. Diverticulitis and colovesical fistula. Surgery following. On antibiotics. Plan: Fluid restriction 1.2L. Increse sodium chlrodie tab 1g BID Will give additional Tolvaptan 15mg x1 today Monitor sodium level every 6 hours Goal sodium 130 by tomorrow
[2024-03-02] MEDS: TOLVAPTAN 15 MG TABLET PO ONE (11:13)
--- NOTE | 2024-03-02 11:38 | P.PN ---
Subjective Progress Note Date: 03/02/24 Subjective: Patient seen and examined at bedside. No acute events overnight. No improvement in weakness. Pertinent positives and negatives as discussed above, a complete review of systems was performed and all other systems are negative. Vitals: Signs Reviewed Physical Exam: General: nontoxic, no distress, appears at stated age Derm: warm, dry, intact Head: atraumatic, normocephalic, symmetric Eyes: EOMI, no lid lag, anicteric sclera Mouth: no lip lesion, mucus membranes moist Cardiovascular: S1 S2 reg, no murmur, rubs, or gallops Lungs: CTA bilateral, no rhonchi, no rales, no accessory muscle use Abdominal: soft, non-tender to palpataion, no appreciable organomegaly Extremities: no gross muscle atrophy, no edema, no contractures, b/l LE 3/5 weakness upon hip flexion Neuro: Alert, Oriented, CNII-XII grossly intact, gait normal Psych: well appearing, appropriate affect Data Received Today: Pertinent Labs: WBC 10.13, hemoglobin 10.5, platelet 462, sodium 124, potassium 4.4, bicarb 28 Imaging: no new imaging. 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 Generalized weakness - patient euvolemic - keep on fluid restriction 1200mL -Nephrology note reviewed, sodium chloride 1 g twice daily, another Samsca 15 mg today - close follow up BMP q6h, seizure precautions - [place] 5-325 PO prn for pain, monitor for sedation - PT/OT Asymptomatic Bacteruria UA positive for UTI Patient has no urinary symptoms No treatment necessary Will monitor for urinary symptoms Moderate protein calorie malnutrition - dietary consult Macrocytic anemia -No bleeding - follow up CBC Leukocytosis, likely reactive - will monitor CBC Resolved: Lactic acidosis Non-anion gap metabolic acidosis Hypomagnesia Chronic: Hypothyroidism Anxiety and Depression Hypertension Fibromyalgia Dyslipidemia Will continue necessary home medications. F: none E: Replete as needed N: heart healthy diet, Fluid restriction of 1200 mL A: Fall and seizure precaution. Pt deconditioned, PT/OT consulted. DVT ppx: lovenox Code status: Full Anticipated discharge place: pending clinical course Anticipated discharge time: pending clinical course Objective - Vital Signs Vital signs: Vital Signs Temp 97.7 F 03/02/24 06:56 Pulse 73 03/02/24 06:56 Resp 16 03/02/24 06:56 BP 123/62 03/02/24 06:56 Pulse Ox 97 03/02/24 06:56 FiO2 Intake & Output 03/01/24 03/02/24 03/02/24 18:59 06:59 18:59 Intake Total 600 830 Output Total 400 1200 Balance 200 -370 Weight 90.265 kg Intake: Oral 600 830 Output: Urine 400 1200 Other: Voiding Method Diaper Diaper Diaper Incontinent Incontinent Incontinent External Catheter External Catheter External Catheter # Voids 1 - Labs CBC & Chem 7: 03/02/24 03:32 03/02/24 07:35 Labs: Abnormal Lab Results - Last 24 Hours (Table) 03/01/24 03/01/24 03/01/24 Range/Units 05:40 12:12 14:29 WBC (4.50-10.00) X 10*3/uL RBC (4.10-5.20) X 10*6/uL Hgb (12.0-15.0) g/dL Hct (37.2-46.3) % MCV (80.0-97.0) FL MCH (27.0-32.0) pg RDW (11.5-14.5) % Plt Count (140-440) X 10*3/uL Sodium 124 L 121 L (135-145) mmol/L Chloride 90 L 93 L (96-109) mmol/L Carbon Dioxide 21 L (22-30) mmol/L BUN/Creatinine Ratio 26.14 H (12.00-20.00) Ratio POC Glucose (mg/dL) 123 H (70-110) mg/dL 03/01/24 03/01/24 03/02/24 Range/Units 17:15 19:56 01:25 WBC (4.50-10.00) X 10*3/uL RBC (4.10-5.20) X 10*6/uL Hgb (12.0-15.0) g/dL Hct (37.2-46.3) % MCV (80.0-97.0) FL MCH (27.0-32.0) pg RDW (11.5-14.5) % Plt Count (140-440) X 10*3/uL Sodium 123 L 124 L (135-145) mmol/L Chloride 93 L 94 L (96-109) mmol/L Carbon Dioxide (22-30) mmol/L BUN/Creatinine Ratio (12.00-20.00) Ratio POC Glucose (mg/dL) 146 H (70-110) mg/dL 03/02/24 03/02/24 03/02/24 Range/Units 03:32 07:35 07:36 WBC 10.13 H (4.50-10.00) X 10*3/uL RBC 3.22 L (4.10-5.20) X 10*6/uL Hgb 10.5 L (12.0-15.0) g/dL Hct 32.0 L (37.2-46.3) % MCV 99.4 H (80.0-97.0) FL MCH 32.6 H (27.0-32.0) pg RDW 16.3 H (11.5-14.5) % Plt Count 462 H (140-440) X 10*3/uL Sodium 124 L (135-145) mmol/L Chloride 94 L (96-109) mmol/L Carbon Dioxide (22-30) mmol/L BUN/Creatinine Ratio (12.00-20.00) Ratio POC Glucose (mg/dL) 121 H (70-110) mg/dL
[2024-03-02 12:18] LABS: Glucose,Whole Blood 133 mg/dL (70-110)
[2024-03-02] MEDS: ZINC OXIDE PASTE (Z-GUARD) 1 APPLIC TOPICAL PRN (13:02)
[2024-03-02 14:51] LABS: Potassium 4.5 mmol/L (3.5-5.1)
[2024-03-02] MEDS: predniSONE 50 MG TAB PO ONE (16:19)
[2024-03-02] MEDS: FAMOTIDINE 20 MG/2 ML VIAL IV STA (16:39)
[2024-03-02] MEDS: diphenhydrAMINE 50 MG/ML 1 ML VIAL IVP STA (16:40)
[2024-03-02] MEDS: methylPREDNISolone SOD SUCCI 125 MG/2 ML VIAL IV STA (16:41)
[2024-03-02 17:26] LABS: Glucose,Whole Blood 156 mg/dL (70-110)
--- NOTE | 2024-03-02 17:41 | CT ---
EXAMINATION TYPE: CT facial bones w con CT DLP: 778 mGycm, Automated exposure control for dose reduction was used. DATE OF EXAM: 03/02/2024 5:12 PM COMPARISON: 09/07/2016.. CLINICAL INDICATION:Female, 78 years old with history of dental abscess?; PHH, dental abscess? with d ysphagia. TECHNIQUE: Multiple unenhanced axial CT images were obtained of the facial bones soft tissue and bone windows. Coronal, axial and sagittal reformatted images were also provided in soft tissue and bone windows and submitted for interpretation. Contrast used:100ML mL of Isovue 300 with IV Contrast, (none if empty) Oral contrast used: (none if empty) FINDINGS: Streak artifact limits evaluation of the maxilla and mandible. There is no organizing fluid collection within the visualized. Bilaterally aphakia. Benign hyperostosis frontalis. Visualized int racranial vasculature is patent. Paranasal sinuses are relatively clear. The mucosa of the pharynx ap pears rather symmetric. Temporal mandibular joints demonstrate degeneration changes bilaterally. Mult ilevel degeneration changes of the spine. Mild generalized atrophy changes of the brain. IMPRESSION: No evidence for abscess. No acute processes definitively visualized.
[2024-03-02 20:35] LABS: Glucose,Whole Blood 200 mg/dL (70-110)
[2024-03-03 02:41] LABS: Potassium 4.8 mmol/L (3.5-5.1)
[2024-03-03 07:46] LABS: Glucose,Whole Blood 184 mg/dL (70-110)
[2024-03-03 10:26] LABS: Anion Gap 11.5 mmol/L (4.00-12.00); Carbon Dioxide 24.5 mmol/L (21.6-31.8); Potassium 5.1 mmol/L (3.5-5.5)
[2024-03-03 12:00] LABS: Glucose,Whole Blood 189 mg/dL (70-110)
--- NOTE | 2024-03-03 14:23 | P.PN ---
Subjective Progress Note Date: 03/03/24 Subjective: Patient seen and examined at bedside. No acute events overnight. No im provement in weakness. Pertinent positives and negatives as discussed above, a complete review of systems was performed and all other systems are negative. Vitals: Signs Reviewed Physical Exam: General: nontoxic, no distress, appears at stated age Derm: warm, dry, intact Head: atraumatic, normocephalic, symmetric Eyes: EOMI, no lid lag, anicteric sclera Mouth: no lip lesion, mucus membranes moist Cardiovascular: S1 S2 reg, no murmur, rubs, or gallops Lungs: CTA bilateral, no rhonchi, no rales, no accessory muscle use Abdominal: soft, non-tender to palpataion, no appreciable organomegaly Extremities: no gross muscle atrophy, no edema, no contractures, b/l LE 3/5 weak ness upon hip flexion Neuro: Alert, Oriented, CNII-XII grossly intact, gait normal Psych: well appearing, appropriate affect Data Received Today: Pertinent Labs: sodium 131, potassium 5.1, Cl 95, bicarb 24.5, glucose range 184-189 Imaging: no new imaging. 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 Generalized weakness - patient euvolemic - keep on fluid restriction 1200mL -status post [facility] [place] - Nephrology following, continue sodium chloride 1 g twice daily - follow up BMP daily, seizure precautions - [place] 5-325 PO prn for pain, monitor for sedation - PT/OT - needs CECILIO Asymptomatic Bacteruria -UA positive for UTI -Patient has no urinary symptoms -No treatment necessary -Will monitor for urinary symptoms Moderate protein calorie malnutrition - dietary consult Macrocytic anemia -No bleeding - follow up CBC Leukocytosis, likely reactive - will monitor CBC Left maxillary pain - has poor dentition - face CT did not show any infectious process - tylenol 650 q6h prn for pain - encourage oral intake Resolved: Lactic acidosis Non-anion gap metabolic acidosis Hypomagnesia Chronic: Hypothyroidism Anxiety and Depression Hypertension Fibromyalgia Dyslipidemia F: none E: Replete as needed N: heart healthy diet, Fluid restriction of 1200 mL A: Fall and seizure precaution. Pt deconditioned, PT/OT consulted. DVT ppx: lovenox Code status: Full Anticipated discharge place: likely rehab Anticipated discharge time: likely 1-2 days I have seen and evaluated the patient today. Discussed with the resident and agree with resident's findings and plan as documented in the resident's note. Changes highlighted in blue font. Objective - Vital Signs Vital signs: Vital Signs Temp 97.5 F L 03/03/24 01:21 Pulse 69 03/03/24 01:21 Resp 19 03/03/24 01:21 BP 142/74 03/03/24 01:21 Pulse Ox 96 03/03/24 01:21 FiO2 Intake & Output 03/02/24 03/03/24 03/03/24 18:59 06:59 18:59 Intake Total 240 Output Total 750 Balance -510 Intake: Oral 240 Output: Urine 750 Other: Voiding Method Diaper Diaper Incontinent Incontinent External Catheter External Catheter # Voids 2 # Bowel Movements 1 - Labs CBC & Chem 7: 03/02/24 03:32 03/03/24 07:36 Labs: Abnormal Lab Results - Last 24 Hours (Table) 03/02/24 03/02/24 03/02/24 Range/Units 03:32 07:35 07:36 WBC 10.13 H (4.50-10.00) X 10*3/uL RBC 3.22 L (4.10-5.20) X 10*6/uL Hgb 10.5 L (12.0-15.0) g/dL Hct 32.0 L (37.2-46.3) % MCV 99.4 H (80.0-97.0) FL MCH 32.6 H (27.0-32.0) pg RDW 16.3 H (11.5-14.5) % Plt Count 462 H (140-440) X 10*3/uL Sodium 124 L (137-145) mmol/L Chloride 94 L (98-107) mmol/L POC Glucose (mg/dL) 121 H (70-110) mg/dL 03/02/24 03/02/24 03/02/24 Range/Units 12:17 14:29 17:24 WBC (4.50-10.00) X 10*3/uL RBC (4.10-5.20) X 10*6/uL Hgb (12.0-15.0) g/dL Hct (37.2-46.3) % MCV (80.0-97.0) FL MCH (27.0-32.0) pg RDW (11.5-14.5) % Plt Count (140-440) X 10*3/uL Sodium 125 L (137-145) mmol/L Chloride 95 L (98-107) mmol/L POC Glucose (mg/dL) 133 H 156 H (70-110) mg/dL 03/02/24 03/02/24 03/03/24 Range/Units 20:13 20:33 01:56 WBC (4.50-10.00) X 10*3/uL RBC (4.10-5.20) X 10*6/uL Hgb (12.0-15.0) g/dL Hct (37.2-46.3) % MCV (80.0-97.0) FL MCH (27.0-32.0) pg RDW (11.5-14.5) % Plt Count (140-440) X 10*3/uL Sodium 126 L 129 L (137-145) mmol/L Chloride 96 L 97 L (98-107) mmol/L POC Glucose (mg/dL) 200 H (70-110) mg/dL
[2024-03-03] MEDS ORDERED: ACETAMINOPHEN TAB 325 MG TAB PO PRN (15:20)
[2024-03-03 17:10] LABS: Glucose,Whole Blood 177 mg/dL (70-110)
[2024-03-03 20:11] LABS: Glucose,Whole Blood 247 mg/dL (70-110)
[2024-03-04 07:14] LABS: Glucose,Whole Blood 155 mg/dL (70-110)
[2024-03-04 07:56] VITALS: TEMP 97.5
[2024-03-04 09:08] LABS: African American GFR (CKD) >90 (>60 ml/min/1.73 sqM); Anion Gap 3 mmol/L; Blood Urea Nitrogen 16 mg/dL (7-17); Calcium 9.4 mg/dL (8.4-10.2); Carbon Dioxide 30 mmol/L (22-30); Chloride 100 mmol/L (98-107); Glucose 127 mg/dL (74-99); Non-African American GFR(CKD) 87 (>60 ml/min/1.73 sqM); Potassium 4.3 mmol/L (3.5-5.1); Sodium 133 mmol/L (137-145)
[2024-03-04 11:57] LABS: Glucose,Whole Blood 156 mg/dL (70-110)
--- NOTE | 2024-03-04 13:57 | P.DS ---
Providers Date of admission: 02/29/24 12:22 Discharge Diagnosis: Symptomatic moderate hyponatremia likely secondary to SIADH Generalized weakness Asymptomatic bacteriuria Moderate protein calorie malnutrition Microcytic anemia Leukocytosis Left maxillary pain Lactic acidosis Non-anion gap metabolic acidosis Hypomagnesia Hypothyroidism Anxiety and depression Hypertension Fibromyalgia Dyslipidemia Hospital Course: Patient is a 78 female with a past medical history of SIADH, breast cancer, hypertension, osteoarthritis, hypothyroidism presents to the ED with weakness. This morning, while on the toilet, she was unable to get back up for over an hour. She was able to call for assistance and was brought to the ED. She mentioned she had a headache, some confusion, and felt nauseous when it first occurred. Patient also mentioned being short of breath. She states she didn't have her salt tablets for over a week. She is unsure if she is still taking Samsca. Shes mention she has been previously hospitalized due to hyponatremia. Denies any fall, syncope, or trauma. Denies any numbness/tingling, slurred speech, chest pain, leg edema, seizure. Vitals in the ED were ID 90, RR 17, BP 134/70, O2 98 on room air. LABS showed WBC: 11.5, Hgb 10.8, Na 122, Cl 92, CO2 20, BUN 20, Cr 0.69, Glucose 167, Lactic Acid 1.2, Mg 1.4, Total Protein 5.4, Albumin 2.9, TSH 1.210, troponin <0.012. CXR: on independent interpretation showed no acute process. EKG: on independent interpretation showed sinus tachycardia. UA was positive for UTI. However patient has no urinary symptoms. Patient appears euvolemic. Nephrology consulted. She is to be admitted for further evaluation and monitoring of symptomatic moderate hyponatremia. Follow- up labs showed Serum osmolarity 264, urine osmolarity 438, urine sodium 27. While admitted we increased her sodium chloride tab twice daily, added Samsca 15 mg daily, and was put on a fluid restriction of 1200 mL. Follow-up BMP every 6hr. patient also had complaint of facial pain. The CT did not show any infectious process. Sodium levels have corrected and trending in the right direction. She is to follow-up with PCP. She is being discharged home. 03/04/2024: Patient seen and examined at bedside. No acute events overnight. Vital signs reviewed and stable. Physical Exam: General: nontoxic, no distress, appears at stated age Derm: warm, dry, intact Head: atraumatic, normocephalic, symmetric Eyes: EOMI, no lid lag, anicteric sclera Mouth: no lip lesion, mucus membranes moist Cardiovascular: S1 S2 reg, no murmur, rubs, or gallops Lungs: CTA bilateral, no rhonchi, no rales, no accessory muscle use Abdominal: soft, non-tender to palpataion, no appreciable organomegaly Extremities: no gross muscle atrophy, no edema, no contractures, b/l LE 3/5 weakness upon hip flexion Neuro: Alert, Oriented, CNII-XII grossly intact, gait normal Psych: well appearing, appropriate affect A total of 30 minutes of time were spent preparing this complex discharge summary. Patient was discharge on 03/04/2024 at Expected date of discharge: 03/04/24 Attending physician: Joe Muller MD Consults: 02/29/24 12:20 Consult Physician Urgent Consulting Provider: Mayito Danielson Consult Reason/Comments: hyponatremia, siadh Do you want consulting provider notified?: Yes Primary care physician: [facility] [place] Course: I have seen and evaluated the patient today. Discussed with the resident and agree with the residents subjective and objective as documented in the resident's note. The assessment and plan was discussed and outlined as below. Patient reports no complaints. This morning Na is 133. Prefers to go home versus SNF. Son lives in the same apartment complex as her. Continue salt tabs 1g PO BID. Advised fluid restriction to 1.2L. Follow up with PCP within 1-2 days and Nephrology within 1 week of discharge. Discharge Diagnosis: Symptomatic hyponatremia secondary to SIADH Generalized weakness Asymptomatic bacteruria Moderate protein calorie malnutrition Macrocytic anemia Leukocytosis, likely reactive Left maxillary pain Resolved: Lactic acidosis, Non-anion gap metabolic acidosis, HypomMag Chronic: Hypothyroidism, Anxiety and Depression, Hypertension, Fibromyalgia, Dyslipidemia Patient Condition at Discharge: Stable Plan - Discharge Summary Discharge Rx Participant: Yes New Discharge Prescriptions: New Sodium Chloride Tab 1 gm PO BID #30 tab Continue Metoprolol Tartrate [Lopressor] 100 mg PO HS Losartan [Cozaar] 25 mg PO DAILY L.acidoph,Paracasei, B.lactis [Probiotic] 1 cap PO DAILY Turmeric Root Extract [Turmeric] 500 mg PO TID metHOTREXate sodium [Methotrexate] 15 mg PO Q7D Ezetimibe [Zetia] 10 mg PO DAILY Ondansetron Odt [Zofran ODT] 4 mg PO Q8HR PRN PRN Reason: Nausea And Vomiting DULoxetine HCL [Cymbalta] 30 mg PO DAILY Pantoprazole [Protonix] 40 mg PO DAILY #30 tab HYDROcodone/APAP 5-325MG [[place] 5-325] 1 tab PO Q12H PRN PRN Reason: Pain Dicyclomine [Bentyl] 20 mg PO QID PRN PRN Reason: Gi Upset Levothyroxine Sodium [Synthroid] 112 mcg PO DAILY Folic Acid 1 mg PO DAILY Magnesium Oxide [Mag-Ox] 400 mg PO BID Acetaminophen Tab [Tylenol] 650 mg PO Q4H PRN PRN Reason: Fever And/ Or Pain Tolvaptan [Samsca] 15 mg PO DIRECTED Discontinued Sodium Chloride Tab 1 gm PO DAILY Discharge Medication List Metoprolol Tartrate [Lopressor] 100 mg PO HS 12/22/15 [History] Ezetimibe [Zetia] 10 mg PO DAILY 01/23/22 [History] DULoxetine HCL [Cymbalta] 30 mg PO DAILY 11/11/23 [History] Losartan [Cozaar] 25 mg PO DAILY 11/11/23 [History] Ondansetron Odt [Zofran ODT] 4 mg PO Q8HR PRN 11/11/23 [History] Pantoprazole [Protonix] 40 mg PO DAILY #30 tab 11/19/23 [Rx] Dicyclomine [Bentyl] 20 mg PO QID PRN 12/27/23 [History] HYDROcodone/APAP 5-325MG [[place] 5-325] 1 tab PO Q12H PRN 12/27/23 [History] L.acidoph,Paracasei, B.lactis [Probiotic] 1 cap PO DAILY 12/27/23 [History] Levothyroxine Sodium [Synthroid] 112 mcg PO DAILY 12/27/23 [History] Turmeric Root Extract [Turmeric] 500 mg PO TID 12/27/23 [History] Acetaminophen Tab [Tylenol] 650 mg PO Q4H PRN 02/29/24 [History] Folic Acid 1 mg PO DAILY 02/29/24 [History] Magnesium Oxide [Mag-Ox] 400 mg PO BID 02/29/24 [History] Tolvaptan [Samsca] 15 mg PO DIRECTED 02/29/24 [History] metHOTREXate sodium [Methotrexate] 15 mg PO Q7D 02/29/24 [History] Sodium Chloride Tab 1 gm PO BID #30 tab 03/04/24 [Rx] Follow up Appointment(s)/Referral(s): Dominga Joseph MD [STAFF PHYSICIAN] - 1 Week (please call the office to schedule a follow up appointment. ) Lg Kraus DO [Primary Care Provider] - 03/07/24 12:40 pm [facility], [NON-STAFF] - 1 Week Patient Instructions/Handouts: Sodium Chloride (By mouth), Hyponatremia (DC), Weakness (DC), Fall Prevention (DC) Activity/Diet/Wound Care/Special Instructions: Limit fluid consumption to 1.2L fluid restriction daily Discharge Disposition: HOME SELF-CARE
[2024-03-04 14:01] VITALS: BP 97/66; PULSE 87; RESP 18
--- NOTE | 2024-03-06 13:28 | P.PN ---
Subjective patient is seen for follow-up for hyponatremia. No significant complaints today. Serum sodium has improvedto 129 today. Tolerating oral intake. Objective - Vital Signs Vital signs: Vital Signs Temp 97.5 F L 03/04/24 13:15 Pulse 87 03/04/24 13:15 Resp 18 03/04/24 13:15 BP 97/66 03/04/24 13:15 Pulse Ox 97 03/04/24 13:15 FiO2 - Exam patient is awake, comfortable, no acute distress. Examination of the heart S1 and S2 Examination of the lungs bilateral breath sounds are heard Abdomen is soft obese nontender Examination lower extremities shows no significant edema - Labs CBC & Chem 7: 03/02/24 03:32 03/04/24 07:56 Assessment and Plan Assessment: 1. Acute on Chronic Hyponatremia secondary to SIADH. Was not taking salt tabs or Tolvaptan at home. Na 122-->129 stable today. status post Samsca 2. Weakness and unstable gait related to hyponatremia. 3. Benign hypertension. Stable. 4. Diabetes mellitus. 5. Diverticulitis and colovesical fistula. Surgery following. On antibiotics. Plan: continue with fluid restriction. Peak labs in a.m.
--- NOTE | 2024-03-06 13:31 | P.PN ---
Subjective patient is seen for follow-up for hyponatremia. No significant complaints today. Serum sodium has improvedto 133 today. Tolerating oral intake. Objective - Vital Signs Vital signs: Vital Signs Temp 97.5 F L 03/04/24 13:15 Pulse 87 03/04/24 13:15 Resp 18 03/04/24 13:15 BP 97/66 03/04/24 13:15 Pulse Ox 97 03/04/24 13:15 FiO2 - Exam patient is awake, comfortable, no acute distress. Examination of the heart S1 and S2 Examination of the lungs bilateral breath sounds are heard Abdomen is soft obese nontender Examination lower extremities shows no significant edema - Labs CBC & Chem 7: 03/02/24 03:32 03/04/24 07:56 Assessment and Plan Assessment: 1. Acute on Chronic Hyponatremia secondary to SIADH. Was not taking salt tabs or Tolvaptan at home. Na 122-->133 today. status post [facility] [place] [place] 03/02/2024 2. Weakness and unstable gait related to hyponatremia. 3. Benign hypertension. Stable. 4. Diabetes mellitus. 5. Diverticulitis and colovesical fistula. Surgery following. On antibiotics. Plan: continue with fluid restriction. monitor serum sodium closely as outpatient. Follow-up as outpatient in 1 week.
== END 2024-03-04 14:48 | disposition home or self-care (01) | DRG 644 ==
LOC: EC 08:14 → 4SSUR 12:22 → 5NMEDONC 13:44
PROVIDERS: ADMIT Student in an Organized Health Care Education/Training Program; ATTEND Student in an Organized Health Care Education/Training Program
DX: E22.2 Syndrome of inappropriate secretion of antidiuretic hormone (principal); E44.0 Moderate protein-calorie malnutrition; E87.20 Acidosis, unspecified; N32.1 Vesicointestinal fistula; K57.92 Diverticulitis of intestine, part unspecified, without perforation or abscess without bleeding; N39.0 Urinary tract infection, site not specified; E83.42 Hypomagnesemia; D53.9 Nutritional anemia, unspecified; M79.7 Fibromyalgia; E78.5 Hyperlipidemia, unspecified; I10 Essential (primary) hypertension; F41.9 Anxiety disorder, unspecified; E03.9 Hypothyroidism, unspecified; Z79.890 Hormone replacement therapy; E11.9 Type 2 diabetes mellitus without complications; R26.81 Unsteadiness on feet; D50.9 Iron deficiency anemia, unspecified; Z82.49 Family history of ischemic heart disease and other diseases of the circulatory system; Z85.3 Personal history of malignant neoplasm of breast; Z87.891 Personal history of nicotine dependence; Z90.710 Acquired absence of both cervix and uterus; Z90.49 Acquired absence of other specified parts of digestive tract; F32.A Depression, unspecified; J44.9 Chronic obstructive pulmonary disease, unspecified; Z79.899 Other long term (current) drug therapy; Z86.79 Personal history of other diseases of the circulatory system
CPT/HCPCS: 36415; 70487; 71046; 80048; 80051; 80053; 81001; 83605; 83735; 83930; 83935; 84300; 84443; 84484; 85025; 85027; 85610; 93005; 96361; 96365; 96366; 99285